=== PATIENT | male | born 1975 | race Caucasian/White ===

== ENCOUNTER 2020-01-15 16:43 | Emergency (ER) | payer OTHER, SELFPAY ==
[2020-01-15 17:06] VITALS: BP 132/84; PULSE 111; RESP 16; TEMP 36.4; O2SAT 99
--- NOTE | 2020-01-15 17:21 | ED.EYEPROB ---
HPI - Eye Problem General Chief complaint: Upper Respiratory Infection Stated complaint: pos pink eye/cough Time Seen by Provider: 01/15/20 17:21 Source: patient and RN notes reviewed Mode of arrival: ambulatory Limitations: no limitations History of Present Illness HPI Narrative: 44-year-old male presents with concern for left eye discharge, redness, itchiness. Also reports cough that started Tuesday. He denies fever, shortness of breath, malaise, chills, sweats, rhinorrhea, nasal congestion. Reports postnasal drainage. Denies travel, sick contacts. MD chief complaint: eye redness Related Data Home Medications Medication Instructions Recorded Confirmed dapagliflozin [Farxiga] 10 mg PO DAILY 01/15/20 01/15/20 escitalopram oxalate [Lexapro] 10 mg PO DAILY 01/15/20 01/15/20 insulin glargine [Basaglar KwikPen 50 unit SUBCUT DAILY 01/15/20 01/15/20 U-100 Insulin] liraglutide [Victoza 2-Paul] 1.2 mg SUBCUT DAILY 01/15/20 01/15/20 metformin [Glucophage] 1,000 mg PO BID 01/15/20 01/15/20 metoprolol tartrate [Lopressor] 100 mg PO BID 01/15/20 01/15/20 Allergies Allergy/AdvReac Type Severity Reaction Status Date / Time No Known Allergies Allergy Verified 01/15/20 17:14 Review of Systems Review of Systems: Narrative: CONSTITUTIONAL: Denies malaise, chills, sweats, or fever. EYES: Denies visual changes. Reports left eye redness, itchiness, discharge. ENT: Reports postnasal drainage. Denies rhinorrhea, congestion, sinus pain, otalgia and sore throat. CARDIOVASCULAR: Denies chest pain, palpitations, or edema. RESPIRATORY: Reports cough. Denies dyspnea. GASTROINTESTINAL: Denies abdominal pain, nausea, vomiting, diarrhea SKIN: Denies rash or itching. MUSCULOSKELETAL: Denies myalgia. NEUROLOGIC: Denies headache. All systems reviewed & are unremarkable except as noted in HPI and below PMFSH Social History Social History Gender identity (if verbalized by the patient): Male Comments At time of signature, agree with nursing past medical, surgical, social and family history. There is no relevant family history pertinent to the presenting complaint Exam Narrative: Exam Narrative: GENERAL: Well-appearing, well-nourished, and in no acute distress. HEAD: Normocephalic EYES: Right PERRLA, conjunctivae clear. Left conjunctive and sclera injected, green drainage noted, PERRLA, EOMI ENT: Nares clear, turbinates erythematous, clear discharge. Mucous membranes moist. TM pearly sibley with sharp light reflex bilaterally; no tragal tenderness. Oropharynx not erythematous without lesions. Tonsils not enlarged and without exudate, no drooling, no hoarseness, no trismus, uvula midline. NECK: Supple. No lymphadenopathy CHEST: Clear to auscultation, breath sounds equal. No wheezing, rhonchi, rales, or stridor. No respiratory distress, speaks in full sentences. HEART: Regular rate and rhythm. No murmur heard. SKIN: Warm, dry, no rash. NEURO: Alert and oriented x3. PSYCH: Normal mood and affect Course Course Emergency Course: Patient is aware of diagnosis, understands and agrees to treatment plan. Anticipatory guidance given. Patient agrees to follow-up as directed and is aware of reasons to seek care at the emergency department. Portions of this record may have been created with voice recognition software Vital Signs Vital signs: Vital Signs Temperature 97.6 F 01/15/20 17:06 Pulse Rate 111 H 01/15/20 17:06 Respiratory Rate 16 01/15/20 17:06 Blood Pressure 132/84 01/15/20 17:06 Pulse Oximetry 99 01/15/20 17:06 Temperature 97.6 F 01/15/20 17:06 Pulse Rate 111 H 01/15/20 17:06 Respiratory Rate 16 01/15/20 17:06 Blood Pressure 132/84 01/15/20 17:06 Pulse Oximetry 99 01/15/20 17:06 Your blood pressure was elevated above 120/80 today at [facility]. This puts you above the threshold for follow up. Please schedule a follow up visit with your personal physician as soon as possible, for further evaluation and tr
== END 2020-01-15 17:34 | disposition home or self-care (01) ==
PROVIDERS: Emergency Provider Nurse Practitioner; PCP Family Medicine
DX: R05 Cough (principal); H10.32 Unspecified acute conjunctivitis, left eye; E11.9 Type 2 diabetes mellitus without complications
CPT/HCPCS: 99213; G0463

== ENCOUNTER 2020-10-26 10:35 | Inpatient (IN) | payer OTHER, SELFPAY ==
[2020-10-26] VITALS (14 sets, daily range): BP systolic 104–165; BP diastolic 73–93; PULSE 104–135; RESP 19–28; TEMP 35.7–36.5; O2SAT 98–100; BMI 26.8
--- NOTE | ~2020-10-26 | XR_ITS ---
EXAMINATION: XR chest 1V portable EXAM DATE: 10/26/2020 11:05 INDICATION: Shortness of breath, COVID positive. TECHNIQUE: Portable AP frontal chest x-ray was obtained. Comparison is made to prior examination from 02/18/2016. FINDINGS: Small amount of left infrahilar infiltrate without confluent consolidation. The lungs are o therwise clear. There are no pleural effusions. The cardiomediastinal silhouette is within normal l imits. There is no pneumothorax suspected. The bones and soft tissues are unremarkable. IMPRESSION: Small amount of left infrahilar acute airspace disease. Reviewed, dictated and finalized at location [facility]
--- NOTE | 2020-10-26 10:36 | ED.SOB ---
HPI - SOB/Dyspnea General Chief Complaint: Shortness of Breath/Dyspnea Stated Complaint: covid +, sob/diarrhea Source: patient and EMS Mode of arrival: EMS Limitations: no limitations History of Present Illness HPI Narrative: Patient is a 45-year-old male with a history of type 1 diabetes, insulin-dependent, who presents for evaluation body aches, diarrhea, shortness of breath. Patient with known Covid diagnosis, confirmed on 10/22, who presents with worsening myalgias, vomiting, diarrhea. Patient denies fever. He reports diffuse body myalgias. He denies loss of sense of taste or smell. Patient states he was exposed to Covid through his sister. He denies any rash. Patient states his sugars have been poorly controlled over the past few days. He is denying any chest pain. He denies abdominal pain. Related Data Home Medications Medication Instructions Recorded Confirmed dapagliflozin [Farxiga] 10 mg PO DAILY 01/15/20 01/15/20 escitalopram oxalate [Lexapro] 10 mg PO DAILY 01/15/20 01/15/20 insulin glargine [Basaglar KwikPen 50 unit SUBCUT DAILY 01/15/20 01/15/20 U-100 Insulin] liraglutide [Victoza 2-Paul] 1.2 mg SUBCUT DAILY 01/15/20 01/15/20 metformin [Glucophage] 1,000 mg PO BID 01/15/20 01/15/20 metoprolol tartrate [Lopressor] 100 mg PO BID 01/15/20 01/15/20 Allergies Allergy/AdvReac Type Severity Reaction Status Date / Time No Known Allergies Allergy Verified 10/26/20 10:40 Review of Systems Review of Systems: Narrative: CONSTITUTIONAL: Denies fever, chills, or sweats. ENT: Denies rhinorrhea, congestion, sore throat, or otalgia. CARDIOVASCULAR: Denies chest pain, palpitations, or edema. RESPIRATORY: Denies cough or dyspnea. GASTROINTESTINAL: Denies abdominal pain, reports nausea, vomiting and diarrhea GENITOURINARY: Denies dysuria or hematuria. SKIN: Denies rash or itching. MUSCULOSKELETAL: Denies back pain, joint pain, reports diffuse myalgias NEUROLOGIC: Reports mild headache without PMFSH Past Medical History Medical History (Updated 10/26/20 @ 14:05 by Rebecca Hernandez PA-C) Hypertension Insulin dependent type 2 diabetes mellitus Social History Social History (Updated 10/26/20 @ 14:06 by Rebecca Hernandez PA-C) Social History: The patient lives in [place]. Nonsmoker. No alcohol or illicit substance abuse. He designates his mother, Dolly Laughlin, as his surrogate decision maker and he wishes to be a full code.. Smoking status: Never smoker Alcohol intake: never Substance use: never Living arrangements: with family Gender identity (if verbalized by the patient): Male Exam Narrative: Exam Narrative: GENERAL: Awake, alert, uncomfortable appearing, conversant HEAD: Normocephalic, atraumatic. EYES: PERRLA and EOMI. ENT: Nares clear, no rhinorrhea or epistaxis. Mucous membranes moist. NECK: Supple. CHEST: Tachypneic, lungs clear to auscultation bilaterally, no crackles HEART: Tachycardic rate, sinus rhythm ABDOMEN:Non distended, non tender EXTREMITIES: Normal range of motion. No edema. SKIN: Warm, dry, no rash. NEURO:No focal deficits. Alert and oriented x3 Course Vital Signs Vital signs: Vital Signs Temperature 35.7 C L 10/26/20 10:33 Pulse Rate 132 H 10/26/20 10:33 Respiratory Rate 28 H 10/26/20 10:33 Pulse Oximetry 99 10/26/20 10:33 Temperature 35.7 C L 10/26/20 10:33 Pulse Rate 133 H 10/26/20 13:29 Respiratory Rate 28 H 10/26/20 13:29 Blood Pressure 155/76 H 10/26/20 13:29 Pulse Oximetry 100 10/26/20 13:29 MDM - SOB/Dyspnea MDM Narrative Medical decision making narrative: Patient is a 45-year-old male who presented for evaluation of vomiting, shortness of breath in the setting of a known Covid diagnosis. The time of assessment, patient is tachycardic, tachypneic, afebrile. No hypoxia. Given symptoms I was concerned for possible Covid pneumonia versus PE versus DKA given the patient's elevated blood glucose levels. Laboratory resul
[2020-10-26 10:46] LABS: Glucose Point of Care 426 (65-105)
--- NOTE | 2020-10-26 10:50 | ECG_ITS ---
Measurements Intervals [place] Rate: 126 P: 104 NH: 163 QRS: 63 QRSD: 105 T: 32 QT: 307 QTc: 445 Interpretive Statements SINUS TACHYCARDIA PEAKED T WAVES- CONSIDER HYPERKALEMIA OR ISCHEMIA BASELINE ARTIFACT- I, II, III, AVR, AVL, AVF ABNORMAL ECG Electronically Signed On 10-26-2020 15:11:38 [facility]ILDCARE AIDE by Ramiro Villa D.O.
[2020-10-26] MEDS: ONDANSETRON INJ 4 MG/2 ML VIAL IV PUSH (11:00)
[2020-10-26] MEDS: MORPHINE SULFATE (*CRX) 4 MG/ML INJ IV PUSH (11:00)
[2020-10-26] MEDS: SODIUM CHLORIDE 0.9% IV 1,000 ML 999 ML IV CONT ×3 (11:00→15:04)
[2020-10-26 11:26] LABS: Alveolar/Arterial O2 Gradient 6.2 mmHg; Base Excess ABG -30.1 mEq/l (+/-2.0); Carboxyhemoglobin 0.3 % THb (0-2.0); Fractional Inspired Oxygen 21 %; HCO3 ABG 2.2 mEq/l (22.0-26.0); Methemoglobin ABG 0.4 %THb (0-1.5); Oxygen Saturation ABG 95.7 % (95.0-100.0); Oxyhemoglobin 96.7 % THb (90.0-100.0); PO2 ABG 129.2 mmHg (80.0-100.0); PO2 FiO2 Ratio Arterial Blood 6.15 %; Reduced Hemoglobin 2.6 %THb (0-5.0); Total Hemoglobin 16.1 g/dL (12.0-18.0)
[2020-10-26 11:27] LABS: Basophils Absolute Auto 0.1 K/mm3 (0.0-0.1); Basophils Percent Auto 0.4 % (0.2-1.2); Hematocrit 53.9 % (42.0-52.0); Hemoglobin 17.4 g/dL (14.0-18.0); Immature Granulocyte Percent A 2.1 % (0-0.5); Lymphocytes Absolute Auto 1.45 K/mm3 (0.9-3.2); Lymphocytes Percent Auto 10.3 % (18.3-44.2); Mean Corpuscular HGB Conc 32.3 g/dl (32-36); Mean Corpuscular Hemoglobin 29.4 pg (26-34); Mean Corpuscular Volume 91.2 fl (80-100); Mean Platelet Volume 10.2 fl (7.4-10.4); Monocytes Percent Auto 7.3 % (2.6-8.5); Neutrophils Absolute Auto 11.2 K/mm3 (1.3-6.7); Neutrophils Percent Auto 79.9 % (45.5-73.1); Platelet Count Result 279 k/mm3 (150-375); Red Blood Count 5.91 M/mm3 (4.6-6.20); Red Cell Distribution Width 11.6 % (11.5-14.5); White Blood Count 14.1 K/mm3 (4.5-10.0)
[2020-10-26 11:28] LABS: pH ABG 6.874 (7.350-7.450)
[2020-10-26 11:29] LABS: Device ROOM AIR; Site Drawn LEFT BRACHIAL
[2020-10-26 11:32] LABS: Alanine Aminotransferase 21 U/L (4-50); Albumin Level 4.2 g/dL (3.5-5.1); Alkaline Phosphatase 138 U/L (38-126); Aspartate Amino Transferase 27 U/L (17-59); Bilirubin,Total 0.4 mg/dL (0.2-1.3); Blood Urea Nitrogen 21 mg/dL (9-20); Calcium 9.3 mg/dL (8.4-10.2); Carbon Dioxide < 5 mmol/L (22-30); Chloride 96 mmol/L (98-107); Estimated CRCL calculation 80 ml/min; Estimated Glomerular Filt Rate > 60; Glucose 440 mg/dL (75-110); Magnesium 2.1 mg/dL (1.6-2.3); Phosphorus 8.2 mg/dL (2.5-4.5); Potassium 5.5 mmol/L (3.4-5.0); Sodium 131 mmol/L (137-145)
[2020-10-26 11:34] LABS: Lactic Acid Reflex 5.2 mmol/L (0.7-2.1)
[2020-10-26] MEDS: SODIUM BICARBONATE 8.4% 50 MEQ/50 ML SYRINGE IV PUSH ×3 (12:02→15:04)
[2020-10-26] MEDS: INSULIN HUMAN REGULAR (*BKC) 100 UNITS/ML 9 UNITS IV PUSH (12:10)
[2020-10-26] MEDS: INSULIN HUMAN REGULAR (*BKC) 100 UNITS in SODIUM CHLORIDE 0.9% IV 99 ML 7.6 UNITS IV CONT (12:10)
[2020-10-26 13:06] LABS: Glucose Point of Care 392 (65-105)
[2020-10-26 13:20] LABS: Add Urine Microscopic? YES; Appearance Urine Clear (Clear); Bacteria Urine Trace /hpf; Bilirubin Urine Negative (Negative); Blood Urine 1+ (Negative); Color Urine Straw (Yellow); Glucose Urine UA 3+ mg/dL (Negative); Ketones Urine 2+ mg/dL (Negative); Leukocyte Esterase Ur Negative LEU/UL (Negative); Mucus Urine Rare /lpf; Nitrate Urine Negative (Negative); Protein Urine 2+ mg/dL (Negative); RBC Urine 0-2 /hpf (0-2); Specific Grav Ur 1.023 (1.001-1.035); Squamous Epithelial Cell Urine Rare /hpf (Few); Urobilinogen Urine Negative mg/dL (<2.0); WBC Urine 0-3 /hpf
[2020-10-26 14:01] LABS: Alveolar/Arterial O2 Gradient 23.4 mmHg; Base Excess ABG -27.8 mEq/l (+/-2.0); Carboxyhemoglobin 0.4 % THb (0-2.0); Fractional Inspired Oxygen 21 %; HCO3 ABG 2.5 mEq/l (22.0-26.0); Methemoglobin ABG 0.4 %THb (0-1.5); Oxygen Content ABG 23.1 %vol (16.0-22.0); Oxygen Saturation ABG 95.1 % (95.0-100.0); Oxyhemoglobin 96.7 % THb (90.0-100.0); PO2 ABG 112.7 mmHg (80.0-100.0); PO2 FiO2 Ratio Arterial Blood 5.37 %; Reduced Hemoglobin 2.5 %THb (0-5.0); Total Hemoglobin 16.9 g/dL (12.0-18.0)
[2020-10-26 14:03] LABS: Device ROOM AIR; PCO2 ABG 11.4 mmHg (35.0-45.0); Site Drawn LEFT BRACHIAL; pH ABG 6.958 (7.350-7.450)
[2020-10-26 14:13] LABS: Glucose Point of Care 389 (65-105)
[2020-10-26 14:17] LABS: Reflex Lactic Acid Yes or No Add Lactic
--- NOTE | 2020-10-26 14:45 | PM.IMHP ---
H&P: HPI History of Present Illness Date/Time: 10/26/20 14:45 Chief Complaint: Shortness of breath. Narrative: Pavel Laughlin is a 45-year-old male with insulin-dependent type 2 diabetes mellitus and hypertension who presented to the emergency department earlier today via private vehicle from home with complaints of shortness of breath. He has been feeling unwell for approximately 8 days and was recently diagnosed with COVID-19. Symptoms include body aches, generalized malaise, occasional dry cough, and shortness of breath. More recently he has had nausea, vomiting, and occasional loose stools. This morning he was much more short of breath prompting him to come in for evaluation. He was found to be profoundly acidotic and in diabetic ketoacidosis and is being admitted in this setting. He remains short of breath at the time my evaluation but has no specific complaints. He has not had recent fever and denies headache, sinus congestion, rhinorrhea, otalgia, and odynophagia. Review of Systems Review of Systems: Narrative: Twelve systems were reviewed with pertinent positives and negatives as per HPI. Reports some lightheadedness earlier today. Vision has been slightly blurry due to hyperglycemia, and patient notes that his glucose has been in the 200s to 300s over the last several days. He has been very thirsty. No anosmia and dysgeusia. No dysuria. Except as documented, all other systems were reviewed and are negative. [facility] Past Medical History Medical History (Updated 10/26/20 @ 19:08 by Rebecca Hernandez PA-C) Depression History of kidney stones Hypertension Insulin dependent type 2 diabetes mellitus Hemoglobin A1c on 10/26/2020 was 12.4%. Surgical History Surgical History (Updated 10/26/20 @ 19:08 by Rebecca Hernandez PA-C) No history of previous surgery Family History Family History Father Diabetes type 2, uncontrolled Social History Social History (Updated 10/26/20 @ 19:09 by Rebecca Hernandez PA-C) Social History: The patient lives in [place] with his winstone and their children. His 1st about 5 years ago. Nonsmoker. No alcohol or illicit substance abuse. He designates his fiancee, Estefania Younger, as his surrogate decision maker and he wishes to be a full code.. Spiritual care concerns: No Meds Home Medications and Allergies Home Medications Medication Instructions Recorded Confirmed Type dapagliflozin [Farxiga] 10 mg PO DAILY 01/15/20 10/26/20 History escitalopram oxalate [Lexapro] 10 mg PO DAILY 01/15/20 10/26/20 History insulin glargine [Basaglar KwikPen 50 unit SUBCUT DAILY 01/15/20 10/26/20 History U-100 Insulin] liraglutide [Victoza 2-Paul] 1.2 mg SUBCUT DAILY 01/15/20 10/26/20 History metformin [Glucophage] 1,000 mg PO BID 01/15/20 10/26/20 History metoprolol tartrate [Lopressor] 100 mg PO BID 01/15/20 10/26/20 History Allergies Allergy/AdvReac Type Severity Reaction Status Date / Time No Known Allergies Allergy Verified 10/26/20 10:40 Vital Signs Vital Signs - 24 hr 10/26/20 10:33 10/26/20 10:42 10/26/20 10:56 Temperature 96.2 F L Pulse Rate 132 H 121 H Respiratory Rate 28 H Blood Pressure 153/93 H Pulse Oximetry 99 10/26/20 11:26 10/26/20 12:15 10/26/20 13:29 Temperature Pulse Rate 122 H 132 H 133 H Respiratory Rate 25 H 28 H 28 H Blood Pressure 132/92 H 165/89 H 155/76 H Pulse Oximetry 100 100 100 Exam Narrative: Exam Narrative: General: Acutely ill-appearing male in the semi recumbent position. Weight 94.8 kg. BMI: 26.8. HEENT: PERRL, EOMI. Sclerae anicteric. Tacky mucous membranes. Neck: Supple. No JVD or lymphadenopathy. Respiratory: Kussmaul's respirations. Lungs are clear to auscultation bilaterally. Cardiovascular: Tachycardic with S1-S2. Telemetry consistent with sinus tachycardia. No murmur. Gastrointestinal: Abdomen is soft and no
[2020-10-26] MEDS: PANTOPRAZOLE SODIUM IV 40 MG VIAL IV PUSH (14:47)
[2020-10-26] MEDS: SODIUM CHLORIDE 0.9% IV 1,000 ML 150 ML IV CONT (14:47)
--- NOTE | 2020-10-26 15:28 | ADMGEN ---
This patient, Pavel Laughlin, was admitted to Intensive Care Unit-11. Patient/family oriented to hospital policies and general routines including ID bracelet, bed and alarms, visiting hours, pain management, procedures, bathroom and other care routines, personal items, smoking policy, room service/diet, and visiting hours. Information on how to activate the Rapid Response Team has been discussed. Patient/Family are encouraged to report perceived risks to care and to ask questions if they do not understand what they are told or what they should do.
[2020-10-26 15:30] LABS: Hemoglobin A1C 12.4 % (<5.7)
[2020-10-26 15:34] LABS: Lactic Acid Reflex 2.7 mmol/L (0.7-2.1)
[2020-10-26 15:37] LABS: Blood Urea Nitrogen 20 mg/dL (9-20); CRP 1.2 mg/dL (<1.0); Calcium 8.3 mg/dL (8.4-10.2); Carbon Dioxide < 5 mmol/L (22-30); Chloride 103 mmol/L (98-107); Estimated CRCL calculation 95 ml/min; Estimated Glomerular Filt Rate > 60; Glucose 368 mg/dL (75-110); Magnesium 2.1 mg/dL (1.6-2.3); Phosphorus 5.6 mg/dL (2.5-4.5); Potassium 4.9 mmol/L (3.4-5.0); Sodium 135 mmol/L (137-145)
[2020-10-26 18:05] LABS: Glucose Point of Care 334 (65-105)
[2020-10-26 18:05] LABS: Glucose Point of Care 371 (65-105)
[2020-10-26 18:05] LABS: Glucose Point of Care 259 (65-105)
[2020-10-26 18:05] LABS: Glucose Point of Care 322 (65-105)
[2020-10-26] MEDS: INSULIN HUMAN REGULAR (*BKC) 100 UNITS in SODIUM CHLORIDE 0.9% IV 99 ML 15.9 UNITS IV CONT (18:50)
[2020-10-26 19:10] LABS: Anion Gap 19 mmol/L (8-16); Blood Urea Nitrogen 17 mg/dL (9-20); Calcium 7.8 mg/dL (8.4-10.2); Carbon Dioxide 7 mmol/L (22-30); Chloride 107 mmol/L (98-107); Estimated CRCL calculation 117 ml/min; Estimated Glomerular Filt Rate > 60; Glucose 250 mg/dL (75-110); Potassium 4.4 mmol/L (3.4-5.0); Sodium 133 mmol/L (137-145)
[2020-10-26] MEDS: KCL 20 MEQ/D5/0.45% SOD CHL 1,000 ML 150 ML IV CONT (19:48)
[2020-10-26 20:00] LABS: Glucose Point of Care 195 (65-105)
[2020-10-26] MEDS: METOPROLOL TARTRATE 50 MG TAB 100 MG PO (20:53)
[2020-10-26 21:01] LABS: Glucose Point of Care 199 (65-105)
[2020-10-26 22:01] LABS: Glucose Point of Care 183 (65-105)
[2020-10-26 22:58] LABS: Glucose Point of Care 165 (65-105)
[2020-10-26 23:19] LABS: Anion Gap 9 mmol/L (8-16); Blood Urea Nitrogen 15 mg/dL (9-20); Calcium 7.2 mg/dL (8.4-10.2); Carbon Dioxide 13 mmol/L (22-30); Chloride 112 mmol/L (98-107); Estimated CRCL calculation 132 ml/min; Estimated Glomerular Filt Rate > 60; Glucose 172 mg/dL (75-110); Potassium 3.8 mmol/L (3.4-5.0); Sodium 134 mmol/L (137-145)
[2020-10-27] VITALS (12 sets, daily range): BP systolic 107–125; BP diastolic 64–77; PULSE 86–112; RESP 16–30; TEMP 36.6–37.4; O2SAT 97–100; BMI 27.5
[2020-10-27 01:10] LABS: Glucose Point of Care 154 (65-105)
[2020-10-27 02:03] LABS: Glucose Point of Care 166 (65-105)
[2020-10-27 02:03] LABS: Glucose Point of Care 141 (65-105)
[2020-10-27] MEDS: INSULIN HUMAN REGULAR (*BKC) 100 UNITS in SODIUM CHLORIDE 0.9% IV 99 ML 8.9 UNITS IV CONT (02:36)
[2020-10-27] MEDS: KCL 20 MEQ/D5/0.45% SOD CHL 1,000 ML 150 ML IV CONT ×2 (02:36→09:42)
[2020-10-27 02:52] LABS: Glucose Point of Care 123 (65-105)
[2020-10-27 03:44] LABS: Anion Gap 5 mmol/L (8-16); Blood Urea Nitrogen 16 mg/dL (9-20); Carbon Dioxide 19 mmol/L (22-30); Chloride 109 mmol/L (98-107); Estimated CRCL calculation 132 ml/min; Estimated Glomerular Filt Rate > 60; Glucose 127 mg/dL (75-110); Potassium 3.9 mmol/L (3.4-5.0); Sodium 133 mmol/L (137-145)
[2020-10-27 04:12] LABS: Glucose Point of Care 119 (65-105)
[2020-10-27 05:46] LABS: Glucose Point of Care 142 (65-105)
[2020-10-27 06:15] LABS: Glucose Point of Care 148 (65-105)
[2020-10-27] MEDS: ACETAMINOPHEN 325 MG TABLET 650 MG PO (06:41)
[2020-10-27 06:57] LABS: Glucose Point of Care 142 (65-105)
[2020-10-27 06:58] LABS: Basophils Percent Auto 0.1 % (0.2-1.2); Hematocrit 38.2 % (42.0-52.0); Hemoglobin 13.6 g/dL (14.0-18.0); Immature Granulocyte Absolute 0.05 K/mm3 (0.00-0.031); Immature Granulocyte Percent A 0.7 % (0-0.5); Lymphocytes Absolute Auto 0.83 K/mm3 (0.9-3.2); Lymphocytes Percent Auto 12.1 % (18.3-44.2); Mean Corpuscular HGB Conc 35.6 g/dl (32-36); Mean Corpuscular Hemoglobin 29.1 pg (26-34); Mean Corpuscular Volume 81.8 fl (80-100); Mean Platelet Volume 8.8 fl (7.4-10.4); Monocytes Absolute Auto 0.7 K/mm3 (0.1-0.6); Monocytes Percent Auto 10.2 % (2.6-8.5); Neutrophils Absolute Auto 5.3 K/mm3 (1.3-6.7); Neutrophils Percent Auto 76.9 % (45.5-73.1); Platelet Count Result 179 k/mm3 (150-375); Red Blood Count 4.67 M/mm3 (4.6-6.20); Red Cell Distribution Width 11.7 % (11.5-14.5); White Blood Count 6.8 K/mm3 (4.5-10.0)
[2020-10-27 07:15] LABS: Alanine Aminotransferase 12 U/L (4-50); Albumin Level 2.9 g/dL (3.5-5.1); Alkaline Phosphatase 75 U/L (38-126); Anion Gap 6 mmol/L (8-16); Aspartate Amino Transferase 20 U/L (17-59); Bilirubin,Total 0.3 mg/dL (0.2-1.3); Blood Urea Nitrogen 15 mg/dL (9-20); Calcium 8.1 mg/dL (8.4-10.2); Carbon Dioxide 21 mmol/L (22-30); Chloride 107 mmol/L (98-107); Estimated CRCL calculation 117 ml/min; Estimated Glomerular Filt Rate > 60; Glucose 127 mg/dL (75-110); Magnesium 1.7 mg/dL (1.6-2.3); Potassium 3.6 mmol/L (3.4-5.0); Sodium 134 mmol/L (137-145)
[2020-10-27] MEDS: ENOXAPARIN 40 MG/0.4 ML SYRINGE SUB-Q (08:15)
[2020-10-27] MEDS: METOPROLOL TARTRATE 50 MG TAB 100 MG PO ×2 (08:16→21:27)
--- NOTE | 2020-10-27 08:16 | PM.IMPN ---
Progress Note: A&P Assessment and Plan (1) Diabetic ketoacidosis associated with type 2 diabetes mellitus: Code(s): E11.10 - Type 2 diabetes mellitus with ketoacidosis without coma Status: Acute (2) COVID-19: Code(s): U07.1 - COVID-19 Status: Acute (3) Pneumonia: Code(s): J18.9 - Pneumonia, unspecified organism Status: Acute (4) Metabolic acidosis: Code(s): E87.2 - Acidosis Status: Acute (5) Electrolyte abnormality: Code(s): E87.8 - Other disorders of electrolyte and fluid balance, not elsewhere classified Status: Acute (6) Insulin dependent type 2 diabetes mellitus: Code(s): E11.9 - Type 2 diabetes mellitus without complications; Z79.4 - assisted (current) use of insulin Status: Acute (7) Hypertension: Code(s): I10 - Essential (primary) hypertension Status: Inactive Additional Plan The patient has been admitted to the hospitalist service with Dr. Castillo (critical care) consulting for management of diabetic ketoacidosis. He was recently diagnosed with COVID-19. Patient electrolytes somewhat better now. Patient WBC count is normal. Plan is to continue current plan of care and treatment and monitor electrolytes and repeat chest x-ray. Subjective Date/time seen: 10/27/20 08:16 Interval history: Patient was seen during the morning rounds today. Patient is feeling slightly better. No shortness of breath or chest pain. No nausea vomiting or diarrhea. Mood stable. Review of Systems Review of Systems: All systems reviewed & are unremarkable except as noted in HPI and below (the history and physical exam) Exam Narrative: Exam Narrative: General: Acutely ill-appearing male in the semi recumbent position. Weight 94.8 kg. BMI: 26.8. HEENT: PERRL, EOMI. Sclerae anicteric. Tacky mucous membranes. Neck: Supple. No JVD or lymphadenopathy. Respiratory: Kussmaul's respirations. Lungs are clear to auscultation bilaterally. Cardiovascular: Tachycardic with S1-S2. Telemetry consistent with sinus tachycardia. No murmur. Gastrointestinal: Abdomen is soft and nondistended with positive bowel sounds. He is tender to palpation in the right lower quadrant more towards the midline. No voluntary guarding or rebound tenderness. Skin: Warm and dry. No rash or lesions on limited exam. Extremities: No cyanosis, clubbing, or edema. Radial and pedal pulses intact. Neurological: Alert. Cranial nerves 2-12 are grossly intact. No gross focal deficits to casual conversation. Psychiatric: Appropriate mood and affect. Objective Data Vital Signs Vital Signs: Vital Signs - 24 hr 10/26/20 10:33 10/26/20 10:42 10/26/20 10:56 Temperature 35.7 C L Pulse Rate 132 H 121 H Respiratory Rate 28 H Blood Pressure 153/93 H Pulse Oximetry 99 10/26/20 11:26 10/26/20 12:15 10/26/20 13:29 Temperature Pulse Rate 122 H 132 H 133 H Respiratory Rate 25 H 28 H 28 H Blood Pressure 132/92 H 165/89 H 155/76 H Pulse Oximetry 100 100 100 10/26/20 14:14 10/26/20 14:40 10/26/20 15:37 Temperature Pulse Rate 135 H 135 H 132 H Respiratory Rate 26 H Blood Pressure 143/77 H 143/77 H Pulse Oximetry 99 100 10/26/20 16:00 10/26/20 17:58 10/26/20 20:00 Temperature 36.5 C Pulse Rate 130 H 122 H 117 H Respiratory Rate 20 23 H Blood Pressure 120/75 122/78 Pulse Oximetry 98 99 10/26/20 20:53 10/26/20 22:00 10/27/20 00:00 Temperature 36.9 C Pulse Rate 115 H 104 H 101 H Respiratory Rate 19 22 H Blood Pressure 104/73 109/75 Pulse Oximetry 98 99 10/27/20 02:00 10/27/20 04:00 10/27/20 06:00 Temperature 37.2 C Pulse Rate 99 102 H 104 H Respiratory Rate 20 20 25 H Blood Pressure 108/73 109/76 114/73 Pulse Oximetry 97 98 99 10/27/20 08:00 Temperature 36.6 C Pulse Rate 103 H Respiratory Rate 20 Blood Pressure 116/77 Pulse Oximetry 99 Intake/Output Intake/Output: Intake & Output 10/24/20 10/25/20 10/26/20 12
[2020-10-27] MEDS: PANTOPRAZOLE SODIUM IV 40 MG VIAL IV PUSH (08:17)
[2020-10-27 08:32] LABS: Glucose Point of Care 83 (65-105)
[2020-10-27 09:56] LABS: Glucose Point of Care 105 (65-105)
[2020-10-27 10:24] LABS: Anion Gap 6 mmol/L (8-16); Blood Urea Nitrogen 14 mg/dL (9-20); Calcium 8.2 mg/dL (8.4-10.2); Carbon Dioxide 19 mmol/L (22-30); Chloride 108 mmol/L (98-107); Estimated CRCL calculation 132 ml/min; Estimated Glomerular Filt Rate > 60; Glucose 123 mg/dL (75-110); Potassium 3.8 mmol/L (3.4-5.0); Sodium 133 mmol/L (137-145)
[2020-10-27] MEDS: INSULIN GLARGINE (*BKC) 100 UNITS/ML 60 UNITS SUB-Q (10:45)
[2020-10-27] MEDS: metFORMIN HCL 500 MG TABLET 1000 MG PO ×2 (10:46→16:08)
[2020-10-27 10:49] LABS: Lactate Dehydrogenase 566 U/L (313-618)
--- NOTE | 2020-10-27 13:04 | WPDCNINT ---
Assessment and Plan Assessment and plan (1) Diabetic ketoacidosis associated with type 2 diabetes mellitus: Code(s): E11.10 - Type 2 diabetes mellitus with ketoacidosis without coma Status: Acute Assessment and Plan: Patient presented with nausea, vomiting, diarrhea which probably put him into DKA, was given 4 L of IV fluids, started on insulin infusion per DKA protocol.-gap this morning closed, patient was transition to long-acting insulin and sliding scale insulin. -will start diabetic diet -nutrition and wellness educator to evaluate the patient -hemoglobin A1c is 12 0.4 this admission -patient does not see an crankshaft balancer, his diabetes is being controlled/treated by his primary care doctor (2) Severe sepsis: Code(s): A41.9 - Sepsis, unspecified organism; R65.20 - Severe sepsis without septic shock Status: Acute Assessment and Plan: Patient with tachypnea, lactic acidosis, tachycardia likely related to severe DKA, dehydration from nausea, vomiting and diarrhea -resolved -patient was started on ceftriaxone, vancomycin -blood cultures negative x2 so far, will DC antibiotics (3) COVID-19: Code(s): U07.1 - COVID-19 Status: Acute Assessment and Plan: Patient tested positive COVID-19 on 10/22/2020 -on room air O2 sats 98-100% Additional Plan Discussed with patient updated with his condition and plan of care. I did discuss with him regarding following up with an crankshaft balancer as his hemoglobin A1c is elevated and requiring multiple medications. He also needs to check his sugars on a regular basis as suggested by his PCP Code status: Full code Critical care time spent: 43 minutes Due to a high probability of clinically significant, life threatening deterioration, the patient required my highest level of preparedness to intervene emergently and I personally spent this critical care time directly and personally managing the patient. This critical care time included obtaining a history; examining the patient; pulse oximetry; ordering and review of studies; arranging urgent treatment with development of a management plan; evaluation of patient's response to treatment; frequent reassessment; and discussions with other providers. It was exclusive of separately billable procedures and treating other patients and teaching time. Please see Assessment and Plan section and the rest of the note for further information on patient assessment and treatment Cnc Wood Lathe Operator Consult Note Consult date: 10/27/20 Time Seen: 07:11 Reason for consult: Diabetic ketoacidosis, positive COVID-19 HPI: Pavel Laughlin is a 45 year old male with past medical history of depression, kidney stones, hypertension, type 2 diabetes presented the ED with complains of shortness of breath, feeling unwell for approximately a week. Patient was recently diagnosed with COVID-19. Patient complained of generalized body aches malaise, occasional dry cough and shortness of breath. He also had nausea, vomiting and diarrhea for 3 days. In the ER patient was found to be in severe DKA with severe metabolic acidosis with pH of 6.8. Patient was given a total of 4 L of IV fluids including ER and ICU. Patient was also tachycardic, tachypneic. Patient was started on insulin infusion per DKA protocol and transferred to the ICU for further management Patient seen and examined this morning, anion gap is closed, metabolic acidosis has improved. Insulin infusion was stopped his blood sugars were low. Patient was transition to long-acting insulin, sliding scale insulin and home medications. Patient denies any nausea, vomiting, abdominal pain. Denies any chest pain, shortness of breath, diarrhea. Hemodynamically stable with adequate urine output and afebrile -patient denies any alcohol use, tobacco use or illicit drug use Review of Systems Review of Systems: All systems reviewed & are unremarkable except as noted in HPI and below PMFSH
[2020-10-27] MEDS: INSULIN ASPART (*BKC) 100 UNITS/ML SUB-Q (16:12)
[2020-10-27 16:17] LABS: Glucose Point of Care 262 (65-105)
--- NOTE | 2020-10-27 18:07 | ADMGEN ---
This patient, Pavel Laughlin, was admitted to [facility] Surg Room 313-01. Patient/family oriented to hospital policies and general routines including ID bracelet, bed and alarms, visiting hours, pain management, procedures, bathroom and other care routines, personal items, smoking policy, room service/diet, and visiting hours. Information on how to activate the Rapid Response Team has been discussed. Patient/Family are encouraged to report perceived risks to care and to ask questions if they do not understand what they are told or what they should do.
--- NOTE | 2020-10-27 18:29 | PC.NURSE ---
This patient, Pavel Laughlin, was transferred to [facility] on 10/27/20 at 1758. Personal belongings sent with patient. Report given to Dorothy ANDERS. Appropriate documentation sent with patient.
[2020-10-27 21:39] LABS: Glucose Point of Care 239 (65-105)
[2020-10-28] VITALS (11 sets, daily range): BP systolic 113–133; BP diastolic 66–86; PULSE 94–105; RESP 14–20; TEMP 37.2–39.2; O2SAT 95–99
[2020-10-28 04:49] LABS: Vancomycin Trough < 5.0 ug/mL (10.0-20.0)
[2020-10-28 08:30] LABS: Glucose Point of Care 220 (65-105)
[2020-10-28] MEDS: METOPROLOL TARTRATE 50 MG TAB 100 MG PO ×2 (09:04→21:23)
[2020-10-28] MEDS: ENOXAPARIN 40 MG/0.4 ML SYRINGE SUB-Q (09:04)
[2020-10-28] MEDS: metFORMIN HCL 500 MG TABLET 1000 MG PO ×2 (09:04→17:37)
[2020-10-28] MEDS: PANTOPRAZOLE SODIUM IV 40 MG VIAL IV PUSH (09:05)
[2020-10-28] MEDS: INSULIN GLARGINE (*BKC) 100 UNITS/ML 60 UNITS SUB-Q (09:10)
[2020-10-28] MEDS: INSULIN ASPART (*BKC) 100 UNITS/ML SUB-Q ×3 (09:12→17:37)
[2020-10-28 12:03] LABS: Glucose Point of Care 228 (65-105)
[2020-10-28] MEDS: ACETAMINOPHEN 325 MG TABLET 650 MG PO ×3 (12:05→21:24)
--- NOTE | 2020-10-28 15:33 | PM.IMPN ---
Progress Note: A&P Assessment and Plan (1) Diabetic ketoacidosis associated with type 2 diabetes mellitus: Code(s): E11.10 - Type 2 diabetes mellitus with ketoacidosis without coma Status: Acute (2) COVID-19: Code(s): U07.1 - COVID-19 Status: Acute (3) Pneumonia: Code(s): J18.9 - Pneumonia, unspecified organism Status: Acute (4) Metabolic acidosis: Code(s): E87.2 - Acidosis Status: Acute (5) Electrolyte abnormality: Code(s): E87.8 - Other disorders of electrolyte and fluid balance, not elsewhere classified Status: Acute (6) Insulin dependent type 2 diabetes mellitus: Code(s): E11.9 - Type 2 diabetes mellitus without complications; Z79.4 - [facility] (current) use of insulin Status: Acute (7) Hypertension: Code(s): I10 - Essential (primary) hypertension Status: Inactive Subjective Date/time seen: 45-year-old male with insulin-dependent type 2 diabetes mellitus and hypertension who presented to the emergency department earlier today via private vehicle from home with complaints of shortness of breath. He has been feeling unwell for approximately 8 days and was recently diagnosed with COVID-19. still has fever better with tylenol and ice packs. on RA Review of Systems Review of Systems: All systems reviewed & are unremarkable except as noted in HPI and below Exam Narrative: Exam Narrative: General: pleasant well apart from flushing HEENT: PERRL, EOMI. Neck: Supple. No JVD or lymphadenopathy. Respiratory: normal effort. Cardiovascular: Tachycardic with S1-S2. Gastrointestinal: Abdomen is soft and nondistended with positive bowel sounds. Skin: Warm and dry. No rash or lesions on limited exam. Extremities: No cyanosis, clubbing, or edema. Radial and pedal pulses intact. Neurological: Alert. Cranial nerves 2-12 are grossly intact. No gross focal deficits to casual conversation. Psychiatric: Appropriate mood and affect. Objective Data Vital Signs Vital Signs: Vital Signs - 24 hr 10/27/20 16:00 10/27/20 18:05 10/27/20 20:00 Temperature 36.9 C 37.4 C 37.3 C Pulse Rate 112 H 108 H 104 H Respiratory Rate 30 H 16 20 Blood Pressure 111/70 116/64 125/73 Pulse Oximetry 100 100 97 12/28/20 21:27 10/28/20 00:00 10/28/20 04:00 Temperature 37.2 C 37.7 C H Pulse Rate 86 105 H 95 Respiratory Rate 20 20 Blood Pressure 123/70 122/72 Pulse Oximetry 97 96 10/28/20 08:00 10/28/20 09:36 10/28/20 12:00 Temperature 37.5 C 39.2 C H Pulse Rate 96 94 101 H Respiratory Rate 18 18 18 Blood Pressure 113/70 122/69 Pulse Oximetry 99 96 98 10/28/20 12:05 Temperature 39.2 C H Pulse Rate Respiratory Rate Blood Pressure Pulse Oximetry Intake/Output Intake/Output: Intake & Output 10/25/20 10/26/20 10/27/20 10/28/20 23:59 23:59 23:59 23:59 Intake Total 3900 4325 1260 Output Total 850 2300 Balance 3050 2025 1260 Meds/Results Medications: Active Medications Generic Name Dose Route Start Last Admin Trade Name Freq PRN Reason Stop Dose Admin Acetaminophen 650 mg 10/27/20 06:24 10/28/20 12:05 Acetaminophen 325 Mg Tablet PO 650 mg Q6H PRN Administration Mild Pain (1-3) or Fever Albuterol 2 puff 10/26/20 14:13 Albuterol Sulfate (*Sp) Aerosol 1 Puff INHALATION QIDRT PRN Shortness Of Breath Dextrose 12.5 gm 10/26/20 14:20 Dextrose 50% 25 Gm/50 Ml Syringe IV PUSH PRN PRN Hypoglycemia Protocol Dextrose 12.5 gm 10/27/20 08:19 Dextrose 50% 25 Gm/50 Ml Syringe IV PUSH PRN PRN Hypoglycemia Protocol Enoxaparin Sodium 40 mg 10/27/20 09:00 10/28/20 09:04 Enoxaparin 40 Mg/0.4 Ml Syringe SUB-Q 40 mg DAILY SANCHEZ Administration Glucagon 1 mg 10/27/20 08:19 Glucagon For Inj 1 Mg Vial IM PRN PRN Hypoglycemia Protocol Glucose 15 gm 10/27/20 08:19 Glucose Oral Gel 15 Gm Of Glucse In 37.5 Gm Tube PO
[2020-10-28 17:04] LABS: Glucose Point of Care 327 (65-105)
[2020-10-28 21:14] LABS: Glucose Point of Care 248 (65-105)
[2020-10-29] VITALS (9 sets, daily range): BP systolic 116–138; BP diastolic 72–87; PULSE 69–99; RESP 12–20; TEMP 36.6–37.6; O2SAT 94–98
[2020-10-29 08:15] LABS: Glucose Point of Care 217 (65-105)
[2020-10-29] MEDS: INSULIN GLARGINE (*BKC) 100 UNITS/ML 60 UNITS SUB-Q (08:54)
[2020-10-29] MEDS: INSULIN ASPART (*BKC) 100 UNITS/ML SUB-Q ×3 (08:55→17:43)
[2020-10-29] MEDS: METOPROLOL TARTRATE 50 MG TAB 100 MG PO ×2 (08:56→20:49)
[2020-10-29] MEDS: metFORMIN HCL 500 MG TABLET 1000 MG PO ×2 (08:56→17:43)
[2020-10-29] MEDS: ENOXAPARIN 40 MG/0.4 ML SYRINGE SUB-Q (08:56)
[2020-10-29] MEDS: PANTOPRAZOLE SODIUM IV 40 MG VIAL IV PUSH (08:57)
[2020-10-29 12:22] LABS: Glucose Point of Care 223 (65-105)
[2020-10-29 14:01] LABS: Procalcitonin 0.64 ng/mL (<0.10)
--- NOTE | 2020-10-29 14:38 | PM.IMPN ---
Progress Note: A&P Assessment and Plan (1) Diabetic ketoacidosis associated with type 2 diabetes mellitus: Code(s): E11.10 - Type 2 diabetes mellitus with ketoacidosis without coma Status: Acute (2) COVID-19: Code(s): U07.1 - COVID-19 Status: Acute (3) Pneumonia: Code(s): J18.9 - Pneumonia, unspecified organism Status: Acute (4) Metabolic acidosis: Code(s): E87.2 - Acidosis Status: Acute (5) Electrolyte abnormality: Code(s): E87.8 - Other disorders of electrolyte and fluid balance, not elsewhere classified Status: Acute (6) Insulin dependent type 2 diabetes mellitus: Code(s): E11.9 - Type 2 diabetes mellitus without complications; Z79.4 - [facility] (current) use of insulin Status: Acute (7) Hypertension: Code(s): I10 - Essential (primary) hypertension Status: Inactive Subjective Date/time seen: 10/29/20 14:38 Interval history: 45-year-old male with insulin-dependent type 2 diabetes mellitus and hypertension who presented to the emergency department earlier today via private vehicle from home with complaints of shortness of breath. He has been feeling unwell for approximately 9 days and was recently diagnosed with COVID-19. still has fever yesterday around 9 pm otherwise is doing well, not needing any oxygen. Review of Systems Review of Systems: All systems reviewed & are unremarkable except as noted in HPI and below Exam Narrative: Exam Narrative: General: pleasant well apart from flushing HEENT: PERRL, EOMI. Neck: Supple. No JVD or lymphadenopathy. Respiratory: normal effort. Extremities: No cyanosis, clubbing, or edema. Radial and pedal pulses intact. Neurological: Alert. Cranial nerves 2-12 are grossly intact. No gross focal deficits to casual conversation. Psychiatric: Appropriate mood and affect. Objective Data Vital Signs Vital Signs: Vital Signs - 24 hr 10/28/20 16:00 10/28/20 16:35 10/28/20 20:00 Temperature 37.5 C 37.5 C 38.3 C H Pulse Rate 105 H 100 Respiratory Rate 18 14 Blood Pressure 120/66 133/86 Pulse Oximetry 98 95 10/28/20 21:23 10/28/20 21:24 10/29/20 00:00 Temperature 38.3 C H 37.6 C Pulse Rate 100 99 Respiratory Rate 14 Blood Pressure 129/78 Pulse Oximetry 94 10/29/20 00:34 10/29/20 04:00 10/29/20 08:00 Temperature 37.6 C 37.3 C 36.9 C Pulse Rate 89 95 Respiratory Rate 12 20 Blood Pressure 134/87 138/74 Pulse Oximetry 95 98 10/29/20 08:56 10/29/20 12:00 Temperature 36.6 C Pulse Rate 69 90 Respiratory Rate 18 Blood Pressure 129/72 Pulse Oximetry 98 Intake/Output Intake/Output: Intake & Output 10/26/20 10/27/20 10/28/20 10/29/20 23:59 23:59 23:59 23:59 Intake Total 3900 4325 3110 1860 Output Total 850 2300 Balance 3050 2025 3110 1860 Meds/Results Medications: Active Medications Generic Name Dose Route Start Last Admin Trade Name Freq PRN Reason Stop Dose Admin Acetaminophen 650 mg 10/27/20 06:24 10/28/20 21:24 Acetaminophen 325 Mg Tablet PO 650 mg Q6H PRN Administration Mild Pain (1-3) or Fever Albuterol 2 puff 10/26/20 14:13 Albuterol Sulfate (*Sp) Aerosol 1 Puff INHALATION QIDRT PRN Shortness Of Breath Dextrose 12.5 gm 10/26/20 14:20 Dextrose 50% 25 Gm/50 Ml Syringe IV PUSH PRN PRN Hypoglycemia Protocol Dextrose 12.5 gm 10/27/20 08:19 Dextrose 50% 25 Gm/50 Ml Syringe IV PUSH PRN PRN Hypoglycemia Protocol Enoxaparin Sodium 40 mg 10/27/20 09:00 10/29/20 08:56 Enoxaparin 40 Mg/0.4 Ml Syringe SUB-Q 40 mg DAILY SANCHEZ Administration Glucagon 1 mg 10/27/20 08:19 Glucagon For Inj 1 Mg Vial IM PRN PRN Hypoglycemia Protocol Glucose 15 gm 10/27/20 08:19 Glucose Oral Gel 15 Gm Of Glucse In 37.5 Gm Tube PO PRN PRN Hypoglycemia Protocol Azithromycin 500 mg in 250 mls @ 250 mls/hr 10/26/20 15:00
[2020-10-29 17:27] LABS: Glucose Point of Care 325 (65-105)
[2020-10-29 21:12] LABS: Glucose Point of Care 270 (65-105)
[2020-10-30] VITALS: BP 119/70; PULSE 77; RESP 16; TEMP 36.7; O2SAT 99
[2020-10-30 04:00] VITALS: BP 123/77; PULSE 79; RESP 16; TEMP 36.3; O2SAT 98
[2020-10-30 04:40] LABS: Legionella pneumophila Ag Ur Not Detected (Not Detected)
[2020-10-30 07:10] LABS: Estimated CRCL calculation 179 ml/min; Estimated Glomerular Filt Rate > 60
[2020-10-30 08:00] VITALS: BP 132/82; PULSE 72; RESP 18; TEMP 37.1; O2SAT 98
[2020-10-30 08:16] LABS: Glucose Point of Care 175 (65-105)
[2020-10-30] MEDS: INSULIN GLARGINE (*BKC) 100 UNITS/ML 60 UNITS SUB-Q (09:30)
[2020-10-30 09:31] VITALS: PULSE 72
[2020-10-30] MEDS: metFORMIN HCL 500 MG TABLET 1000 MG PO (09:31)
[2020-10-30] MEDS: METOPROLOL TARTRATE 50 MG TAB 100 MG PO (09:31)
[2020-10-30] MEDS: ENOXAPARIN 40 MG/0.4 ML SYRINGE SUB-Q (09:31)
--- NOTE | 2020-10-30 11:18 | PM.DS ---
DS: Admitting Diagnosis Admitting Diagnosis Admitting Diagnosis: SOB DS: Discharge Diagnosis Discharge Diagnosis (1) Diabetic ketoacidosis associated with type 2 diabetes mellitus: Code(s): E11.10 - Type 2 diabetes mellitus with ketoacidosis without coma Status: Acute (2) COVID-19: Code(s): U07.1 - COVID-19 Status: Acute (3) Pneumonia: Code(s): J18.9 - Pneumonia, unspecified organism Status: Acute (4) Metabolic acidosis: Code(s): E87.2 - Acidosis Status: Acute (5) Electrolyte abnormality: Code(s): E87.8 - Other disorders of electrolyte and fluid balance, not elsewhere classified Status: Acute (6) Insulin dependent type 2 diabetes mellitus: Code(s): E11.9 - Type 2 diabetes mellitus without complications; Z79.4 - [facility] (current) use of insulin Status: Acute (7) Hypertension: Code(s): I10 - Essential (primary) hypertension Status: Inactive DS: Summary Hospital Course Hospital Course: HOSPITAL COURSE: 45-year-old male with insulin-dependent type 2 diabetes mellitus and hypertension who presented to the emergency department earlier today via private vehicle from home with complaints of shortness of breath. He has been feeling unwell for approximately 9 days and was recently diagnosed with COVID-19. Pt spiked fevers in the hospital, now fever free, stable for discharge. Patient was treated with ceftriaxone, vancomycin and supportive care, blood cultures were negative so IV abx were stopped. Pt was initially in icu for DKA which was treated with DKA protocol sugars stabilized on the medical floor. Time Spent with Patient Time attestation: Total time spent providing and/or coordinating discharge services:40 minutes on day of discharge Exam Narrative: Exam Narrative: General: Middle aged male pleasant nature HEENT: PERRL, EOMI. Neck: Supple. No JVD or lymphadenopathy. Respiratory: normal effort. Extremities: No cyanosis, clubbing, or edema. Radial and pedal pulses intact. Neurological: Alert. Cranial nerves 2-12 are grossly intact. No gross focal deficits to casual conversation. Psychiatric: Appropriate mood and affect. DS: Data Data Completed and Pending Labs on day of discharge: Labs from last 24 hours 10/30/20 10/30/20 10/29/20 08:05 06:22 20:48 Creatinine 0.50 L Estim Creat Clear Calc 179 Estimated GFR > 60 POC Capillary Glucose 175 H 270 H Procalcitonin Ur L.pneumophila Ag 10/29/20 10/29/20 10/26/20 17:20 12:11 17:08 Creatinine Estim Creat Clear Calc Estimated GFR POC Capillary Glucose 325 H 223 H Procalcitonin Ur L.pneumophila Ag Not detected 10/26/20 15:08 Creatinine Estim Creat Clear Calc Estimated GFR POC Capillary Glucose Procalcitonin 0.64 H Ur L.pneumophila Ag Preliminary micro results at discharge 10/26/20 11:07 Blood Culture - Preliminary Blood 10/26/20 11:06 Blood Culture - Preliminary Blood Discharge Plan Discharge Attending physician on discharge: Tiffany Acharya Consulting providers: Myles Castillo ; Jorge Reece ; Rebecca Hernandez ; Ramiro Villa Discharging Clinician: Tiffany Acharya Anticipated Discharge Date/Time: 10/30/20 11:12 Patient Disposition: Home, Self-Care Activity: as tolerated Diet: diabetic Discharge Instructions: QUARANTINE until the Oct 2020, social distancing, wearing mask, washing your hands. Patient Instructions: Antibiotic Form, Pain Management (GEN), Diabetic Ketoacidosis (GEN), How To Wash Your Hands (GEN), Droplet Precautions (GEN), COVID-19 (Coronavirus Disease 2019) (GEN), COVID-19 and Chronic Health Conditions (GEN), COVID-19: Slow the Coronavirus Spread (GEN), Face Coverings (Masks) and COVID-19 (GEN) Stand Alone Forms: General Discharge Information Follow-up/Referrals: Luc Elena MD [Primary Care Provider] - Payal Lau MD
[2020-10-30 11:57] LABS: Glucose Point of Care 256 (65-105)
[2020-10-30 12:00] VITALS: BP 119/74; PULSE 87; RESP 18; TEMP 36.7; O2SAT 98
[2020-11-17 13:24] LABS: Pneumococcal Antigen Urine Not Detected
== END 2020-10-30 12:32 | disposition home or self-care (01) | DRG 637 ==
LOC: ANHED 13:06 → ANHICU 13:47 → ANH3MEDSUR 10-28 07:04 → ANHICU 11-04 14:48
PROVIDERS: Physician Assistant; Admitting Provider Family Medicine; Emergency Provider Emergency Medicine; PCP Family Medicine; Visit Provider Family Medicine
DX: E11.10 Type 2 diabetes mellitus with ketoacidosis without coma (principal); A41.89 Other specified sepsis; U07.1 COVID-19; J12.89 Other viral pneumonia; R65.20 Severe sepsis without septic shock; E87.1 Hypo-osmolality and hyponatremia; E87.8 Other disorders of electrolyte and fluid balance, not elsewhere classified; E87.5 Hyperkalemia; I10 Essential (primary) hypertension; Z79.4 Long term (current) use of insulin; Z79.899 Other long term (current) drug therapy; Z87.442 Personal history of urinary calculi
CPT/HCPCS: 36415; 36600; 71045; 80048; 80053; 80202; 81001; 82010; 82375; 82565; 82728; 82805; 82948; 83036; 83050; 83605; 83615; 83735; 84100; 84145; 85025; 86140; 87040; 87449; 87899; 93005; 96361; 96365; 96375; 99285; A9270; C9113; J0456; J0696; J1650; J1815; J2270; J2405; J3370; J3480; J7030

== ENCOUNTER 2021-02-25 15:00 | Outpatient (RCR) | payer OTHER, SELFPAY ==
--- NOTE | 2020-12-26 11:37 | PTOPEVAL ---
Thank you for referring Pavel Laughlin to [facility].? The patient is scheduled to be seen for therapy? 1 x/week for 4 weeks. Please review, sign, date and return this plan of care KATI. I agree with and certify that the following plan of care is medically necessary. 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 He has issues for years. He has received cortison shots. Subjective Information USP shoulder problems. Query Text:As Reported By Patient/ He woke up in the middle night Family with increased pain. He normally sleeps on his right shoulder. He had COVID Sep 2020. He questions if it attacked his shoulder. He reports limitations with tolerating sleeping in the bed . He reports a pressure of his shoulder. 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 He has to lift 5 to 50# from various heights. Denies problems with lifting at this time. He received a steriod injection and medication that helped with the pain and symptoms. Pain Assessment Right Shoulder(s) Reported Pain Level 0 Pain Description Pressure Pain Frequency Intermittent Lowest Pain Intensity 0 Greatest Pain Intensity 1 Pain Behaviors None Pain Score Pain Score 0: Self Report Upper Extremity Range of Motion Scapular/ Shoulder Range of Motion Right Scapular: Retraction Hypomobile Scapular: Protraction Hypermobile Scapular Downward Rotation Hypomobile Scapular Upward Rotation Hypomobile Shoulder Flexion - Active 125 Shoulder Extension - Active 55 Shoulder Abduction - Active 118 Shoulder Medial Rotation - Active 50 Shoulder Medial Rotation - Active T10 Query Text:Reach Behind the Back Shoulder Lateral Rotation - Active 55 Shoulder Lateral Rotation - Active C7 Query Text:Reach Behind the Head Scapular/Shoulder Range of Motion Pain Limitations Scapular/Shoulder Range of Motion poor GH inf glide, scapular Comments
--- NOTE | 2021-01-20 07:47 | PCPTNOTE ---
Patient did not show up for scheduled appointment this date.Called pt who thought his visit was at 5 pm. Rescheduled for .
--- NOTE | 2021-01-22 16:02 | PTOPEVAL ---
Thank you for referring Pavel Laughlin to [facility].? Pavel has attended 5 therapy visits to address his shoulder impairments. He continued to require additional therapy to address continued restrictions with range, strength, scapular motion and tissue restrictions. The patient is scheduled to be seen for therapy?1 x/week for 4 weeks. Please review, sign, date and return this plan of care KATI. I agree with and certify that the following plan of care is medically necessary. 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 Denies problems with lifting at this time. Subjective Information Reports tenderness after Query Text:As Reported By Patient/ therapy and exercises. He is Family performing HEP 4x/wk. He is supporting the right UE when seated driving or on the couch. Denies pain with work. He is more aware of his posture with driving and activities. Denies problems with sleeping or waking with pain. Pain Right Shoulder(s) Reported Pain Level 0 Lowest Pain Intensity 0 Greatest Pain Intensity 1 Upper Extremity Range of Motion Scapular/ Shoulder Range of Motion Right Scapular: Retraction Hypomobile Scapular: Protraction Hypermobile Scapular Downward Rotation Hypomobile Scapular Upward Rotation Hypomobile Shoulder Flexion - Active 160 Shoulder Extension - Active 52 Shoulder Abduction - Active 158 Shoulder Medial Rotation - Active 70 Shoulder Medial Rotation - Active T10 Query Text:Reach Behind the Back Shoulder Lateral Rotation - Active 70 Shoulder Lateral Rotation - Active C7 Query Text:Reach Behind the Head Scapular/Shoulder Range of Motion poor GH inf glide, scapular Comments winging, decreased scapulothoracic movement restriction noted on posterior Gh capsule and inf GH glides Upper Extremity Muscle Strength Testing Right Scapular Retraction - Middle Trapezius 3+ Fair + Scapular Retraction - Lower Trapezius 3 Fair Scapular Protraction - Serratus 3- Fair - Shoulder Flexion Strength 3+ Fair + Shoulder Extension Strength 5 Normal Shoulder Abduction Strength 4- Good - Shoulder Medial Rotation Strength 5 Normal Shoulder Lateral Rotation Strength 5 Normal Left Scapular Retract
[2021-02-25 15:05] VITALS: BP_SYST 150
--- NOTE | 2021-02-25 15:39 | PTOPEVAL ---
Thank you for referring Pavel Laughlin to [facility].? Pavel has received 9 therapy visits to address his shoulder impairments. He demonstrates improved UE function, pain and strength. He has reached maximal potential with skilled therapy services at this time with goals partially achieved. Please review, sign, date and return this plan of care KATI. I agree with and certify that the following plan of care is medically necessary. 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 Denies problems with lifting at this time. Subjective Information He worked on his deck with Query Text:As Reported By Patient/ prolonged UE use. He was Family performing prolonging overhead activities. Denies any issues outside of working on the deck. He is performing HEP 4x/ wk. Denies any pinching or pain with lifting task. He is more aware of his body mechanics. Pain Assessment Self Report Pain Assessment Right Shoulder(s) Reported Pain Level 0 Pain Description Sharp Lowest Pain Intensity 0 Greatest Pain Intensity 6 Pain Aggravating Factors Exercise/Activity Upper Extremity Range of Motion Scapular/ Shoulder Range of Motion Right Scapular: Retraction Hypomobile Scapular: Protraction Hypermobile Scapular Downward Rotation Hypomobile Scapular Upward Rotation Hypomobile Shoulder Flexion - Active 145 Shoulder Flexion - Passive 150 Shoulder Extension - Active 60 Shoulder Abduction - Active 140 Shoulder Abduction - Passive 150 Shoulder Medial Rotation - Active 60 Shoulder Medial Rotation - Active T10 Query Text:Reach Behind the Back Shoulder Lateral Rotation - Active 65 Shoulder Lateral Rotation - Active C7 Query Text:Reach Behind the Head Scapular/Shoulder Range of Motion poor GH inf glide, scapular Comments winging, decreased scapulothoracic movement restriction noted on posterior Gh capsule and inf GH glides, no changes with therapy Upper Extremity Muscle Strength Testing Scapular/Shoulder Right Scapular Retraction - Middle Trapezius 4- Good - Scapular Retraction - Lower Trapezius 3+ Fair + Scapular Protraction - Serratus 3 Fair Shoulder
== END 2021-03-11 09:12 | disposition home or self-care (01) ==
LOC: ANHPT 15:00
PROVIDERS: PCP Family Medicine; Visit Provider Orthopaedic Surgery
DX: M19.011 Primary osteoarthritis, right shoulder (principal); M25.511 Pain in right shoulder
CPT/HCPCS: 97014; 97110; 97140; 97161; G0283

== ENCOUNTER 2024-04-22 17:28 | Emergency (ER) | payer OTHER, SELFPAY ==
[2024-04-22] VITALS (13 sets, daily range): BP systolic 126–163; BP diastolic 76–102; PULSE 108–136; RESP 18–30; TEMP 37.4–37.8; O2SAT 94–98
--- NOTE | ~2024-04-22 | XR_ITS ---
EXAMINATION: XR foot LT min 3V DATE: 04/22/2024 17:57 INDICATION: Left foot wound. TECHNIQUE: 3 views of left foot were obtained. COMPARISON: None. FINDINGS: Bone alignment is normal. No fracture. There is mild midfoot osteoarthritis. There is an en thesophyte at plantar aspect of calcaneal tuberosity. There is soft tissue swelling of the lateral fo refoot. IMPRESSION: 1. No evidence of osteomyelitis. Reviewed, dictated and finalized at location E.
--- NOTE | 2024-04-22 17:46 | ECG_ITS ---
Test Date: 2024-04-22 18:05:51 Measurements Intervals [place] Rate: 121 P: 7 WI: 171 QRS: 32 QRSD: 97 T: 15 QT: 292 QTc: 415 Interpretive Statements SINUS TACHYCARDIA ABNORMAL RHYTHM ECG No previous ECG available for comparison Electronically Signed On 04-23-2024 07:22:25 CDT by King Gardiner M.D.
[2024-04-22 18:01] LABS: Basophils Absolute Auto 0.1 K/mm3 (0.0-0.1); Basophils Percent Auto 0.4 % (0.2-1.2); Eosinophils Percent Auto 0.3 % (0-4.4); Hematocrit 40.2 % (42.0-52.0); Hemoglobin 13.5 g/dL (14.0-18.0); Immature Granulocyte Percent A 0.6 % (0-0.5); Lymphocytes Absolute Auto 0.94 K/mm3 (0.9-3.2); Mean Corpuscular HGB Conc 33.6 g/dl (32-36); Mean Corpuscular Hemoglobin 30.3 pg (26-34); Mean Corpuscular Volume 90.1 fl (80-100); Mean Platelet Volume 9.9 fl (7.4-10.4); Monocytes Absolute Auto 1.2 K/mm3 (0.1-0.6); Monocytes Percent Auto 7.9 % (2.6-8.5); Neutrophils Absolute Auto 13.2 K/mm3 (1.3-6.7); Neutrophils Percent Auto 84.8 % (45.5-73.1); Platelet Count Result 274 k/mm3 (150-375); Red Blood Count 4.46 M/mm3 (4.6-6.20); Red Cell Distribution Width 11.6 % (11.5-14.5); White Blood Count 15.6 K/mm3 (4.5-10.0)
[2024-04-22 18:10] LABS: INR 0.9; Lactic Acid Reflex 1.6 mmol/L (0.7-2.0); Partial Thromboplastin Time 27.9 Seconds (22.3-36.8); Prothrombin Time 13.1 Seconds (11.1-14.7)
--- NOTE | 2024-04-22 18:22 | ED.WOUNDLAC ---
HPI - Wound/Laceration General Chief Complaint: Wound/Laceration Stated Complaint: diabetic foot wound Time Seen by Provider: 04/22/24 18:06 Source: patient and family ( and children) Mode of arrival: ambulatory Limitations: no limitations History of Present Illness HPI narrative: Patient presents with a left plantar foot wound. patient was seen at [facility] yesterday, TuesdayApril 21. He was diagnosed with cellulitis and prescribed tramadol and cephalexin 500 mg q.6 hours for 10 days Which he has been taking. notes that the wound has worsened between then and now. Wound has been present since February when he stepped on a nail. Last tetanus shot unknown. He is on Tarjeo QHS and Lantus QAM as well as metformin 500mg two tablets (i.e 1000mg) BID. Describes pain as throbbing. Related Data Allergies Allergy/AdvReac Type Severity Reaction Status Date / Time No Known Allergies Allergy Verified 01/17/24 17:36 [facility] Past Medical History Medical History (Updated 04/23/24 @ 00:01 by Chandrakant Lewis) Depression Erectile dysfunction History of kidney stones Hypertension Insulin dependent type 2 diabetes mellitus Hemoglobin A1c on 10/26/2020 was 12.4%. 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 His 1st about 5 years ago. Nonsmoker. No alcohol or illicit substance abuse. He designates his fiancee, Estefania Fontaine, as his surrogate decision maker and he wishes to be a full code.. Smoking status: Never smoker Alcohol intake: former Alcohol use details: Previously listed as current; denies in 2023 Substance use: never Substance use type: does not use Do You Feel Safe in your Home?: Yes Lack of Transportation: No Lack of Food: Never True Current Housing: I Have Housing Concerned About Future Housing: No Difficulty Paying Gas/Electric Bills: No Difficulty Paying for Meds: No Currently Unemployed: No Education: Trade/Vocational Certificate Difficulty w/ Childcare or Family Care: No Living arrangements: with family Occupation/Education: occupation Gender identity (if verbalized by the patient): Male Sexual Orientation (if Verbalized by the Patient): Straight or Heterosexual Spiritual care concerns: No Exam Narrative: GENERAL: Well-appearing, well-nourished, and in no acute distress. HEAD: Normocephalic, atraumatic. EYES: Non injected, non icteric ENT: Nares clear, no rhinorrhea or epistaxis. NECK: Supple. CHEST: Speaking in full sentences. No respiratory distress. HEART: Tachycardic rate and rhythm. . ABDOMEN: Soft, nondistended. EXTREMITIES: Normal range of motion. 2+ left foot pedal edema. Single puncture wound over base of plantar metatarsal. Slight erythema non localized across dorsum of foot but foot is otherwise generally pale without streaking. Not particularly warm to the touch. SKIN: Warm, dry. Bloody at the wound. Wound cleaned and probes moderately deep but not to bone. Surround area with some edema and tenderness to palpation. NEURO: No focal deficits. Alert and oriented x3. Sensation intact to gross touch throughout. PSYCH: Normal mood and affect. Course Vital Signs Vital signs: Vital Signs Temperature 100.0 F H 04/22/24 17:29 Pulse Rate 136 H 04/22/24 17:2
[2024-04-22 18:33] LABS: Alanine Aminotransferase 17 U/L (6-50); Albumin Level 4.3 g/dL (3.5-5.1); Alkaline Phosphatase 108 U/L (38-126); Anion Gap 10 mmol/L (4-12); Aspartate Amino Transferase 16 U/L (17-59); Bilirubin,Total 1.1 mg/dL (0.2-1.3); Blood Urea Nitrogen 18 mg/dL (9-20); Calcium 9.2 mg/dL (8.4-10.2); Carbon Dioxide 25 mmol/L (22-30); Chloride 97 mmol/L (98-107); Estimated CRCL calculation 115 ml/min; Estimated Glomerular Filt Rate > 60; Glucose 385 mg/dL (65-110); Sodium 132 mmol/L (137-145)
[2024-04-22 18:44] LABS: CRP 25.9 mg/dL (<1.0)
[2024-04-22] MEDS: ACETAMINOPHEN 500 MG TABLET 1000 MG PO (19:29)
[2024-04-22] MEDS: SODIUM CHLORIDE 0.9% IV 1,000 ML 999 ML IV CONT ×2 (19:30→20:20)
[2024-04-22] MEDS: CIPROFLOXACIN 500 MG TAB PO (19:35)
[2024-04-22] MEDS: metroNIDAZOLE 500 MG/ISO 100ML 500 MG/100 ML BAG 100 MG IVPB (19:35)
[2024-04-22 19:58] LABS: Appearance Urine Clear (Clear); Bacteria Urine None Seen /hpf; Bilirubin Urine Negative (Negative); Blood Urine Trace (Negative); Color Urine Yellow (Yellow); Glucose Urine UA 3+ mg/dL (Negative); Ketones Urine 2+ mg/dL (Negative); Leukocyte Esterase Ur Negative LEU/UL (Negative); Nitrate Urine Negative (Negative); Non Pathogenic Casts 0-2; Protein Urine 2+ mg/dL (Negative); RBC Urine 0-2 /hpf (0-2); Squamous Epithelial Cell Urine None Seen /hpf (Few); Urobilinogen Urine 0.2 mg/dL (<2.0); WBC Urine 0-5 /hpf (0-3); pH Urine 5.5 (5.0-9.0)
[2024-04-22 20:00] LABS: Specific Grav Ur 1.046 (1.001-1.035)
[2024-04-22 20:01] LABS: Add Urine Microscopic? YES
[2024-04-22] MEDS: TETANUS,DIPHTHERIA,AC PERTUSSIS ADULT (0.5 ML) BOOSTRIX IM (20:21)
== END 2024-04-22 22:04 | disposition home or self-care (01) ==
PROVIDERS: Emergency Provider Student in an Organized Health Care Education/Training Program; PCP Family Medicine
DX: S91.332A Puncture wound without foreign body, left foot, initial encounter (principal); E11.65 Type 2 diabetes mellitus with hyperglycemia; D72.829 Elevated white blood cell count, unspecified; D64.9 Anemia, unspecified; R79.82 Elevated C-reactive protein (CRP); L03.116 Cellulitis of left lower limb; Z23 Encounter for immunization; I10 Essential (primary) hypertension; Z87.442 Personal history of urinary calculi; Z79.899 Other long term (current) drug therapy; Z79.4 Long term (current) use of insulin; Z79.84 Long term (current) use of oral hypoglycemic drugs; W45.0XXA Nail entering through skin, initial encounter
CPT/HCPCS: 36415; 73630; 80053; 81001; 83605; 85025; 85610; 85730; 86140; 87040; 87070; 87077; 87181; 87205; 90471; 90715; 93005; 96365; 99284; A9270; J1836; J7030

== ENCOUNTER 2024-04-24 | Inpatient (IN) | payer OTHER, SELFPAY ==
[2024-04-24] VITALS (9 sets, daily range): BP systolic 132–175; BP diastolic 70–95; PULSE 83–119; RESP 16–20; TEMP 36.6–37.3; O2SAT 94–100
--- NOTE | ~2024-04-24 | XR_ITS ---
Left foot Technique: AP, oblique, and lateral views were obtained. Clinical History: Puncture wound, osteomyelitis COMPARISON: 04/22/2024 Findings: No acute fracture or dislocation is seen. Osseous alignment is anatomic. No definite radiog raphic evidence for osteomyelitis. Joint spaces are preserved without erosive or degenerative change. There is worsening soft tissue swelling at the fifth MTP joint region, possible small ulceration.. Impression: No definite radiographic evidence for osteomyelitis. Consider MR for more sensitive evaluation for ea rly osteomyelitis, as indicated. Worsening soft tissue swelling with focal ulcer at the fifth MTP joint region. Reviewed, dictated and finalized at [facility]. Impression: No definite radiographic evidence for osteomyelitis. Consider MR for more sensi tive evaluation for early osteomyelitis, as indicated. Worsening soft tissue swelling with focal ulcer at the fifth MTP joint region.
--- NOTE | ~2024-04-24 | MR_ITS ---
EXAMINATION: MR foot LT wo/w con DATE: 04/26/2024 12:20 INDICATION: Left foot osteomyelitis. TECHNIQUE: Magnetic resonance imaging (MRI) of the left foot was performed without and with 20 mL Mul tiHance intravenous contrast. COMPARISON: Left foot radiograph 04/24/2024 FINDINGS: Bone alignment is normal. No fracture. There is mild osteoarthritis of first metatarsophala ngeal joint and some of the interphalangeal joints. There is soft tissue swelling near head of fifth metatarsal with skin defect. There is decreased T1-weighted signal intensity in the head of fifth met atarsal, consistent with osteomyelitis. There is increased T2-weighted signal intensity and normal T1 -weighted signal intensity in fifth proximal phalanx, consistent with reactive osteitis. There is wid espread subcutaneous edema in the foot. There is increased T2-weighted signal intensity in the muscul ature in the lateral forefoot, consistent with myositis. There is nonenhancement of soft tissue in th e lateral forefoot, consistent with necrosis. IMPRESSION: 1. Skin defect plantar to head of fifth metatarsal with cellulitis and necrosis of the nearby soft ti ssues and osteomyelitis involving head of fifth metatarsal. Reviewed, dictated and finalized at location A. IMPRESSION: 1. Skin defect plantar to head of fifth metatarsal with cellulitis and necrosis of the nearby soft tissues and osteomyelitis involving head of fifth metatarsa l.
--- NOTE | ~2024-04-24 | XR_ITS ---
EXAMINATION: XR chest PICC line DATE: 04/27/2024 14:22 INDICATION: Central line placement. TECHNIQUE: A single frontal view of the chest was obtained. COMPARISON: Chest single view 10/26/2020 FINDINGS: There is no pneumonia, pleural effusion, or pneumothorax. The heart size is normal. A left upper extremity peripherally inserted central venous catheter (PICC) is seen with tip in the superior vena cava. IMPRESSION: 1. PICC tip in the superior vena cava. Reviewed, dictated and finalized at location A.
--- NOTE | ~2024-04-24 | CT_ITS ---
Non-contrast Head CT History: Headache Technique: Axial non-contrast imaging of the brain was performed. Dose reduction technique was used on this scan by utilizing automated exposure control and iterative reconstruction technique. The dose -length product (DLP) was 681.00 mGy-cm. Findings: There is no evidence of intracranial hemorrhage, mass lesion, or acute infarct. Brain par enchyma appears normal. The ventricles and subarachnoid spaces are normal in size. The calvarium ap pears normal. The visualized paranasal sinuses and mastoid air cells are clear. Impression: No significant abnormality seen. Reviewed, dictated and finalized at location . Impression: No significant abnormality seen.
--- NOTE | 2024-04-24 01:18 | ED.WOUNDLAC ---
HPI - Wound/Laceration General Chief Complaint: Wound/Laceration <Estrella Khan PA-C - Last Filed: 04/24/24 02:16> Stated Complaint: lower L leg wound, fever <Estrella Khan PA-C - Last Filed: 04/24/24 02:16> Time Seen by Provider: 04/24/24 01:08 <JULIANNA Santana Last Filed: 04/24/24 02:16> History of Present Illness HPI narrative: 49 y/o M with a history of type 2 diabetes and hypertension presents to the ED with worsening wound to his L foot with worsening cellulitic changes. patient states in February he stepped on a nail through his shoe and a few weeks later developed a fever. He was seen at [facility] on 04/21 and was diagnosed with cellulitis and prescribed Keflex. He presented to our emergency department yesterday due to worsening wound. He was given a dose of IV antibiotics and General surgery was consulted who agreed to follow-up with the patient outpatient. Tdap was updated at that time. He presents today due to increased redness and swelling to his lower extremities now extended up into his tibia. He states he had a fever today 102.5. He endorses taking 1 dose of Flagyl today. States he has noticed some drainage out of the wound that is symptoms purulent and sometimes blood. No nausea or vomiting. states he took 100 mg of ibuprofen prior to arrival. Denies known history of neuropathy. <JULIANNA Santana Last Filed: 04/24/24 02:16> Related Data Home Medications: Home Medications Medication Instructions Recorded Confirmed insulin glargine U-300 conc 300 64 unit subcut HS 04/24/24 04/24/24 unit/mL (3 mL) subcutaneous pen (Toujeo Max U-300 SoloStar) insulin lispro 200 unit/mL (3 mL) 10 unit subcut TIDWM 04/24/24 04/24/24 subcutaneous pen (Humalog KwikPen U-200 Insulin) <Estrella Khan PA-C - Last Filed: 04/24/24 02:16> Allergies/Adverse Reactions: Allergies Allergy/AdvReac Type Severity Reaction Status Date / Time No Known Allergies Allergy Verified 04/24/24 03:17 <Estrella Khan PA-C - Last Filed: 04/24/24 02:16> Review of Systems Review of Systems: CONSTITUTIONAL: see HPI EYES: Denies visual changes, redness, or discharge. ENT: Denies rhinorrhea, congestion, sore throat, or otalgia. CARDIOVASCULAR: Denies chest pain, palpitations, or edema. RESPIRATORY: Denies cough or dyspnea. GASTROINTESTINAL: Denies abdominal pain, nausea, vomiting, or diarrhea. GENITOURINARY: Denies dysuria or hematuria. SKIN: See HPI MUSCULOSKELETAL: Denies back pain, joint pain, or myalgia. NEUROLOGIC: Denies headache, numbness, or weakness. PSYCHIATRIC: Denies anxiety or depression. <Estrella Khan PA-C - Last Filed: 04/24/24 02:16> [facility] Past Medical History Medical History: Medical History Depression Erectile dysfunction History of kidney stones Hypertension Insulin dependent type 2 diabetes mellitus Hemoglobin A1c on 10/26/2020 was 12.4%. 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) Right shoulder pain Type 2 diabetes mellitus with hyperglycemia <Estrella Khan PA-C - Last Filed: 04/24/24 02:16> Surgical History Surgical History: Surgical History No history of previous surgery <Estrella Khan PA-C - Last Filed: 04/24/24 02:16> Family History Family History: Family History Father Diabetes type 2, uncontrolled Heart disease Lung cancer Mother Hypertension Grandparent Diabetes mellitus Grandparent Lung cancer Grandparent Cerebrovascular accident <Estrella Khan PA-C - Last Filed: 04/24/24 02:16> Social History Social History: Social History Social History: The patient lives in [place] with his fiancee and their
--- NOTE | 2024-04-24 01:24 | ECG_ITS ---
Test Date: 2024-04-24 01:54:37 Measurements Intervals [place] Rate: 84 P: 12 PA: 179 QRS: 18 QRSD: 102 T: 6 QT: 370 QTc: 440 Interpretive Statements SINUS RHYTHM Compared to ECG 04/22/2024 18:05:51 Sinus tachycardia no longer present Electronically Signed On 04-24-2024 13:35:29 CDT by Rigo Mari M.D.
[2024-04-24] MEDS: CEFEPIME 2 GM/NS 50 ML 2 GM/50 ML BAG IVPB ×2 (01:29→12:11)
[2024-04-24 01:33] LABS: Basophils Percent Auto 0.3 % (0.2-1.2); Eosinophils Percent Auto 0.2 % (0-4.4); Hematocrit 37.2 % (42.0-52.0); Hemoglobin 12.6 g/dL (14.0-18.0); Immature Granulocyte Absolute 0.05 K/mm3 (0.00-0.031); Immature Granulocyte Percent A 0.4 % (0-0.5); Lymphocytes Absolute Auto 0.93 K/mm3 (0.9-3.2); Lymphocytes Percent Auto 7.8 % (18.3-44.2); Mean Corpuscular HGB Conc 33.9 g/dl (32-36); Mean Corpuscular Volume 88.6 fl (80-100); Mean Platelet Volume 9.3 fl (7.4-10.4); Monocytes Percent Auto 8.3 % (2.6-8.5); Neutrophils Absolute Auto 9.9 K/mm3 (1.3-6.7); Platelet Count Result 285 k/mm3 (150-375); Red Cell Distribution Width 11.5 % (11.5-14.5)
[2024-04-24 01:42] LABS: Prothrombin Time 13.5 Seconds (11.1-14.7)
[2024-04-24 01:44] LABS: Partial Thromboplastin Time 33.1 Seconds (22.3-36.8)
[2024-04-24 01:45] LABS: Lactic Acid Reflex 1.3 mmol/L (0.7-2.0)
[2024-04-24 01:51] LABS: Alanine Aminotransferase 14 U/L (6-50); Albumin Level 3.9 g/dL (3.5-5.1); Alkaline Phosphatase 95 U/L (38-126); Anion Gap 11 mmol/L (4-12); Aspartate Amino Transferase 17 U/L (17-59); Bilirubin,Total 0.7 mg/dL (0.2-1.3); Blood Urea Nitrogen 17 mg/dL (9-20); Calcium 8.9 mg/dL (8.4-10.2); Carbon Dioxide 23 mmol/L (22-30); Chloride 100 mmol/L (98-107); Estimated CRCL calculation 117 ml/min; Estimated Glomerular Filt Rate > 60; Glucose 280 mg/dL (65-110); Potassium 4.2 mmol/L (3.4-5.0); Sodium 134 mmol/L (137-145)
[2024-04-24 02:00] LABS: CRP 26.3 mg/dL (<1.0)
[2024-04-24] MEDS: metroNIDAZOLE 500 MG/ISO 100ML 500 MG/100 ML BAG 100 MG IVPB ×3 (02:02→17:27)
--- NOTE | 2024-04-24 03:12 | ADMGEN ---
This patient, Pavel Laughlin, was admitted to 3 [facility] Surg Room 315-02. Patient/family oriented to hospital policies and general routines including ID bracelet, bed and alarms, visiting hours, pain management, procedures, bathroom and other care routines, personal items, smoking policy, room service/diet, and visiting hours. Information on how to activate the Rapid Response Team has been discussed. Patient/Family are encouraged to report perceived risks to care and to ask questions if they do not understand what they are told or what they should do.
[2024-04-24 03:35] LABS: Glucose Point of Care 224 mg/dl (65-105)
[2024-04-24] MEDS: VANCOMYCIN 1,250 MG/NS 250 ML 1,250 MG/250 ML BAG 166.67 MG IVPB ×2 (03:36→05:21)
--- NOTE | 2024-04-24 09:22 | PM.IMHP ---
H&P: HPI History of Present Illness Date/Time: 04/24/24 09:22 Chief Complaint: cellulitis Narrative: 49 y/o M with pmh/o t2ddm and HTN admitted from ED with worsening wound to his L foot with worsening cellulitic changes. patient states in February he stepped on a nail through his shoe and a few weeks later developed a fever. He was seen at [facility] on 04/21 and was diagnosed with cellulitis and prescribed Keflex. He presented to our emergency department yesterday due to worsening wound. He was given a dose of IV antibiotics and General surgery was consulted who agreed to follow-up with the patient outpatient. Tdap was updated at that time. He presents today due to increased redness and swelling to his lower extremities now extended up into his tibia. He states he had a fever today 102.5. He endorses taking 1 dose of Flagyl today. States he has noticed some drainage out of the wound that is symptoms purulent and sometimes blood. No nausea or vomiting. states he took 100 mg of ibuprofen prior to arrival. 04/24 pt is seen and examined. REports taking humalog 10 units with meals and long acting insulin but doesn't check his BS at all- cannot recall last time he did. Supposed to wear Dexcom but doesnot have it. Doesnot have ophthalmology and not on any statin- admits that he is pretty noncompliant with diabetes. Doesnot follwo diet- but drink diet soda- but a lot of it. Reports pain is well controlled now but nauseated.Doesnot smoke or drink alcohol. He takes metoprolol 100 mg bid for BP- reports no h/o mi, CAD. Review of Systems Review of Systems: All systems reviewed & are unremarkable except as noted in HPI and below [facility] Past Medical History Medical History Depression Erectile dysfunction History of kidney stones Hypertension Insulin dependent type 2 diabetes mellitus Hemoglobin A1c on 10/26/2020 was 12.4%. 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 His 1st about 5 years ago. Nonsmoker. No alcohol or illicit substance abuse. He designates his fiancee, Estefania Fontaine, as his surrogate decision maker and he wishes to be a full code.. Smoking status: Never smoker Alcohol intake: never Alcohol use details: Previously listed as current; denies in 2023 Substance use: never Substance use type: does not use Do You Feel Safe in your Home?: Yes Lack of Transportation: No Lack of Food: Never True Current Housing: I Have Housing Concerned About Future Housing: No Difficulty Paying Gas/Electric Bills: No Difficulty Paying for Meds: No Currently Unemployed: No Education: High School Diploma/GED Difficulty w/ Childcare or Family Care: No Living arrangements: with family Occupation/Education: occupation Gender identity (if verbalized by the patient): Male Sexual Orientation (if Verbalized by the Patient): Straight or Heterosexual Spiritual care concerns: No Meds Home Medications and Allergies Home Medications Medication Instructions Recorded Confirmed Type blood-glucose sensor ([employer] G7 #3 ea 01/17/24 04/24/24 Rx Sensor device) escitalopram oxalate 10 mg tablet 10 mg PO DAILY #90 tabs 01/17/24 04/24/24 Rx (Lexapro) metoprolol tartrate 100 m
--- NOTE | 2024-04-24 11:25 | PM.CNGS ---
Assessment and Plan Assessment and plan (1) Abscess of left foot: Code(s): L02.612 - Cutaneous abscess of left foot Status: Acute Assessment and Plan: The patient has developed a left foot infection after stepping on a screw a few weeks ago. He has an abscess on the plantar aspect of his left foot over the fifth MTP joint. No evidence of osteomyelitis on plain films. We would recommend proceeding with incision and drainage of the left foot abscess at the bedside with local anesthetic later today. Description of the procedure, risks, benefits, alternatives, and expected wound care/outcomes were discussed with the patient in detail. He agrees to proceed. Continue IV antibiotics. (2) Cellulitis: Qualifiers: Laterality: left Site of cellulitis: extremity Site of cellulitis of extremity: lower extremity Qualified Code(s): L03.116 - Cellulitis of left lower limb Code(s): L03.90 - Cellulitis, unspecified Status: Acute Assessment and Plan: Continue broad-spectrum IV antibiotics. Elevate the left lower extremity. (3) Puncture wound: Code(s): T14.8XXA - Other injury of unspecified body region, initial encounter Status: Acute Assessment and Plan: This initially started from a puncture wound when the patient stepped on a screw in his shoe about a month ago. 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 Glucose in the 200s on admission. Management per primary service. Discussed the importance of glycemic control with the patient in regards to the current infection and wound healing. Plan I have discussed the patient's case and plan of care with Dr. Ann. History of Present Illness Consult details Consult date: 04/24/24 Reason for consult: other (Left foot cellulitis, diabetic foot wound) Requesting physician: Estrella Khan PA-C Narrative: This is a 49 year old man with a history of uncontrolled type 2 diabetes and hypertension who presented to the ED last night with worsening left foot swelling and redness. He stepped on a small screw in his shoe in February and developed a small puncture wound. He had been washing the area and monitoring this for a few weeks without any issues. Four days ago, he noticed some pain in his left foot. He had some mild localized redness and swelling at the bottom of his foot and decided to go to an urgent care. They started him on cephalexin, and he felt like his redness got worse by the following day and he reports that night he had purulent drainage coming from his plantar foot. He then presented to [facility] on 04/22/24 and his antibiotics were switched to metronidazole and ciprofloxacin. The ED provider spoke with the general surgeon application spec who recommended broadening his antibiotics and follow-up in the office this week. Yesterday, he noticed the redness and swelling started spreading up his lower leg, and he developed a fever, so he decided to return to the ED for evaluation. Labs showed a WBC count of 12,000 down from 15,000 when he was seen in the ER on 04/22/24. Lactic acid 1.6, glucose 280. Most recent hgb A1C was 10.6 in December 2023. He had foot x-rays on 04/22/24 and today that showed no evidence of osteomyelitis. He was admitted for failed outpatient therapy and started on broad-spectrum IV antibiotics. Wound culture was obtained on 04/22/24. Our service was consulted for the foot wound and worsening cellulitis. He is now seen on the medical floor. No previous foot infections or surgery on his feet. Review of Systems Review of Systems: All systems reviewed & are unremarkable ex
[2024-04-24] MEDS: ESCITALOPRAM OXALATE 10 MG TABLET PO (12:11)
[2024-04-24] MEDS: INSULIN ASPART (*BKC) 100 UNITS/ML SUB-Q ×2 (12:15→16:46)
[2024-04-24 12:25] LABS: Glucose Point of Care 220 mg/dl (65-105)
[2024-04-24] MEDS: ONDANSETRON INJ 4 MG/2 ML VIAL IV PUSH (14:36)
[2024-04-24] MEDS: VANCOMYCIN 1,500 MG/NS 500 ML 1,500 MG/500 ML BAG 250 MG IVPB (14:37)
[2024-04-24] MEDS: SODIUM CHLORIDE 0.9% IV 1,000 ML 100 ML IV CONT (14:37)
--- NOTE | 2024-04-24 15:26 | W.PM.PROC2 ---
Procedure Note - Detailed Date of Procedure 04/24/24 Pre-op Diagnosis Left foot abscess Post-op Diagnosis Same Procedure Performed Incision and drainage simple left foot abscess Surgeon Nimo Oliveira, TECHNICAL SALES SUPPORT MANAGER Auto Fleet Maintenance Manager Dr. Sadi Ann Anesthesia Local (1% lidocaine with epinephrine) Indications This is a 49-year-old diabetic man with a puncture wound about a month ago, who developed redness and swelling of the left foot. He presented with left foot cellulitis and a left plantar foot abscess. He failed outpatient oral antibiotic therapy for cellulitis. X-rays of the left foot were negative for osteomyelitis. Decision was made to proceed with bedside incision and drainage left foot abscess. Findings Left foot abscess with minimal cloudy blood drainage Description of Procedure The patient was placed in the right lateral position on the medical bed. The site of the abscess for required I&D was identified over the fifth MTP joint on the left plantar foot. Following this, the area was prepped with iodine and draped in usual sterile fashion. Then, local anesthetic was infiltrated directly over the area of swelling and abscess formation. After allowing the local anesthetic to work, I began to make a direct incision with a #15 blade scalpel starting at the pinpoint opening over the fluctuant abscess. I extended the incision both laterally and medially from the opening to make about a 2 cm incision. There was flow of scant purulent bloody drainage. There was tunneling proximally towards the heel as well, therefore I extended the incision about 1 cm to make a T-shaped incision to open up this area. The abscess cavity was probed and all loculation broken up. This extended to subcutaneous tissue. Following this, the area was packed with 1/4 inch iodoform Nu Gauze. The area was then covered with 4x4s and wrapped with kerlex gauze and tape. The patient tolerated the procedure well. Estimated Blood Loss 0 Drains No Packing Yes Pathology None sent Complications No immediate complications Condition Stable Disposition No change
--- NOTE | 2024-04-24 16:07 | PC.NURSE ---
Patient standing at bedside after using the bathroom. He is calm and cooperative. No pain reported at the time of assessment. Waiting for wound and surgical consult. Family arrived later in the AM. Patient became nauseous early PM and Zofran was given. I&D done at bedside.
[2024-04-24 16:37] LABS: Glucose Point of Care 218 mg/dl (65-105)
[2024-04-24] MEDS: METOPROLOL TARTRATE 50 MG TAB PO (20:57)
[2024-04-24] MEDS: INSULIN GLARGINE (*BKC) 100 UNITS/ML 23 UNITS SUB-Q (20:58)
[2024-04-24] MEDS: ACETAMINOPHEN 500 MG TABLET 1000 MG PO (20:58)
[2024-04-25] MEDS: CEFEPIME 2 GM/NS 50 ML 2 GM/50 ML BAG IVPB ×2 (01:02→12:00)
[2024-04-25] MEDS: metroNIDAZOLE 500 MG/ISO 100ML 500 MG/100 ML BAG 100 MG IVPB ×3 (01:56→17:30)
[2024-04-25] MEDS: SODIUM CHLORIDE 0.9% IV 1,000 ML 100 ML IV CONT ×2 (01:56→12:04)
[2024-04-25] MEDS: VANCOMYCIN 1,500 MG/NS 500 ML 1,500 MG/500 ML BAG 250 MG IVPB (03:15)
[2024-04-25 05:22] LABS: Hematocrit 34.3 % (42.0-52.0); Hemoglobin 11.4 g/dL (14.0-18.0); Mean Corpuscular HGB Conc 33.2 g/dl (32-36); Mean Corpuscular Hemoglobin 29.8 pg (26-34); Mean Corpuscular Volume 89.8 fl (80-100); Mean Platelet Volume 9.5 fl (7.4-10.4); Platelet Count Result 285 k/mm3 (150-375); Red Blood Count 3.82 M/mm3 (4.6-6.20); Red Cell Distribution Width 11.6 % (11.5-14.5); White Blood Count 10.6 K/mm3 (4.5-10.0)
[2024-04-25] MEDS: ACETAMINOPHEN 500 MG TABLET 1000 MG PO (05:27)
[2024-04-25] MEDS: hydrALAZINE HCL 20 MG/ML VIAL 10 MG IV PUSH ×2 (05:28→21:13)
[2024-04-25 05:35] LABS: Hemoglobin A1C 10.5 % (<5.7)
[2024-04-25 05:36] LABS: Alanine Aminotransferase 12 U/L (6-50); Albumin Level 3.3 g/dL (3.5-5.1); Alkaline Phosphatase 84 U/L (38-126); Anion Gap 6 mmol/L (4-12); Aspartate Amino Transferase 16 U/L (17-59); Bilirubin,Total 0.5 mg/dL (0.2-1.3); Blood Urea Nitrogen 8 mg/dL (9-20); Calcium 8.5 mg/dL (8.4-10.2); Carbon Dioxide 25 mmol/L (22-30); Chloride 107 mmol/L (98-107); Cholesterol 121 mg/dL (0-200); Estimated CRCL calculation 170 ml/min; Estimated Glomerular Filt Rate > 60; Glucose 171 mg/dL (65-110); HDL Direct 26 mg/dL; Potassium 3.3 mmol/L (3.4-5.0); Sodium 138 mmol/L (137-145); Triglycerides 96 mg/dL (<150)
[2024-04-25 05:43] LABS: Glucose Point of Care 195 mg/dl (65-105)
[2024-04-25 05:45] LABS: LDL Cholesterol Direct 70 mg/dL
[2024-04-25 05:46] VITALS: BP 190/90; PULSE 107; RESP 20; TEMP 36.8; O2SAT 97
[2024-04-25] MEDS: METOPROLOL TARTRATE 50 MG TAB PO ×2 (06:34→21:12)
--- NOTE | 2024-04-25 06:35 | PC.NURSE ---
Spoke with Dr. Ballesteros at this time about PRN hydralazine being ineffective for BP and BP remains 190/90. Instructed to give 9 am PO metoprolol now.
[2024-04-25 07:33] LABS: Glucose Point of Care 209 mg/dl (65-105)
[2024-04-25 08:11] VITALS: O2SAT 97
[2024-04-25] MEDS: INSULIN ASPART (*BKC) 100 UNITS/ML SUB-Q ×2 (08:37→16:50)
[2024-04-25] MEDS: ESCITALOPRAM OXALATE 10 MG TABLET PO (08:37)
--- NOTE | 2024-04-25 08:41 | PM.IMPN ---
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 Qualified Code(s): E11.65 - Type 2 diabetes mellitus with hyperglycemia; Z79.4 - assisted (current) use of insulin Code(s): E11.65 - Type 2 diabetes mellitus with hyperglycemia Status: Acute (4) Hypertension: Qualifiers: Hypertension type: primary hypertension Qualified Code(s): I10 - Essential (primary) hypertension Code(s): I10 - Essential (primary) hypertension Status: Acute (5) Osteoarthritis of right shoulder: Code(s): M19.011 - Primary osteoarthritis, right shoulder Status: Acute Plan Puncture wound, left foot abscess, cellulitis of left lower extremity: Code(s): T14.8XXA - Other injury of unspecified body region, initial encounter Status: Acute Assessment and Plan: -stepped on the nail in february- keflex 04/21-came to ed 04/23-IV antibiotics-gen surgery consult-f/u outpt- came back at 1am 04/24 for increased erythema and drainage - CRP-26.3, lactic 1.3, Xr of the foot is not consistent with osteomyelitis. Worsening edema with soft tissue emphysema over the lateral forefoot. No definite acute osseous abnormality . 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 Qualified Code(s): E11.65 - Type 2 diabetes mellitus with hyperglycemia; Z79.4 - assisted (current) use of insulin Code(s): E11.65 - Type 2 diabetes mellitus with hyperglycemia Status: Acute Assessment and Plan: - home regimen: Toujeo 64 units, lispro 10 units with meals - last reports [id number]- will order - not on [id number]-[id number]-nllhzravf to start when discharged on low dose - will check a1c, lipid profile-ordered - hypoglycemia protocol, diabetic diet, SS andf lantus 23 units hs - will monitor and adjust as needed Hypertension: Qualifiers: Hypertension type: primary hypertension Qualified Code(s): I10 - Essential (primary) hypertension Code(s): I10 - Essential (primary) hypertension Status: Acute Assessment and Plan: - on home 100 mg metoprolol BID fro HTN - will not stop abruptly but will decrease dose to 50 mg bid and monitor - Will add hydralazine prn for BP >180 Plan h/o depressions- [facility] Advance Care Plan I have confirmed that the patient's Advanced Care Plan is present, code status is documented, or surrogate decision maker is listed in patient medical record.: Yes Medication Reconciliation I have utilized all available resources to obtain, update and review the patients current medications (includes all prescriptions, OTC, herbals, cannabis, and nutritional supplements).: Yes Subjective Date/time seen: 04/25/24 08:41 Interval history: I saw and examined the patient today. Patient feels pain is tolerable, patient denies chest pain abdomen pain nausea vomiting diarrhea dysuria. Patient afebrile, Exam Narrative: GENERAL: Pleasant, in no acute distress. Well-nourished. - EYES: EOMI. Anicteric. - HENT: Moist mucous membranes. - LUNGS: Clear to auscultation bilaterally, no wheezing, rhonchi, or rales. - CARDIOVASCULAR: Regular rate and rhythm. No murmur. No JVD. -
[2024-04-25] MEDS: hydroCHLOROthiazide 25 MG TABLET PO (10:41)
[2024-04-25] MEDS: IBUPROFEN 400 MG TABLET PO (10:41)
[2024-04-25] MEDS: amLODIPine BESYLATE 10 MG TABLET PO (10:43)
--- NOTE | 2024-04-25 11:10 | PM.PNGS ---
Progress Note: A&P Assessment and Plan (1) Abscess of left foot: Code(s): L02.612 - Cutaneous abscess of left foot Status: Acute Assessment and Plan: S/p bedside I&D on 04/24/2024. Cellulitis improving. Continue local wound care with packing daily. Continue antibiotics. Recommended getting up and ambulating, discussed with patient to try heel-touch weight bearing on left foot. (2) Cellulitis: Qualifiers: Laterality: left Site of cellulitis: extremity Site of cellulitis of extremity: lower extremity Qualified Code(s): L03.116 - Cellulitis of left lower limb Code(s): L03.90 - Cellulitis, unspecified Status: Acute Assessment and Plan: Improving. Continue antibiotics. Elevate left lower extremity. (3) Puncture wound: Code(s): T14.8XXA - Other injury of unspecified body region, initial encounter Status: Acute (4) Type 2 diabetes mellitus with hyperglycemia: Qualifiers: Diabetes mellitus technician terminal and repeater insulin use: with usp use Qualified Code(s): E11.65 - Type 2 diabetes mellitus with hyperglycemia; Z79.4 - moth exterminator (current) use of insulin Code(s): E11.65 - Type 2 diabetes mellitus with hyperglycemia Status: Acute Plan I have discussed the patient's case and plan of care with Dr. Ann. Subjective Subjective Date/Time Seen: 04/25/24 11:10 Post Op day: 1 (I&D left foot abscess) Patient reports: no new complaints and feels better Interval history: Patient feels like the swelling has come down and he is able to wiggle his toes easier. No pain in his left foot. No issues overnight. He is only complaining of a headache today and has been dealing with high blood pressure. Exam Const: General: comfortable and no acute distress Extrem: Other: Left plantar foot abscess with packing removed today. Scant purulent drainage noted, but overall improved erythema and swelling to the left foot. Repacked incision with 1/4 iodoform gauze and cover dressing. No pain or tenderness in the area of the abscess today. Objective Data Vital Signs Vital Signs: Vital Signs - 24 hr 04/24/24 14:00 04/24/24 20:00 04/24/24 21:55 Temperature 99.0 F 99.1 F Pulse Rate 115 H 117 H Respiratory Rate 18 18 Blood Pressure 175/95 H 169/70 H Pulse Oximetry 95 95 94 Oxygen Delivery Room Air 04/25/24 05:46 04/25/24 08:11 04/25/24 08:00 Temperature 98.3 F Pulse Rate 107 H Respiratory Rate 20 Blood Pressure 190/90 H Pulse Oximetry 97 97 Oxygen Delivery Room Air Room Air Intake/Output Intake/Output: Intake & Output 04/22/24 04/23/24 04/24/24 04/25/24 23:59 23:59 23:59 23:59 Intake Total 5580 2540 Output Total 725 1100 Balance 4855 1440 Meds/Results Medications: Active Medications Generic Name Dose Route Start Last Admin Trade Name Freq PRN Reason Stop Dose Admin Acetaminophen 1,000 mg 04/24/24 09:33 04/25/24 05:27 Acetaminophen 500 Mg Tablet PO 1,000 mg Q6H PRN Administration pain Amlodipine Besylate 10 mg 04/26/24 09:00 Amlodipine Besylate 10 Mg Tablet PO QAM SANCHEZ Dextrose 12.5 gm 04/24/24 09:39 Dextrose 50% 25 Gm/50 Ml Syringe IV PUSH PRN PRN Hypoglycemia Protocol Escitalopram Oxalate 10 mg 04/24/24 09:00 04/25/24 08:37 Escitalopram Oxalate 10 Mg Tablet PO 10 mg DAILY SANCHEZ Administration Glucagon 1 mg 04/24/24 09:39 Glucagon For Inj 1 Mg Vial IM PRN PRN Hypoglycemia Protocol Glucose 15 gm 04/24/24 09:39 Glucose Oral Gel 15 Gm Of Glucse In 37.5 Gm Tube PO PRN PRN Hypoglycemia Protocol Hydralazine HCl 10 mg 04/24/24 14:58 04/25/24 05:28 Hydralazine Hcl 20 Mg/Ml Vial IV PUSH 10 mg Q8H PRN Administration Blood Pressure - High Hydrochlorothiazide 25 mg 04/26/24 09:00 Hydrochlorothiazide 25 Mg Tablet PO QAM SANCHEZ Cefepime HCl 2 gm in 50 mls @ 100 mls/hr 04/24
[2024-04-25 11:13] LABS: Glucose Point of Care 199 mg/dl (65-105)
[2024-04-25 14:00] VITALS: BP 165/92; PULSE 95; RESP 16; TEMP 36.3; O2SAT 96
[2024-04-25 16:44] LABS: Glucose Point of Care 381 mg/dl (65-105)
[2024-04-25 17:20] LABS: Vancomycin Trough 6.1 ug/mL (10.0-20.0)
[2024-04-25] MEDS: VANCOMYCIN 2,000 MG/NS 500 ML 2,000 MG/500 ML BAG 250 MG IVPB (18:32)
[2024-04-25 21:12] VITALS: PULSE 105
[2024-04-25] MEDS: INSULIN GLARGINE (*BKC) 100 UNITS/ML 23 UNITS SUB-Q (21:13)
[2024-04-25 21:16] VITALS: BP 190/90; PULSE 105; RESP 18; TEMP 36.9; O2SAT 97
[2024-04-25 21:16] LABS: Glucose Point of Care 279 mg/dl (65-105)
[2024-04-26] VITALS (19 sets, daily range): BP systolic 152–200; BP diastolic 82–108; PULSE 90–132; RESP 16–18; TEMP 36.4–37.5; O2SAT 96–99
[2024-04-26] MEDS: ACETAMINOPHEN 500 MG TABLET 1000 MG PO ×2 (00:36→06:36)
[2024-04-26] MEDS: hydrALAZINE HCL 20 MG/ML VIAL 10 MG IV PUSH (00:36)
[2024-04-26] MEDS: CEFEPIME 2 GM/NS 50 ML 2 GM/50 ML BAG IVPB ×2 (00:37→13:55)
[2024-04-26] MEDS: IBUPROFEN 400 MG TABLET PO (01:49)
[2024-04-26] MEDS: metroNIDAZOLE 500 MG/ISO 100ML 500 MG/100 ML BAG 100 MG IVPB ×2 (01:49→09:04)
[2024-04-26] MEDS: FUROSEMIDE INJ 40 MG/4 ML VIAL IV PUSH ×2 (01:49→06:37)
[2024-04-26] MEDS: VANCOMYCIN 2,000 MG/NS 500 ML 2,000 MG/500 ML BAG 250 MG IVPB ×3 (02:17→21:30)
[2024-04-26 02:19] LABS: Basophils Percent Auto 0.4 % (0.2-1.2); Eosinophils Absolute Auto 0.2 K/mm3 (0-0.3); Eosinophils Percent Auto 1.6 % (0-4.4); Hematocrit 33.3 % (42.0-52.0); Hemoglobin 11.5 g/dL (14.0-18.0); Immature Granulocyte Absolute 0.05 K/mm3 (0.00-0.031); Immature Granulocyte Percent A 0.5 % (0-0.5); Lymphocytes Absolute Auto 0.82 K/mm3 (0.9-3.2); Lymphocytes Percent Auto 8.1 % (18.3-44.2); Mean Corpuscular HGB Conc 34.5 g/dl (32-36); Mean Corpuscular Hemoglobin 30.1 pg (26-34); Mean Corpuscular Volume 87.2 fl (80-100); Mean Platelet Volume 9.4 fl (7.4-10.4); Monocytes Absolute Auto 1.1 K/mm3 (0.1-0.6); Monocytes Percent Auto 10.7 % (2.6-8.5); Neutrophils Percent Auto 78.7 % (45.5-73.1); Platelet Count Result 271 k/mm3 (150-375); Red Blood Count 3.82 M/mm3 (4.6-6.20); Red Cell Distribution Width 11.9 % (11.5-14.5); White Blood Count 10.1 K/mm3 (4.5-10.0)
[2024-04-26 02:29] LABS: Anion Gap 7 mmol/L (4-12); Blood Urea Nitrogen 12 mg/dL (9-20); Calcium 8.7 mg/dL (8.4-10.2); Carbon Dioxide 23 mmol/L (22-30); Chloride 102 mmol/L (98-107); Estimated CRCL calculation 170 ml/min; Estimated Glomerular Filt Rate > 60; Glucose 264 mg/dL (65-110); Lactic Acid Reflex 0.7 mmol/L (0.7-2.0); Potassium 3.3 mmol/L (3.4-5.0); Sodium 132 mmol/L (137-145)
[2024-04-26] MEDS: METOPROLOL TARTRATE 50 MG TAB 100 MG PO (05:29)
[2024-04-26] MEDS: hydroCHLOROthiazide 25 MG TABLET PO (05:30)
[2024-04-26] MEDS: amLODIPine BESYLATE 10 MG TABLET PO (05:30)
[2024-04-26] MEDS: LORazepam INJ (*CRX) 2 MG/ML VIAL 1 MG IV PUSH (06:37)
[2024-04-26] MEDS: LABETALOL HCL INJ 100 MG/20 ML VIAL 20 MG IV PUSH (07:41)
[2024-04-26 07:48] LABS: Hematocrit 35.3 % (42.0-52.0); Hemoglobin 12.1 g/dL (14.0-18.0); Mean Corpuscular HGB Conc 34.3 g/dl (32-36); Mean Corpuscular Hemoglobin 30.2 pg (26-34); Mean Platelet Volume 9.1 fl (7.4-10.4); Platelet Count Result 295 k/mm3 (150-375); Red Blood Count 4.01 M/mm3 (4.6-6.20); Red Cell Distribution Width 11.8 % (11.5-14.5)
[2024-04-26 08:04] LABS: Alanine Aminotransferase 15 U/L (6-50); Albumin Level 3.3 g/dL (3.5-5.1); Alkaline Phosphatase 86 U/L (38-126); Anion Gap 9 mmol/L (4-12); Aspartate Amino Transferase 19 U/L (17-59); Bilirubin,Total 0.5 mg/dL (0.2-1.3); Blood Urea Nitrogen 10 mg/dL (9-20); Calcium 8.8 mg/dL (8.4-10.2); Carbon Dioxide 25 mmol/L (22-30); Chloride 102 mmol/L (98-107); Estimated CRCL calculation 170 ml/min; Estimated Glomerular Filt Rate > 60; Glucose 246 mg/dL (65-110); Sodium 136 mmol/L (137-145)
[2024-04-26 08:22] LABS: Glucose Point of Care 265 mg/dl (65-105)
--- NOTE | 2024-04-26 08:36 | PM.IMPN ---
Progress Note: A&P Assessment and Plan (1) Abscess of left foot: Code(s): L02.612 - Cutaneous abscess of left foot Status: Acute (2) Cellulitis: Qualifiers: Laterality: left Site of cellulitis: extremity Site of cellulitis of extremity: lower extremity Qualified Code(s): L03.116 - Cellulitis of left lower limb Code(s): L03.90 - Cellulitis, unspecified Status: Acute (3) Type 2 diabetes mellitus with hyperglycemia: Qualifiers: Diabetes mellitus joint terminal attack controller insulin use: with assisted use Qualified Code(s): E11.65 - Type 2 diabetes mellitus with hyperglycemia; Z79.4 - shelter (current) use of insulin Code(s): E11.65 - Type 2 diabetes mellitus with hyperglycemia Status: Acute (4) Hypertension: Qualifiers: Hypertension type: primary hypertension Qualified Code(s): I10 - Essential (primary) hypertension Code(s): I10 - Essential (primary) hypertension Status: Acute (5) Osteoarthritis of right shoulder: Code(s): M19.011 - Primary osteoarthritis, right shoulder Status: Acute Plan Puncture wound, left foot abscess, cellulitis of left lower extremity: Code(s): T14.8XXA - Other injury of unspecified body region, initial encounter Status: Acute Assessment and Plan: -stepped on the nail in february- keflex 04/21-came to ed 04/23-IV antibiotics-gen surgery consult-f/u outpt- came back at 1am 04/24 for increased erythema and drainage - CRP-26.3, lactic 1.3 Worsening edema with soft tissue emphysema over the lateral forefoot. No definite acute osseous abnormalit blood cultures no growth surgery consult, perform I and D Wound culture grows mixed better floor, g+ positive cocci in chains, Heavy growth of Enterococcus species susceptibility test report to follow. Follow-up left foot MRI; Skin defect plantar to head of fifth metatarsal with cellulitis and necrosis of the nearby soft tissues and osteomyelitis involving head of fifth metatarsal. continue vancomycin cefepime Flagyl Type 2 diabetes mellitus with hyperglycemia: Qualifiers: Diabetes mellitus assisted insulin use: with joint terminal attack controller use Qualified Code(s): E11.65 - Type 2 diabetes mellitus with hyperglycemia; Z79.4 - shelter (current) use of insulin Code(s): E11.65 - Type 2 diabetes mellitus with hyperglycemia Status: Acute Assessment and Plan: - home regimen: Toujeo 64 units, lispro 10 units with meals - last reports [id number]- will order - not on [id number] to start when discharged on low dose - will check a1c, lipid profile-ordered - hypoglycemia protocol, diabetic diet, SS andf lantus 23 units hs - will monitor and adjust as needed Hypertension urgency Blood pressure bumps up 200/108 Provide labetalol 20 mg IV push once Patient is on metoprolol 100 mg q.8 hours p.o., transition to carvedilol p.o 25 mg b.i.d. p.o. Continue amlodipine 10 mg daily p.o., hydrochlorothiazide 25 mg daily p.o. Continue hydralazine prn for BP >170 or dBP>110 Plan h/o depressions- will resume home lexapro Subjective Date/time seen: 04/26/24 08:36 Interval history: Patient is afebrile, pain is better controlled. Patient has uncontrolled blood pressure 200/108, patient headache, denies vision change, chest pain, shortness a breath Exam Narrative: GENERAL: Pleasant, in no acute distress. Well-nourished. - EYES: EOMI. Anicteric. - HENT: Moist mucous membranes. - LUNGS: Clear to auscultation bilaterally, no wheezing, rhonchi, or rales. - CARDIOVASCULAR: Regular rate and rhythm. No murmur. No JVD. - ABDOMEN: Soft, non-tender and non-distended. No palpable masses. - EXTREMITIES: No edema. Peripheral pulses 2+. Non-tender. Left foot ulcer, status post I&D, well dressed, dressing is dry and clean - NEUROLOGIC: No focal neurological deficits. CN II-XII grossly intact. - PSYCHIATRIC: Awake, Alert and oriented x 3. [employer]
[2024-04-26] MEDS: INSULIN ASPART (*BKC) 100 UNITS/ML SUB-Q ×3 (08:44→17:31)
[2024-04-26] MEDS: ESCITALOPRAM OXALATE 10 MG TABLET PO (08:44)
[2024-04-26] MEDS: carvediloL 25 MG TABLET PO ×2 (08:48→21:30)
--- NOTE | 2024-04-26 10:31 | PM.PNGS ---
Progress Note: A&P Assessment and Plan (1) Abscess of left foot: Code(s): L02.612 - Cutaneous abscess of left foot Status: Acute Assessment and Plan: S/p bedside I&D on 04/24/2024. There was more redness of the foot today and some fluid built up under the skin of the lateral foot similar to a blister. I was easily able to drain this fluid through the incision from the I&D and again packed the wound today. Cultures growing enterococcus species and Group B strep. Continue IV antibiotics. WBC count normalized. Continue packing dressing changes (2) Cellulitis: Qualifiers: Laterality: left Site of cellulitis: extremity Site of cellulitis of extremity: lower extremity Qualified Code(s): L03.116 - Cellulitis of left lower limb Code(s): L03.90 - Cellulitis, unspecified Status: Acute Assessment and Plan: Continue IV antibiotics. (3) Puncture wound: Code(s): T14.8XXA - Other injury of unspecified body region, initial encounter Status: Acute (4) Type 2 diabetes mellitus with hyperglycemia: Qualifiers: Diabetes mellitus senior care insulin use: with intermediate manager use Qualified Code(s): E11.65 - Type 2 diabetes mellitus with hyperglycemia; Z79.4 - termite control service representative (current) use of insulin Code(s): E11.65 - Type 2 diabetes mellitus with hyperglycemia Status: Acute Plan I have discussed the patient's case and plan of care with Dr. nAn. Subjective Subjective Date/Time Seen: 04/26/24 10:31 Post Op day: 2 (I&D left foot abscess) Patient reports: afebrile Interval history: Patient seen this morning. Nursing has been dealing with high blood pressures through the night and this morning. He recently received labetalol for his hypertension. His headache has improved. He is not having any new issues with his left foot. No pain or other changes overnight. He does report getting up on his foot more yesterday and walking on it and paying attention to putting pressure on his heel with ambulation. Exam Const: General: comfortable and no acute distress Extrem: Left lower extremity: foot Details: toes with normal ROM and vascular exam Details: dorsalis pedis pulse present, posterior tibial pulse present and normal capillary refill (foot is warm); no tenderness Other: Removed left foot dressing and packing from incision. There is now a superficial fluid collection just below the skin extending laterally around to the dorsal foot in the area of the 5th MTP joint that connects to the incision. I was able to easily express this fluid out after the packing was removed and the skin in that are now looks like a decompressed blister. There is still scant purulent drainage coming from the abscess, which I repacked with 1/4 iodoform gauze. There appears to be more redness in the left foot today with some streaking going across the plantar arch of the foot. There is still diffuse edema of the left foot and lower leg. Objective Data Vital Signs Vital Signs: Vital Signs - 24 hr 04/25/24 14:00 04/25/24 21:12 04/25/24 21:16 Temperature 97.3 F L 98.4 F Pulse Rate 95 105 H 105 H Respiratory Rate 16 18 Blood Pressure 165/92 H 190/90 H Pulse Oximetry 96 97 Oxygen Delivery 04/25/24 20:00 04/26/24 00:27 04/26/24 04:00 Temperature 99.5 F Pulse Rate 103 H Respiratory Rate Blood Pressure 180/100 H Pulse Oximetry Oxygen Delivery Room Air 04/26/24 00:30 04/26/24 05:12 04/26/24 05:29 Temperature Pulse Rate 96 Respiratory Rate Blood Pressure 182/86 H 192/96 H Pulse Oximetry Oxygen Delivery 04/26/24 06:00 04/26/24 06:15 04/26/24 06:22 Temperature 98.4 F Pulse Rate 99 Respiratory Rate 18 Blood Pressure 200/104 H 200/98 H Pulse Oximetry 97 Oxygen Delivery 04/26/24 06:28 04/26/24 07:29 04/26/24 07:41 Temperature Pulse Rate 101 H Respiratory Rate Blood Pressure 200/98 H 200/108 H Pulse Oximetry
[2024-04-26 12:42] LABS: Glucose Point of Care 322 mg/dl (65-105)
[2024-04-26 16:45] LABS: Glucose Point of Care 354 mg/dl (65-105)
[2024-04-26 18:46] LABS: Vancomycin Trough 19.4 ug/mL (10.0-20.0)
[2024-04-26 21:24] LABS: Glucose Point of Care 328 mg/dl (65-105)
[2024-04-26] MEDS: INSULIN GLARGINE (*BKC) 100 UNITS/ML 23 UNITS SUB-Q (21:30)
--- NOTE | 2024-04-26 23:08 | PC.NURSE ---
Pt's assessment has been completed by Dayanna Blair. I have reviewed and agree with her documentation on ths date.
[2024-04-27] VITALS (13 sets, daily range): BP systolic 140–192; BP diastolic 78–104; PULSE 94–116; RESP 16–20; TEMP 36.1–37.3; O2SAT 96–99
[2024-04-27] MEDS: ACETAMINOPHEN 500 MG TABLET 1000 MG PO ×2 (04:42→12:34)
[2024-04-27] MEDS: hydrALAZINE HCL 20 MG/ML VIAL 10 MG IV PUSH (04:42)
[2024-04-27] MEDS: carvediloL 25 MG TABLET PO ×2 (06:01→19:59)
[2024-04-27] MEDS: hydroCHLOROthiazide 25 MG TABLET PO (06:01)
[2024-04-27] MEDS: amLODIPine BESYLATE 10 MG TABLET PO (06:01)
[2024-04-27 06:05] LABS: Hematocrit 36.5 % (42.0-52.0); Hemoglobin 12.5 g/dL (14.0-18.0); Mean Corpuscular HGB Conc 34.2 g/dl (32-36); Mean Corpuscular Hemoglobin 30.1 pg (26-34); Mean Platelet Volume 9.4 fl (7.4-10.4); Platelet Count Result 329 k/mm3 (150-375); Red Blood Count 4.15 M/mm3 (4.6-6.20); Red Cell Distribution Width 11.7 % (11.5-14.5); White Blood Count 8.7 K/mm3 (4.5-10.0)
[2024-04-27 06:20] LABS: Alanine Aminotransferase 17 U/L (6-50); Albumin Level 3.4 g/dL (3.5-5.1); Alkaline Phosphatase 85 U/L (38-126); Anion Gap 7 mmol/L (4-12); Aspartate Amino Transferase 25 U/L (17-59); Bilirubin,Total 0.6 mg/dL (0.2-1.3); Blood Urea Nitrogen 14 mg/dL (9-20); Calcium 8.5 mg/dL (8.4-10.2); Carbon Dioxide 29 mmol/L (22-30); Chloride 99 mmol/L (98-107); Estimated CRCL calculation 170 ml/min; Estimated Glomerular Filt Rate > 60; Glucose 281 mg/dL (65-110); Potassium 3.5 mmol/L (3.4-5.0); Sodium 135 mmol/L (137-145)
[2024-04-27 07:55] LABS: Glucose Point of Care 283 mg/dl (65-105)
[2024-04-27 08:16] LABS: Glucose Point of Care 276 mg/dl (65-105)
[2024-04-27] MEDS: INSULIN ASPART (*BKC) 100 UNITS/ML SUB-Q ×3 (09:11→16:41)
[2024-04-27] MEDS: ESCITALOPRAM OXALATE 10 MG TABLET PO (09:11)
[2024-04-27 11:49] LABS: Glucose Point of Care 239 mg/dl (65-105)
[2024-04-27] MEDS: AMPICILLIN 2 GM/NS 100 ML 2 GM/100 ML BAG IVPB ×4 (12:23→23:57)
[2024-04-27] MEDS: IBUPROFEN 400 MG TABLET PO (12:33)
--- NOTE | 2024-04-27 13:04 | PM.PNGS ---
Progress Note: A&P Assessment and Plan (1) Abscess of left foot: Code(s): L02.612 - Cutaneous abscess of left foot Status: Acute Assessment and Plan: S/p bedside I&D on 04/24/2024. Will have wound care nurses see today to assist with local wound care recommendations. Continue IV antibiotics. WBC count normalized. Continue packing dressing changes (2) Osteomyelitis of foot, left, acute: Code(s): M86.172 - Other acute osteomyelitis, left ankle and foot Status: Acute Assessment and Plan: Will likely need 6 weeks of antibiotics Picc line ordered for today. (3) Cellulitis: Qualifiers: Laterality: left Site of cellulitis: extremity Site of cellulitis of extremity: lower extremity Qualified Code(s): L03.116 - Cellulitis of left lower limb Code(s): L03.90 - Cellulitis, unspecified Status: Acute Assessment and Plan: Continue IV antibiotics. (4) Puncture wound: Code(s): T14.8XXA - Other injury of unspecified body region, initial encounter Status: Acute (5) Type 2 diabetes mellitus with hyperglycemia: Qualifiers: Diabetes mellitus retirement insulin use: with retirement use Qualified Code(s): E11.65 - Type 2 diabetes mellitus with hyperglycemia; Z79.4 - terminal worker (current) use of insulin Code(s): E11.65 - Type 2 diabetes mellitus with hyperglycemia Status: Acute Subjective Subjective Date/Time Seen: 04/27/24 13:04 Interval history: Patient feeling a little better. No fevers. Still having some drainage around left foot wound but no pain. Exam Extrem: Other: Blister noted under callused skin around 5th metatarsal head plantar and lateral surface. Callus excised with scissors and scant purulent drainage noted. Slight necrotic debris in plantar and lateral wound bed. No tunneling noted. Objective Data Vital Signs Vital Signs: Vital Signs - 24 hr 04/26/24 14:00 04/26/24 16:00 04/26/24 21:40 Temperature 36.4 C L 37.1 C Pulse Rate 94 90 102 H Respiratory Rate 16 18 Blood Pressure 152/87 H 168/93 H Pulse Oximetry 97 96 Oxygen Delivery 04/26/24 20:00 04/26/24 20:00 04/27/24 00:05 Temperature 37.3 C Pulse Rate 132 H Respiratory Rate Blood Pressure 148/84 H Pulse Oximetry Oxygen Delivery Room Air 04/27/24 00:00 04/27/24 06:00 04/27/24 04:35 Temperature 37.1 C 36.9 C Pulse Rate 105 H 109 H 105 H Respiratory Rate 18 18 Blood Pressure 192/104 H 182/102 H Pulse Oximetry 96 96 Oxygen Delivery 04/27/24 06:32 04/27/24 07:02 04/27/24 07:39 Temperature Pulse Rate 100 Respiratory Rate 18 Blood Pressure 192/104 H 162/78 H 192/104 H Pulse Oximetry 96 96 Oxygen Delivery Room Air Room Air 04/27/24 08:00 04/27/24 08:00 Temperature Pulse Rate 94 Respiratory Rate Blood Pressure Pulse Oximetry Oxygen Delivery Room Air Intake/Output Intake/Output: Intake & Output 04/24/24 04/25/24 04/26/24 04/27/24 23:59 23:59 23:59 23:59 Intake Total 5580 5330 2820 400 Output Total 725 2100 2750 Balance 4855 3230 70 400 Meds/Results Medications: Active Medications Generic Name Dose Route Start Last Admin Trade Name Freq PRN Reason Stop Dose Admin Acetaminophen 1,000 mg 04/24/24 09:33 04/27/24 12:34 Acetaminophen 500 Mg Tablet PO 1,000 mg Q6H PRN Administration pain Amlodipine Besylate 10 mg 04/26/24 09:00 04/27/24 06:01 Amlodipine Besylate 10 Mg Tablet PO 10 mg QAM SANCHEZ Administration Carvedilol 25 mg 04/26/24 09:00 04/27/24 06:01 Carvedilol 25 Mg Tablet PO 25 mg Q12HR SANCHEZ Administration Collagenase 1 applic 04/27/24 09:00 Collagenase Oint 30 Gm Tube TOPICAL QAM SANCHEZ Dextrose 12.5 gm 04/24/24 09:39 Dextrose 50% 25 Gm/50 Ml Syringe IV PUSH PRN PRN Hypoglycemia Protocol Escitalopram Oxalate 10 mg 04/24/24 09:00 04/27/24 09:11 Escitalopram Oxalate 10 Mg Ta
--- NOTE | 2024-04-27 14:12 | PM.IMPN ---
Progress Note: A&P Assessment and Plan (1) Abscess of left foot: Code(s): L02.612 - Cutaneous abscess of left foot Status: Acute (2) Cellulitis: Qualifiers: Laterality: left Site of cellulitis: extremity Site of cellulitis of extremity: lower extremity Qualified Code(s): L03.116 - Cellulitis of left lower limb Code(s): L03.90 - Cellulitis, unspecified Status: Acute (3) Type 2 diabetes mellitus with hyperglycemia: Qualifiers: Diabetes mellitus jail insulin use: with superintendent marine oil terminal use Qualified Code(s): E11.65 - Type 2 diabetes mellitus with hyperglycemia; Z79.4 - care home (current) use of insulin Code(s): E11.65 - Type 2 diabetes mellitus with hyperglycemia Status: Acute (4) Hypertension: Qualifiers: Hypertension type: primary hypertension Qualified Code(s): I10 - Essential (primary) hypertension Code(s): I10 - Essential (primary) hypertension Status: Acute (5) Osteoarthritis of right shoulder: Code(s): M19.011 - Primary osteoarthritis, right shoulder Status: Acute Plan # Puncture wound, left foot abscess, cellulitis of left lower extremity: associated osteomyelitis left foot -stepped on the nail in february- keflex 04/21-came to ed 04/23-IV antibiotics-gen surgery consult-f/u outpt- came back at 1am 04/24 for increased erythema and drainage - CRP-26.3, lactic 1.3 Worsening edema with soft tissue emphysema over the lateral forefoot. No definite acute osseous abnormalit blood cultures no growth surgery consult, perform I and D 04/24/2024 Wound culture grows mixed better floor, g+ positive cocci in chains, Heavy growth of Enterococcus species susceptibility test report to follow. Follow-up left foot MRI; Skin defect plantar to head of fifth metatarsal with cellulitis and necrosis of the nearby soft tissues and osteomyelitis involving head of fifth metatarsal. continue vancomycin cefepime Flagyl Antibiotics switched to ampicillin IV # Type 2 diabetes mellitus with hyperglycemia: - home regimen: Toujeo 64 units, lispro 10 units with meals - last reports [id number]- will order - not on [id number]-[id number] to start when discharged on low dose - A1c 10.5 lipid profile-ordered - hypoglycemia protocol, diabetic diet, SS andf lantus 23 units hs - will monitor and adjust as needed #Hypertension urgency Blood pressure bumps up 200/108 Provide labetalol 20 mg IV push once Patient is on metoprolol 100 mg q.8 hours p.o., transition to carvedilol p.o 25 mg b.i.d. p.o. Continue amlodipine 10 mg daily p.o., hydrochlorothiazide 25 mg daily p.o. Continue hydralazine prn for BP >170 or dBP>110 CT head was negative h/o depressions- will resume home lexapro Subjective Date/time seen: 04/27/24 14:12 Interval history: overnight had headahces, this is related to High blood Pressure. blood pressure has improved now. Review of Systems Review of Systems: All systems reviewed & are unremarkable except as noted in HPI and below Exam Narrative: GENERAL: Pleasant, in no acute distress. Well-nourished. - EYES: EOMI. Anicteric. - HENT: Moist mucous membranes. - LUNGS: Clear to auscultation bilaterally, no wheezing, rhonchi, or rales. - CARDIOVASCULAR: Regular rate and rhythm. No murmur. No JVD. - ABDOMEN: Soft, non-tender and non-distended. No palpable masses. - EXTREMITIES: No edema. Peripheral pulses 2+. Non-tender. Left foot ulcer, status post I&D, well dressed, dressing is dry and clean - NEUROLOGIC: No focal neurological deficits. CN II-XII grossly intact. - PSYCHIATRIC: Awake, Alert and oriented x 3. Appropriate mood and affect. - SKIN: No rashes or lesions. Warm. - LYMPH: No cervical lymphadenopathy. Objective Data Vital Signs Vital Signs: Vital Signs - 24 hr 04/26/24 16:00 04/26/24 21:40 04/26/24 20:00 Temperature 98.8 F Pulse Rate 90 102 H Respiratory Rate 18 Blood Pressure 168/93 H P
[2024-04-27] MEDS: LIDOCAINE HCL 1% PF INJ 5 ML VIAL INFILTRATE (14:25)
[2024-04-27] MEDS: LOSARTAN POTASSIUM 25 MG TABLET PO (15:14)
[2024-04-27] MEDS: GENTAMICIN SULFATE 0.1% OINT 15 GM TUBE 1 APPLIC TOPICAL (15:17)
[2024-04-27] MEDS: COLLAGENASE OINT 30 GM TUBE 1 APPLIC TOPICAL (15:17)
[2024-04-27 16:02] LABS: Glucose Point of Care 361 mg/dl (65-105)
[2024-04-27] MEDS: INSULIN ASPART (*BKC) 100 UNITS/ML 10 UNITS SUB-Q (16:40)
[2024-04-27] MEDS: INSULIN GLARGINE (*BKC) 100 UNITS/ML 35 UNITS SUB-Q (20:01)
[2024-04-27] MEDS: CENTRAL LINE FLUSH 10 ML IV PUSH (20:13)
[2024-04-27 20:17] LABS: Glucose Point of Care 368 mg/dl (65-105)
[2024-04-28] VITALS (10 sets, daily range): BP systolic 126–166; BP diastolic 87–91; PULSE 93–120; RESP 16–18; TEMP 36.1–36.8; O2SAT 93–99
[2024-04-28] MEDS: AMPICILLIN 2 GM/NS 100 ML 2 GM/100 ML BAG IVPB ×6 (03:33→23:49)
[2024-04-28] MEDS: CENTRAL LINE FLUSH 10 ML IV PUSH ×3 (04:03→20:22)
[2024-04-28 06:52] LABS: Hemoglobin 12.4 g/dL (14.0-18.0); Mean Corpuscular HGB Conc 33.5 g/dl (32-36); Mean Corpuscular Hemoglobin 29.8 pg (26-34); Mean Corpuscular Volume 88.9 fl (80-100); Mean Platelet Volume 8.9 fl (7.4-10.4); Platelet Count Result 364 k/mm3 (150-375); Red Blood Count 4.16 M/mm3 (4.6-6.20); Red Cell Distribution Width 11.5 % (11.5-14.5); White Blood Count 7.2 K/mm3 (4.5-10.0)
[2024-04-28 06:57] LABS: Alanine Aminotransferase 29 U/L (6-50); Albumin Level 3.2 g/dL (3.5-5.1); Alkaline Phosphatase 84 U/L (38-126); Anion Gap 5 mmol/L (4-12); Aspartate Amino Transferase 46 U/L (17-59); Bilirubin,Total 0.5 mg/dL (0.2-1.3); Blood Urea Nitrogen 16 mg/dL (9-20); Calcium 8.7 mg/dL (8.4-10.2); Carbon Dioxide 32 mmol/L (22-30); Chloride 99 mmol/L (98-107); Estimated CRCL calculation 170 ml/min; Estimated Glomerular Filt Rate > 60; Glucose 273 mg/dL (65-110); Magnesium 1.8 mg/dL (1.6-2.3); Potassium 3.6 mmol/L (3.4-5.0); Sodium 136 mmol/L (137-145)
[2024-04-28 07:38] LABS: Glucose Point of Care 273 mg/dl (65-105)
[2024-04-28] MEDS: INSULIN ASPART (*BKC) 100 UNITS/ML 10 UNITS SUB-Q ×3 (07:46→16:31)
[2024-04-28] MEDS: INSULIN ASPART (*BKC) 100 UNITS/ML SUB-Q ×2 (07:46→11:29)
[2024-04-28] MEDS: hydroCHLOROthiazide 25 MG TABLET PO (07:48)
[2024-04-28] MEDS: amLODIPine BESYLATE 10 MG TABLET PO (07:48)
[2024-04-28] MEDS: carvediloL 25 MG TABLET PO ×2 (07:48→20:20)
[2024-04-28] MEDS: LOSARTAN POTASSIUM 25 MG TABLET PO (07:48)
[2024-04-28] MEDS: ESCITALOPRAM OXALATE 10 MG TABLET PO (07:48)
[2024-04-28] MEDS: COLLAGENASE OINT 30 GM TUBE 1 APPLIC TOPICAL (07:49)
[2024-04-28] MEDS: GENTAMICIN SULFATE 0.1% OINT 15 GM TUBE 1 APPLIC TOPICAL (07:49)
[2024-04-28 11:36] LABS: Glucose Point of Care 306 mg/dl (65-105)
--- NOTE | 2024-04-28 13:30 | PM.IMPN ---
Progress Note: A&P Assessment and Plan (1) Abscess of left foot: Code(s): L02.612 - Cutaneous abscess of left foot Status: Acute (2) Cellulitis: Qualifiers: Laterality: left Site of cellulitis: extremity Site of cellulitis of extremity: lower extremity Qualified Code(s): L03.116 - Cellulitis of left lower limb Code(s): L03.90 - Cellulitis, unspecified Status: Acute (3) Type 2 diabetes mellitus with hyperglycemia: Qualifiers: Diabetes mellitus shelter insulin use: with terminal block assembler use Qualified Code(s): E11.65 - Type 2 diabetes mellitus with hyperglycemia; Z79.4 - residential (current) use of insulin Code(s): E11.65 - Type 2 diabetes mellitus with hyperglycemia Status: Acute (4) Hypertension: Qualifiers: Hypertension type: primary hypertension Qualified Code(s): I10 - Essential (primary) hypertension Code(s): I10 - Essential (primary) hypertension Status: Acute (5) Osteoarthritis of right shoulder: Code(s): M19.011 - Primary osteoarthritis, right shoulder Status: Acute Plan # Puncture wound, left foot abscess, cellulitis of left lower extremity: associated osteomyelitis left foot -stepped on the nail in february- keflex 04/21-came to ed 04/23-IV antibiotics-gen surgery consult-f/u outpt- came back at 1am 04/24 for increased erythema and drainage - CRP-26.3, lactic 1.3 Worsening edema with soft tissue emphysema over the lateral forefoot. No definite acute osseous abnormalit blood cultures no growth surgery consult, perform I and D 04/24/2024 Wound culture grows mixed better floor, g+ positive cocci in chains, Heavy growth of Enterococcus species susceptibility test report to follow. Follow-up left foot MRI; Skin defect plantar to head of fifth metatarsal with cellulitis and necrosis of the nearby soft tissues and osteomyelitis involving head of fifth metatarsal. continue vancomycin cefepime Flagyl Antibiotics switched to ampicillin IV Plan for 6 weeks antibiotic therapy # Type 2 diabetes mellitus with hyperglycemia: - home regimen: Toujeo 64 units, lispro 10 units with meals - not on [id number]-mtxiynxao to start when discharged on low dose - A1c 10.5 lipid profile-ordered - hypoglycemia protocol, diabetic diet, SS andf lantus 23 units hs - will monitor and adjust as needed # Hypertension urgency Blood pressure bumps up 200/108 Provide labetalol 20 mg IV push once Patient is on metoprolol 100 mg q.8 hours p.o., transition to carvedilol p.o 25 mg b.i.d. p.o. Continue amlodipine 10 mg daily p.o., hydrochlorothiazide 25 mg daily p.o. Continue hydralazine prn for BP >170 or dBP>110 CT head was negative h/o depressions- will resume home lexapro Subjective Date/time seen: 04/28/24 13:30 Interval history: No overnight events. Feeling well. Drainage still persist. Review of Systems Review of Systems: All systems reviewed & are unremarkable except as noted in HPI and below Exam Narrative: GENERAL: Pleasant, in no acute distress. Well-nourished. - EYES: EOMI. Anicteric. - HENT: Moist mucous membranes. - LUNGS: Clear to auscultation bilaterally, no wheezing, rhonchi, or rales. - CARDIOVASCULAR: Regular rate and rhythm. No murmur. No JVD. - ABDOMEN: Soft, non-tender and non-distended. No palpable masses. - EXTREMITIES: No edema. Peripheral pulses 2+. Non-tender. Left foot ulcer, status post I&D, well dressed, dressing is dry and clean - NEUROLOGIC: No focal neurological deficits. CN II-XII grossly intact. - PSYCHIATRIC: Awake, Alert and oriented x 3. Appropriate mood and affect. - SKIN: No rashes or lesions. Warm. - LYMPH: No cervical lymphadenopathy. Objective Data Vital Signs Vital Signs: Vital Signs - 24 hr 04/27/24 14:00 04/27/24 16:00 04/27/24 20:48 Temperature 98.8 F 96.9 F L Pulse Rate 103 H 94 109 H Respiratory Rate 20 16 Blood Pressure 140/80 150/88 H Pulse Oximetry 96 99 O
[2024-04-28 16:38] LABS: Glucose Point of Care 191 mg/dl (65-105)
--- NOTE | 2024-04-28 20:14 | WPDPN ---
Progress Note: A&P Assessment and Plan (1) Osteomyelitis of foot, left, acute: Code(s): M86.172 - Other acute osteomyelitis, left ankle and foot Status: Acute Assessment and Plan: Continue local wound care and IV abx. Plan for 6 weeks of IV abx therapy. Case management to arrange home infusoin services and home drew nursing. Subjective Date/time seen: 04/28/24 20:14 Interval history: Pt with left foot osteomyelitis of 5th MP joint and toe. Wound occured after stepping on a screw. PICC line placed and IV abx continues. No fever or complaints. He is able to walk to the bathroom. WBC normal still. Min pain in the left foot. Exam GI: Other: Extrem: Other: Left foot lateral 5th MTP joint wound open and min seropurulent drainage, Mild redness but no fluctuance. Able to move all toes on left foot. Objective Data Vital Signs Vital Signs: Vital Signs - 24 hr 04/27/24 20:48 04/28/24 00:00 04/28/24 04:00 Temperature 36.1 C L Pulse Rate 109 H 98 94 Respiratory Rate 16 Blood Pressure 150/88 H Pulse Oximetry 99 Oxygen Delivery 04/28/24 05:41 04/28/24 07:48 04/28/24 08:00 Temperature 36.2 C L Pulse Rate 104 H 104 H Respiratory Rate 16 Blood Pressure 164/87 H Pulse Oximetry 93 Oxygen Delivery Room Air 04/28/24 08:00 04/28/24 12:00 04/28/24 14:00 Temperature 36.8 C Pulse Rate 105 H 107 H 93 Respiratory Rate 18 Blood Pressure 166/91 H Pulse Oximetry 96 Oxygen Delivery 04/28/24 16:00 Temperature Pulse Rate 96 Respiratory Rate Blood Pressure Pulse Oximetry Oxygen Delivery Intake/Output Intake/Output: Intake & Output 04/25/24 04/26/24 04/27/24 04/28/24 23:59 23:59 23:59 23:59 Intake Total 5330 2820 960 1080 Output Total 2100 2750 Balance 3230 70 960 1080 Meds/Results Medications: Active Medications Generic Name Dose Route Start Last Admin Trade Name Freq PRN Reason Stop Dose Admin Acetaminophen 1,000 mg 04/24/24 09:33 04/27/24 12:34 Acetaminophen 500 Mg Tablet PO 1,000 mg Q6H PRN Administration pain Amlodipine Besylate 10 mg 04/26/24 09:00 04/28/24 07:48 Amlodipine Besylate 10 Mg Tablet PO 10 mg QAM SANCHEZ Administration Carvedilol 25 mg 04/26/24 09:00 04/28/24 07:48 Carvedilol 25 Mg Tablet PO 25 mg Q12HR SANCHEZ Administration Collagenase 1 applic 04/27/24 09:00 04/28/24 07:49 Collagenase Oint 30 Gm Tube TOPICAL 1 applic QAM SANCHEZ Administration Dextrose 12.5 gm 04/24/24 09:39 Dextrose 50% 25 Gm/50 Ml Syringe IV PUSH PRN PRN Hypoglycemia Protocol Escitalopram Oxalate 10 mg 04/24/24 09:00 04/28/24 07:48 Escitalopram Oxalate 10 Mg Tablet PO 10 mg DAILY SANCHEZ Administration Gentamicin Sulfate 1 applic 04/27/24 09:00 04/28/24 07:49 Gentamicin Sulfate 0.1% Oint 15 Gm Tube TOPICAL 1 applic DAILY SANCHEZ Administration Glucagon 1 mg 04/24/24 09:39 Glucagon For Inj 1 Mg Vial IM PRN PRN Hypoglycemia Protocol Glucose 15 gm 04/24/24 09:39 Glucose Oral Gel 15 Gm Of Glucse In 37.5 Gm Tube PO PRN PRN Hypoglycemia Protocol Hydralazine HCl 10 mg 04/26/24 08:43 04/27/24 04:42 Hydralazine Hcl 20 Mg/Ml Vial IV PUSH 10 mg Q4H PRN Administration Blood Pressure - High Hydrochlorothiazide 25 mg 04/26/24 09:00 04/28/24 07:48 Hydrochlorothiazide 25 Mg Tablet PO 25 mg QAM SANCHEZ Administration Dextrose 1,000 mls @ 100 mls/hr 04/24/24 09:39 Dextrose 5% 1,000 Ml IVPB PRN PRN Hypoglycemia Protocol Ampicillin Sodium 2 gm in 100 mls @ 200 mls/hr 04/27/24 12:00 04/28/24 15:54 Ampicillin 2 Gm/Ns 100 Ml IVPB Infused Q4H SANCHEZ Infusion Ibuprofen 400 mg 04/25/24 10:26 04/27/24 12:33 Ibuprofen 400 Mg Tablet PO 400 mg Q6H PRN Administration Pain Rated 1-3 Insulin Aspart 3 - 6 units 04/24/24 12:00 04/28/24 16:31 Insulin Aspart (*B
[2024-04-28] MEDS: INSULIN GLARGINE (*BKC) 100 UNITS/ML 50 UNITS SUB-Q (20:22)
[2024-04-28 20:27] LABS: Glucose Point of Care 345 mg/dl (65-105)
[2024-04-29] VITALS (8 sets, daily range): BP systolic 150–165; BP diastolic 88–94; PULSE 96–101; RESP 16–18; TEMP 36.5–37.3; O2SAT 95–98
[2024-04-29] MEDS: AMPICILLIN 2 GM/NS 100 ML 2 GM/100 ML BAG IVPB ×5 (03:53→20:48)
[2024-04-29] MEDS: CENTRAL LINE FLUSH 10 ML IV PUSH ×3 (04:32→20:49)
[2024-04-29 05:55] LABS: Hematocrit 36.4 % (42.0-52.0); Hemoglobin 12.2 g/dL (14.0-18.0); Mean Corpuscular HGB Conc 33.5 g/dl (32-36); Mean Corpuscular Hemoglobin 29.7 pg (26-34); Mean Corpuscular Volume 88.6 fl (80-100); Mean Platelet Volume 8.7 fl (7.4-10.4); Platelet Count Result 344 k/mm3 (150-375); Red Blood Count 4.11 M/mm3 (4.6-6.20); Red Cell Distribution Width 11.5 % (11.5-14.5); White Blood Count 6.8 K/mm3 (4.5-10.0)
[2024-04-29 06:11] LABS: Alanine Aminotransferase 36 U/L (6-50); Albumin Level 3.1 g/dL (3.5-5.1); Alkaline Phosphatase 83 U/L (38-126); Anion Gap 4 mmol/L (4-12); Aspartate Amino Transferase 41 U/L (17-59); Bilirubin,Total 0.5 mg/dL (0.2-1.3); Blood Urea Nitrogen 16 mg/dL (9-20); Calcium 8.5 mg/dL (8.4-10.2); Carbon Dioxide 30 mmol/L (22-30); Chloride 101 mmol/L (98-107); Estimated CRCL calculation 148 ml/min; Estimated Glomerular Filt Rate > 60; Glucose 298 mg/dL (65-110); Potassium 3.7 mmol/L (3.4-5.0); Sodium 135 mmol/L (137-145)
[2024-04-29 07:42] LABS: Glucose Point of Care 293 mg/dl (65-105)
[2024-04-29] MEDS: INSULIN ASPART (*BKC) 100 UNITS/ML SUB-Q ×3 (07:45→16:05)
[2024-04-29] MEDS: INSULIN ASPART (*BKC) 100 UNITS/ML 10 UNITS SUB-Q (07:45)
[2024-04-29] MEDS: COLLAGENASE OINT 30 GM TUBE 1 APPLIC TOPICAL (08:25)
[2024-04-29] MEDS: ESCITALOPRAM OXALATE 10 MG TABLET PO (08:25)
[2024-04-29] MEDS: LOSARTAN POTASSIUM 25 MG TABLET PO (08:25)
[2024-04-29] MEDS: hydroCHLOROthiazide 25 MG TABLET PO (08:25)
[2024-04-29] MEDS: GENTAMICIN SULFATE 0.1% OINT 15 GM TUBE 1 APPLIC TOPICAL (08:25)
[2024-04-29] MEDS: carvediloL 25 MG TABLET PO ×2 (08:25→20:49)
[2024-04-29] MEDS: amLODIPine BESYLATE 10 MG TABLET PO (08:25)
[2024-04-29] MEDS: INSULIN ASPART (*BKC) 100 UNITS/ML 15 UNITS SUB-Q ×2 (11:32→16:06)
[2024-04-29 11:38] LABS: Glucose Point of Care 299 mg/dl (65-105)
--- NOTE | 2024-04-29 11:47 | WPDPN ---
Progress Note: A&P Assessment and Plan (1) Osteomyelitis of foot, left, acute: Code(s): M86.172 - Other acute osteomyelitis, left ankle and foot Status: Acute Assessment and Plan: Patient continues to slowly improve with IV antibiotics for his left foot osteomyelitis. Continue IV antibiotics. He will need 6 weeks of IV antibiotic therapy at home and PICC line has already been placed. Care coordination is working on approval for home IV infusion therapy and home health arrangements. Hopefully that can be arranged tomorrow and he will be discharged home with outpatient follow-up. Subjective Date/time seen: 04/29/24 11:47 Interval history: Patient without acute changes. No real pain left foot. Wound dressing has been changed already today. Minimal drainage dressing. He is able to ambulate to the bathroom on the foot without difficulty. White blood cell count remains normal. Exam GI: Other: Left foot wound with less surrounding redness and swelling. Small amount of nonpurulent serous drainage from the wound. Left 5th toe remains viable. No streaking up the left foot. Objective Data Vital Signs Vital Signs: Vital Signs - 24 hr 04/28/24 12:00 04/28/24 14:00 04/28/24 16:00 Temperature 36.8 C Pulse Rate 107 H 93 96 Respiratory Rate 18 Blood Pressure 166/91 H Pulse Oximetry 96 Oxygen Delivery 04/28/24 20:20 04/28/24 20:45 04/28/24 20:20 Temperature 36.1 C L Pulse Rate 99 120 H 102 H Respiratory Rate 16 Blood Pressure 126/89 Pulse Oximetry 99 Oxygen Delivery 04/28/24 20:20 04/29/24 00:00 04/29/24 04:00 Temperature Pulse Rate 98 96 Respiratory Rate Blood Pressure Pulse Oximetry Oxygen Delivery Room Air 04/29/24 05:44 04/29/24 08:25 04/29/24 08:00 Temperature 37.0 C Pulse Rate 101 H 101 H Respiratory Rate 16 Blood Pressure 150/91 H Pulse Oximetry 95 Oxygen Delivery Room Air 04/29/24 08:00 Temperature Pulse Rate 101 H Respiratory Rate Blood Pressure Pulse Oximetry Oxygen Delivery Intake/Output Intake/Output: Intake & Output 04/26/24 04/27/24 04/28/24 04/29/24 23:59 23:59 23:59 23:59 Intake Total 2820 960 1180 518 Output Total 2750 Balance 70 960 1180 518 Meds/Results Medications: Active Medications Generic Name Dose Route Start Last Admin Trade Name Freq PRN Reason Stop Dose Admin Acetaminophen 1,000 mg 04/24/24 09:33 04/27/24 12:34 Acetaminophen 500 Mg Tablet PO 1,000 mg Q6H PRN Administration pain Amlodipine Besylate 10 mg 04/26/24 09:00 04/29/24 08:25 Amlodipine Besylate 10 Mg Tablet PO 10 mg QAM SANCHEZ Administration Carvedilol 25 mg 04/26/24 09:00 04/29/24 08:25 Carvedilol 25 Mg Tablet PO 25 mg Q12HR SANCHEZ Administration Collagenase 1 applic 04/27/24 09:00 04/29/24 08:25 Collagenase Oint 30 Gm Tube TOPICAL 1 applic QAM SANCHEZ Administration Dextrose 12.5 gm 04/24/24 09:39 Dextrose 50% 25 Gm/50 Ml Syringe IV PUSH PRN PRN Hypoglycemia Protocol Escitalopram Oxalate 10 mg 04/24/24 09:00 04/29/24 08:25 Escitalopram Oxalate 10 Mg Tablet PO 10 mg DAILY SANCHEZ Administration Gentamicin Sulfate 1 applic 04/27/24 09:00 04/29/24 08:25 Gentamicin Sulfate 0.1% Oint 15 Gm Tube TOPICAL 1 applic DAILY SANCHEZ Administration Glucagon 1 mg 04/24/24 09:39 Glucagon For Inj 1 Mg Vial IM PRN PRN Hypoglycemia Protocol Glucose 15 gm 04/24/24 09:39 Glucose Oral Gel 15 Gm Of Glucse In 37.5 Gm Tube PO PRN PRN Hypoglycemia Protocol Hydralazine HCl 10 mg 04/26/24 08:43 04/27/24 04:42 Hydralazine Hcl 20 Mg/Ml Vial IV PUSH 10 mg Q4H PRN Administration Blood Pressure - High Hydrochlorothiazide 25 mg 04/26/24 09:00 04/29/24 08:25 Hydrochlorothiazide 25 Mg Tablet PO 25 mg QAM SANCHEZ Administration Dextrose 1,000 mls @ 100 mls/hr 04/24/24 09:39 Dextrose 5% 1
--- NOTE | 2024-04-29 12:51 | PM.IMPN ---
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 Qualified Code(s): E11.65 - Type 2 diabetes mellitus with hyperglycemia; Z79.4 - care home (current) use of insulin Code(s): E11.65 - Type 2 diabetes mellitus with hyperglycemia Status: Acute (4) Hypertension: Qualifiers: Hypertension type: primary hypertension Qualified Code(s): I10 - Essential (primary) hypertension Code(s): I10 - Essential (primary) hypertension Status: Acute (5) Osteoarthritis of right shoulder: Code(s): M19.011 - Primary osteoarthritis, right shoulder Status: Acute Plan # Puncture wound, left foot abscess, cellulitis of left lower extremity: associated osteomyelitis left foot -stepped on the nail in february- keflex 04/21-came to ed 04/23-IV antibiotics-gen surgery consult-f/u outpt- came back at 1am 04/24 for increased erythema and drainage - CRP-26.3, lactic 1.3 Worsening edema with soft tissue emphysema over the lateral forefoot. No definite acute osseous abnormalit blood cultures no growth surgery consult, perform I and D 04/24/2024 Wound culture grows mixed better floor, g+ positive cocci in chains, Heavy growth of Enterococcus species susceptibility test report to follow. Follow-up left foot MRI; Skin defect plantar to head of fifth metatarsal with cellulitis and necrosis of the nearby soft tissues and osteomyelitis involving head of fifth metatarsal. continue vancomycin cefepime Flagyl Antibiotics switched to ampicillin IV Plan for 6 weeks antibiotic therapy # Type 2 diabetes mellitus with hyperglycemia: - home regimen: Toujeo 64 units, lispro 10 units with meals - not on [id number] to start when discharged on low dose - A1c 10.5 lipid profile-ordered - hypoglycemia protocol, diabetic diet, SS andf lantus 23 units hs - will monitor and adjust as needed # Hypertension urgency Blood pressure bumps up 200/108 Provide labetalol 20 mg IV push once Patient is on metoprolol 100 mg q.8 hours p.o., transition to carvedilol p.o 25 mg b.i.d. p.o. Continue amlodipine 10 mg daily p.o., hydrochlorothiazide 25 mg daily p.o. Continue hydralazine prn for BP >170 or dBP>110 CT head was negative h/o depressions- will resume home lexapro Subjective Date/time seen: 04/29/24 12:51 Interval history: No Overnight events new complaints. PICC line in place. Remains afebrile blood sugar trend reviewed Review of Systems Review of Systems: All systems reviewed & are unremarkable except as noted in HPI and below Exam Narrative: GENERAL: Pleasant, in no acute distress. Well-nourished. - EYES: EOMI. Anicteric. - HENT: Moist mucous membranes. - LUNGS: Clear to auscultation bilaterally, no wheezing, rhonchi, or rales. - CARDIOVASCULAR: Regular rate and rhythm. No murmur. No JVD. - ABDOMEN: Soft, non-tender and non-distended. No palpable masses. - EXTREMITIES: No edema. Peripheral pulses 2+. Non-tender. Left foot ulcer, status post I&D, well dressed, dressing is dry and clean - NEUROLOGIC: No focal neurological deficits. CN II-XII grossly intact. - PSYCHIATRIC: Awake, Alert and oriented x 3. Appropriate mood and affect. - SKIN: No rashes or lesions. Warm. - LYMPH: No cervical lymphadenopathy. Objective Data Vital Signs Vital Signs: Vital Signs - 24 hr 04/28/24 14:00 04/28/24 16:00 04/28/24 20:20 Temperature 98.2 F Pulse Rate 93 96 99 Respiratory Rate 18 Blood Pressure 166/91 H Pulse
[2024-04-29 16:15] LABS: Glucose Point of Care 304 mg/dl (65-105)
[2024-04-29] MEDS: INSULIN GLARGINE (*BKC) 100 UNITS/ML 60 UNITS SUB-Q (20:51)
[2024-04-29 20:58] LABS: Glucose Point of Care 250 mg/dl (65-105)
[2024-04-30] MEDS: AMPICILLIN 2 GM/NS 100 ML 2 GM/100 ML BAG IVPB ×5 (00:25→15:39)
[2024-04-30] MEDS: ACETAMINOPHEN 500 MG TABLET 1000 MG PO (05:11)
[2024-04-30] MEDS: CENTRAL LINE FLUSH 10 ML IV PUSH ×2 (05:14→13:06)
[2024-04-30 05:15] LABS: Hematocrit 35.4 % (42.0-52.0); Mean Corpuscular HGB Conc 33.9 g/dl (32-36); Mean Corpuscular Hemoglobin 29.7 pg (26-34); Mean Corpuscular Volume 87.6 fl (80-100); Mean Platelet Volume 8.5 fl (7.4-10.4); Platelet Count Result 330 k/mm3 (150-375); Red Blood Count 4.04 M/mm3 (4.6-6.20); Red Cell Distribution Width 11.6 % (11.5-14.5); White Blood Count 7.5 K/mm3 (4.5-10.0)
[2024-04-30 05:25] LABS: Alanine Aminotransferase 37 U/L (6-50); Albumin Level 3.1 g/dL (3.5-5.1); Alkaline Phosphatase 81 U/L (38-126); Anion Gap 2 mmol/L (4-12); Aspartate Amino Transferase 37 U/L (17-59); Bilirubin,Total 0.4 mg/dL (0.2-1.3); Blood Urea Nitrogen 14 mg/dL (9-20); Calcium 8.5 mg/dL (8.4-10.2); Carbon Dioxide 32 mmol/L (22-30); Chloride 103 mmol/L (98-107); Estimated CRCL calculation 148 ml/min; Estimated Glomerular Filt Rate > 60; Glucose 189 mg/dL (65-110); Potassium 3.4 mmol/L (3.4-5.0); Sodium 137 mmol/L (137-145)
[2024-04-30 05:54] VITALS: BP 167/99; PULSE 95; RESP 18; TEMP 36.6; O2SAT 97
[2024-04-30 07:32] LABS: Glucose Point of Care 192 mg/dl (65-105)
[2024-04-30 08:09] VITALS: PULSE 97
[2024-04-30] MEDS: amLODIPine BESYLATE 10 MG TABLET PO (08:09)
[2024-04-30] MEDS: carvediloL 25 MG TABLET PO (08:09)
[2024-04-30] MEDS: ESCITALOPRAM OXALATE 10 MG TABLET PO (08:09)
[2024-04-30] MEDS: hydroCHLOROthiazide 25 MG TABLET PO (08:10)
[2024-04-30] MEDS: GENTAMICIN SULFATE 0.1% OINT 15 GM TUBE 1 APPLIC TOPICAL (08:11)
[2024-04-30] MEDS: COLLAGENASE OINT 30 GM TUBE 1 APPLIC TOPICAL (08:11)
[2024-04-30] MEDS: LOSARTAN POTASSIUM 25 MG TABLET PO (08:12)
[2024-04-30] MEDS: INSULIN ASPART (*BKC) 100 UNITS/ML 15 UNITS SUB-Q ×2 (08:13→12:08)
--- NOTE | 2024-04-30 11:15 | PM.PNGS ---
Progress Note: A&P Assessment and Plan (1) Osteomyelitis of foot, left, acute: Code(s): M86.172 - Other acute osteomyelitis, left ankle and foot Status: Acute Assessment and Plan: OK to discharge from surgical standpoint. He will need 6 weeks of IV antibiotic therapy at home and PICC line has already been placed. Care coordination is working on approval for home IV infusion therapy and home health arrangements. Follow up in office in 2 weeks. Subjective Subjective Date/Time Seen: 04/30/24 11:15 Interval history: Wound improving. No significant redness or swelling to foot or leg any longer. No fevers. No pain. Exam Extrem: Other: Minimal serosanguinous drainage. No purulent fluid. Healthy appearing granulation tissue. Objective Data Vital Signs Vital Signs: Vital Signs - 24 hr 04/29/24 14:00 04/29/24 20:49 04/29/24 21:04 Temperature 36.5 C 37.3 C Pulse Rate 99 97 100 Respiratory Rate 16 18 Blood Pressure 153/88 H 165/94 H Pulse Oximetry 98 95 Oxygen Delivery 04/29/24 20:50 04/30/24 05:54 04/30/24 08:09 Temperature 36.6 C Pulse Rate 95 97 Respiratory Rate 18 Blood Pressure 167/99 H Pulse Oximetry 97 Oxygen Delivery Room Air Intake/Output Intake/Output: Intake & Output 04/27/24 04/28/24 04/29/24 04/30/24 23:59 23:59 23:59 23:59 Intake Total 960 1180 1448 660 Balance 960 1180 1448 660 Meds/Results Medications: Active Medications Generic Name Dose Route Start Last Admin Trade Name Freq PRN Reason Stop Dose Admin Acetaminophen 1,000 mg 04/24/24 09:33 04/30/24 05:11 Acetaminophen 500 Mg Tablet PO 1,000 mg Q6H PRN Administration pain Amlodipine Besylate 10 mg 04/26/24 09:00 04/30/24 08:09 Amlodipine Besylate 10 Mg Tablet PO 10 mg QAM SANCHEZ Administration Carvedilol 25 mg 04/26/24 09:00 04/30/24 08:09 Carvedilol 25 Mg Tablet PO 25 mg Q12HR SANCHEZ Administration Collagenase 1 applic 04/27/24 09:00 04/30/24 08:11 Collagenase Oint 30 Gm Tube TOPICAL 1 applic QAM SANCHEZ Administration Dextrose 12.5 gm 04/24/24 09:39 Dextrose 50% 25 Gm/50 Ml Syringe IV PUSH PRN PRN Hypoglycemia Protocol Escitalopram Oxalate 10 mg 04/24/24 09:00 04/30/24 08:09 Escitalopram Oxalate 10 Mg Tablet PO 10 mg DAILY SANCHEZ Administration Gentamicin Sulfate 1 applic 04/27/24 09:00 04/30/24 08:11 Gentamicin Sulfate 0.1% Oint 15 Gm Tube TOPICAL 1 applic DAILY SANCHEZ Administration Glucagon 1 mg 04/24/24 09:39 Glucagon For Inj 1 Mg Vial IM PRN PRN Hypoglycemia Protocol Glucose 15 gm 04/24/24 09:39 Glucose Oral Gel 15 Gm Of Glucse In 37.5 Gm Tube PO PRN PRN Hypoglycemia Protocol Hydralazine HCl 10 mg 04/26/24 08:43 04/27/24 04:42 Hydralazine Hcl 20 Mg/Ml Vial IV PUSH 10 mg Q4H PRN Administration Blood Pressure - High Hydrochlorothiazide 25 mg 04/26/24 09:00 04/30/24 08:10 Hydrochlorothiazide 25 Mg Tablet PO 25 mg QAM SANCHEZ Administration Dextrose 1,000 mls @ 100 mls/hr 04/24/24 09:39 Dextrose 5% 1,000 Ml IVPB PRN PRN Hypoglycemia Protocol Ampicillin Sodium 2 gm in 100 mls @ 200 mls/hr 04/27/24 12:00 04/30/24 08:42 Ampicillin 2 Gm/Ns 100 Ml IVPB Infused Q4H SANCHEZ Infusion Ibuprofen 400 mg 04/25/24 10:26 04/27/24 12:33 Ibuprofen 400 Mg Tablet PO 400 mg Q6H PRN Administration Pain Rated 1-3 Insulin Aspart 3 - 6 units 04/24/24 12:00 04/30/24 07:35 Insulin Aspart (*Bkc) 100 Units/Ml SUB-Q Not Given TIDWM [facility] Protocol Insulin Aspart 15 units 04/29/24 12:00 04/30/24 08:13 Insulin Aspart (*Bkc) 100 Units/Ml SUB-Q 15 units TIDWM SANCHEZ Administration Insulin Glargine 60 units 04/29/24 21:00 04/29/24 20:51 Insulin Glargine (*Bkc) 100 Units/Ml SUB-Q 60 units HS SANCHEZ Administration Losartan Potassium 25 mg 04/27/24 14:20 04/30/24 08:12 Lynn
[2024-04-30 11:48] LABS: Glucose Point of Care 185 mg/dl (65-105)
[2024-04-30 12:00] VITALS: BMI 33.1
--- NOTE | 2024-04-30 13:37 | PM.DS ---
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 Qualified Code(s): E11.65 - Type 2 diabetes mellitus with hyperglycemia; Z79.4 - penitentiary (current) use of insulin Code(s): E11.65 - Type 2 diabetes mellitus with hyperglycemia Status: Acute (4) Hypertension: Qualifiers: Hypertension type: primary hypertension Qualified Code(s): I10 - Essential (primary) hypertension Code(s): I10 - Essential (primary) hypertension Status: Acute (5) Osteoarthritis of right shoulder: Code(s): M19.011 - Primary osteoarthritis, right shoulder Status: Acute DS: Summary Hospital Course Hospital Course: # Puncture wound, left foot abscess, cellulitis of left lower extremity: associated osteomyelitis left foot -stepped on the nail in february- keflex 04/21-came to ed 04/23-IV antibiotics-gen surgery consult-f/u outpt- came back at 1am 04/24 for increased erythema and drainage - CRP-26.3, lactic 1.3 Worsening edema with soft tissue emphysema over the lateral forefoot. No definite acute osseous abnormalit blood cultures no growth surgery consult, perform I and D 04/24/2024 Wound culture grows mixed better floor, g+ positive cocci in chains, Heavy growth of Enterococcus species susceptibility test report to follow. Follow-up left foot MRI; Skin defect plantar to head of fifth metatarsal with cellulitis and necrosis of the nearby soft tissues and osteomyelitis involving head of fifth metatarsal. continue vancomycin cefepime Flagyl Antibiotics switched to ampicillin IV Plan for 6 weeks antibiotic therapy until June 04, 2024 # Type 2 diabetes mellitus with hyperglycemia: - home regimen: Toujeo 64 units, lispro 10 units with meals - not on [id number] to start when discharged on low dose - A1c 10.5 lipid profile-ordered - hypoglycemia protocol, diabetic diet, SSI # Hypertension urgency Blood pressure bumps up 200/108 Provide labetalol 20 mg IV push once Patient is on metoprolol 100 mg q.8 hours p.o., transition to carvedilol p.o 25 mg b.i.d. p.o. Continue amlodipine 10 mg daily p.o., hydrochlorothiazide 25 mg daily p.o. added losartan 25 mg daily to 50 mg daily Continue hydralazine prn for BP >170 or dBP>110 CT head was negative Follow-up as an outpatient basis h/o depressions- will resume home lexapro Time Spent with Patient Time attestation: Total time spent providing and/or coordinating discharge services: 35 minutes Exam Narrative: GENERAL: Pleasant, in no acute distress. Well-nourished. - EYES: EOMI. Anicteric. - HENT: Moist mucous membranes. - LUNGS: Clear to auscultation bilaterally, no wheezing, rhonchi, or rales. - CARDIOVASCULAR: Regular rate and rhythm. No murmur. No JVD. - ABDOMEN: Soft, non-tender and non-distended. No palpable masses. - EXTREMITIES: No edema. Peripheral pulses 2+. Non-tender. Left foot ulcer, status post I&D, well dressed, dressing is dry and clean - NEUROLOGIC: No focal neurological deficits. CN II-XII grossly intact. - PSYCHIATRIC: Awake, Alert and oriented x 3. Appropriate mood and affect. - SKIN: No rashes or lesions. Warm. - LYMPH: No cervical lymphadenopathy. DS: Data Data Completed and Pending Labs on day of discharge: Labs from last 24 hours 04/30/24 04/30/24 04/30/24 11:45 07:27 05:03 WBC 7.5 RBC 4.04 L Hgb 12.0 L Hct 35.4 L MCV 87
[2024-04-30 13:54] VITALS: BP 114/77; PULSE 95; RESP 16; TEMP 35.7; O2SAT 97
--- NOTE | 2024-05-21 15:40 | PCCDE ---
05/21/24 3:20 ? 3:30 pm Followed up with patient by phone, who states he is still healing, feeling better overall and doing better with his DM management. He followed up with PCP promptly post discharge, is taking insulin dose as Rx?d and reports improved BG readings. Has our outpatient information if decides would like DSMT/MNT in the future. NAVEED
== END 2024-04-30 16:40 | disposition home health service (06) | DRG 540 ==
LOC: ANHED 02:16 → ANH3MEDSUR 02:50
PROVIDERS: Nurse Practitioner; Admitting Provider Internal Medicine; Emergency Provider Physician Assistant; PCP Family Medicine; Visit Provider Internal Medicine
DX: M86.172 Other acute osteomyelitis, left ankle and foot (principal); L02.612 Cutaneous abscess of left foot; L03.116 Cellulitis of left lower limb; S91.332D Puncture wound without foreign body, left foot, subsequent encounter; E11.65 Type 2 diabetes mellitus with hyperglycemia; M19.011 Primary osteoarthritis, right shoulder; I16.0 Hypertensive urgency; Z79.4 Long term (current) use of insulin
CPT/HCPCS: 36415; 36569; 70450; 73630; 73720; 80048; 80053; 80061; 80202; 82948; 83036; 83605; 83735; 85025; 85027; 85610; 85730; 86140; 87040; 93005; 96365; 96366; 96367; 99285; A9270; A9577; G0378; J0290; J0360; J0692; J1815; J1836; J1940; J2060; J2405; J3370; J7030

== ENCOUNTER 2024-05-08 11:49 | Outpatient (NON) | payer OTHER, SELFPAY ==
[2024-05-08 12:23] LABS: Basophils Absolute Auto 0.1 K/mm3 (0.0-0.1); Basophils Percent Auto 1.3 % (0.2-1.2); Eosinophils Absolute Auto 0.2 K/mm3 (0-0.3); Eosinophils Percent Auto 3.6 % (0-4.4); Immature Granulocyte Absolute 0.03 K/mm3 (0.00-0.031); Immature Granulocyte Percent A 0.5 % (0-0.5); Lymphocytes Absolute Auto 1.36 K/mm3 (0.9-3.2); Lymphocytes Percent Auto 24.6 % (18.3-44.2); Mean Corpuscular HGB Conc 33.3 g/dl (32-36); Mean Corpuscular Volume 89.9 fl (80-100); Mean Platelet Volume 9.8 fl (7.4-10.4); Monocytes Absolute Auto 0.5 K/mm3 (0.1-0.6); Monocytes Percent Auto 8.9 % (2.6-8.5); Neutrophils Absolute Auto 3.4 K/mm3 (1.3-6.7); Neutrophils Percent Auto 61.1 % (45.5-73.1); Platelet Count Result 404 k/mm3 (150-375); Red Blood Count 4.34 M/mm3 (4.6-6.20); Red Cell Distribution Width 11.9 % (11.5-14.5); White Blood Count 5.5 K/mm3 (4.5-10.0)
[2024-05-08 12:33] LABS: Alanine Aminotransferase 21 U/L (6-50); Albumin Level 3.9 g/dL (3.5-5.1); Alkaline Phosphatase 87 U/L (38-126); Anion Gap 7 mmol/L (4-12); Aspartate Amino Transferase 19 U/L (17-59); Bilirubin,Total 0.6 mg/dL (0.2-1.3); Blood Urea Nitrogen 23 mg/dL (9-20); CRP 0.8 mg/dL (<1.0); Calcium 8.9 mg/dL (8.4-10.2); Carbon Dioxide 27 mmol/L (22-30); Chloride 101 mmol/L (98-107); Estimated Glomerular Filt Rate > 60; Glucose 307 mg/dL (65-110); Potassium 3.8 mmol/L (3.4-5.0); Sodium 135 mmol/L (137-145)
[2024-05-08 13:28] LABS: Erythrocyte Sedimentation Rate 47 mm/hr (0-20)
== END 2024-05-08 11:50 | disposition home or self-care (01) ==
LOC: HOME HLTH 11:53
PROVIDERS: PCP Family Medicine; Visit Provider Internal Medicine
DX: L03.116 Cellulitis of left lower limb (principal)
CPT/HCPCS: 80053; 85025; 85652; 86140

== ENCOUNTER 2024-05-15 10:28 | Outpatient (NON) | payer OTHER, SELFPAY ==
[2024-05-15 11:34] LABS: Basophils Absolute Auto 0.1 K/mm3 (0.0-0.1); Basophils Percent Auto 1.1 % (0.2-1.2); Eosinophils Absolute Auto 0.2 K/mm3 (0-0.3); Eosinophils Percent Auto 3.6 % (0-4.4); Hematocrit 36.8 % (42.0-52.0); Hemoglobin 12.6 g/dL (14.0-18.0); Immature Granulocyte Absolute 0.01 K/mm3 (0.00-0.031); Immature Granulocyte Percent A 0.2 % (0-0.5); Lymphocytes Absolute Auto 1.54 K/mm3 (0.9-3.2); Mean Corpuscular HGB Conc 34.2 g/dl (32-36); Mean Corpuscular Hemoglobin 30.3 pg (26-34); Mean Corpuscular Volume 88.5 fl (80-100); Mean Platelet Volume 10.3 fl (7.4-10.4); Monocytes Absolute Auto 0.5 K/mm3 (0.1-0.6); Monocytes Percent Auto 9.6 % (2.6-8.5); Neutrophils Absolute Auto 3.2 K/mm3 (1.3-6.7); Neutrophils Percent Auto 57.5 % (45.5-73.1); Platelet Count Result 283 k/mm3 (150-375); Red Blood Count 4.16 M/mm3 (4.6-6.20); Red Cell Distribution Width 11.9 % (11.5-14.5); White Blood Count 5.5 K/mm3 (4.5-10.0)
[2024-05-15 11:48] LABS: Alanine Aminotransferase 17 U/L (6-50); Albumin Level 3.8 g/dL (3.5-5.1); Alkaline Phosphatase 77 U/L (38-126); Anion Gap 8 mmol/L (4-12); Aspartate Amino Transferase 20 U/L (17-59); Bilirubin,Total 0.6 mg/dL (0.2-1.3); Blood Urea Nitrogen 22 mg/dL (9-20); CRP 0.5 mg/dL (<1.0); Calcium 8.8 mg/dL (8.4-10.2); Carbon Dioxide 26 mmol/L (22-30); Chloride 102 mmol/L (98-107); Estimated Glomerular Filt Rate > 60; Glucose 219 mg/dL (65-110); Potassium 3.8 mmol/L (3.4-5.0); Sodium 136 mmol/L (137-145)
[2024-05-15 12:17] LABS: Erythrocyte Sedimentation Rate 33 mm/hr (0-20)
== END 2024-05-15 10:29 | disposition home or self-care (01) ==
LOC: HOME HLTH 10:31
PROVIDERS: PCP Family Medicine; Visit Provider Internal Medicine
DX: L03.116 Cellulitis of left lower limb (principal)
CPT/HCPCS: 80053; 85025; 85652; 86140

== ENCOUNTER 2024-05-23 16:33 | Outpatient (NON) | payer OTHER, SELFPAY ==
[2024-05-23 17:29] LABS: Basophils Absolute Auto 0.1 K/mm3 (0.0-0.1); Basophils Percent Auto 1.1 % (0.2-1.2); Eosinophils Absolute Auto 0.3 K/mm3 (0-0.3); Eosinophils Percent Auto 4.1 % (0-4.4); Hematocrit 38.3 % (42.0-52.0); Hemoglobin 12.4 g/dL (14.0-18.0); Immature Granulocyte Absolute 0.03 K/mm3 (0.00-0.031); Immature Granulocyte Percent A 0.5 % (0-0.5); Lymphocytes Absolute Auto 1.71 K/mm3 (0.9-3.2); Lymphocytes Percent Auto 26.9 % (18.3-44.2); Mean Corpuscular HGB Conc 32.4 g/dl (32-36); Mean Corpuscular Volume 89.7 fl (80-100); Mean Platelet Volume 10.2 fl (7.4-10.4); Monocytes Absolute Auto 0.7 K/mm3 (0.1-0.6); Monocytes Percent Auto 10.6 % (2.6-8.5); Neutrophils Absolute Auto 3.6 K/mm3 (1.3-6.7); Neutrophils Percent Auto 56.8 % (45.5-73.1); Platelet Count Result 244 k/mm3 (150-375); Red Blood Count 4.27 M/mm3 (4.6-6.20); Red Cell Distribution Width 12.2 % (11.5-14.5); White Blood Count 6.4 K/mm3 (4.5-10.0)
[2024-05-23 17:47] LABS: Alanine Aminotransferase 15 U/L (6-50); Albumin Level 3.8 g/dL (3.5-5.1); Alkaline Phosphatase 73 U/L (38-126); Anion Gap 11 mmol/L (4-12); Aspartate Amino Transferase 19 U/L (17-59); Bilirubin,Total 0.4 mg/dL (0.2-1.3); Blood Urea Nitrogen 21 mg/dL (9-20); CRP < 0.5 mg/dL (<1.0); Calcium 8.9 mg/dL (8.4-10.2); Carbon Dioxide 26 mmol/L (22-30); Chloride 101 mmol/L (98-107); Estimated Glomerular Filt Rate > 60; Glucose 86 mg/dL (65-110); Potassium 3.7 mmol/L (3.4-5.0); Sodium 138 mmol/L (137-145)
[2024-05-23 19:06] LABS: Erythrocyte Sedimentation Rate 28 mm/hr (0-20)
== END 2024-05-23 16:34 | disposition home or self-care (01) ==
PROVIDERS: PCP Family Medicine; Visit Provider Internal Medicine
DX: L03.116 Cellulitis of left lower limb (principal)
CPT/HCPCS: 80053; 85025; 85652; 86140

== ENCOUNTER 2024-06-06 11:50 | Outpatient (RCR) | payer OTHER, SELFPAY ==
[2024-05-30 11:49] LABS: Basophils Absolute Auto 0.1 K/mm3 (0.0-0.1); Basophils Percent Auto 0.9 % (0.2-1.2); Eosinophils Absolute Auto 0.2 K/mm3 (0-0.3); Eosinophils Percent Auto 3.8 % (0-4.4); Hematocrit 38.2 % (42.0-52.0); Immature Granulocyte Absolute 0.01 K/mm3 (0.00-0.031); Immature Granulocyte Percent A 0.2 % (0-0.5); Lymphocytes Absolute Auto 1.32 K/mm3 (0.9-3.2); Mean Corpuscular Hemoglobin 29.8 pg (26-34); Mean Corpuscular Volume 87.6 fl (80-100); Mean Platelet Volume 10.1 fl (7.4-10.4); Monocytes Absolute Auto 0.5 K/mm3 (0.1-0.6); Monocytes Percent Auto 9.2 % (2.6-8.5); Neutrophils Absolute Auto 3.6 K/mm3 (1.3-6.7); Neutrophils Percent Auto 62.9 % (45.5-73.1); Platelet Count Result 216 k/mm3 (150-375); Red Blood Count 4.36 M/mm3 (4.6-6.20); White Blood Count 5.8 K/mm3 (4.5-10.0)
[2024-05-30 12:03] LABS: Alanine Aminotransferase 15 U/L (6-50); Albumin Level 3.9 g/dL (3.5-5.1); Alkaline Phosphatase 76 U/L (38-126); Anion Gap 11 mmol/L (4-12); Aspartate Amino Transferase 16 U/L (17-59); Bilirubin,Total 0.5 mg/dL (0.2-1.3); Blood Urea Nitrogen 25 mg/dL (9-20); CRP < 0.5 mg/dL (<1.0); Calcium 8.9 mg/dL (8.4-10.2); Carbon Dioxide 25 mmol/L (22-30); Chloride 100 mmol/L (98-107); Estimated Glomerular Filt Rate > 60; Glucose 211 mg/dL (65-110); Potassium 3.6 mmol/L (3.4-5.0); Sodium 136 mmol/L (137-145)
[2024-05-30 12:28] LABS: Erythrocyte Sedimentation Rate 20 mm/hr (0-20)
[2024-06-06 12:03] LABS: Basophils Absolute Auto 0.1 K/mm3 (0.0-0.1); Basophils Percent Auto 0.8 % (0.2-1.2); Eosinophils Absolute Auto 0.2 K/mm3 (0-0.3); Eosinophils Percent Auto 3.5 % (0-4.4); Hematocrit 38.3 % (42.0-52.0); Hemoglobin 13.1 g/dL (14.0-18.0); Immature Granulocyte Absolute 0.02 K/mm3 (0.00-0.031); Immature Granulocyte Percent A 0.3 % (0-0.5); Lymphocytes Absolute Auto 1.33 K/mm3 (0.9-3.2); Lymphocytes Percent Auto 22.4 % (18.3-44.2); Mean Corpuscular HGB Conc 34.2 g/dl (32-36); Mean Corpuscular Hemoglobin 30.1 pg (26-34); Mean Platelet Volume 10.4 fl (7.4-10.4); Monocytes Absolute Auto 0.5 K/mm3 (0.1-0.6); Monocytes Percent Auto 8.7 % (2.6-8.5); Neutrophils Absolute Auto 3.8 K/mm3 (1.3-6.7); Neutrophils Percent Auto 64.3 % (45.5-73.1); Platelet Count Result 214 k/mm3 (150-375); Red Blood Count 4.35 M/mm3 (4.6-6.20); Red Cell Distribution Width 11.9 % (11.5-14.5)
[2024-06-06 12:16] LABS: Alanine Aminotransferase 14 U/L (6-50); Albumin Level 3.8 g/dL (3.5-5.1); Alkaline Phosphatase 77 U/L (38-126); Anion Gap 9 mmol/L (4-12); Aspartate Amino Transferase 18 U/L (17-59); Bilirubin,Total 0.5 mg/dL (0.2-1.3); Blood Urea Nitrogen 28 mg/dL (9-20); CRP < 0.5 mg/dL (<1.0); Calcium 8.8 mg/dL (8.4-10.2); Carbon Dioxide 24 mmol/L (22-30); Chloride 102 mmol/L (98-107); Estimated Glomerular Filt Rate > 60; Glucose 238 mg/dL (65-110); Potassium 4.3 mmol/L (3.4-5.0); Sodium 135 mmol/L (137-145)
[2024-06-06 13:17] LABS: Erythrocyte Sedimentation Rate 19 mm/hr (0-20)
== END 2024-08-28 23:59 | disposition home or self-care (01) ==
LOC: HOME HLTH 11:50
PROVIDERS: PCP Family Medicine; Visit Provider Internal Medicine
DX: L03.116 Cellulitis of left lower limb (principal)
CPT/HCPCS: 80053; 85025; 85652; 86140

== ENCOUNTER 2024-08-13 12:31 | Inpatient (IN) | payer OTHER, SELFPAY ==
[2024-08-13] VITALS (13 sets, daily range): BP systolic 91–147; BP diastolic 55–98; PULSE 101–116; RESP 13–36; TEMP 36.6–36.8; O2SAT 91–100; BMI 33.5
--- NOTE | ~2024-08-13 | MR_ITS ---
EXAMINATION: MR lumbar spine wo con DATE: 08/21/2024 17:47 INDICATION: Paralysis and low back pain. Assess for discitis. TECHNIQUE: Magnetic resonance imaging (MRI) of the lumbar spine was performed without intravenous con trast. Sequences included sagittal T2-weighted FSE, sagittal T2-weighted FS FSE, sagittal T1-weighted FSE, and axial T2-weighted FSE. COMPARISON: 08/14/2024 FINDINGS: Unchanged 6 degree lumbar dextrocurvature. Sagittal alignment is normal. Unchanged chronic mild anter ior wedging at L1 and L2. Moderate disc height loss with mild fibrofatty and fibrovascular degenerati ve endplate changes at L1-L2 and L4-L5 and mild disc height loss at L3-L4 and L5-S1. No evident disci tis. The conus medullaris terminates at L1. There is normal signal in the caudal spinal cord. There i s edema in the epidural fat throughout the lumbar spine which contributes to increase in multilevel c entral canal stenosis when compared with the prior study which will be detailed below. Paravertebral soft tissues are unremarkable. The following disc levels are specifically discussed: T12-L1: The disc does not extend beyond the endplate margin. There is moderate bilateral facet joint osteoarthritis. There is no neural foraminal stenosis. There is no central canal stenosis. L1-L2: Disc is bulging with superimposed right paracentral annular fissure and disc protrusion. There is mild bilateral facet joint osteoarthritis. There is mild left and mild to moderate right neural f oraminal stenosis. There is moderate to severe central canal stenosis with effacement of the CSF sign al surrounding the centrally clustered nerve roots which appears more prominent than at the time of t he recent prior study where the stenosis appeared moderate. This appears to result from increase thic kness of the epidural fat which demonstrates increased fluid signal consistent with edema. L2-L3: The disc does not extend beyond the endplate margin. There is mild bilateral facet joint osteo arthritis. There is no neural foraminal stenosis. There is no central canal stenosis. L3-L4: Disc is bulging with annular fissure. There is severe bilateral facet joint osteoarthritis. Th ere is mild right and moderate left neural foraminal stenosis. There is moderate central canal stenos is which appears increased T2 thickening of the edematous epidural fat. L4-L5: Disc is bulging with annular fissure. There is severe bilateral facet joint osteoarthritis. Th ere is moderate bilateral neural foraminal stenosis. There is moderate central canal stenosis which a ppears increased from mild stenosis at the time of the prior study also due to increased thickness of the edematous epidural fat. L5-S1: Disc is mildly bulging with annular fissure. There is severe bilateral facet joint osteoarthri tis. There is increased fluid in the right facet joint with interval development of significant marro w edema at both sides of the joint space extending into the right pedicle of S1. There is also signif icant increased fluid signal in the adjacent posterior paraspinal musculature. Findings are concernin g for a septic arthritis and adjacent myositis. No discrete abscess identified although sensitivity f or small abscesses is decrease in the absence of intravenous contrast. There is mild bilateral neural foraminal stenosis. There is increased moderate, previously mild central canal stenosis. IMPRESSION: 1. Widening of the right L5-S1 facet joint with increased fluid and new prominent surrounding marrow edema at the facet joints and edema in the more posterior paraspinal musculature which raises concern for septic arthritis and associated myositis. There is also increased edema in the epidural fat exte nding cephalad throughout the lumbar spine which contributes to significant increase in central canal stenosis at multiple levels since the study from one week prior. Dr. Hwang discussed these findin gs with Dr. Lara at 8:35 PM. Reviewed, dictated and finalized at location A. IMPRESSION: 1. Widening of the right L5-S1 facet joint with increased fluid and new promine nt surrounding marrow edema at the facet joints and edema in the more posterior paraspinal musculature which raises concern for septic arthritis and associate d myositis. There is also increased edema in the epidural fat extending cephala d throughout the lumbar spine which contributes to significant increase in cent ral canal stenosis at multiple levels since the study from one week prior. Dr. Hwang discussed these findings with Dr. Lara at 8:35 PM.
--- NOTE | ~2024-08-13 | MR_ITS ---
EXAMINATION: MR lumbar spine wo/w con DATE: 08/14/2024 15:22 INDICATION: Discitis. TECHNIQUE: Magnetic resonance imaging (MRI) of the lumbar spine was performed without and with 19 mL MultiHance intravenous contrast. COMPARISON: Lumbar spine radiographs 08/14/2024 FINDINGS: There is 6 degrees dextrocurvature of lumbar spine. There is mild chronic anterior wedging of T12-L2 vertebral bodies. There is moderately decreased disc height at L1-L2, mildly decreased disc height at L3-L4, and moderately decreased disc height at L4-L5. The distal spinal cord signal intens ity is normal. The conus medullaris is at L1. The following disc levels are specifically discussed: L1-L2: The disc is bulging and has an annular fissure. There is mild bilateral facet joint osteoarthr itis. There is mild bilateral neural foraminal stenosis. There is mild central canal stenosis. L2-L3: The disc does not extend beyond the endplate margin. There is mild bilateral facet joint osteo arthritis. There is no neural foraminal stenosis. There is no central canal stenosis. L3-L4: The disc is bulging and has an annular fissure. There is severe bilateral facet joint osteoart hritis. There is mild right and moderate left neural foraminal stenosis. There is mild central canal stenosis. L4-L5: The disc is bulging and has an annular fissure. There is severe bilateral facet joint osteoart hritis. There is mild bilateral neural foraminal stenosis. There is mild central canal stenosis. L5-S1: The disc is bulging and has an annular fissure. There is severe bilateral facet joint osteoart hritis. There is mild bilateral neural foraminal stenosis. There is mild central canal stenosis. IMPRESSION: 1. Moderate lumbar spondylosis. 2. No evidence of discitis/osteomyelitis. Reviewed, dictated and finalized at location A.
--- NOTE | ~2024-08-13 | XR_ITS ---
3 VIEWS LUMBAR SPINE Ordering provider: Myles Castillo History: . Back Pain . Comparison: None. FINDINGS: VERTEBRAL BODIES:Transitional vertebra is noted. No visible fracture or subluxation. Degenerative ch anges of the spine. DISK SPACES: Narrowing of the disc L1-L2, and L4-L5. Multilevel facet joint disease in the lower lumbar area. SOFT TISSUES: Normal. IMPRESSION: No acute osseous abnormality lumbar spine. Multilevel degenerative disc disease. Reviewed, dictated and finalized at location A.
--- NOTE | ~2024-08-13 | US_ITS ---
EXAMINATION: US renal BI DATE: 08/13/2024 14:57 INDICATION: Acute kidney injury. TECHNIQUE: Multiple ultrasound grayscale images of the kidneys were obtained. COMPARISON: None. FINDINGS: The right kidney measures 12.7 x 6.6 x 5.0 cm. The left kidney measures 13.3 x 5.7 x 4.5 cm. The kidn eys demonstrate normal parenchymal echogenicity. There is no hydronephrosis. The bladder is normal. IMPRESSION: 1. Normal kidneys. No hydronephrosis. Reviewed, dictated and finalized at location A.
--- NOTE | ~2024-08-13 | MR_ITS ---
EXAMINATION: MR thoracic spine wo con DATE: 08/21/2024 17:46 INDICATION: Paralysis. Back pain. Assess for discitis. TECHNIQUE: Magnetic resonance imaging (MRI) of the thoracic spine was performed without intravenous c ontrast. Sagittal localizer T1-weighted FSE of the cervicothoracic spine was obtained. Thoracic spine sequences included sagittal T2-weighted FSE, sagittal T1-weighted SE, Sagittal T2-weighted FS FSE, a nd axial T2-weighted FSE. COMPARISON: None FINDINGS: There is moderate motion artifact on the axial sequences only mildly limiting evaluation. Alignment i s normal.Vertebral body heights are normal with Schmorl's nodes along a few of the endplates in the l ower thoracic spine. Normal bone marrow signal throughout with no reactive edema, osteomyelitis or pa thologic marrow replacing process. There is moderate disc height loss at T4-T5 through T6-T7and mild disc height loss at remaining levels from T2-T3 through T11-T12. No abnormal increased disc signal to suggest discitis. Annular fissure and left subarticular zone disc protrusion at T3-T4 which results in mild central canal stenosis, moderate narrowing of the left lateral recess and mild left neural fo raminal stenosis at this level. Additional small left paracentral disc protrusion at T4-T5 and modera te sized left paracentral disc protrusion at T5-6 which mildly indents the left ventral surface of th e cord. Minimal right paracentral disc protrusion at T6-T7 and minimal central disc protrusion at T9- T10 which does not result in significant central canal stenosis or information the cord. There is nor mal cord signal throughout. There is a 4.4 x 3.2 x 2.3 cm ovoid relatively homogeneously T2 hyperinte nse right paraspinal and subpleural mass with heterogeneously isoechoic hypointense T1 signal which a ppears to arise from the T9-T10 intercostal space. This appears chronic with subtle corresponding par aspinal opacity evident on chest radiograph dated 10/26/2020. 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 Diff erential would include less likely nonspecific complex cystic lesion. IMPRESSION: 1. Mild to moderate thoracic spondylosis with no evidence of discitis or osteomyelitis. 2. Chronic 4.4 x 3.2 x 2.3 cm ovoid right paraspinal/pleural mass which appears to arise from the med ial T9-T10 intercostal space with chronicity, location and appearance most consistent with a neurogen ic schwannoma or peripheral nerve sheath tumor. Reviewed, dictated and finalized at location A. IMPRESSION: 1. Mild to moderate thoracic spondylosis with no evidence of discitis or osteom yelitis. 2. Chronic 4.4 x 3.2 x 2.3 cm ovoid right paraspinal/pleural mass which appears to arise from the medial T9-T10 intercostal space with chronicity, location an d appearance most consistent with a neurogenic schwannoma or peripheral nerve s drew tumor.
--- NOTE | ~2024-08-13 | MR_ITS ---
EXAMINATION: MR cervical spine wo con DATE: 08/21/2024 17:22 INDICATION: Paralysis. Assess for discitis. TECHNIQUE: Magnetic resonance imaging (MRI) of the cervical spine was performed without intravenous c ontrast. Sequences included sagittal T2-weighted FSE, sagittal T2-weighted FS FSE, sagittal T1-weight ed FSE, axial MERGE and axial T2-weighted FSE. COMPARISON: None FINDINGS: Straightening of the normal lordosis in the upper cervical spine. No spondylolisthesis or facet sublu xation. Vertebral body heights are normal. Bone marrow signal intensity is normal. Moderate disc he ight loss at C3-C4 and mild disc height loss at C2-C3, C4-C5 and C5-C6. Cord signal intensity is norm al. 1.5 x 1.2 x 1.0 cm subcutaneous lesion slightly to the left of midline posterior to the C3 spinou s process with central intermediate T1 and T2 signal and peripheral high T2 signal with suggestion of a subtle tiny tract extending to the skin surface suggestive of an epidermoid or sebaceous cyst. Cer vical soft tissues are otherwise unremarkable. The following disc levels are specifically discussed: C2-C3: The disc does not extend beyond the endplate margin. There is mild bilateral uncovertebral joe nt osteoarthritis. There is mild bilateral facet joint osteoarthritis. There is no neural foraminal s tenosis. There is no central canal stenosis. C3-C4: Disc is mildly bulging with annular fissure. There is moderate right and severe left uncoverte bral joint osteoarthritis. There is moderate right and moderate to severe left facet joint osteoarthr itis. There is moderate bilateral neural foraminal stenosis. There is mild central canal stenosis. C4-C5: Disc is mildly bulging with annular fissure. There is mild bilateral uncovertebral joint osteo arthritis. There is mild bilateral facet joint osteoarthritis. There is mild left and moderate right neural foraminal stenosis. There is mild central canal stenosis. C5-C6: Disc is bulging with annular fissure. There is moderate bilateral uncovertebral joint osteoart hritis. There is moderate bilateral facet joint osteoarthritis. There is mild to moderate left and mo derate right neural foraminal stenosis. There is mild central canal stenosis. C6-C7: The disc does not extend beyond the endplate margin. There is mild bilateral uncovertebral joe nt osteoarthritis. There is mild to moderate bilateral facet joint osteoarthritis. There is mild righ t and minimal left neural foraminal stenosis. There is no central canal stenosis. C7-T1: Very small central disc protrusion. There is no uncovertebral joint osteoarthritis. There is m oderate bilateral facet joint osteoarthritis. There is no neural foraminal stenosis. There is no cent ral canal stenosis. IMPRESSION: 1. Mild to moderate cervical spondylosis.. No findings to suggest discitis or ostomy myelitis. 2. Nonspecific 15 x 12 x 10 mm superficial subcutaneous lesion near the midline at the level of C3 bu t with suggestion of a tiny tract extending to the skin surface which would favor an epidermoid/sebac eous cyst. Reviewed, dictated and finalized at location A. IMPRESSION: 1. Mild to moderate cervical spondylosis.. No findings to suggest discitis or o stomy myelitis. 2. Nonspecific 15 x 12 x 10 mm superficial subcutaneous lesion near the midline at the level of C3 but with suggestion of a tiny tract extending to the skin s urface which would favor an epidermoid/sebaceous cyst.
--- NOTE | ~2024-08-13 | MR_ITS ---
EXAMINATION: MR brain/brain stem wo con DATE: 08/21/2024 17:22 INDICATION: Paralysis TECHNIQUE: Magnetic resonance imaging (MRI) of the brain and brainstem was performed without intraven ous contrast. Sequences included sagittal and axial T1-weighted SE, axial diffusion-weighted FS SE, a xial 3D SWAN, axial T2-weighted FLAIR, and axial T2-weighted FSE. Apparent diffusion coefficient (ADC ) maps were created. COMPARISON: Head CT dated 04/27/2024 FINDINGS: There are no areas of restricted diffusion to suggest acute infarction. No intracranial hemorrhage or abnormal intracranial mass lesion. There are a few tiny scattered foci of nonspecific increased T2-w eighted signal intensity in the cerebral white matter, predominantly involving the deep and periventr icular white matter which within normal limits for age. There are no intraparenchymal signal abnormal ities seen on the other pulse sequences. The ventricles are symmetric and normal in size. There are n o abnormal extra-axial fluid collections. Flow voids are seen in the cerebral arteries on the T2-weig hted sequences consistent with their expected patency. Visualized orbits and soft tissues are unremar kable. IMPRESSION: 1. Normal for age brain. No acute intracranial process. Reviewed, dictated and finalized at location A.
--- NOTE | ~2024-08-13 | XR_ITS ---
EXAMINATION: XR foot LT 2V DATE: 08/14/2024 11:02 INDICATION: Left foot wound TECHNIQUE: Dorsoplantar, two oblique and lateral views of the left foot were obtained. COMPARISON: Radiographs dated and MRI dated FINDINGS: There is small amount of periosteal reaction along the medial side of the neck of the fifth metatarsa l consistent with chronic osteomyelitis. There is new joint space widening at the fifth metatarsophal angeal joint with significant increase in destructive changes with bone loss at the base of the proxi mal phalanx and head of the first metatarsal and increased lucency suspicious for gas. This would be consistent with interval progression of septic arthritis and osteomyelitis. Bone alignment is otherwi se normal. No fracture. Mild osteoarthritis at a few of the tarsal metatarsal and interphalangeal joe nts. Small Achilles calcaneal spur and moderate-sized plantar calcaneal spur. IMPRESSION: 1. Septic arthritis at the fifth metatarsophalangeal joint with associated osteomyelitis at the base of the fifth proximal phalanx and head of the fifth metatarsal. Reviewed, dictated and finalized at location A. IMPRESSION: 1. Septic arthritis at the fifth metatarsophalangeal joint with associated oste omyelitis at the base of the fifth proximal phalanx and head of the fifth metat arsal.
--- NOTE | ~2024-08-13 | XR_ITS ---
XR chest 2V Ordering provider: Shilo Pena MD History: 49 years Male with . fever AND SOB X4 DAYS . Comparison: April 27, 2024 FINDINGS: MEDIASTINUM: The cardiac silhouette is not enlarged. LUNGS: No infiltrates, effusions or pneumothorax. OTHER: No free air under the diaphragm. IMPRESSION: No acute cardiopulmonary pathology. Reviewed, dictated and finalized at location A.
--- NOTE | 2024-08-13 12:42 | ECG_ITS ---
Test Date: 2024-08-13 13:24:04 Measurements Intervals [place] Rate: 100 P: -5 NM: 156 QRS: 47 QRSD: 110 T: 1 QT: 347 QTc: 449 Interpretive Statements SINUS TACHYCARDIA ABNORMAL RHYTHM ECG Compared to ECG 04/24/2024 01:54:37 Sinus rhythm no longer present Electronically Signed On 08-13-2024 14:37:25 CDT by Kodi Dias M.D.
[2024-08-13] MEDS: SODIUM CHLORIDE 0.9% IV 1,000 ML 999 ML IV CONT ×2 (12:51→13:32)
--- NOTE | 2024-08-13 12:52 | ED.GENADULT ---
HPI - General Adult General Chief complaint: Recheck/Abnormal Lab/Rx Stated complaint: high blood sugar Time Seen by Provider: 08/13/24 12:41 History of Present Illness HPI narrative: 49-year-old male history of diabetes presents to the emergency department for evaluation for body aches nausea without vomiting fever chills since . Patient states this does feel similar to his previous COVID including some right lower back pain. Patient denies any cough shortness of breath. Patient is an insulin-dependent diabetic that is not have an insulin pump. He does use injectables. Patient says his blood sugars have typically been running closer to the 150 range since he had a diabetic ulcer in April. Patient states he has been more compliant with his medications and has also had close follow-up with Podiatry. Patient does have a slowly healing wound on his left lateral foot that he feels continues to improve. Patient's is present she also agrees that the foot continues to look better than it has. Related Data Home Medications Medication Instructions Recorded Confirmed insulin glargine U-300 conc 300 64 unit subcut HS 04/24/24 08/13/24 unit/mL (3 mL) subcutaneous pen (Toujeo Max U-300 SoloStar) Allergies Allergy/AdvReac Type Severity Reaction Status Date / Time No Known Allergies Allergy Verified 07/30/24 14:59 Review of Systems Review of Systems: All systems reviewed & are unremarkable except as noted in HPI and below PMFSH Past Medical History Medical History (Updated 08/13/24 @ 21:04 by Shilo Pena MD) Depression Erectile dysfunction History of kidney stones Hypertension Insulin dependent type 2 diabetes mellitus Hemoglobin A1c on 10/26/2020 was 12.4%. 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 His 1st about 5 years ago. Nonsmoker. No alcohol or illicit substance abuse. He designates his fiancee, Estefania Fontaine, as his surrogate decision maker and he wishes to be a full code.. Smoking status: Never smoker Alcohol intake: never Alcohol use details: Previously listed as current; denies in 2023 Substance use: never Substance use type: does not use Do You Feel Safe in your Home?: Yes Lack of Transportation: No Lack of Food: Never True Current Housing: I Do Not Have Housing Concerned About Future Housing: No Difficulty Paying Gas/Electric Bills: No Difficulty Paying for Meds: No Currently Unemployed: No Education: Associate Degree Difficulty w/ Childcare or Family Care: No Living arrangements: with family Occupation/Education: occupation Gender identity (if verbalized by the patient): Male Sexual Orientation (if Verbalized by the Patient): Straight or Heterosexual Spiritual care concerns: No Exam Narrative: APPEARANCE: Ill appearing HEAD: normocephalic, atraumatic. EYES: PERRLA/EOMI, conjunctivae clear. NOSE: Normal no drainage EARS:TMS clear with good light reflex. THROAT: Pharynx clear, no exudate. NECK: Supple. No adenopathy, no masses. RESPIRATORY: Airway patent, respirations nonlabored. Clear to auscultation bilaterally, no rales, rhonchi, wheezing. CARDIOVASCULAR: Regular rate and rhythm without murmurs rubs or gallops. ABDOMINAL: Soft, nontender, nondistended, normal bowel sounds MUSCULOSKELETAL: Moves all extremities. Strength/ROM intact, No edema, No calf tenderness. NEURO: Alert. Cranial nerves II through XII intact. Good gait. Good coordination SKIN: Healing wound to left lateral foot, no purulent discharge and no evidence of surrounding cellulitis. Course Course Emergency Course: Patient was admitted to the ICU for DKA Vital Signs Vital signs: Vital Signs Temperature 97.9 F 08/13/24 12:33 Pulse Rate 105 H 08/13/24 12:33 Respiratory Rate 20 08/13/24 12:33 Blood Pressure 91/55 L 08/13/24 12:33 Pulse Oximetry 98 08/13/24 12:33 Oxygen Delivery Room Air 08/13/24 12:33 Temperature 97.9 F 08/13/24 12:33 Pulse Rate 108 H 08/13/24 16:00 Respiratory Rate 30 H 08/13/24 16:00 Blood Pressure 103/58 L 08/13/24 16:00 Pulse Oximetry 97 08/13/24 16:00 Oxygen Delivery Room Air 08/13/24 16:00 Medical Decision Making MDM Narrative Medical decision making narrative: 49-year-old male present to the emergency department for evaluation for increased generalized weakness and suspected DKA. Patient is afebrile with no leukocytosis and hemoglobin of 12.2. Patient did have an elevated anion gap, PURNIMA and hyperglycemia. MRSA was negative. Patient was negative for influenza RSV and for COVID. Chest x-ray shows no acute cardiopulmonary abnormality. Patient denies any pain with urination. No specific etiology for the suspected infection was identified. Patient is being admitted to the ICU for DKA. Insulin infusion was started emergency department along with 2 L IV fluids. Case was discussed with the speech pathologist assistant. Patient was evaluated by the speech pathologist assistant in the emergency department. Case was discussed with hospitalist patient was accepted for admission. Patient family were updated on the results of the workup and plan for admission. All questions concerns were addressed. Patient was alert oriented and well appearing at time of admission. Differential Diagnosis Differential Diagnosis: Pneumonia, COVID, influenza, RSV, UTI, gastritis, DKA, hyperglycemia, PURNIMA, dehydration Vital Signs Vital Signs: Vital Signs Temperature 97.9 F 08/13/24 12:33 Pulse Rate 105 H 08/13/24 12:33 Respiratory Rate 20 08/13/24 12:33 Blood Pressure 91/55 L 08/13/24 12:33 Pulse Oximetry 98 08/13/24 12:33 Oxygen Delivery Room Air 08/13/24 12:33 Temperature 97.9 F 08/13/24 12:33 Pulse Rate 108 H 08/13/24 16:00 Respiratory Rate 30 H 08/13/24 16:00 Blood Pressure 103/58 L 08/13/24 16:00 Pulse Oximetry 97 08/13/24 16:00 Oxygen Delivery Room Air 08/13/24 16:00 Lab Data Lab results reviewed: Yes I reviewed the patient's lab results. 08/13/24 12:57 08/13/24 17:21 Labs: Lab Results 10/14/24 10/14/24 10/14/24 Range/Units 12:44 12:57 14:09 WBC 9.5 (4.5-10.0) K/mm3 RBC 4.15 L (4.6-6.20) M/mm3 Hgb 12.2 L (14.0-18.0) g/dL Hct 35.9 L (42.0-52.0) % MCV 86.5 (80-100) fl MCH 29.4 (26-34) pg MCHC 34.0 (32-36) g/dl RDW 12.5 (11.5-14.5) % Plt Count 120 L (150-375) k/mm3 MPV 10.8 H (7.4-10.4) fl Immature Gran % (Auto) Not Reportable Neut % (Auto) Not Reportable Lymph % (Auto) Not Reportable [place] % (Auto) Not Reportable Eos % (Auto) Not Reportable Baso % (Auto) Not Reportable Lymph # (Auto) Not Reportable [place] # (Auto) Not Reportable Eos # (Auto) Not Reportable Baso # (Auto) Not Reportable Abs Immat Gran (auto) Not Reportable Absolute Neuts (auto) Not Reportable Absolute Nucleated RBC Not Reportable Total Counted 100 Neutrophils % (Manual) 80 H (46-73) % Band Neutrophils % 17 H (0-6) % Lymphocytes % (Manual) 1.0 L (18-44) % Monocytes % (Manual) 2 L (3-9) % Nucleated RBC % Not Reportable Abs Neuts (Manual) 9.21 H (1.3-6.7) K/mm3 Abs Lymphs (Manual) 0.09 L (1.1-4.5) K/mm3 Abs Monocytes (Manual) 0.19 (0.1-0.90) K/mm3 Platelet Estimate Adequate (Adequate) % Immature Plt Fraction 3.8 (0.9-11.2) % Schistocytes None seen Sodium 130 L (137-145) mmol/L Potassium 3.9 (3.4-5.0) mmol/L Chloride 95 L (98-107) mmol/L Carbon Dioxide 17 L (22-30) mmol/L Anion Gap 18 H (4-12) mmol/L BUN 46 H D (9-20) mg/dL Creatinine 2.10 H (0.7-1.3) mg/dL Estim Creat Clear Calc 52 ml/min Estimated GFR 34 L (59 - ) Glucose 449 H (65-110) mg/dL POC Capillary Glucose 424 H 340 H (65-105) mg/dl Lactic Acid 2.3 H (0.7-2.0) mmol/L Calcium 8.4 (8.4-10.2) mg/dL Beta-Hydroxybutyrate/Acetoacetate 3.31 H (0.02-0.27) mmol/L Influenza A (RT-PCR) Negative (Negative) Influenza B (RT-PCR) Negative (Negative) RSV (RT-PCR) Negative (Negative) SARS-CoV-2 RNA (RT-PCR) Negative (Negative) Imaging Data Radiologist's impression: Impressions Chest X-Ray 08/13/24 13:54 IMPRESSION: No acute cardiopulmonary pathology. Critical Care Time Critical Care Time Critical Care Time: Yes Total Critical Care Time: 45 Discharge Plan Discharge Clinical Impression: DKA (diabetic ketoacidosis), Acute kidney injury, Chills with fever Patient Disposition: Still a Patient Condition: Critical
[2024-08-13 12:58] LABS: Glucose Point of Care 424 mg/dl (65-105)
[2024-08-13 13:05] LABS: Hematocrit 35.9 % (42.0-52.0); Hemoglobin 12.2 g/dL (14.0-18.0); Immature Platelet Fraction Pct 3.8 % (0.9-11.2); Mean Corpuscular Hemoglobin 29.4 pg (26-34); Mean Corpuscular Volume 86.5 fl (80-100); Mean Platelet Volume 10.8 fl (7.4-10.4); Platelet Count Result 120 k/mm3 (150-375); Red Blood Count 4.15 M/mm3 (4.6-6.20); Red Cell Distribution Width 12.5 % (11.5-14.5); White Blood Count 9.5 K/mm3 (4.5-10.0)
[2024-08-13 13:16] LABS: Lactic Acid Reflex 2.3 mmol/L (0.7-2.0)
[2024-08-13 13:19] LABS: Anion Gap 18 mmol/L (4-12); Blood Urea Nitrogen 46 mg/dL (9-20); Calcium 8.4 mg/dL (8.4-10.2); Carbon Dioxide 17 mmol/L (22-30); Chloride 95 mmol/L (98-107); Estimated CRCL calculation 52 ml/min; Estimated Glomerular Filt Rate 34; Glucose 449 mg/dL (65-110); Potassium 3.9 mmol/L (3.4-5.0); Sodium 130 mmol/L (137-145)
[2024-08-13 13:21] LABS: Beta-Hydroxybutyrate/Acetoacetate 3.31 mmol/L (0.02-0.27)
[2024-08-13 13:39] LABS: Influenza A QL RT-PCR Negative (Negative); Influenza B QL RT-PCR Negative (Negative); RSV RNA, RT-PCR Negative (Negative); SARS-CoV-2 RNA PCR Negative (Negative)
[2024-08-13 13:43] LABS: Band Neutrophils Percent 17 % (0-6); Lymphocytes Absolute Manual 0.09 K/mm3 (1.1-4.5); Monocytes Absolute Manual 0.19 K/mm3 (0.1-0.90); Monocytes Percent Manual 2 % (3-9); Neutrophils Absolute Manual 9.21 K/mm3 (1.3-6.7); Neutrophils Percent Manual 80 % (46-73); Total Cells Counted 100
[2024-08-13 13:46] LABS: Platelet Estimate Adequate (Adequate)
[2024-08-13 13:47] LABS: Schistocytes None Seen
--- NOTE | 2024-08-13 14:08 | WPDCNINT ---
Assessment and Plan Assessment and plan (1) DKA (diabetic ketoacidosis): Code(s): E11.10 - Type 2 diabetes mellitus with ketoacidosis without coma Status: Acute Assessment and Plan: Patient is getting IVF bolus and will be followed by infusion I have ordered Insulin infusion and Q1H glucose monitoring Will do Serial labs Replace electrolytes as needed npo Consult dietitian and internet manager (2) Hypertension: Qualifiers: Hypertension type: primary hypertension Qualified Code(s): I10 - Essential (primary) hypertension Code(s): I10 - Essential (primary) hypertension Status: Acute Assessment and Plan: Currently patient's blood pressure is on the softer side. Will hold amlodipine Coreg and losartan. Monitor and resume as appropriately (3) PURNIMA (acute kidney injury): Code(s): N17.9 - Acute kidney failure, unspecified Status: Acute Assessment and Plan: Likely secondary to dehydration and DKA Check urine electrolytes, CK and renal ultrasound Monitor urine output electrolytes and creatinine IV fluids as above Will consult nephrology if no improvement Hold losartan and metformin (4) SIRS (systemic inflammatory response syndrome): Code(s): R65.10 - Systemic inflammatory response syndrome (SIRS) of non-infectious origin without acute organ dysfunction Status: Acute Assessment and Plan: Patient appears to have SIRS. No obvious evidence for infection at this time although some workup is pending Chest x-ray negative UA is pending although patient does not have any symptoms of UTI Check blood cultures and procalcitonin level Hold antibiotics at this time PCR for influenza RSV and COVID were negative IV fluids for DKA and dehydration Mildly elevated lactic acid can be secondary to dehydration and metformin. Will monitor level (5) Dehydration: Code(s): E86.0 - Dehydration Status: Acute Assessment and Plan: Patient appears significantly dehydrated secondary to DKA and poor p.o. intake likely secondary to side effect of Mounjaro Patient receiving his 3 L of IV fluid bolus at this time. Will continue IV fluids (6) Wound of left foot: Code(s): S91.302A - Unspecified open wound, left foot, initial encounter Status: Acute Assessment and Plan: Patient has a wound on his left foot which is a result of abscess that he developed in the past. He had osteomyelitis at that time. He received 6 weeks of antibiotic therapy and I and D was done for the abscess. Since then he is getting wound care done initially at the wound care clinic but now does himself at home. On exam the wound appears clear with no evidence of infection. He has normal WBC. Will consult wound care Plan DVT prophylaxis -Lovenox Nutrition - npo Code Status - Full Code Total Critical Care Time - 35 minutes Due to a high probability of clinically significant, life threatening deterioration, the patient required my highest level of preparedness to intervene emergently and I personally spent this critical care time directly and personally managing the patient. This critical care time included obtaining a history; examining the patient; pulse oximetry; ordering and review of studies; arranging urgent treatment with development of a management plan; evaluation of patient's response to treatment; frequent reassessment; and discussions with other providers. It was exclusive of separately billable procedures and treating other patients and teaching time. Please see Assessment and Plan section and the rest of the note for further information on patient assessment and treatment Blocker And Cutter Contact Lens Consult Note Consult date: 08/13/24 Time Seen: 13:30 Reason for consult: DKA HPI: Pavel Laughlin is a 49 year old male with past medical history of poorly-controlled diabetes, hypertension and diabetic foot ulcer presented to ER with chief complaint of feeling sick for last 4 days. Patient started Mounjaro 4 weeks ago and took his last dose on tuesday. On patient started feeling weak and fatigued and nauseous. Patient Did not had any vomiting but had dry heaving. He had poor p.o. solid and fluid intake. He also had cough which he states is chronic. Cough is dry. He had chills but did not check his temperature. He did not had any shortness of breath chest pain abdominal pain. No constipation or diarrhea no dysuria hematuria hematochezia melena. All other symptoms were reviewed and were negative. Last 4 days patient has not been eating or drinking much. His blood sugar had been running high. He takes 15 units of insulin with meals plus sliding scale and 64 units of Lantus which she has been taking regularly. Despite that his blood sugars were running high due to feeling sick he presented to ER today. Patient's significant other did mention that patient snores a lot at night and also sometime can be seen gasping of air. Workup in the ER showed normal WBC. Creatinine 2.1 anion gap 18 CO2 17 blood glucose 449 lactic acid 2.3 and beta hydroxybutyrate 3.31 Chest x-ray was negative for any acute cardiopulmonary pathology Review of Systems Review of Systems: All systems reviewed & are unremarkable except as noted in HPI and below (HPI) [facility] Past Medical History Medical History Depression Erectile dysfunction History of kidney stones Hypertension Insulin dependent type 2 diabetes mellitus Hemoglobin A1c on 10/26/2020 was 12.4%. 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 His 1st about 5 years ago. Nonsmoker. No alcohol or illicit substance abuse. He designates his fiancee, Estefania Fontaine, as his surrogate decision maker and he wishes to be a full code.. Smoking status: Never smoker Alcohol intake: never Alcohol use details: Previously listed as current; denies in 2023 Substance use: never Substance use type: does not use Do You Feel Safe in your Home?: Yes Lack of Transportation: No Lack of Food: Never True Current Housing: I Have Housing Concerned About Future Housing: No Difficulty Paying Gas/Electric Bills: No Difficulty Paying for Meds: No Currently Unemployed: No Education: High School Diploma/GED Difficulty w/ Childcare or Family Care: No Living arrangements: with family Occupation/Education: occupation Gender identity (if verbalized by the patient): Male Sexual Orientation (if Verbalized by the Patient): Straight or Heterosexual Spiritual care concerns: No Meds Home Medications and Allergies Home Medications Medication Instructions Recorded Confirmed Type blood-glucose sensor (Dexcom G7 #3 ea 01/17/24 07/31/24 Rx Sensor device) escitalopram oxalate 10 mg tablet 10 mg PO DAILY #90 tabs 01/17/24 07/31/24 Rx (Lexapro) insulin glargine U-300 conc 300 64 unit subcut HS 04/24/24 07/31/24 History unit/mL (3 mL) subcutaneous pen (Toujeo Max U-300 SoloStar) blood sugar diagnostic (OneTouch #1 pkg 04/30/24 07/31/24 Rx Verio test strips) blood-glucose meter (OneTouch #1 g 04/30/24 07/31/24 Rx Verio Flex Meter) insulin syringe-needle U-100 1 mL #1 [facility] 04/30/24 07/31/24 Rx 31 gauge x 15/64 (BD Veo Insulin Syringe Ultra-Fine) lancets 30 gauge (OneTouch Delica #1 g 04/30/24 07/31/24 Rx Plus Lancet) metformin 500 mg tablet 1,000 mg PO BID #360 tabs 07/10/24 07/31/24 Rx insulin lispro 100 unit/mL 1 sliding scale dose subcut 07/16/24 07/31/24 Rx subcutaneous pen (Humalog KwikPen USEASDIRECTD #15 mL (U-100) Insulin) amlodipine 5 mg tablet 5 mg PO DAILY #30 tabs 07/17/24 07/31/24 Rx losartan 100 mg tablet 100 mg PO DAILY #30 tabs 07/17/24 07/31/24 Rx carvedilol 25 mg tablet (Coreg) 25 mg PO Q12HR #60 tabs 08/01/24 Rx Mounjaro 2.5 mg/0.5 mL 2.5 mg (0.5 mL) subcut WEEKLY #2 mL 08/09/24 Rx subcutaneous pen injector (tirzepatide) Allergies Allergy/AdvReac Type Severity Reaction Status Date / Time No Known Allergies Allergy Verified 07/30/24 14:59 Vital Signs Vital Signs - 24 hr 08/13/24 12:33 08/13/24 13:00 Temperature 36.6 C Pulse Rate 105 H Respiratory Rate 20 20 Blood Pressure 91/55 L Pulse Oximetry 98 Oxygen Delivery Room Air Exam Narrative: General: Pt is alert awake and in NAD Lungs/Chest: Trachea central Clear BS B/L, No crackles or wheezing. Cardiac: RRR. Normal S1 S2. No murmurs Circulation: Pedal pulses are intact and symmetrical. Abdomen: Normal bowel sounds.. Obese Soft. NT. ND. Extremities: No clubbing, cyanosis or edema. Warm : Ramirez in place Neurologic: Follows commands. Moves all 4 extremities PERRL AO x3 Skin: Patient has a small wound on the lateral aspect of left foot. The wound looks clean with no evidence of infection drainage redness Results Labs 08/13/24 12:57 08/13/24 12:57 Labs: Impressions Chest X-Ray 08/13/24 13:54 IMPRESSION: No acute cardiopulmonary pathology. Short CBC 08/13/24 Range/Units 12:57 WBC 9.5 (4.5-10.0) K/mm3 Hgb 12.2 L (14.0-18.0) g/dL Hct 35.9 L (42.0-52.0) % Plt Count 120 L (150-375) k/mm3 BMP 08/13/24 12:57 Sodium 130 L Potassium 3.9 Chloride 95 L Carbon Dioxide 17 L BUN 46 H D Creatinine 2.10 H Glucose 449 H Calcium 8.4 ECG Interpretation: Sinus tachycardia Hospitalist MIPS Advance Care Plan I have confirmed that the patient's Advanced Care Plan is present, code status is documented, or surrogate decision maker is listed in patient medical record.: Yes Medication Reconciliation I have utilized all available resources to obtain, update and review the patients current medications (includes all prescriptions, OTC, herbals, cannabis, and nutritional supplements).: Yes
[2024-08-13] MEDS: INSULIN HUMAN REGULAR (*BKC) 100 UNITS in SODIUM CHLORIDE 0.9% IV 99 ML 12.8 UNITS IV CONT (14:27)
[2024-08-13 14:28] LABS: Glucose Point of Care 340 mg/dl (65-105)
[2024-08-13] MEDS: SODIUM CHLORIDE 0.9% IV 1,000 ML 150 ML IV CONT (14:37)
--- NOTE | 2024-08-13 15:00 | ADMGEN ---
This patient, Pavel Laughlin, was admitted to Intensive Care Unit-3. Patient/family oriented to hospital policies and general routines including ID bracelet, bed and alarms, visiting hours, pain management, procedures, bathroom and other care routines, personal items, smoking policy, room service/diet, and visiting hours. Information on how to activate the Rapid Response Team has been discussed. Patient/Family are encouraged to report perceived risks to care and to ask questions if they do not understand what they are told or what they should do.
[2024-08-13 15:21] LABS: Glucose Point of Care 300 mg/dl (65-105)
--- NOTE | 2024-08-13 15:21 | P.HP_ITS ---
H&P: HPI History of Present Illness Date/Time: 08/13/24 15:21 Chief Complaint: DKA Narrative: This is a 49-year-old male with a significant past medical history of insulin- dependent type 2 diabetes mellitus, diabetic foot ulcer, depression, erectile dysfunction, hypertension, history of kidney stones who presented to the hospital for evaluation of body aches, nausea without vomiting, fever, chills since . Patient was recently started on Mounjaro took his last dose on Tuesday. On patient started feeling weak, fatigued, and nauseous. He then had poor p.o. intake of food and fluid and he noticed that his blood sugars have been running high. He presented to the ER today for further evaluation. Patient denies any vomiting, diarrhea, abdominal pain, chest pain or shortness of breath. Patient endorses fever, chills, nausea and lower back pain. Workup in the hospital included a chest x-ray which was negative for any acute cardiopulmonary process. Renal ultrasound was performed which showed normal kidneys, no hydronephrosis. Initial labs showed a white blood cell count of 9.5, hemoglobin 12.2, platelet count 120, band neutrophils 17, sodium 130, chloride 95, bicarb 17, anion gap 18, creatinine 2.10, EGFR 34, blood sugar ranging 300-449, lactic acid 2.3, beta hydroxybutyrate 3.31. Respiratory panel was negative for influenza a and B, RSV, COVID. EKG showed sinus tachycardia with a rate of 100, QTC 449. Patient was given 2 L of normal saline while in the ED, given 18 units IV push regular insulin and started on an insulin infusion per DKA protocol. Review of Systems Review of Systems: All systems reviewed & are unremarkable except as noted in HPI and below Constitutional: Constitutional: Reports as per HPI and Reports no additional constitutional complaints Eyes: Eyes: Reports as per HPI and Reports no additional eye complaints ENT: Reports system reviewed and no additional complaints, except as documented and Reports as per HPI Cardiovascular: Cardiovascular: Reports as per HPI and Reports no additional cardiovascular complaints Respiratory: Respiratory: Reports as per HPI and Reports no additional respiratory complaints Gastrointestinal: Gastrointestinal: Reports as per HPI and Reports no additional gastrointestinal complaints Genitourinary: Genitourinary: Reports no additional male genitourinary complaints and Reports as per HPI Musculoskeletal: Musculoskeletal: Reports no additional musculoskeletal complaints and Reports as per HPI Integumentary/Breasts: Skin/Breast: Reports system reviewed and no additional complaints, except as docu and Reports as per HPI Neurologic: Reports system reviewed and no additional complaints, except as documented and Reports as per HPI Psychiatric: Psychiatric: Reports no additional psychiatric complaints and Reports as per HPI [facility] Past Medical History Medical History Depression Erectile dysfunction History of kidney stones Hypertension Insulin dependent type 2 diabetes mellitus Hemoglobin A1c on 10/26/2020 was 12.4%. 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) Right shoulder pain Type 2 diabetes mellitus with hyperglycemia Surgical History Surgical History History of incision and drainage Incision and drainage simple left foot abscess 04/24/24 Family History Family History Father Diabetes type 2, uncontrolled Heart disease Lung cancer Mother Hypertension Grandparent Diabetes mellitus Grandparent Lung cancer Grandparent Cerebrovascular accident Social History Social History Social History: The patient lives in [place] with his winstone and their children. His 1st about 5 years ago. Nonsmoker. No alcohol or illicit substance abuse. He designates his fiancee, Estefania Fontaine, as his surrogate decision maker and he wishes to be a full code.. Smoking status: Never smoker Alcohol intake: never Alcohol use details: Previously listed as current; denies in 2023 Substance use: never Substance use type: does not use Do You Feel Safe in your Home?: Yes Lack of Transportation: No Lack of Food: Never True Current Housing: I Do Not Have Housing Concerned About Future Housing: No Difficulty Paying Gas/Electric Bills: No Difficulty Paying for Meds: No Currently Unemployed: No Education: Associate Degree Difficulty w/ Childcare or Family Care: No Living arrangements: with family Occupation/Education: occupation Gender identity (if verbalized by the patient): Male Sexual Orientation (if Verbalized by the Patient): Straight or Heterosexual Spiritual care concerns: No Meds Home Medications and Allergies Home Medications Medication Instructions Recorded Confirmed Type blood-glucose sensor (Dexcom G7 #3 ea 01/17/24 08/13/24 Rx Sensor device) escitalopram oxalate 10 mg tablet 10 mg PO DAILY #90 tabs 01/17/24 08/13/24 Rx (Lexapro) insulin glargine U-300 conc 300 64 unit subcut HS 04/24/24 08/13/24 History unit/mL (3 mL) subcutaneous pen (Toujeo Max U-300 SoloStar) blood sugar diagnostic (OneTouch #1 [facility] 04/30/24 08/13/24 Rx Verio test strips) blood-glucose meter (OneTouch #1 [facility] 04/30/24 08/13/24 Rx Verio Flex Meter) insulin syringe-needle U-100 1 mL #1 pkg 04/30/24 08/13/24 Rx 31 gauge x 15/64 (BD Veo Insulin Syringe Ultra-Fine) lancets 30 gauge (OneTouch Delica #1 pkg 04/30/24 08/13/24 Rx Plus Lancet) insulin lispro 100 unit/mL 1 sliding scale dose subcut 07/16/24 08/13/24 Rx subcutaneous pen (Humalog KwikPen USEASDIRECTD #15 mL (U-100) Insulin) amlodipine 5 mg tablet 5 mg PO DAILY #30 tabs 07/17/24 08/13/24 Rx losartan 100 mg tablet 100 mg PO DAILY #30 tabs 07/17/24 08/13/24 Rx carvedilol 25 mg tablet (Coreg) 25 mg PO Q12HR #60 tabs 08/01/24 08/13/24 Rx Mounjaro 2.5 mg/0.5 mL 2.5 mg (0.5 mL) subcut WEEKLY #2 mL 08/09/24 08/13/24 Rx subcutaneous pen injector (tirzepatide) Allergies Allergy/AdvReac Type Severity Reaction Status Date / Time No Known Allergies Allergy Verified 07/30/24 14:59 Vital Signs Vital Signs - 24 hr 08/13/24 12:33 08/13/24 13:00 08/13/24 12:48 Temperature 97.9 F Pulse Rate 105 H 103 H Respiratory Rate 20 20 13 Blood Pressure 91/55 L Pulse Oximetry 98 100 Oxygen Delivery Room Air 08/13/24 13:28 08/13/24 13:30 08/13/24 13:31 Temperature Pulse Rate 101 H 104 H 103 H Respiratory Rate 26 H 31 H 27 H Blood Pressure 116/64 Pulse Oximetry 98 100 100 Oxygen Delivery 08/13/24 14:06 08/13/24 14:08 08/13/24 14:15 Temperature Pulse Rate 103 H 103 H 104 H Respiratory Rate 24 H 36 H 29 H Blood Pressure 110/56 L Pulse Oximetry 100 98 99 Oxygen Delivery 08/13/24 14:16 Temperature Pulse Rate 104 H Respiratory Rate 25 H Blood Pressure 106/60 Pulse Oximetry 98 Oxygen Delivery Exam Narrative: General: In no acute distress, well nourished Head: atraumatic, no encephalopathy Eyes: EOMI, PERRLA, sclera clear ENT: moist mucous membranes, nasal passages clear Neck: supple, no JVD, no adenopathy, trachea midline Cardiac: Normal S1 and S2. RRR, No murmur, gallops or friction rubs, peripheral pulses intact. Respiratory: Lungs clear to auscultation, no adventitious lung sounds, currently on room air Gastrointestinal: soft, non-distended, non-tender, normoactive bowel sounds. : voiding without difficulty. Extremities: moves all extremities well, no edema Skin: Left foot wound without signs of infection Neuro: Alert and oriented x4, cranial nerves intact, no neuro deficits. Psych: normal mood, normal affect, interactive H&P: Results Labs Labs: Short CBC 08/13/24 Range/Units 12:57 WBC 9.5 (4.5-10.0) K/mm3 Hgb 12.2 L (14.0-18.0) g/dL Hct 35.9 L (42.0-52.0) % Plt Count 120 L (150-375) k/mm3 [facility] 08/13/24 12:57 Sodium 130 L Potassium 3.9 Chloride 95 L Carbon Dioxide 17 L BUN 46 H D Creatinine 2.10 H Glucose 449 H Calcium 8.4 Imaging Chest x-ray: Radiologist's impression: XR chest 2V Ordering provider: Shilo Pena MD History: 49 years Male with . fever AND SOB X4 DAYS . Comparison: April 27, 2024 FINDINGS: MEDIASTINUM: The cardiac silhouette is not enlarged. LUNGS: No infiltrates, effusions or pneumothorax. OTHER: No free air under the diaphragm. IMPRESSION: No acute cardiopulmonary pathology. Reviewed, dictated and finalized at location A. renal ultrasound: Radiologist's impression: EXAMINATION: US renal BI DATE: 08/13/2024 14:57 INDICATION: Acute kidney injury. TECHNIQUE: Multiple ultrasound grayscale images of the kidneys were obtained. COMPARISON: None. FINDINGS: The right kidney measures 12.7 x 6.6 x 5.0 cm. The left kidney measures 13.3 x 5.7 x 4.5 cm. The kidneys demonstrate normal parenchymal echogenicity. There is no hydronephrosis. The bladder is normal. IMPRESSION: 1. Normal kidneys. No hydronephrosis. Reviewed, dictated and finalized at location A. Assessment and Plan Assessment and plan (1) SIRS (systemic inflammatory response syndrome): Code(s): R65.10 - Systemic inflammatory response syndrome (SIRS) of non-infectious origin without acute organ dysfunction Status: Acute Assessment and Plan: 08/13/24: * initially meeting SIRS criteria with heart rate of 105, hypotension with blood pressure 91/55, respiratory rate 26 * respiratory panel negative for influenza a and B, RSV, COVID * white blood cell 9.5 initially * chest x-ray was negative * renal ultrasound was normal (2) DKA (diabetic ketoacidosis): Code(s): E11.10 - Type 2 diabetes mellitus with ketoacidosis without coma Status: Acute Assessment and Plan: 08/13/24: * initial blood sugar 449 on arrival, anion gap 18, beta hydroxybutyrate 3.31 * patient given 3 L of normal saline while in the ED * 18 units IV push regular insulin ordered * started on insulin infusion per DKA protocol * transfer to ICU for closer monitoring and DKA protocol * religious educator consult * dietitian consult * last hemoglobin A1c 10.5 on 04/25/24 * will obtain another hemoglobin A1c today * Accu-Cheks q.1 hour while on DKA protocol * NPO status * hold Lantus, sliding scale insulin, and Mounjaro * last dose of Mounjaro was on Tuesday * licensed loan officer assistant consulted (3) Dehydration: Code(s): E86.0 - Dehydration Status: Acute Assessment and Plan: 08/13/24: * patient given 3 L normal saline while in the ED * continue IV fluids per DKA protocol * sodium 130, chloride 95 (4) PURNIMA (acute kidney injury): Code(s): N17.9 - Acute kidney failure, unspecified Status: Acute Assessment and Plan: 08/13/24: * likely secondary to dehydration due to use of Mourjaro and decreased appetite * patient given 3 L of normal saline while in the ED * continue hydration with IV fluids per DKA protocol * continue to monitor labs (5) Wound of left foot: Code(s): S91.302A - Unspecified open wound, left foot, initial encounter Status: Chronic Assessment and Plan: 08/13/24: * chronic foot wound from a recent abscess. He just received 6 weeks of antibiotic therapy and an I&D was done. He was [facility] and is now taking care of his wound at home. * No evidence of infection, white blood cell count is normal * wound care consulted (6) Hypertension: Qualifiers: Hypertension type: primary hypertension Qualified Code(s): I10 - Essential (primary) hypertension Code(s): I10 - Essential (primary) hypertension Status: Chronic Assessment and Plan: 08/13/24: * blood pressure ranging 106/60 to 110/56 * will hold amlodipine, losartan, and Coreg considering dehydration and hypotension today (7) Depression: Code(s): F32.9 - Major depressive disorder, single episode, unspecified Status: Chronic Assessment and Plan: 08/13/24: * continue Lexapro Quality VTE Prophylaxis VTE prophylaxis: pharmacologic ordered Hospitalist MIPS Advance Care Plan I have confirmed that the patient's Advanced Care Plan is present, code status is documented, or surrogate decision maker is listed in patient medical record.: Yes Medication Reconciliation I have utilized all available resources to obtain, update and review the patients current medications (includes all prescriptions, OTC, herbals, cannabis, and nutritional supplements).: Yes
[2024-08-13 16:01] LABS: Reflex Lactic Acid Yes or No Add Lactic
[2024-08-13 16:05] LABS: Alanine Aminotransferase 26 U/L (6-50); Albumin Level 2.9 g/dL (3.5-5.1); Alkaline Phosphatase 97 U/L (38-126); Aspartate Amino Transferase 29 U/L (17-59); Bilirubin,Total 0.5 mg/dL (0.2-1.3); Lipase 12 U/L (23-300)
[2024-08-13 16:18] LABS: Creatine Kinase 87 U/L (55-170)
[2024-08-13 16:19] LABS: Glucose Point of Care 261 mg/dl (65-105)
[2024-08-13 16:21] LABS: Hemoglobin A1C 8.8 % (<5.7)
[2024-08-13] MEDS: MORPHINE SULFATE (*CRX) 2 MG/ML INJ IV PUSH ×2 (16:25→20:19)
[2024-08-13] MEDS: KCL 20 MEQ/D5/0.45% SOD CHL 1,000 ML 150 ML IV CONT ×2 (17:28→23:59)
[2024-08-13 17:39] LABS: Anion Gap 12 mmol/L (4-12); Blood Urea Nitrogen 45 mg/dL (9-20); Calcium 8.1 mg/dL (8.4-10.2); Carbon Dioxide 19 mmol/L (22-30); Chloride 102 mmol/L (98-107); Estimated CRCL calculation 61 ml/min; Estimated Glomerular Filt Rate 40; Glucose 196 mg/dL (65-110); Potassium 3.3 mmol/L (3.4-5.0); Sodium 133 mmol/L (137-145)
[2024-08-13 18:17] LABS: Glucose Point of Care 156 mg/dl (65-105)
[2024-08-13 18:17] LABS: Glucose Point of Care 211 mg/dl (65-105)
[2024-08-13 18:21] LABS: MRSA (PCR) NOT DETECTED (NOT DETECTE)
[2024-08-13 19:30] LABS: Glucose Point of Care 141 mg/dl (65-105)
[2024-08-13 20:27] LABS: Glucose Point of Care 146 mg/dl (65-105)
[2024-08-13 21:20] LABS: Glucose Point of Care 175 mg/dl (65-105)
[2024-08-13 21:46] LABS: Anion Gap 10 mmol/L (4-12); Blood Urea Nitrogen 42 mg/dL (9-20); Calcium 8.1 mg/dL (8.4-10.2); Carbon Dioxide 19 mmol/L (22-30); Chloride 100 mmol/L (98-107); Estimated CRCL calculation 68 ml/min; Estimated Glomerular Filt Rate 46; Glucose 186 mg/dL (65-110); Potassium 3.3 mmol/L (3.4-5.0); Sodium 129 mmol/L (137-145)
[2024-08-13] MEDS: POTASSIUM CHLORIDE 20 MEQ ER TABLET 40 MEQ PO (22:14)
[2024-08-13 22:19] LABS: Glucose Point of Care 191 mg/dl (65-105)
[2024-08-13] MEDS: ONDANSETRON INJ 4 MG/2 ML VIAL IV PUSH (22:19)
[2024-08-13 23:21] LABS: Glucose Point of Care 213 mg/dl (65-105)
[2024-08-13 23:42] LABS: Creatinine Urine 162.4 mg/dL
[2024-08-13 23:45] LABS: Sodium Urine Random 11 meq/L
[2024-08-13 23:46] LABS: Add Urine Microscopic? YES; Appearance Urine Cloudy (Clear); Bacteria Urine None Seen /hpf; Bilirubin Urine Negative (Negative); Blood Urine 2+ (Negative); Color Urine Yellow (Yellow); Glucose Urine UA 1+ mg/dL (Negative); Ketones Urine 1+ mg/dL (Negative); Leukocyte Esterase Ur Negative LEU/UL (Negative); Need Manual Microscopic Reviewed; Nitrate Urine Negative (Negative); Protein Urine 3+ mg/dL (Negative); RBC Urine 0-2 /hpf (0-2); Squamous Epithelial Cell Urine Moderate /hpf (Few); WBC Urine 0-5 /hpf (0-3); pH Urine 5.5 (5.0-9.0)
[2024-08-13 23:49] LABS: Amorphous Sediment Urine Few
[2024-08-14] VITALS (13 sets, daily range): BP systolic 131–144; BP diastolic 65–90; PULSE 103–115; RESP 22–36; TEMP 36.8–38; O2SAT 90–95; BMI 35.2
[2024-08-14] MEDS: MORPHINE SULFATE (*CRX) 2 MG/ML INJ IV PUSH ×3 (00:21→08:03)
[2024-08-14 00:28] LABS: Glucose Point of Care 215 mg/dl (65-105)
[2024-08-14 01:18] LABS: Glucose Point of Care 204 mg/dl (65-105)
[2024-08-14 01:25] LABS: Anion Gap 9 mmol/L (4-12); Blood Urea Nitrogen 37 mg/dL (9-20); Carbon Dioxide 20 mmol/L (22-30); Chloride 99 mmol/L (98-107); Estimated CRCL calculation 78 ml/min; Estimated Glomerular Filt Rate 54; Glucose 213 mg/dL (65-110); Potassium 3.3 mmol/L (3.4-5.0); Sodium 128 mmol/L (137-145)
[2024-08-14 02:34] LABS: Glucose Point of Care 221 mg/dl (65-105)
[2024-08-14 03:24] LABS: Glucose Point of Care 229 mg/dl (65-105)
[2024-08-14 04:30] LABS: Hematocrit 33.4 % (42.0-52.0); Hemoglobin 11.6 g/dL (14.0-18.0); Mean Corpuscular HGB Conc 34.7 g/dl (32-36); Mean Corpuscular Hemoglobin 29.4 pg (26-34); Mean Corpuscular Volume 84.8 fl (80-100); Mean Platelet Volume 10.6 fl (7.4-10.4); Platelet Count Result 118 k/mm3 (150-375); Red Blood Count 3.94 M/mm3 (4.6-6.20); Red Cell Distribution Width 12.6 % (11.5-14.5); White Blood Count 11.4 K/mm3 (4.5-10.0)
[2024-08-14 04:35] LABS: Glucose Point of Care 226 mg/dl (65-105)
[2024-08-14 04:48] LABS: Anion Gap 9 mmol/L (4-12); Blood Urea Nitrogen 35 mg/dL (9-20); Carbon Dioxide 20 mmol/L (22-30); Chloride 100 mmol/L (98-107); Estimated CRCL calculation 83 ml/min; Estimated Glomerular Filt Rate 58; Glucose 222 mg/dL (65-110); Potassium 3.5 mmol/L (3.4-5.0); Sodium 129 mmol/L (137-145)
[2024-08-14 04:49] LABS: Alanine Aminotransferase 24 U/L (6-50); Albumin Level 2.9 g/dL (3.5-5.1); Alkaline Phosphatase 95 U/L (38-126); Anion Gap 11 mmol/L (4-12); Aspartate Amino Transferase 30 U/L (17-59); Bilirubin,Total 0.5 mg/dL (0.2-1.3); Blood Urea Nitrogen 34 mg/dL (9-20); Carbon Dioxide 18 mmol/L (22-30); Chloride 100 mmol/L (98-107); Estimated CRCL calculation 83 ml/min; Estimated Glomerular Filt Rate 58; Glucose 222 mg/dL (65-110); Magnesium 2.1 mg/dL (1.6-2.3); Phosphorus 2.4 mg/dL (2.5-4.5); Potassium 3.5 mmol/L (3.4-5.0); Sodium 129 mmol/L (137-145)
[2024-08-14 05:01] LABS: Band Neutrophils Percent 15 % (0-6); Lymphocytes Absolute Manual 0.34 K/mm3 (1.1-4.5); Monocytes Absolute Manual 0.45 K/mm3 (0.1-0.90); Monocytes Percent Manual 4 % (3-9); Neutrophils Percent Manual 78 % (46-73); Platelet Estimate Decreased (Adequate); Total Cells Counted 100
[2024-08-14 05:02] LABS: Burr Cells 2+; Schistocytes None Seen
[2024-08-14 05:15] LABS: Glucose Point of Care 221 mg/dl (65-105)
[2024-08-14] MEDS: KCL 20 MEQ/D5/0.45% SOD CHL 1,000 ML 150 ML IV CONT (06:18)
[2024-08-14 06:22] LABS: Glucose Point of Care 199 mg/dl (65-105)
[2024-08-14 07:21] LABS: Glucose Point of Care 227 mg/dl (65-105)
[2024-08-14] MEDS: carvediloL 25 MG TABLET PO ×2 (08:00→20:36)
[2024-08-14] MEDS: ENOXAPARIN 40 MG/0.4 ML SYRINGE SUB-Q (08:00)
[2024-08-14] MEDS: amLODIPine BESYLATE 5 MG TABLET PO (08:00)
[2024-08-14] MEDS: INSULIN GLARGINE (*BKC) 100 UNITS/ML 64 UNITS SUB-Q (08:01)
[2024-08-14] MEDS: ESCITALOPRAM OXALATE 10 MG TABLET PO (08:01)
[2024-08-14] MEDS: INSULIN ASPART (*BKC) 100 UNITS/ML SUB-Q ×3 (08:02→20:37)
[2024-08-14 08:14] LABS: Glucose Point of Care 257 mg/dl (65-105)
[2024-08-14 08:59] LABS: Glucose Point of Care 239 mg/dl (65-105)
[2024-08-14] MEDS: ONDANSETRON INJ 4 MG/2 ML VIAL IV PUSH (10:33)
[2024-08-14] MEDS: HYDROcodone/acetaminophen (*CRX) 5-325 MG TABLET 1 TAB PO ×2 (10:33→16:53)
[2024-08-14 10:37] LABS: Glucose Point of Care 234 mg/dl (65-105)
[2024-08-14 11:14] LABS: Glucose Point of Care 227 mg/dl (65-105)
[2024-08-14] MEDS: VANCOMYCIN 1,250 MG/NS 250 ML 1,250 MG/250 ML BAG 166.67 MG IVPB ×2 (11:15→12:00)
--- NOTE | 2024-08-14 12:05 | WPDINTPN ---
Progress Note: A&P Assessment and Plan (1) DKA (diabetic ketoacidosis): Code(s): E11.10 - Type 2 diabetes mellitus with ketoacidosis without coma Status: Acute Assessment and Plan: Patient presented with nausea, vomiting, generalized weakness, elevated blood sugars, was found to be in DKA likely related to osteomyelitis Patient is getting IVF bolus and will be followed by infusion Patient remains on insulin infusion, will transition to long-acting insulin and sliding scale insulin Will start diabetic diet Replace electrolytes as needed dietitian and tobacco prevention health educator have been consulted (2) Hypertension: Qualifiers: Hypertension type: primary hypertension Qualified Code(s): I10 - Essential (primary) hypertension Code(s): I10 - Essential (primary) hypertension Status: Chronic Assessment and Plan: Blood pressure is slightly on the higher side, will start home amlodipine and Coreg (08/14) If blood pressures remain elevated will add losartan which is also his home medication (3) PURNIMA (acute kidney injury): Code(s): N17.9 - Acute kidney failure, unspecified Status: Acute Assessment and Plan: Likely secondary to dehydration and DKA Urine lytes showed prerenal picture, patient did receive adequate amount of IV fluid -renal ultrasound did not show any hydronephrosis, normal kidneys -creatinine on admission was 2.10 - 08/14: Creatinine this morning is 1.30, urine output has been adequate -continue to hold losartan for now (4) SIRS (systemic inflammatory response syndrome): Code(s): R65.10 - Systemic inflammatory response syndrome (SIRS) of non-infectious origin without acute organ dysfunction Status: Acute Assessment and Plan: Patient appears to have SIRS. Patient received adequate amount of IV fluids for DKA and dehydration Chest x-ray negative UA was negative 08/13: Blood cultures growing Gram-positive cocci in chains 2/2 bottles 08/14: Started patient on vancomycin -PCR for influenza RSV and COVID were negative IV fluids for DKA and dehydration Mildly elevated lactic acid on admission, 2.30. Resolved after IV fluids (5) Dehydration: Code(s): E86.0 - Dehydration Status: Acute Assessment and Plan: Patient appears significantly dehydrated secondary to DKA and poor p.o. intake likely secondary to side effect of M[place]jaro Patient receiving his 3 L of IV fluid bolus at this time. Will continue IV fluids -adequately fluid-resuscitated, will continue to encourage oral intake (6) Wound of left foot: Code(s): S91.302A - Unspecified open wound, left foot, initial encounter Status: Chronic Assessment and Plan: Patient has a wound on his left foot which is a result of abscess that he developed in the past. He had osteomyelitis at that time. He received 6 weeks of antibiotic therapy and I and D was done for the abscess. Since then he is getting wound care done initially at the wound care clinic but now does himself at home. On exam the wound appears clear with no evidence of infection. He has normal WBC. -appreciate Wound Care team evaluation -surgery has been consulted 08/14: X-ray left foot: Septic arthritis at the fifth metatarsophalangeal joint with associated osteomyelitis at the base of the fifth proximal phalanx and head of the fifth metatarsal. Continue antibiotics as above (7) Osteomyelitis of foot, left, acute: Code(s): M86.172 - Other acute osteomyelitis, left ankle and foot Status: Acute Assessment and Plan: Osteomyelitis as above, surgery evaluation for possible debridement (8) Lumbar back pain: Code(s): M54.50 - Low back pain, unspecified Status: Acute Assessment and Plan: Patient presented with lower back pain, according the patient had lower back pain the last and was admitted for DKA which resolved on its own -patient receiving morphine but that is causing him to be somnolent -will discontinue morphine and start [place] for his back pain -x-ray of the lumbar spine is under, if continues to have back pain will get CT scan : X-ray lumbar spine: No acute osseous abnormality of the lumbar spine, multilevel degenerative disc disease Plan DVT prophylaxis -Lovenox Nutrition -diabetic diet Code Status - Full Code Total Critical Care Time - 33 minutes Discussed with patient and spouse at bedside updated them with patient's condition and plan of care. They aware that he will be getting a left foot x-ray and lower back x-ray. Due to a high probability of clinically significant, life threatening deterioration, the patient required my highest level of preparedness to intervene emergently and I personally spent this critical care time directly and personally managing the patient. This critical care time included obtaining a history; examining the patient; pulse oximetry; ordering and review of studies; arranging urgent treatment with development of a management plan; evaluation of patient's response to treatment; frequent reassessment; and discussions with other providers. It was exclusive of separately billable procedures and treating other patients and teaching time. Please see Assessment and Plan section and the rest of the note for further information on patient assessment and treatment Subjective Date/time seen: 08/14/24 12:05 Interval history: Reason for consult: DKA, hypertension, dehydration, nausea, vomiting, decreased oral intake 08/14/2024: Patient seen and examined the ICU, remains on insulin infusion, anion gap has closed since last night. Patient complains of lower back pain for which he has been receiving morphine which makes him somnolent. Hemodynamically stable, denies any shortness of breath, chest pain, abdominal pain, nausea vomiting at this time. Patient febrile with a T-max of 100.4?, urine output has been adequate, blood cultures growing Gram-positive cocci in chains Review of Systems Review of Systems: All systems reviewed & are unremarkable except as noted in HPI and below (HPI) Exam Narrative: General: Pt is alert awake and in NAD Lungs/Chest: Trachea central Clear BS B/L, No crackles or wheezing. Cardiac: RRR. Normal S1 S2. No murmurs Circulation: Pedal pulses are intact and symmetrical. Abdomen: Normal bowel sounds.. Obese Soft. NT. ND. Extremities: No clubbing, cyanosis or edema. Warm : Ramirez in place Neurologic: Follows commands. Moves all 4 extremities PERRL AO x3 Skin: Left lateral foot wound more erythematous, swollen, warm. Objective Data Vital Signs Vital Signs: Vital Signs - 24 hr 08/13/24 12:33 08/13/24 13:00 08/13/24 12:48 Temperature 97.9 F Pulse Rate 105 H 103 H Respiratory Rate 20 20 13 Blood Pressure 91/55 L Pulse Oximetry 98 100 Oxygen Delivery Room Air Oxygen Flow Rate 08/13/24 13:28 08/13/24 13:30 08/13/24 13:31 Temperature Pulse Rate 101 H 104 H 103 H Respiratory Rate 26 H 31 H 27 H Blood Pressure 116/64 Pulse Oximetry 98 100 100 Oxygen Delivery Oxygen Flow Rate 08/13/24 14:06 08/13/24 14:08 08/13/24 14:15 Temperature Pulse Rate 103 H 103 H 104 H Respiratory Rate 24 H 36 H 29 H Blood Pressure 110/56 L Pulse Oximetry 100 98 99 Oxygen Delivery Oxygen Flow Rate 08/13/24 14:16 08/13/24 16:00 08/13/24 16:00 Temperature Pulse Rate 104 H 108 H 108 H Respiratory Rate 25 H 30 H Blood Pressure 106/60 103/58 L Pulse Oximetry 98 97 Oxygen Delivery Oxygen Flow Rate 08/13/24 16:00 08/13/24 20:00 08/13/24 20:00 Temperature 98.2 F Pulse Rate 115 H 115 H Respiratory Rate 32 H Blood Pressure 128/98 H Pulse Oximetry 91 Oxygen Delivery Room Air Oxygen Flow Rate 08/13/24 20:00 08/13/24 22:00 08/13/24 22:00 Temperature Pulse Rate 116 H 116 H Respiratory Rate 27 H Blood Pressure 147/85 H Pulse Oximetry 95 Oxygen Delivery Room Air Oxygen Flow Rate 08/14/24 00:00 08/14/24 00:00 08/14/24 00:00 Temperature 99.3 F Pulse Rate 115 H 115 H Respiratory Rate 22 H Blood Pressure 143/90 H Pulse Oximetry 93 93 Oxygen Delivery Nasal Cannula Oxygen Flow Rate 2 08/14/24 02:00 08/14/24 02:00 08/14/24 04:00 Temperature Pulse Rate 115 H 115 H 113 H Respiratory Rate 29 H Blood Pressure 143/75 H Pulse Oximetry 93 Oxygen Delivery Oxygen Flow Rate 08/14/24 04:00 08/14/24 04:00 08/14/24 06:00 Temperature 100.4 F H Pulse Rate 113 H 114 H Respiratory Rate 23 H Blood Pressure 142/88 H Pulse Oximetry 93 93 Oxygen Delivery Nasal Cannula Oxygen Flow Rate 2 08/14/24 06:00 08/14/24 08:00 08/14/24 08:00 Temperature Pulse Rate 114 H 113 H 113 H Respiratory Rate 26 H Blood Pressure 135/81 Pulse Oximetry 94 Oxygen Delivery Oxygen Flow Rate 08/14/24 08:00 08/14/24 08:00 08/14/24 10:00 Temperature 99 F Pulse Rate 113 H 113 H 111 H Respiratory Rate 36 H 36 H Blood Pressure 132/65 Pulse Oximetry 93 93 Oxygen Delivery Room Air Oxygen Flow Rate 08/14/24 10:00 Temperature Pulse Rate 111 H Respiratory Rate 35 H Blood Pressure 137/79 Pulse Oximetry 92 Oxygen Delivery Oxygen Flow Rate Intake/Output Intake/Output: Intake & Output 08/11/24 08/12/24 08/13/24 08/14/24 23:59 23:59 23:59 23:59 Intake Total 3471.7 2004.4 Output Total 700 0 Balance 2771.7 2004.4 Meds/Results Medications: Active Medications Generic Name Dose Route Start Last Admin Trade Name Freq PRN Reason Stop Dose Admin Hydrocodone Bitart/Acetaminophen 1 tab 08/14/24 10:12 08/14/24 10:33 Hydrocodone/Acetaminophen (*Crx) 5-325 Mg Tablet PO 1 tab Q6H PRN Administration Pain Rated 4-6 Amlodipine Besylate 5 mg 08/14/24 09:00 08/14/24 08:00 Amlodipine Besylate 5 Mg Tablet PO 5 mg DAILY SANCHEZ Administration Carvedilol 25 mg 08/14/24 09:00 08/14/24 08:00 Carvedilol 25 Mg Tablet PO 25 mg Q12HR SANCHEZ Administration Dextrose 12.5 gm 08/14/24 07:37 Dextrose 50% 25 Gm/50 Ml Syringe IV PUSH PRN PRN Hypoglycemia Protocol Enoxaparin Sodium 40 mg 08/14/24 09:00 08/14/24 08:00 Enoxaparin 40 Mg/0.4 Ml Syringe SUB-Q 40 mg DAILY SANCHEZ Administration Escitalopram Oxalate 10 mg 08/14/24 09:00 08/14/24 08:01 Escitalopram Oxalate 10 Mg Tablet PO 10 mg DAILY SANCHEZ Administration Glucagon 1 mg 08/14/24 07:37 Glucagon For Inj 1 Mg Vial IM PRN PRN Hypoglycemia Protocol Glucose 15 gm 08/14/24 07:37 Glucose Oral Gel 15 Gm Of Glucse In 37.5 Gm Tube PO PRN PRN Hypoglycemia Protocol Dextrose 1,000 mls @ 100 mls/hr 08/14/24 07:37 Dextrose 5% 1,000 Ml IVPB PRN PRN Hypoglycemia Protocol Vancomycin HCl 1,500 mg in 500 mls @ 250 mls/hr 08/14/24 23:00 Vancomycin 1,500 Mg/Ns 500 Ml IVPB Q12H SANCHEZ Vancomycin HCl 1,250 mg in 250 mls @ 166.667 mls/hr 08/14/24 11:00 08/14/24 11:15 Vancomycin 1,250 Mg/Ns 250 Ml IVPB 08/14/24 12:29 166.67 mls/hr ONCE ONE Administration Vancomycin HCl 1,250 mg in 250 mls @ 166.667 mls/hr 08/14/24 12:30 08/14/24 12:00 Vancomycin 1,250 Mg/Ns 250 Ml IVPB 08/14/24 13:59 166.67 mls/hr ONCE ONE Administration Insulin Aspart 4 - 8 units 08/14/24 08:00 08/14/24 11:18 Insulin Aspart (*Bkc) 100 Units/Ml SUB-Q 4 units TIDWM SANCHEZ Administration Protocol Insulin Aspart 2 - 4 units 08/14/24 21:00 Insulin Aspart (*Bkc) 100 Units/Ml SUB-Q HS SANCHEZ Protocol Insulin Glargine 64 units 08/14/24 09:00 08/14/24 08:01 Insulin Glargine (*Bkc) 100 Units/Ml SUB-Q 64 units DAILY SANCHEZ Administration Ondansetron HCl 4 mg 08/13/24 15:26 08/14/24 10:33 Ondansetron Inj 4 Mg/2 Ml Vial IV PUSH 4 mg Q6H PRN Administration Nausea And Vomiting Radiology Results: ITS Impressions Chest X-Ray 08/13/24 13:54 IMPRESSION: No acute cardiopulmonary pathology. Renal Ultrasound 08/13/24 15:07 IMPRESSION: 1. Normal kidneys. No hydronephrosis. Foot X-Ray 08/14/24 11:36 IMPRESSION: 1. Septic arthritis at the fifth metatarsophalangeal joint with associated osteomyelitis at the base of the fifth proximal phalanx and head of the fifth metatarsal. Lumbar Spine X-Ray 08/14/24 11:49 IMPRESSION: No acute osseous abnormality lumbar spine. Multilevel degenerative disc disease. Labs Labs: Laboratory Results - last 24 hr 08/13/24 08/13/24 08/13/24 12:44 12:57 14:09 WBC 9.5 RBC 4.15 L Hgb 12.2 L Hct 35.9 L MCV 86.5 MCH 29.4 MCHC 34.0 RDW 12.5 Plt Count 120 L MPV 10.8 H Immature Gran % (Auto) Not Reportable Neut % (Auto) Not Reportable Lymph % (Auto) Not Reportable [place] % (Auto) Not Reportable Eos % (Auto) Not Reportable Baso % (Auto) Not Reportable Lymph # (Auto) Not Reportable [place] # (Auto) Not Reportable Eos # (Auto) Not Reportable Baso # (Auto) Not Reportable Abs Immat Gran (auto) Not Reportable Absolute Neuts (auto) Not Reportable Absolute Nucleated RBC Not Reportable Total Counted 100 Neutrophils % (Manual) 80 H Band Neutrophils % 17 H Lymphocytes % (Manual) 1.0 L Monocytes % (Manual) 2 L Nucleated RBC % Not Reportable Abs Neuts (Manual) 9.21 H Abs Lymphs (Manual) 0.09 L Abs Monocytes (Manual) 0.19 Platelet Estimate Adequate % Immature Plt Fraction 3.8 [place] Cells Schistocytes None seen Sodium 130 L Potassium 3.9 Chloride 95 L Carbon Dioxide 17 L Anion Gap 18 H BUN 46 H D Creatinine 2.10 H Estim Creat Clear Calc 52 Estimated GFR 34 L Glucose 449 H POC Capillary Glucose 424 H 340 H Hemoglobin A1c Lactic Acid 2.3 H Calcium 8.4 Phosphorus Magnesium Total Bilirubin Direct Bilirubin AST ALT Alkaline Phosphatase Total Creatine Kinase Total Protein Albumin Lipase Beta-Hydroxybutyrate/Acetoacetate 3.31 H Urine Color Urine Appearance Urine pH Ur Specific [place] Urine Protein Urine Glucose (UA) Urine Ketones Ur Blood (Man) Urine Nitrate Urine Bilirubin Urine Urobilinogen Add Ur Microanalysis Leukocyte Esterase Rfl Urine RBC Urine WBC Ur Squamous Epith Cells Amorphous Sediment Urine Bacteria Urine Casts Ur Random Sodium Urine Creatinine Nasal MRSA (PCR) Influenza A (RT-PCR) Negative Influenza B (RT-PCR) Negative RSV (RT-PCR) Negative SARS-CoV-2 RNA (RT-PCR) Negative 08/13/24 08/13/24 08/13/24 15:19 15:26 15:48 WBC RBC Hgb Hct MCV MCH MCHC RDW Plt Count MPV Immature Gran % (Auto) Neut % (Auto) Lymph % (Auto) [place] % (Auto) Eos % (Auto) Baso % (Auto) Lymph # (Auto) [place] # (Auto) Eos # (Auto) Baso # (Auto) Abs Immat Gran (auto) Absolute Neuts (auto) Absolute Nucleated RBC Total Counted Neutrophils % (Manual) Band Neutrophils % Lymphocytes % (Manual) Monocytes % (Manual) Nucleated RBC % Abs Neuts (Manual) Abs Lymphs (Manual) Abs Monocytes (Manual) Platelet Estimate % Immature Plt Fraction [place] Cells Schistocytes Sodium Potassium Chloride Carbon Dioxide Anion Gap BUN Creatinine Estim Creat Clear Calc Estimated GFR Glucose POC Capillary Glucose 300 H Hemoglobin A1c 8.8 H Lactic Acid Calcium Phosphorus Magnesium Total Bilirubin 0.5 Direct Bilirubin 0.0 AST 29 ALT 26 Alkaline Phosphatase 97 Total Creatine Kinase Total Protein 6.0 L Albumin 2.9 L Lipase 12 L Beta-Hydroxybutyrate/Acetoacetate Urine Color Urine Appearance Urine pH Ur Specific [place] Urine Protein Urine Glucose (UA) Urine Ketones Ur Blood (Man) Urine Nitrate Urine Bilirubin Urine Urobilinogen Add Ur Microanalysis Leukocyte Esterase Rfl Urine RBC Urine WBC Ur Squamous Epith Cells Amorphous Sediment Urine Bacteria Urine Casts Ur Random Sodium Urine Creatinine Nasal MRSA (PCR) Influenza A (RT-PCR) Influenza B (RT-PCR) RSV (RT-PCR) SARS-CoV-2 RNA (RT-PCR) 08/13/24 08/13/24 08/13/24 15:50 16:17 17:06 WBC RBC Hgb Hct MCV MCH MCHC RDW Plt Count MPV Immature Gran % (Auto) Neut % (Auto) Lymph % (Auto) [place] % (Auto) Eos % (Auto) Baso % (Auto) Lymph # (Auto) [place] # (Auto) Eos # (Auto) Baso # (Auto) Abs Immat Gran (auto) Absolute Neuts (auto) Absolute Nucleated RBC Total Counted Neutrophils % (Manual) Band Neutrophils % Lymphocytes % (Manual) Monocytes % (Manual) Nucleated RBC % Abs Neuts (Manual) Abs Lymphs (Manual) Abs Monocytes (Manual) Platelet Estimate % Immature Plt Fraction [place] Cells Schistocytes Sodium Potassium Chloride Carbon Dioxide Anion Gap BUN Creatinine Estim Creat Clear Calc Estimated GFR Glucose POC Capillary Glucose 261 H Hemoglobin A1c Lactic Acid Calcium Phosphorus Magnesium Total Bilirubin Direct Bilirubin AST ALT Alkaline Phosphatase Total Creatine Kinase 87 Total Protein Albumin Lipase Beta-Hydroxybutyrate/Acetoacetate Urine Color Urine Appearance Urine pH Ur Specific [place] Urine Protein Urine Glucose (UA) Urine Ketones Ur Blood (Man) Urine Nitrate Urine Bilirubin Urine Urobilinogen Add Ur Microanalysis Leukocyte Esterase Rfl Urine RBC Urine WBC Ur Squamous Epith Cells Amorphous Sediment Urine Bacteria Urine Casts Ur Random Sodium Urine Creatinine Nasal MRSA (PCR) Not detected Influenza A (RT-PCR) Influenza B (RT-PCR) RSV (RT-PCR) SARS-CoV-2 RNA (RT-PCR) 08/13/24 08/13/24 08/13/24 17:21 17:22 18:15 WBC RBC Hgb Hct MCV MCH MCHC RDW Plt Count MPV Immature Gran % (Auto) Neut % (Auto) Lymph % (Auto) [place] % (Auto) Eos % (Auto) Baso % (Auto) Lymph # (Auto) [place] # (Auto) Eos # (Auto) Baso # (Auto) Abs Immat Gran (auto) Absolute Neuts (auto) Absolute Nucleated RBC Total Counted Neutrophils % (Manual) Band Neutrophils % Lymphocytes % (Manual) Monocytes % (Manual) Nucleated RBC % Abs Neuts (Manual) Abs Lymphs (Manual) Abs Monocytes (Manual) Platelet Estimate % Immature Plt Fraction [place] Cells Schistocytes Sodium 133 L Potassium 3.3 L Chloride 102 Carbon Dioxide 19 L Anion Gap 12 BUN 45 H Creatinine 1.80 H Estim Creat Clear Calc 61 Estimated GFR 40 L Glucose 196 H POC Capillary Glucose 211 H 156 H Hemoglobin A1c Lactic Acid 2.0 Calcium 8.1 L Phosphorus Magnesium Total Bilirubin Direct Bilirubin AST ALT Alkaline Phosphatase Total Creatine Kinase Total Protein Albumin Lipase Beta-Hydroxybutyrate/Acetoacetate Urine Color Urine Appearance Urine pH Ur Specific [place] Urine Protein Urine Glucose (UA) Urine Ketones Ur Blood (Man) Urine Nitrate Urine Bilirubin Urine Urobilinogen Add Ur Microanalysis Leukocyte Esterase Rfl Urine RBC Urine WBC Ur Squamous Epith Cells Amorphous Sediment Urine Bacteria Urine Casts Ur Random Sodium Urine Creatinine Nasal MRSA (PCR) Influenza A (RT-PCR) Influenza B (RT-PCR) RSV (RT-PCR) SARS-CoV-2 RNA (RT-PCR) 08/13/24 08/13/24 08/13/24 19:26 20:19 21:17 WBC RBC Hgb Hct MCV MCH MCHC RDW Plt Count MPV Immature Gran % (Auto) Neut % (Auto) Lymph % (Auto) [place] % (Auto) Eos % (Auto) Baso % (Auto) Lymph # (Auto) [place] # (Auto) Eos # (Auto) Baso # (Auto) Abs Immat Gran (auto) Absolute Neuts (auto) Absolute Nucleated RBC Total Counted Neutrophils % (Manual) Band Neutrophils % Lymphocytes % (Manual) Monocytes % (Manual) Nucleated RBC % Abs Neuts (Manual) Abs Lymphs (Manual) Abs Monocytes (Manual) Platelet Estimate % Immature Plt Fraction [place] Cells Schistocytes Sodium Potassium Chloride Carbon Dioxide Anion Gap BUN Creatinine Estim Creat Clear Calc Estimated GFR Glucose POC Capillary Glucose 141 H 146 H 175 H Hemoglobin A1c Lactic Acid Calcium Phosphorus Magnesium Total Bilirubin Direct Bilirubin AST ALT Alkaline Phosphatase Total Creatine Kinase Total Protein Albumin Lipase Beta-Hydroxybutyrate/Acetoacetate Urine Color Urine Appearance Urine pH Ur Specific [place] Urine Protein Urine Glucose (UA) Urine Ketones Ur Blood (Man) Urine Nitrate Urine Bilirubin Urine Urobilinogen Add Ur Microanalysis Leukocyte Esterase Rfl Urine RBC Urine WBC Ur Squamous Epith Cells Amorphous Sediment Urine Bacteria Urine Casts Ur Random Sodium Urine Creatinine Nasal MRSA (PCR) Influenza A (RT-PCR) Influenza B (RT-PCR) RSV (RT-PCR) SARS-CoV-2 RNA (RT-PCR) 08/13/24 08/13/24 08/13/24 21:30 22:13 23:14 WBC RBC Hgb Hct MCV MCH MCHC RDW Plt Count MPV Immature Gran % (Auto) Neut % (Auto) Lymph % (Auto) [place] % (Auto) Eos % (Auto) Baso % (Auto) Lymph # (Auto) [place] # (Auto) Eos # (Auto) Baso # (Auto) Abs Immat Gran (auto) Absolute Neuts (auto) Absolute Nucleated RBC Total Counted Neutrophils % (Manual) Band Neutrophils % Lymphocytes % (Manual) Monocytes % (Manual) Nucleated RBC % Abs Neuts (Manual) Abs Lymphs (Manual) Abs Monocytes (Manual) Platelet Estimate % Immature Plt Fraction [place] Cells Schistocytes Sodium 129 L Potassium 3.3 L Chloride 100 Carbon Dioxide 19 L Anion Gap 10 BUN 42 H Creatinine 1.60 H Estim Creat Clear Calc 68 Estimated GFR 46 L Glucose 186 H POC Capillary Glucose 191 H 213 H Hemoglobin A1c Lactic Acid Calcium 8.1 L Phosphorus Magnesium Total Bilirubin Direct Bilirubin AST ALT Alkaline Phosphatase Total Creatine Kinase Total Protein Albumin Lipase Beta-Hydroxybutyrate/Acetoacetate Urine Color Urine Appearance Urine pH Ur Specific [place] Urine Protein Urine Glucose (UA) Urine Ketones Ur Blood (Man) Urine Nitrate Urine Bilirubin Urine Urobilinogen Add Ur Microanalysis Leukocyte Esterase Rfl Urine RBC Urine WBC Ur Squamous Epith Cells Amorphous Sediment Urine Bacteria Urine Casts Ur Random Sodium Urine Creatinine Nasal MRSA (PCR) Influenza A (RT-PCR) Influenza B (RT-PCR) RSV (RT-PCR) SARS-CoV-2 RNA (RT-PCR) 08/13/24 08/14/24 08/14/24 23:27 00:20 01:08 WBC RBC Hgb Hct MCV MCH MCHC RDW Plt Count MPV Immature Gran % (Auto) Neut % (Auto) Lymph % (Auto) [place] % (Auto) Eos % (Auto) Baso % (Auto) Lymph # (Auto) [place] # (Auto) Eos # (Auto) Baso # (Auto) Abs Immat Gran (auto) Absolute Neuts (auto) Absolute Nucleated RBC Total Counted Neutrophils % (Manual) Band Neutrophils % Lymphocytes % (Manual) Monocytes % (Manual) Nucleated RBC % Abs Neuts (Manual) Abs Lymphs (Manual) Abs Monocytes (Manual) Platelet Estimate % Immature Plt Fraction [place] Cells Schistocytes Sodium 128 L Potassium 3.3 L Chloride 99 Carbon Dioxide 20 L Anion Gap 9 BUN 37 H Creatinine 1.40 H Estim Creat Clear Calc 78 Estimated GFR 54 L Glucose 213 H POC Capillary Glucose 215 H 204 H Hemoglobin A1c Lactic Acid Calcium 8.0 L Phosphorus Magnesium Total Bilirubin Direct Bilirubin AST ALT Alkaline Phosphatase Total Creatine Kinase Total Protein Albumin Lipase Beta-Hydroxybutyrate/Acetoacetate Urine Color Yellow Urine Appearance Cloudy H Urine pH 5.5 Ur Specific [place] 1.020 Urine Protein 3+ H Urine Glucose (UA) 1+ H Urine Ketones 1+ H Ur Blood (Man) 2+ H Urine Nitrate Negative Urine Bilirubin Negative Urine Urobilinogen 1.0 Add Ur Microanalysis Reviewed Leukocyte Esterase Rfl Negative Urine RBC 0-2 Urine WBC 0-5 Ur Squamous Epith Cells Moderate Amorphous Sediment Few H Urine Bacteria None seen Urine Casts 11-20 Ur Random Sodium 11 Urine Creatinine 162.4 Nasal MRSA (PCR) Influenza A (RT-PCR) Influenza B (RT-PCR) RSV (RT-PCR) SARS-CoV-2 RNA (RT-PCR) 08/14/24 08/14/24 08/14/24 02:31 03:22 04:24 WBC 11.4 H RBC 3.94 L Hgb 11.6 L Hct 33.4 L MCV 84.8 MCH 29.4 MCHC 34.7 RDW 12.6 Plt Count 118 L MPV 10.6 H Immature Gran % (Auto) Not Reportable Neut % (Auto) Not Reportable Lymph % (Auto) Not Reportable [place] % (Auto) Not Reportable Eos % (Auto) Not Reportable Baso % (Auto) Not Reportable Lymph # (Auto) Not Reportable [place] # (Auto) Not Reportable Eos # (Auto) Not Reportable Baso # (Auto) Not Reportable Abs Immat Gran (auto) Not Reportable Absolute Neuts (auto) Not Reportable Absolute Nucleated RBC Not Reportable Total Counted 100 Neutrophils % (Manual) 78 H Band Neutrophils % 15 H Lymphocytes % (Manual) 3.0 L Monocytes % (Manual) 4 Nucleated RBC % Not Reportable Abs Neuts (Manual) 10.60 H Abs Lymphs (Manual) 0.34 L Abs Monocytes (Manual) 0.45 Platelet Estimate Decreased % Immature Plt Fraction [place] Cells 2+ Schistocytes None seen Sodium 129 L Potassium Chloride Carbon Dioxide Anion Gap BUN Creatinine Estim Creat Clear Calc Estimated GFR Glucose POC Capillary Glucose 221 H 229 H Hemoglobin A1c Lactic Acid Calcium Phosphorus Magnesium Total Bilirubin Direct Bilirubin AST ALT Alkaline Phosphatase Total Creatine Kinase Total Protein Albumin Lipase Beta-Hydroxybutyrate/Acetoacetate Urine Color Urine Appearance Urine pH Ur Specific [place] Urine Protein Urine Glucose (UA) Urine Ketones Ur Blood (Man) Urine Nitrate Urine Bilirubin Urine Urobilinogen Add Ur Microanalysis Leukocyte Esterase Rfl Urine RBC Urine WBC Ur Squamous Epith Cells Amorphous Sediment Urine Bacteria Urine Casts Ur Random Sodium Urine Creatinine Nasal MRSA (PCR) Influenza A (RT-PCR) Influenza B (RT-PCR) RSV (RT-PCR) SARS-CoV-2 RNA (RT-PCR) 08/14/24 08/14/24 08/14/24 04:24 04:24 04:24 WBC RBC Hgb Hct MCV MCH MCHC RDW Plt Count MPV Immature Gran % (Auto) Neut % (Auto) Lymph % (Auto) [place] % (Auto) Eos % (Auto) Baso % (Auto) Lymph # (Auto) [place] # (Auto) Eos # (Auto) Baso # (Auto) Abs Immat Gran (auto) Absolute Neuts (auto) Absolute Nucleated RBC Total Counted Neutrophils % (Manual) Band Neutrophils % Lymphocytes % (Manual) Monocytes % (Manual) Nucleated RBC % Abs Neuts (Manual) Abs Lymphs (Manual) Abs Monocytes (Manual) Platelet Estimate % Immature Plt Fraction [place] [facility] Schistocytes Sodium 129 L Potassium 3.5 3.5 Chloride 100 100 Carbon Dioxide 18 L Anion Gap BUN Creatinine Estim Creat Clear Calc Estimated GFR Glucose POC Capillary Glucose Hemoglobin A1c Lactic Acid Calcium Phosphorus Magnesium Total Bilirubin Direct Bilirubin AST ALT Alkaline Phosphatase Total Creatine Kinase Total Protein Albumin Lipase Beta-Hydroxybutyrate/Acetoacetate Urine Color Urine Appearance Urine pH Ur Specific [place] Urine Protein Urine Glucose (UA) Urine Ketones Ur Blood (Man) Urine Nitrate Urine Bilirubin Urine Urobilinogen Add Ur Microanalysis Leukocyte Esterase Rfl Urine RBC Urine WBC Ur Squamous Epith Cells Amorphous Sediment Urine Bacteria Urine Casts Ur Random Sodium Urine Creatinine Nasal MRSA (PCR) Influenza A (RT-PCR) Influenza B (RT-PCR) RSV (RT-PCR) SARS-CoV-2 RNA (RT-PCR) 08/14/24 08/14/24 08/14/24 04:24 04:24 04:24 WBC RBC Hgb Hct MCV MCH MCHC RDW Plt Count MPV Immature Gran % (Auto) Neut % (Auto) Lymph % (Auto) [place] % (Auto) Eos % (Auto) Baso % (Auto) Lymph # (Auto) [place] # (Auto) Eos # (Auto) Baso # (Auto) Abs Immat Gran (auto) Absolute Neuts (auto) Absolute Nucleated RBC Total Counted Neutrophils % (Manual) Band Neutrophils % Lymphocytes % (Manual) Monocytes % (Manual) Nucleated RBC % Abs Neuts (Manual) Abs Lymphs (Manual) Abs Monocytes (Manual) Platelet Estimate % Immature Plt Fraction [place] Cells Schistocytes Sodium Potassium Chloride Carbon Dioxide 20 L Anion Gap 11 9 BUN 34 H 35 H Creatinine 1.30 Estim Creat Clear Calc Estimated GFR Glucose POC Capillary Glucose Hemoglobin A1c Lactic Acid Calcium Phosphorus Magnesium Total Bilirubin Direct Bilirubin AST ALT Alkaline Phosphatase Total Creatine Kinase Total Protein Albumin Lipase Beta-Hydroxybutyrate/Acetoacetate Urine Color Urine Appearance Urine pH Ur Specific [place] Urine Protein Urine Glucose (UA) Urine Ketones Ur Blood (Man) Urine Nitrate Urine Bilirubin Urine Urobilinogen Add Ur Microanalysis Leukocyte Esterase Rfl Urine RBC Urine WBC Ur Squamous Epith Cells Amorphous Sediment Urine Bacteria Urine Casts Ur Random Sodium Urine Creatinine Nasal MRSA (PCR) Influenza A (RT-PCR) Influenza B (RT-PCR) RSV (RT-PCR) SARS-CoV-2 RNA (RT-PCR) 08/14/24 08/14/24 08/14/24 04:24 04:24 04:24 WBC RBC Hgb Hct MCV MCH MCHC RDW Plt Count MPV Immature Gran % (Auto) Neut % (Auto) Lymph % (Auto) [place] % (Auto) Eos % (Auto) Baso % (Auto) Lymph # (Auto) [place] # (Auto) Eos # (Auto) Baso # (Auto) Abs Immat Gran (auto) Absolute Neuts (auto) Absolute Nucleated RBC Total Counted Neutrophils % (Manual) Band Neutrophils % Lymphocytes % (Manual) Monocytes % (Manual) Nucleated RBC % Abs Neuts (Manual) Abs Lymphs (Manual) Abs Monocytes (Manual) Platelet Estimate % Immature Plt Fraction [place] [facility] Schistocytes Sodium Potassium Chloride Carbon Dioxide Anion Gap BUN Creatinine 1.30 Estim Creat Clear Calc 83 83 Estimated GFR 58 L 58 L Glucose 222 H POC Capillary Glucose Hemoglobin A1c Lactic Acid Calcium Phosphorus Magnesium Total Bilirubin Direct Bilirubin AST ALT Alkaline Phosphatase Total Creatine Kinase Total Protein Albumin Lipase Beta-Hydroxybutyrate/Acetoacetate Urine Color Urine Appearance Urine pH Ur Specific [place] Urine Protein Urine Glucose (UA) Urine Ketones Ur Blood (Man) Urine Nitrate Urine Bilirubin Urine Urobilinogen Add Ur Microanalysis Leukocyte Esterase Rfl Urine RBC Urine WBC Ur Squamous Epith Cells Amorphous Sediment Urine Bacteria Urine Casts Ur Random Sodium Urine Creatinine Nasal MRSA (PCR) Influenza A (RT-PCR) Influenza B (RT-PCR) RSV (RT-PCR) SARS-CoV-2 RNA (RT-PCR) 08/14/24 08/14/24 08/14/24 04:24 04:24 04:28 WBC RBC Hgb Hct MCV MCH MCHC RDW Plt Count MPV Immature Gran % (Auto) Neut % (Auto) Lymph % (Auto) [place] % (Auto) Eos % (Auto) Baso % (Auto) Lymph # (Auto) [place] # (Auto) Eos # (Auto) Baso # (Auto) Abs Immat Gran (auto) Absolute Neuts (auto) Absolute Nucleated RBC Total Counted Neutrophils % (Manual) Band Neutrophils % Lymphocytes % (Manual) Monocytes % (Manual) Nucleated RBC % Abs Neuts (Manual) Abs Lymphs (Manual) Abs Monocytes (Manual) Platelet Estimate % Immature Plt Fraction [place] Cells Schistocytes Sodium Potassium Chloride Carbon Dioxide Anion Gap BUN Creatinine Estim Creat Clear Calc Estimated GFR Glucose 222 H POC Capillary Glucose 226 H Hemoglobin A1c Lactic Acid Calcium 8.0 L 8.0 L Phosphorus 2.4 L Magnesium 2.1 Total Bilirubin 0.5 Direct Bilirubin AST 30 ALT 24 Alkaline Phosphatase 95 Total Creatine Kinase Total Protein 6.0 L Albumin 2.9 L Lipase Beta-Hydroxybutyrate/Acetoacetate Urine Color Urine Appearance Urine pH Ur Specific [place] Urine Protein Urine Glucose (UA) Urine Ketones Ur Blood (Man) Urine Nitrate Urine Bilirubin Urine Urobilinogen Add Ur Microanalysis Leukocyte Esterase Rfl Urine RBC Urine WBC Ur Squamous Epith Cells Amorphous Sediment Urine Bacteria Urine Casts Ur Random Sodium Urine Creatinine Nasal MRSA (PCR) Influenza A (RT-PCR) Influenza B (RT-PCR) RSV (RT-PCR) SARS-CoV-2 RNA (RT-PCR) 08/14/24 08/14/24 08/14/24 05:11 06:18 07:19 WBC RBC Hgb Hct MCV MCH MCHC RDW Plt Count MPV Immature Gran % (Auto) Neut % (Auto) Lymph % (Auto) [place] % (Auto) Eos % (Auto) Baso % (Auto) Lymph # (Auto) [place] # (Auto) Eos # (Auto) Baso # (Auto) Abs Immat Gran (auto) Absolute Neuts (auto) Absolute Nucleated RBC Total Counted Neutrophils % (Manual) Band Neutrophils % Lymphocytes % (Manual) Monocytes % (Manual) Nucleated RBC % Abs Neuts (Manual) Abs Lymphs (Manual) Abs Monocytes (Manual) Platelet Estimate % Immature Plt Fraction [place] [facility] Schistocytes Sodium Potassium Chloride Carbon Dioxide Anion Gap BUN Creatinine Estim Creat Clear Calc Estimated GFR Glucose POC Capillary Glucose 221 H 199 H 227 H Hemoglobin A1c Lactic Acid Calcium Phosphorus Magnesium Total Bilirubin Direct Bilirubin AST ALT Alkaline Phosphatase Total Creatine Kinase Total Protein Albumin Lipase Beta-Hydroxybutyrate/Acetoacetate Urine Color Urine Appearance Urine pH Ur Specific [place] Urine Protein Urine Glucose (UA) Urine Ketones Ur Blood (Man) Urine Nitrate Urine Bilirubin Urine Urobilinogen Add Ur Microanalysis Leukocyte Esterase Rfl Urine RBC Urine WBC Ur Squamous Epith Cells Amorphous Sediment Urine Bacteria Urine Casts Ur Random Sodium Urine Creatinine Nasal MRSA (PCR) Influenza A (RT-PCR) Influenza B (RT-PCR) RSV (RT-PCR) SARS-CoV-2 RNA (RT-PCR) 08/14/24 08/14/24 08/14/24 07:59 08:56 09:53 WBC RBC Hgb Hct MCV MCH MCHC RDW Plt Count MPV Immature Gran % (Auto) Neut % (Auto) Lymph % (Auto) [place] % (Auto) Eos % (Auto) Baso % (Auto) Lymph # (Auto) [place] # (Auto) Eos # (Auto) Baso # (Auto) Abs Immat Gran (auto) Absolute Neuts (auto) Absolute Nucleated RBC Total Counted Neutrophils % (Manual) Band Neutrophils % Lymphocytes % (Manual) Monocytes % (Manual) Nucleated RBC % Abs Neuts (Manual) Abs Lymphs (Manual) Abs Monocytes (Manual) Platelet Estimate % Immature Plt Fraction [place] Cells Schistocytes Sodium Potassium Chloride Carbon Dioxide Anion Gap BUN Creatinine Estim Creat Clear Calc Estimated GFR Glucose POC Capillary Glucose 257 H 239 H 234 H Hemoglobin A1c Lactic Acid Calcium Phosphorus Magnesium Total Bilirubin Direct Bilirubin AST ALT Alkaline Phosphatase Total Creatine Kinase Total Protein Albumin Lipase Beta-Hydroxybutyrate/Acetoacetate Urine Color Urine Appearance Urine pH Ur Specific [place] Urine Protein Urine Glucose (UA) Urine Ketones Ur Blood (Man) Urine Nitrate Urine Bilirubin Urine Urobilinogen Add Ur Microanalysis Leukocyte Esterase Rfl Urine RBC Urine WBC Ur Squamous Epith Cells Amorphous Sediment Urine Bacteria Urine Casts Ur Random Sodium Urine Creatinine Nasal MRSA (PCR) Influenza A (RT-PCR) Influenza B (RT-PCR) RSV (RT-PCR) SARS-CoV-2 RNA (RT-PCR) 08/14/24 11:11 WBC RBC Hgb Hct MCV MCH MCHC RDW Plt Count MPV Immature Gran % (Auto) Neut % (Auto) Lymph % (Auto) [place] % (Auto) Eos % (Auto) Baso % (Auto) Lymph # (Auto) [place] # (Auto) Eos # (Auto) Baso # (Auto) Abs Immat Gran (auto) Absolute Neuts (auto) Absolute Nucleated RBC Total Counted Neutrophils % (Manual) Band Neutrophils % Lymphocytes % (Manual) Monocytes % (Manual) Nucleated RBC % Abs Neuts (Manual) Abs Lymphs (Manual) Abs Monocytes (Manual) Platelet Estimate % Immature Plt Fraction [place] Cells Schistocytes Sodium Potassium Chloride Carbon Dioxide Anion Gap BUN Creatinine Estim Creat Clear Calc Estimated GFR Glucose POC Capillary Glucose 227 H Hemoglobin A1c Lactic Acid Calcium Phosphorus Magnesium Total Bilirubin Direct Bilirubin AST ALT Alkaline Phosphatase Total Creatine Kinase Total Protein Albumin Lipase Beta-Hydroxybutyrate/Acetoacetate Urine Color Urine Appearance Urine pH Ur Specific [place] Urine Protein Urine Glucose (UA) Urine Ketones Ur Blood (Man) Urine Nitrate Urine Bilirubin Urine Urobilinogen Add Ur Microanalysis Leukocyte Esterase Rfl Urine RBC Urine WBC Ur Squamous Epith Cells Amorphous Sediment Urine Bacteria Urine Casts Ur Random Sodium Urine Creatinine Nasal MRSA (PCR) Influenza A (RT-PCR) Influenza B (RT-PCR) RSV (RT-PCR) SARS-CoV-2 RNA (RT-PCR) Quality VTE Prophylaxis VTE prophylaxis: pharmacologic ordered
--- NOTE | 2024-08-14 15:12 | PM.CNGS ---
Assessment and Plan Assessment and plan (1) Wound of left foot: Code(s): S91.302A - Unspecified open wound, left foot, initial encounter Status: Chronic Assessment and Plan: I have reviewed the x-ray and discussed x-ray and exam findings with the patient's . The patient is somewhat somnolent now but still arousable. He appears to have osteomyelitis and the open wound is tracking all the way to the metatarsal head. He has been started on broad-spectrum IV antibiotics and hopefully this will help gain control of the infection. Discussed that continued long-term antibiotics will most likely fail again and that considering amputation at this time would be reasonable. He will likely need a ray amputation of the left toe and metatarsal head. Will await further control of the infection and better mentation prior to deciding on surgery. More urgent amputation could be considered if becoming more septic. 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 of insulin Code(s): E11.65 - Type 2 diabetes mellitus with hyperglycemia Status: Acute (4) DKA (diabetic ketoacidosis): Code(s): E11.10 - Type 2 diabetes mellitus with ketoacidosis without coma Status: Acute (5) Lumbar back pain: Code(s): M54.50 - Low back pain, unspecified Status: Acute (6) SIRS (systemic inflammatory response syndrome): Code(s): R65.10 - Systemic inflammatory response syndrome (SIRS) of non-infectious origin without acute organ dysfunction Status: Acute History of Present Illness Consult details Consult date: 08/14/24 Reason for consult: other (left foot osteomyelitis) Requesting physician: Myles Castillo MD Narrative: This is a 49-year-old man who I am asked to see for an infected left foot wound and left foot osteomyelitis. He is well known to this service and was recently hospitalized 4 months ago with a similar infection in the same location. He was treated at that time with incision and drainage of a left foot abscess, local wound care, and long-term IV antibiotics. He has been followed in the office since then and 2 weeks ago was continuing to heal well with no signs of active infection. He presented to the emergency department yesterday and was found to be in DKA. The wound was looking okay at that time, but this morning a foul-smelling odor was noted and there was some purulence drainage coming from the wound. A repeat foot x-ray showed evidence of osteomyelitis involving the distal metatarsal head and proximal phalanx. He does have signs of bacteremia and is experiencing some back pain and mental status changes. Review of Systems Review of Systems: All systems reviewed & are unremarkable except as noted in HPI and below Constitutional: Constitutional: Reports body ache(s) Eyes: Eyes: Denies change in vision ENT: Denies hearing loss, Denies neck pain and Denies sore throat Cardiovascular: Cardiovascular: Denies chest pain and Denies dyspnea Respiratory: Respiratory: Denies cough, Denies dyspnea and Denies wheezing Gastrointestinal: Gastrointestinal: Denies abdominal pain and Denies change in bowel habits Genitourinary: Genitourinary: Denies hematuria and Denies dysuria Musculoskeletal: Musculoskeletal: Reports as per HPI and Denies neck pain Allergic/Immunologic: Allergic/Immunologic: Denies wheezing PMFSH Past Medical History Medical History Depression Erectile dysfunction History of kidney stones Hypertension Insulin dependent type 2 diabetes mellitus Hemoglobin A1c on 10/26/2020 was 12.4%. 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 His 1st about 5 years ago. Nonsmoker. No alcohol or illicit substance abuse. He designates his fiancee, Estefania Younger, as his surrogate decision maker and he wishes to be a full code.. Smoking status: Never smoker Alcohol intake: never Alcohol use details: Previously listed as current; denies in 2023 Substance use: never Substance use type: does not use Do You Feel Safe in your Home?: Yes Lack of Transportation: No Lack of Food: Never True Current Housing: I Do Not Have Housing Concerned About Future Housing: No Difficulty Paying Gas/Electric Bills: No Difficulty Paying for Meds: No Currently Unemployed: No Education: Associate Degree Difficulty w/ Childcare or Family Care: No Living arrangements: with family Occupation/Education: occupation Gender identity (if verbalized by the patient): Male Sexual Orientation (if Verbalized by the Patient): Straight or Heterosexual Spiritual care concerns: No Meds Home Medications and Allergies Home Medications Medication Instructions Recorded Confirmed Type blood-glucose sensor (Dexcom G7 #3 ea 01/17/24 08/13/24 Rx Sensor device) escitalopram oxalate 10 mg tablet 10 mg PO DAILY #90 tabs 01/17/24 08/13/24 Rx (Lexapro) insulin glargine U-300 conc 300 64 unit subcut HS 04/24/24 08/13/24 History unit/mL (3 mL) subcutaneous pen (Toujeo Max U-300 SoloStar) blood sugar diagnostic (OneTouch #1 [facility] 04/30/24 08/13/24 Rx Verio test strips) blood-glucose meter (OneTouch #1 [facility] 04/30/24 08/13/24 Rx Verio Flex Meter) insulin syringe-needle U-100 1 mL #1 [facility] 04/30/24 08/13/24 Rx 31 gauge x 15/64 (BD Veo Insulin Syringe Ultra-Fine) lancets 30 gauge (OneTouch Delica #1 [facility] 04/30/24 08/13/24 Rx Plus Lancet) insulin lispro 100 unit/mL 1 sliding scale dose subcut 07/16/24 08/13/24 Rx subcutaneous pen (Humalog KwikPen USEASDIRECTD #15 mL (U-100) Insulin) amlodipine 5 mg tablet 5 mg PO DAILY #30 tabs 07/17/24 08/13/24 Rx losartan 100 mg tablet 100 mg PO DAILY #30 tabs 07/17/24 08/13/24 Rx carvedilol 25 mg tablet (Coreg) 25 mg PO Q12HR #60 tabs 08/01/24 08/13/24 Rx Mounjaro 2.5 mg/0.5 mL 2.5 mg (0.5 mL) subcut WEEKLY #2 mL 08/09/24 08/13/24 Rx subcutaneous pen injector (tirzepatide) Allergies Allergy/AdvReac Type Severity Reaction Status Date / Time No Known Allergies Allergy Verified 07/30/24 14:59 Vital Signs Vital Signs - 24 hr 08/13/24 16:00 08/13/24 16:00 08/13/24 16:00 Temperature Pulse Rate 108 H 108 H Respiratory Rate 30 H Blood Pressure 103/58 L Pulse Oximetry 97 Oxygen Delivery Room Air Oxygen Flow Rate 08/13/24 20:00 08/13/24 20:00 08/13/24 20:00 Temperature 98.2 F Pulse Rate 115 H 115 H Respiratory Rate 32 H Blood Pressure 128/98 H Pulse Oximetry 91 Oxygen Delivery Room Air Oxygen Flow Rate 08/13/24 22:00 08/13/24 22:00 08/14/24 00:00 Temperature Pulse Rate 116 H 116 H 115 H Respiratory Rate 27 H Blood Pressure 147/85 H Pulse Oximetry 95 Oxygen Delivery Oxygen Flow Rate 08/14/24 00:00 08/14/24 00:00 08/14/24 02:00 Temperature 99.3 F Pulse Rate 115 H 115 H Respiratory Rate 22 H Blood Pressure 143/90 H Pulse Oximetry 93 93 Oxygen Delivery Nasal Cannula Oxygen Flow Rate 2 08/14/24 02:00 08/14/24 04:00 08/14/24 04:00 Temperature Pulse Rate 115 H 113 H Respiratory Rate 29 H Blood Pressure 143/75 H Pulse Oximetry 93 93 Oxygen Delivery Nasal Cannula Oxygen Flow Rate 2 08/14/24 04:00 08/14/24 06:00 08/14/24 06:00 Temperature 100.4 F H Pulse Rate 113 H 114 H 114 H Respiratory Rate 23 H 26 H Blood Pressure 142/88 H 135/81 Pulse Oximetry 93 94 Oxygen Delivery Oxygen Flow Rate 08/14/24 08:00 08/14/24 08:00 08/14/24 08:00 Temperature 99 F Pulse Rate 113 H 113 H 113 H Respiratory Rate 36 H Blood Pressure 132/65 Pulse Oximetry 93 Oxygen Delivery Oxygen Flow Rate 08/14/24 08:00 08/14/24 10:00 08/14/24 10:00 Temperature Pulse Rate 113 H 111 H 111 H Respiratory Rate 36 H 35 H Blood Pressure 137/79 Pulse Oximetry 93 92 Oxygen Delivery Room Air Oxygen Flow Rate 08/14/24 12:00 08/14/24 12:00 08/14/24 12:00 Temperature 99.7 F H Pulse Rate 110 H 110 H 110 H Respiratory Rate 35 H 35 H Blood Pressure 136/70 Pulse Oximetry 90 90 Oxygen Delivery Nasal Cannula Oxygen Flow Rate 2 08/14/24 14:00 08/14/24 14:00 Temperature Pulse Rate 109 H 109 H Respiratory Rate 33 H Blood Pressure 132/66 Pulse Oximetry 90 Oxygen Delivery Oxygen Flow Rate Exam Const: General: alert; No acute distress Orientation/consciousness: patient oriented x3 Limitations: no limitations HENMT: Head: normocephalic and atraumatic Ears: hearing grossly normal bilaterally Face/Nose/Sinus: Normal external nose present and Normal nares present Mouth: Yes Normal oral and palatal mucosa present and Yes moist mucous membranes Eyes: General: appearance normal, both eyes and all related structures Conjunctivae: conjunctivae normal Sclera: sclerae normal Pupils: Equal, round and reactive pupils present EOM: EOMs intact bilaterally Neck: Neck: normal visual inspection, full ROM, no lymphadenopathy, supple and no JVD Lymphatic: no lymphadenopathy noted Chest: Chest palpation & inspection: normal inspection of the chest Resp: Effort & Inspection: normal respiratory effort and able to speak in complete sentences Auscultation: clear to auscultation bilaterally Percussion: percussion normal Cardio: Jugular venous distension: no JVD Rate: regular rate Rhythm: regular rhythm Heart sounds: S1 normal heart sound present and S2 normal heart sound present Peripheral pulses: Peripheral pulses 2+ throughout GI: Inspection: normal to inspection GI Palp: No abdominal tenderness, Yes Soft to palpation, No Guarding due to palpation present (GI), No Hernia present and No Rebound tenderness present Percussion: Yes normal to percussion Auscultation: normal bowel sounds : General: Yes no CVA tenderness Back/Spine/Pelvis: Back: no CVA tenderness Skin: General skin exam: normal color and dry skin Neuro: General: patient oriented x3, gait normal, moves all extremities, no focal motor deficits and CN's II-XI intact bilaterally Cranial nerves: Yes Equal, round and reactive pupils present Speech: normal speech Extrem: General: normal to inspection and capillary refill normal Other: Open wound on plantar and lateral surface of left 5th metatarsal head. Wound has exudate and purulence fluid within the base. Q-tip able to be probed all the way to the metatarsal head and tracking to the dorsal surface. Purulence fluid expressed. Results Labs 08/14/24 04:24 08/14/24 04:24 Labs: Abnormal lab results 08/13/24 08/13/24 08/13/24 Range/Units 15:19 15:26 15:48 WBC (4.5-10.0) K/mm3 RBC (4.6-6.20) M/mm3 Hgb (14.0-18.0) g/dL Hct (42.0-52.0) % Plt Count (150-375) k/mm3 MPV (7.4-10.4) fl Neutrophils % (Manual) (46-73) % Band Neutrophils % (0-6) % Lymphocytes % (Manual) (18-44) % Abs Neuts (Manual) (1.3-6.7) K/mm3 Abs Lymphs (Manual) (1.1-4.5) K/mm3 Sodium (137-145) mmol/L Potassium (3.4-5.0) mmol/L Carbon Dioxide (22-30) mmol/L BUN (9-20) mg/dL Creatinine (0.7-1.3) mg/dL Estimated GFR (59 - ) Glucose (65-110) mg/dL POC Capillary Glucose 300 H (65-105) mg/dl Hemoglobin A1c 8.8 H (<5.7) % Calcium (8.4-10.2) mg/dL Phosphorus (2.5-4.5) mg/dL Total Protein 6.0 L (6.3-8.2) g/dL Albumin 2.9 L (3.5-5.1) g/dL Lipase 12 L (23-300) U/L Urine Appearance (Clear) Urine Protein (Negative) mg/dL Urine Glucose (UA) (Negative) mg/dL Urine Ketones (Negative) mg/dL Ur Blood (Man) (Negative) Amorphous Sediment (None) 08/13/24 08/13/24 08/13/24 Range/Units 16:17 17:21 17:22 WBC (4.5-10.0) K/mm3 RBC (4.6-6.20) M/mm3 Hgb (14.0-18.0) g/dL Hct (42.0-52.0) % Plt Count (150-375) k/mm3 MPV (7.4-10.4) fl Neutrophils % (Manual) (46-73) % Band Neutrophils % (0-6) % Lymphocytes % (Manual) (18-44) % Abs Neuts (Manual) (1.3-6.7) K/mm3 Abs Lymphs (Manual) (1.1-4.5) K/mm3 Sodium 133 L (137-145) mmol/L Potassium 3.3 L (3.4-5.0) mmol/L Carbon Dioxide 19 L (22-30) mmol/L BUN 45 H (9-20) mg/dL Creatinine 1.80 H (0.7-1.3) mg/dL Estimated GFR 40 L (59 - ) Glucose 196 H (65-110) mg/dL POC Capillary Glucose 261 H 211 H (65-105) mg/dl Hemoglobin A1c (<5.7) % Calcium 8.1 L (8.4-10.2) mg/dL Phosphorus (2.5-4.5) mg/dL Total Protein (6.3-8.2) g/dL Albumin (3.5-5.1) g/dL Lipase (23-300) U/L Urine Appearance (Clear) Urine Protein (Negative) mg/dL Urine Glucose (UA) (Negative) mg/dL Urine Ketones (Negative) mg/dL Ur Blood (Man) (Negative) Amorphous Sediment (None) 08/13/24 08/13/24 08/13/24 Range/Units 18:15 19:26 20:19 WBC (4.5-10.0) K/mm3 RBC (4.6-6.20) M/mm3 Hgb (14.0-18.0) g/dL Hct (42.0-52.0) % Plt Count (150-375) k/mm3 MPV (7.4-10.4) fl Neutrophils % (Manual) (46-73) % Band Neutrophils % (0-6) % Lymphocytes % (Manual) (18-44) % Abs Neuts (Manual) (1.3-6.7) K/mm3 Abs Lymphs (Manual) (1.1-4.5) K/mm3 Sodium (137-145) mmol/L Potassium (3.4-5.0) mmol/L Carbon Dioxide (22-30) mmol/L BUN (9-20) mg/dL Creatinine (0.7-1.3) mg/dL Estimated GFR (59 - ) Glucose (65-110) mg/dL POC Capillary Glucose 156 H 141 H 146 H (65-105) mg/dl Hemoglobin A1c (<5.7) % Calcium (8.4-10.2) mg/dL Phosphorus (2.5-4.5) mg/dL Total Protein (6.3-8.2) g/dL Albumin (3.5-5.1) g/dL Lipase (23-300) U/L Urine Appearance (Clear) Urine Protein (Negative) mg/dL Urine Glucose (UA) (Negative) mg/dL Urine Ketones (Negative) mg/dL Ur Blood (Man) (Negative) Amorphous Sediment (None) 08/13/24 08/13/24 08/13/24 Range/Units 21:17 21:30 22:13 WBC (4.5-10.0) K/mm3 RBC (4.6-6.20) M/mm3 Hgb (14.0-18.0) g/dL Hct (42.0-52.0) % Plt Count (150-375) k/mm3 MPV (7.4-10.4) fl Neutrophils % (Manual) (46-73) % Band Neutrophils % (0-6) % Lymphocytes % (Manual) (18-44) % Abs Neuts (Manual) (1.3-6.7) K/mm3 Abs Lymphs (Manual) (1.1-4.5) K/mm3 Sodium 129 L (137-145) mmol/L Potassium 3.3 L (3.4-5.0) mmol/L Carbon Dioxide 19 L (22-30) mmol/L BUN 42 H (9-20) mg/dL Creatinine 1.60 H (0.7-1.3) mg/dL Estimated GFR 46 L (59 - ) Glucose 186 H (65-110) mg/dL POC Capillary Glucose 175 H 191 H (65-105) mg/dl Hemoglobin A1c (<5.7) % Calcium 8.1 L (8.4-10.2) mg/dL Phosphorus (2.5-4.5) mg/dL Total Protein (6.3-8.2) g/dL Albumin (3.5-5.1) g/dL Lipase (23-300) U/L Urine Appearance (Clear) Urine Protein (Negative) mg/dL Urine Glucose (UA) (Negative) mg/dL Urine Ketones (Negative) mg/dL Ur Blood (Man) (Negative) Amorphous Sediment (None) 08/13/24 08/13/24 08/14/24 Range/Units 23:14 23:27 00:20 WBC (4.5-10.0) K/mm3 RBC (4.6-6.20) M/mm3 Hgb (14.0-18.0) g/dL Hct (42.0-52.0) % Plt Count (150-375) k/mm3 MPV (7.4-10.4) fl Neutrophils % (Manual) (46-73) % Band Neutrophils % (0-6) % Lymphocytes % (Manual) (18-44) % Abs Neuts (Manual) (1.3-6.7) K/mm3 Abs Lymphs (Manual) (1.1-4.5) K/mm3 Sodium (137-145) mmol/L Potassium (3.4-5.0) mmol/L Carbon Dioxide (22-30) mmol/L BUN (9-20) mg/dL Creatinine (0.7-1.3) mg/dL Estimated GFR (59 - ) Glucose (65-110) mg/dL POC Capillary Glucose 213 H 215 H (65-105) mg/dl Hemoglobin A1c (<5.7) % Calcium (8.4-10.2) mg/dL Phosphorus (2.5-4.5) mg/dL Total Protein (6.3-8.2) g/dL Albumin (3.5-5.1) g/dL Lipase (23-300) U/L Urine Appearance Cloudy H (Clear) Urine Protein 3+ H (Negative) mg/dL Urine Glucose (UA) 1+ H (Negative) mg/dL Urine Ketones 1+ H (Negative) mg/dL Ur Blood (Man) 2+ H (Negative) Amorphous Sediment Few H (None) 08/14/24 08/14/24 08/14/24 Range/Units 01:08 02:31 03:22 WBC (4.5-10.0) K/mm3 RBC (4.6-6.20) M/mm3 Hgb (14.0-18.0) g/dL Hct (42.0-52.0) % Plt Count (150-375) k/mm3 MPV (7.4-10.4) fl Neutrophils % (Manual) (46-73) % Band Neutrophils % (0-6) % Lymphocytes % (Manual) (18-44) % Abs Neuts (Manual) (1.3-6.7) K/mm3 Abs Lymphs (Manual) (1.1-4.5) K/mm3 Sodium 128 L (137-145) mmol/L Potassium 3.3 L (3.4-5.0) mmol/L Carbon Dioxide 20 L (22-30) mmol/L BUN 37 H (9-20) mg/dL Creatinine 1.40 H (0.7-1.3) mg/dL Estimated GFR 54 L (59 - ) Glucose 213 H (65-110) mg/dL POC Capillary Glucose 204 H 221 H 229 H (65-105) mg/dl Hemoglobin A1c (<5.7) % Calcium 8.0 L (8.4-10.2) mg/dL Phosphorus (2.5-4.5) mg/dL Total Protein (6.3-8.2) g/dL Albumin (3.5-5.1) g/dL Lipase (23-300) U/L Urine Appearance (Clear) Urine Protein (Negative) mg/dL Urine Glucose (UA) (Negative) mg/dL Urine Ketones (Negative) mg/dL Ur Blood (Man) (Negative) Amorphous Sediment (None) 08/14/24 08/14/24 08/14/24 Range/Units 04:24 04:24 04:24 WBC 11.4 H (4.5-10.0) K/mm3 RBC 3.94 L (4.6-6.20) M/mm3 Hgb 11.6 L (14.0-18.0) g/dL Hct 33.4 L (42.0-52.0) % Plt Count 118 L (150-375) k/mm3 MPV 10.6 H (7.4-10.4) fl Neutrophils % (Manual) 78 H (46-73) % Band Neutrophils % 15 H (0-6) % Lymphocytes % (Manual) 3.0 L (18-44) % Abs Neuts (Manual) 10.60 H (1.3-6.7) K/mm3 Abs Lymphs (Manual) 0.34 L (1.1-4.5) K/mm3 Sodium 129 L 129 L (137-145) mmol/L Potassium (3.4-5.0) mmol/L Carbon Dioxide 18 L 20 L (22-30) mmol/L BUN 34 H (9-20) mg/dL Creatinine (0.7-1.3) mg/dL Estimated GFR (59 - ) Glucose (65-110) mg/dL POC Capillary Glucose (65-105) mg/dl Hemoglobin A1c (<5.7) % Calcium (8.4-10.2) mg/dL Phosphorus (2.5-4.5) mg/dL Total Protein (6.3-8.2) g/dL Albumin (3.5-5.1) g/dL Lipase (23-300) U/L Urine Appearance (Clear) Urine Protein (Negative) mg/dL Urine Glucose (UA) (Negative) mg/dL Urine Ketones (Negative) mg/dL Ur Blood (Man) (Negative) Amorphous Sediment (None) 08/14/24 08/14/24 08/14/24 Range/Units 04:24 04:24 04:24 WBC (4.5-10.0) K/mm3 RBC (4.6-6.20) M/mm3 Hgb (14.0-18.0) g/dL Hct (42.0-52.0) % Plt Count (150-375) k/mm3 MPV (7.4-10.4) fl Neutrophils % (Manual) (46-73) % Band Neutrophils % (0-6) % Lymphocytes % (Manual) (18-44) % Abs Neuts (Manual) (1.3-6.7) K/mm3 Abs Lymphs (Manual) (1.1-4.5) K/mm3 Sodium (137-145) mmol/L Potassium (3.4-5.0) mmol/L Carbon Dioxide (22-30) mmol/L BUN 35 H (9-20) mg/dL Creatinine (0.7-1.3) mg/dL Estimated GFR 58 L 58 L (59 - ) Glucose 222 H 222 H (65-110) mg/dL POC Capillary Glucose (65-105) mg/dl Hemoglobin A1c (<5.7) % Calcium 8.0 L (8.4-10.2) mg/dL Phosphorus (2.5-4.5) mg/dL Total Protein (6.3-8.2) g/dL Albumin (3.5-5.1) g/dL Lipase (23-300) U/L Urine Appearance (Clear) Urine Protein (Negative) mg/dL Urine Glucose (UA) (Negative) mg/dL Urine Ketones (Negative) mg/dL Ur Blood (Man) (Negative) Amorphous Sediment (None) 08/14/24 08/14/24 08/14/24 Range/Units 04:24 04:28 05:11 WBC (4.5-10.0) K/mm3 RBC (4.6-6.20) M/mm3 Hgb (14.0-18.0) g/dL Hct (42.0-52.0) % Plt Count (150-375) k/mm3 MPV (7.4-10.4) fl Neutrophils % (Manual) (46-73) % Band Neutrophils % (0-6) % Lymphocytes % (Manual) (18-44) % Abs Neuts (Manual) (1.3-6.7) K/mm3 Abs Lymphs (Manual) (1.1-4.5) K/mm3 Sodium (137-145) mmol/L Potassium (3.4-5.0) mmol/L Carbon Dioxide (22-30) mmol/L BUN (9-20) mg/dL Creatinine (0.7-1.3) mg/dL Estimated GFR (59 - ) Glucose (65-110) mg/dL POC Capillary Glucose 226 H 221 H (65-105) mg/dl Hemoglobin A1c (<5.7) % Calcium 8.0 L (8.4-10.2) mg/dL Phosphorus 2.4 L (2.5-4.5) mg/dL Total Protein 6.0 L (6.3-8.2) g/dL Albumin 2.9 L (3.5-5.1) g/dL Lipase (23-300) U/L Urine Appearance (Clear) Urine Protein (Negative) mg/dL Urine Glucose (UA) (Negative) mg/dL Urine Ketones (Negative) mg/dL Ur Blood (Man) (Negative) Amorphous Sediment (None) 08/14/24 08/14/24 08/14/24 Range/Units 06:18 07:19 07:59 WBC (4.5-10.0) K/mm3 RBC (4.6-6.20) M/mm3 Hgb (14.0-18.0) g/dL Hct (42.0-52.0) % Plt Count (150-375) k/mm3 MPV (7.4-10.4) fl Neutrophils % (Manual) (46-73) % Band Neutrophils % (0-6) % Lymphocytes % (Manual) (18-44) % Abs Neuts (Manual) (1.3-6.7) K/mm3 Abs Lymphs (Manual) (1.1-4.5) K/mm3 Sodium (137-145) mmol/L Potassium (3.4-5.0) mmol/L Carbon Dioxide (22-30) mmol/L BUN (9-20) mg/dL Creatinine (0.7-1.3) mg/dL Estimated GFR (59 - ) Glucose (65-110) mg/dL POC Capillary Glucose 199 H 227 H 257 H (65-105) mg/dl Hemoglobin A1c (<5.7) % Calcium (8.4-10.2) mg/dL Phosphorus (2.5-4.5) mg/dL Total Protein (6.3-8.2) g/dL Albumin (3.5-5.1) g/dL Lipase (23-300) U/L Urine Appearance (Clear) Urine Protein (Negative) mg/dL Urine Glucose (UA) (Negative) mg/dL Urine Ketones (Negative) mg/dL Ur Blood (Man) (Negative) Amorphous Sediment (None) 08/14/24 08/14/24 08/14/24 Range/Units 08:56 09:53 11:11 WBC (4.5-10.0) K/mm3 RBC (4.6-6.20) M/mm3 Hgb (14.0-18.0) g/dL Hct (42.0-52.0) % Plt Count (150-375) k/mm3 MPV (7.4-10.4) fl Neutrophils % (Manual) (46-73) % Band Neutrophils % (0-6) % Lymphocytes % (Manual) (18-44) % Abs Neuts (Manual) (1.3-6.7) K/mm3 Abs Lymphs (Manual) (1.1-4.5) K/mm3 Sodium (137-145) mmol/L Potassium (3.4-5.0) mmol/L Carbon Dioxide (22-30) mmol/L BUN (9-20) mg/dL Creatinine (0.7-1.3) mg/dL Estimated GFR (59 - ) Glucose (65-110) mg/dL POC Capillary Glucose 239 H 234 H 227 H (65-105) mg/dl Hemoglobin A1c (<5.7) % Calcium (8.4-10.2) mg/dL Phosphorus (2.5-4.5) mg/dL Total Protein (6.3-8.2) g/dL Albumin (3.5-5.1) g/dL Lipase (23-300) U/L Urine Appearance (Clear) Urine Protein (Negative) mg/dL Urine Glucose (UA) (Negative) mg/dL Urine Ketones (Negative) mg/dL Ur Blood (Man) (Negative) Amorphous Sediment (None) Diabetes panel 08/13/24 08/13/24 08/13/24 Range/Units 15:26 15:48 17:21 Sodium 133 L (137-145) mmol/L Potassium 3.3 L (3.4-5.0) mmol/L Chloride 102 (98-107) mmol/L Carbon Dioxide 19 L (22-30) mmol/L BUN 45 H (9-20) mg/dL Creatinine 1.80 H (0.7-1.3) mg/dL Glucose 196 H (65-110) mg/dL Hemoglobin A1c 8.8 H (<5.7) % Calcium 8.1 L (8.4-10.2) mg/dL AST 29 (17-59) U/L ALT 26 (6-50) U/L Alkaline Phosphatase 97 (38-126) U/L Total Protein 6.0 L (6.3-8.2) g/dL Albumin 2.9 L (3.5-5.1) g/dL 08/13/24 08/14/24 08/14/24 Range/Units 21:30 01:08 04:24 Sodium 129 L 128 L 129 L (137-145) mmol/L Potassium 3.3 L 3.3 L (3.4-5.0) mmol/L Chloride 100 99 (98-107) mmol/L Carbon Dioxide 19 L 20 L (22-30) mmol/L BUN 42 H 37 H (9-20) mg/dL Creatinine 1.60 H 1.40 H (0.7-1.3) mg/dL Glucose 186 H 213 H (65-110) mg/dL Hemoglobin A1c (<5.7) % Calcium 8.1 L 8.0 L (8.4-10.2) mg/dL AST (17-59) U/L ALT (6-50) U/L Alkaline Phosphatase (38-126) U/L Total Protein (6.3-8.2) g/dL Albumin (3.5-5.1) g/dL 08/14/24 08/14/24 08/14/24 Range/Units 04:24 04:24 04:24 Sodium 129 L (137-145) mmol/L Potassium 3.5 3.5 (3.4-5.0) mmol/L Chloride 100 100 (98-107) mmol/L Carbon Dioxide 18 L (22-30) mmol/L BUN (9-20) mg/dL Creatinine (0.7-1.3) mg/dL Glucose (65-110) mg/dL Hemoglobin A1c (<5.7) % Calcium (8.4-10.2) mg/dL AST (17-59) U/L ALT (6-50) U/L Alkaline Phosphatase (38-126) U/L Total Protein (6.3-8.2) g/dL Albumin (3.5-5.1) g/dL 08/14/24 08/14/24 08/14/24 Range/Units 04:24 04:24 04:24 Sodium (137-145) mmol/L Potassium (3.4-5.0) mmol/L Chloride (98-107) mmol/L Carbon Dioxide 20 L (22-30) mmol/L BUN 34 H 35 H (9-20) mg/dL Creatinine 1.30 1.30 (0.7-1.3) mg/dL Glucose 222 H (65-110) mg/dL Hemoglobin A1c (<5.7) % Calcium (8.4-10.2) mg/dL AST (17-59) U/L ALT (6-50) U/L Alkaline Phosphatase (38-126) U/L Total Protein (6.3-8.2) g/dL Albumin (3.5-5.1) g/dL 08/14/24 08/14/24 Range/Units 04:24 04:24 Sodium (137-145) mmol/L Potassium (3.4-5.0) mmol/L Chloride (98-107) mmol/L Carbon Dioxide (22-30) mmol/L BUN (9-20) mg/dL Creatinine (0.7-1.3) mg/dL Glucose 222 H (65-110) mg/dL Hemoglobin A1c (<5.7) % Calcium 8.0 L 8.0 L (8.4-10.2) mg/dL AST 30 (17-59) U/L ALT 24 (6-50) U/L Alkaline Phosphatase 95 (38-126) U/L Total Protein 6.0 L (6.3-8.2) g/dL Albumin 2.9 L (3.5-5.1) g/dL Calcium panel 08/13/24 08/13/24 08/13/24 Range/Units 15:48 17:21 21:30 Calcium 8.1 L 8.1 L (8.4-10.2) mg/dL Phosphorus (2.5-4.5) mg/dL Albumin 2.9 L (3.5-5.1) g/dL 08/14/24 08/14/24 08/14/24 Range/Units 01:08 04:24 04:24 Calcium 8.0 L 8.0 L 8.0 L (8.4-10.2) mg/dL Phosphorus 2.4 L (2.5-4.5) mg/dL Albumin 2.9 L (3.5-5.1) g/dL Pituitary panel 08/13/24 08/13/24 08/14/24 Range/Units 17:21 21:30 01:08 Sodium 133 L 129 L 128 L (137-145) mmol/L Potassium 3.3 L 3.3 L 3.3 L (3.4-5.0) mmol/L Chloride 102 100 99 (98-107) mmol/L Carbon Dioxide 19 L 19 L 20 L (22-30) mmol/L BUN 45 H 42 H 37 H (9-20) mg/dL Creatinine 1.80 H 1.60 H 1.40 H (0.7-1.3) mg/dL Glucose 196 H 186 H 213 H (65-110) mg/dL Calcium 8.1 L 8.1 L 8.0 L (8.4-10.2) mg/dL 08/14/24 08/14/24 08/14/24 Range/Units 04:24 04:24 04:24 Sodium 129 L 129 L (137-145) mmol/L Potassium 3.5 3.5 (3.4-5.0) mmol/L Chloride 100 (98-107) mmol/L Carbon Dioxide (22-30) mmol/L BUN (9-20) mg/dL Creatinine (0.7-1.3) mg/dL Glucose (65-110) mg/dL Calcium (8.4-10.2) mg/dL 08/14/24 08/14/24 08/14/24 Range/Units 04:24 04:24 04:24 Sodium (137-145) mmol/L Potassium (3.4-5.0) mmol/L Chloride 100 (98-107) mmol/L Carbon Dioxide 18 L 20 L (22-30) mmol/L BUN 34 H 35 H (9-20) mg/dL Creatinine 1.30 (0.7-1.3) mg/dL Glucose (65-110) mg/dL Calcium (8.4-10.2) mg/dL 08/14/24 08/14/24 08/14/24 Range/Units 04:24 04:24 04:24 Sodium (137-145) mmol/L Potassium (3.4-5.0) mmol/L Chloride (98-107) mmol/L Carbon Dioxide (22-30) mmol/L BUN (9-20) mg/dL Creatinine 1.30 (0.7-1.3) mg/dL Glucose 222 H 222 H (65-110) mg/dL Calcium 8.0 L 8.0 L (8.4-10.2) mg/dL Adrenal panel 08/13/24 08/13/24 08/13/24 Range/Units 15:48 17:21 21:30 Sodium 133 L 129 L (137-145) mmol/L Potassium 3.3 L 3.3 L (3.4-5.0) mmol/L Chloride 102 100 (98-107) mmol/L Carbon Dioxide 19 L 19 L (22-30) mmol/L BUN 45 H 42 H (9-20) mg/dL Creatinine 1.80 H 1.60 H (0.7-1.3) mg/dL Glucose 196 H 186 H (65-110) mg/dL Calcium 8.1 L 8.1 L (8.4-10.2) mg/dL Total Bilirubin 0.5 (0.2-1.3) mg/dL AST 29 (17-59) U/L ALT 26 (6-50) U/L Alkaline Phosphatase 97 (38-126) U/L Total Protein 6.0 L (6.3-8.2) g/dL Albumin 2.9 L (3.5-5.1) g/dL 08/14/24 08/14/24 08/14/24 Range/Units 01:08 04:24 04:24 Sodium 128 L 129 L 129 L (137-145) mmol/L Potassium 3.3 L 3.5 (3.4-5.0) mmol/L Chloride 99 (98-107) mmol/L Carbon Dioxide 20 L (22-30) mmol/L BUN 37 H (9-20) mg/dL Creatinine 1.40 H (0.7-1.3) mg/dL Glucose 213 H (65-110) mg/dL Calcium 8.0 L (8.4-10.2) mg/dL Total Bilirubin (0.2-1.3) mg/dL AST (17-59) U/L ALT (6-50) U/L Alkaline Phosphatase (38-126) U/L Total Protein (6.3-8.2) g/dL Albumin (3.5-5.1) g/dL 08/14/24 08/14/24 08/14/24 Range/Units 04:24 04:24 04:24 Sodium (137-145) mmol/L Potassium 3.5 (3.4-5.0) mmol/L Chloride 100 100 (98-107) mmol/L Carbon Dioxide 18 L 20 L (22-30) mmol/L BUN 34 H (9-20) mg/dL Creatinine (0.7-1.3) mg/dL Glucose (65-110) mg/dL Calcium (8.4-10.2) mg/dL Total Bilirubin (0.2-1.3) mg/dL AST (17-59) U/L ALT (6-50) U/L Alkaline Phosphatase (38-126) U/L Total Protein (6.3-8.2) g/dL Albumin (3.5-5.1) g/dL 08/14/24 08/14/24 08/14/24 Range/Units 04:24 04:24 04:24 Sodium (137-145) mmol/L Potassium (3.4-5.0) mmol/L Chloride (98-107) mmol/L Carbon Dioxide (22-30) mmol/L BUN 35 H (9-20) mg/dL Creatinine 1.30 1.30 (0.7-1.3) mg/dL Glucose 222 H 222 H (65-110) mg/dL Calcium 8.0 L (8.4-10.2) mg/dL Total Bilirubin (0.2-1.3) mg/dL AST (17-59) U/L ALT (6-50) U/L Alkaline Phosphatase (38-126) U/L Total Protein (6.3-8.2) g/dL Albumin (3.5-5.1) g/dL 08/14/24 Range/Units 04:24 Sodium (137-145) mmol/L Potassium (3.4-5.0) mmol/L Chloride (98-107) mmol/L Carbon Dioxide (22-30) mmol/L BUN (9-20) mg/dL Creatinine (0.7-1.3) mg/dL Glucose (65-110) mg/dL Calcium 8.0 L (8.4-10.2) mg/dL Total Bilirubin 0.5 (0.2-1.3) mg/dL AST 30 (17-59) U/L ALT 24 (6-50) U/L Alkaline Phosphatase 95 (38-126) U/L Total Protein 6.0 L (6.3-8.2) g/dL Albumin 2.9 L (3.5-5.1) g/dL All other labs normal. Imaging Additional studies: ITS Impressions Chest X-Ray 08/13/24 13:54 IMPRESSION: No acute cardiopulmonary pathology. Renal Ultrasound 08/13/24 15:07 IMPRESSION: 1. Normal kidneys. No hydronephrosis. Foot X-Ray 08/14/24 11:36 IMPRESSION: 1. Septic arthritis at the fifth metatarsophalangeal joint with associated osteomyelitis at the base of the fifth proximal phalanx and head of the fifth metatarsal. Lumbar Spine X-Ray 08/14/24 11:49 IMPRESSION: No acute osseous abnormality lumbar spine. Multilevel degenerative disc disease.
--- NOTE | 2024-08-14 15:47 | PM.IMPN ---
Progress Note: A&P Assessment and Plan (1) DKA (diabetic ketoacidosis): Code(s): E11.10 - Type 2 diabetes mellitus with ketoacidosis without coma Status: Acute (2) Osteomyelitis of foot, left, acute: Code(s): M86.172 - Other acute osteomyelitis, left ankle and foot Status: Acute Plan DKA, resolved Diet 2 diabetes -patient recent started on Mounjaro, decreased his p.o. intake and subsequently decrease his insulin administration, likely cause for his DKA -patient completed DKA protocol (AG normalized), transition to basal bolus insulin today with sliding scale. Glargine 64 units -electrolyte imbalances hyponatremia likely from DKA hypovolemia. Creatinine normal is 1.3 with IV fluid resuscitation -hypoglycemia protocol Left foot osteomyelitis at the 5th metatarsophalangeal joint, base of the 5th proximal phalanx -patient has signs of osteomyelitis going to the left 5th digit metatarsal -appreciate General Surgeon consultation: Patient may need a ray amputation of left toe, continue medical management of osteomyelitis with antibiotics -antibiotics: IV vancomycin (if no improvement, may need to broaden antibiotics) -WBC 11.4 -wound care consult -pain control: P.r.n. [place] Low back pain -lumbar spine MRI negative, moderate lumbar spondylolysis present Chronic conditions -essential hypertension: Amlodipine, Coreg -depression: Lexapro Diet: Diabetic diet DVT prophylaxis: Lovenox Code status: Full code Disposition: Monitor in ICU, likely downgrade soon Time Spent With Patient Time: 35 minutes Subjective Date/time seen: 08/14/24 15:47 Interval history: Patient seen and examined. Patient was admitted for DKA, we are completed the DKA protocol, transitioning from insulin drip to basal bolus insulin today. Patient was seen with Wound Care with open drainage from his left foot. There is area of necrosis at the wound, general surgery consulted. Patient may need a ray amputation. Continue antibiotics and further medical management at this time. Patient endorses chills. He denies fever, nausea, vomiting, diarrhea, chest pain, shortness of breath. Review of Systems Review of Systems: 10 point ROS complete, negative other than what is specified in HPI. Exam Narrative: - GENERAL: Pleasant ill-appearing obese male tachypneic. - EYES: EOMI. Anicteric. - HENT: Moist mucous membranes. - LUNGS: Clear to auscultation bilaterally, no wheezing, rhonchi, or rales. - CARDIOVASCULAR: Regular rate and rhythm. No murmur. No JVD. - ABDOMEN: Soft, non-tender and non-distended. No palpable masses. - EXTREMITIES: No edema. Peripheral pulses 2+. Non-tender. Left foot ulcer open and draining, area of necrosis - NEUROLOGIC: No focal neurological deficits. CN II-XII grossly intact. - PSYCHIATRIC: Somnolent but easily arousable. Appropriate mood and affect. - SKIN: No rashes or lesions. Warm. - LYMPH: No cervical lymphadenopathy. Objective Data Vital Signs Vital Signs: Vital Signs - 24 hr 08/13/24 16:00 08/13/24 16:00 08/13/24 16:00 Temperature Pulse Rate 108 H 108 H Respiratory Rate 30 H Blood Pressure 103/58 L Pulse Oximetry 97 Oxygen Delivery Room Air Oxygen Flow Rate 08/13/24 20:00 08/13/24 20:00 08/13/24 20:00 Temperature 36.8 C Pulse Rate 115 H 115 H Respiratory Rate 32 H Blood Pressure 128/98 H Pulse Oximetry 91 Oxygen Delivery Room Air Oxygen Flow Rate 08/13/24 22:00 08/13/24 22:00 08/14/24 00:00 Temperature Pulse Rate 116 H 116 H 115 H Respiratory Rate 27 H Blood Pressure 147/85 H Pulse Oximetry 95 Oxygen Delivery Oxygen Flow Rate 08/14/24 00:00 08/14/24 00:00 08/14/24 02:00 Temperature 37.4 C Pulse Rate 115 H 115 H Respiratory Rate 22 H Blood Pressure 143/90 H Pulse Oximetry 93 93 Oxygen Delivery Nasal Cannula Oxygen Flow Rate 2 08/14/24 02:00 08/14/24 04:00 08/14/24 04:00 Temperature Pulse Rate 115 H 113 H Respiratory Rate 29 H Blood Pressure 143/75 H Pulse Oximetry 93 93 Oxygen Delivery Nasal Cannula Oxygen Flow Rate 2 08/14/24 04:00 08/14/24 06:00 08/14/24 06:00 Temperature 38.0 C H Pulse Rate 113 H 114 H 114 H Respiratory Rate 23 H 26 H Blood Pressure 142/88 H 135/81 Pulse Oximetry 93 94 Oxygen Delivery Oxygen Flow Rate 08/14/24 08:00 08/14/24 08:00 08/14/24 08:00 Temperature 37.2 C Pulse Rate 113 H 113 H 113 H Respiratory Rate 36 H Blood Pressure 132/65 Pulse Oximetry 93 Oxygen Delivery Oxygen Flow Rate 08/14/24 08:00 08/14/24 10:00 08/14/24 10:00 Temperature Pulse Rate 113 H 111 H 111 H Respiratory Rate 36 H 35 H Blood Pressure 137/79 Pulse Oximetry 93 92 Oxygen Delivery Room Air Oxygen Flow Rate 08/14/24 12:00 08/14/24 12:00 08/14/24 12:00 Temperature 37.6 C H Pulse Rate 110 H 110 H 110 H Respiratory Rate 35 H 35 H Blood Pressure 136/70 Pulse Oximetry 90 90 Oxygen Delivery Nasal Cannula Oxygen Flow Rate 2 08/14/24 14:00 08/14/24 14:00 Temperature Pulse Rate 109 H 109 H Respiratory Rate 33 H Blood Pressure 132/66 Pulse Oximetry 90 Oxygen Delivery Oxygen Flow Rate Intake/Output Intake/Output: Intake & Output 08/11/24 08/12/24 08/13/24 08/14/24 23:59 23:59 23:59 23:59 Intake Total 3471.7 2004.4 Output Total 700 0 Balance 2771.7 2004.4 Meds/Results Medications: Active Medications Generic Name Dose Route Start Last Admin Trade Name Freq PRN Reason Stop Dose Admin Hydrocodone Bitart/Acetaminophen 1 tab 08/14/24 10:12 08/14/24 10:33 Hydrocodone/Acetaminophen (*Crx) 5-325 Mg Tablet PO 1 tab Q6H PRN Administration Pain Rated 4-6 Amlodipine Besylate 5 mg 08/14/24 09:00 08/14/24 08:00 Amlodipine Besylate 5 Mg Tablet PO 5 mg DAILY SANCHEZ Administration Carvedilol 25 mg 08/14/24 09:00 08/14/24 08:00 Carvedilol 25 Mg Tablet PO 25 mg Q12HR SANCHEZ Administration Dextrose 12.5 gm 08/14/24 07:37 Dextrose 50% 25 Gm/50 Ml Syringe IV PUSH PRN PRN Hypoglycemia Protocol Enoxaparin Sodium 40 mg 08/14/24 09:00 08/14/24 08:00 Enoxaparin 40 Mg/0.4 Ml Syringe SUB-Q 40 mg DAILY SANCHEZ Administration Escitalopram Oxalate 10 mg 08/14/24 09:00 08/14/24 08:01 Escitalopram Oxalate 10 Mg Tablet PO 10 mg DAILY SANCHEZ Administration Glucagon 1 mg 08/14/24 07:37 Glucagon For Inj 1 Mg Vial IM PRN PRN Hypoglycemia Protocol Glucose 15 gm 08/14/24 07:37 Glucose Oral Gel 15 Gm Of Glucse In 37.5 Gm Tube PO PRN PRN Hypoglycemia Protocol Dextrose 1,000 mls @ 100 mls/hr 08/14/24 07:37 Dextrose 5% 1,000 Ml IVPB PRN PRN Hypoglycemia Protocol Vancomycin HCl 1,500 mg in 500 mls @ 250 mls/hr 08/14/24 23:00 Vancomycin 1,500 Mg/Ns 500 Ml IVPB Q12H SANCHEZ Insulin Aspart 4 - 8 units 08/14/24 08:00 08/14/24 11:18 Insulin Aspart (*Bkc) 100 Units/Ml SUB-Q 4 units TIDWM SANCHEZ Administration Protocol Insulin Aspart 2 - 4 units 08/14/24 21:00 Insulin Aspart (*Bkc) 100 Units/Ml SUB-Q HS SANCHEZ Protocol Insulin Glargine 64 units 08/14/24 09:00 08/14/24 08:01 Insulin Glargine (*Bkc) 100 Units/Ml SUB-Q 64 units DAILY SANCHEZ Administration Ondansetron HCl 4 mg 08/13/24 15:26 08/14/24 10:33 Ondansetron Inj 4 Mg/2 Ml Vial IV PUSH 4 mg Q6H PRN Administration Nausea And Vomiting Radiology Results: ITS Impressions Chest X-Ray 08/13/24 13:54 IMPRESSION: No acute cardiopulmonary pathology. Renal Ultrasound 08/13/24 15:07 IMPRESSION: 1. Normal kidneys. No hydronephrosis. Foot X-Ray 08/14/24 11:36 IMPRESSION: 1. Septic arthritis at the fifth metatarsophalangeal joint with associated osteomyelitis at the base of the fifth proximal phalanx and head of the fifth metatarsal. Lumbar Spine X-Ray 08/14/24 11:49 IMPRESSION: No acute osseous abnormality lumbar spine. Multilevel degenerative disc disease. Lumbar Spine MRI 08/14/24 15:23 IMPRESSION: 1. Moderate lumbar spondylosis. 2. No evidence of discitis/osteomyelitis. Labs Labs: Laboratory Results - last 24 hr 08/13/24 08/13/24 08/13/24 15:26 15:48 15:50 WBC RBC Hgb Hct MCV MCH MCHC RDW Plt Count MPV Immature Gran % (Auto) Neut % (Auto) Lymph % (Auto) [place] % (Auto) Eos % (Auto) Baso % (Auto) Lymph # (Auto) [place] # (Auto) Eos # (Auto) Baso # (Auto) Abs Immat Gran (auto) Absolute Neuts (auto) Absolute Nucleated RBC Total Counted Neutrophils % (Manual) Band Neutrophils % Lymphocytes % (Manual) Monocytes % (Manual) Nucleated RBC % Abs Neuts (Manual) Abs Lymphs (Manual) Abs Monocytes (Manual) Platelet Estimate [place] Cells Schistocytes Sodium Potassium Chloride Carbon Dioxide Anion Gap BUN Creatinine Estim Creat Clear Calc Estimated GFR Glucose POC Capillary Glucose Hemoglobin A1c 8.8 H Lactic Acid Calcium Phosphorus Magnesium Total Bilirubin 0.5 Direct Bilirubin 0.0 AST 29 ALT 26 Alkaline Phosphatase 97 Total Creatine Kinase 87 Total Protein 6.0 L Albumin 2.9 L Lipase 12 L Urine Color Urine Appearance Urine pH Ur Specific [place] Urine Protein Urine Glucose (UA) Urine Ketones Ur Blood (Man) Urine Nitrate Urine Bilirubin Urine Urobilinogen Add Ur Microanalysis Leukocyte Esterase Rfl Urine RBC Urine WBC Ur Squamous Epith Cells Amorphous Sediment Urine Bacteria Urine Casts Ur Random Sodium Urine Creatinine Nasal MRSA (PCR) 08/13/24 08/13/24 08/13/24 16:17 17:06 17:21 WBC RBC Hgb Hct MCV MCH MCHC RDW Plt Count MPV Immature Gran % (Auto) Neut % (Auto) Lymph % (Auto) [place] % (Auto) Eos % (Auto) Baso % (Auto) Lymph # (Auto) [place] # (Auto) Eos # (Auto) Baso # (Auto) Abs Immat Gran (auto) Absolute Neuts (auto) Absolute Nucleated RBC Total Counted Neutrophils % (Manual) Band Neutrophils % Lymphocytes % (Manual) Monocytes % (Manual) Nucleated RBC % Abs Neuts (Manual) Abs Lymphs (Manual) Abs Monocytes (Manual) Platelet Estimate [place] Cells Schistocytes Sodium 133 L Potassium 3.3 L Chloride 102 Carbon Dioxide 19 L Anion Gap 12 BUN 45 H Creatinine 1.80 H Estim Creat Clear Calc 61 Estimated GFR 40 L Glucose 196 H POC Capillary Glucose 261 H Hemoglobin A1c Lactic Acid 2.0 Calcium 8.1 L Phosphorus Magnesium Total Bilirubin Direct Bilirubin AST ALT Alkaline Phosphatase Total Creatine Kinase Total Protein Albumin Lipase Urine Color Urine Appearance Urine pH Ur Specific [place] Urine Protein Urine Glucose (UA) Urine Ketones Ur Blood (Man) Urine Nitrate Urine Bilirubin Urine Urobilinogen Add Ur Microanalysis Leukocyte Esterase Rfl Urine RBC Urine WBC Ur Squamous Epith Cells Amorphous Sediment Urine Bacteria Urine Casts Ur Random Sodium Urine Creatinine Nasal MRSA (PCR) Not detected 08/13/24 08/13/24 08/13/24 17:22 18:15 19:26 WBC RBC Hgb Hct MCV MCH MCHC RDW Plt Count MPV Immature Gran % (Auto) Neut % (Auto) Lymph % (Auto) [place] % (Auto) Eos % (Auto) Baso % (Auto) Lymph # (Auto) [place] # (Auto) Eos # (Auto) Baso # (Auto) Abs Immat Gran (auto) Absolute Neuts (auto) Absolute Nucleated RBC Total Counted Neutrophils % (Manual) Band Neutrophils % Lymphocytes % (Manual) Monocytes % (Manual) Nucleated RBC % Abs Neuts (Manual) Abs Lymphs (Manual) Abs Monocytes (Manual) Platelet Estimate [place] Cells Schistocytes Sodium Potassium Chloride Carbon Dioxide Anion Gap BUN Creatinine Estim Creat Clear Calc Estimated GFR Glucose POC Capillary Glucose 211 H 156 H 141 H Hemoglobin A1c Lactic Acid Calcium Phosphorus Magnesium Total Bilirubin Direct Bilirubin AST ALT Alkaline Phosphatase Total Creatine Kinase Total Protein Albumin Lipase Urine Color Urine Appearance Urine pH Ur Specific [place] Urine Protein Urine Glucose (UA) Urine Ketones Ur Blood (Man) Urine Nitrate Urine Bilirubin Urine Urobilinogen Add Ur Microanalysis Leukocyte Esterase Rfl Urine RBC Urine WBC Ur Squamous Epith Cells Amorphous Sediment Urine Bacteria Urine Casts Ur Random Sodium Urine Creatinine Nasal MRSA (PCR) 08/13/24 08/13/24 08/13/24 20:19 21:17 21:30 WBC RBC Hgb Hct MCV MCH MCHC RDW Plt Count MPV Immature Gran % (Auto) Neut % (Auto) Lymph % (Auto) [place] % (Auto) Eos % (Auto) Baso % (Auto) Lymph # (Auto) [place] # (Auto) Eos # (Auto) Baso # (Auto) Abs Immat Gran (auto) Absolute Neuts (auto) Absolute Nucleated RBC Total Counted Neutrophils % (Manual) Band Neutrophils % Lymphocytes % (Manual) Monocytes % (Manual) Nucleated RBC % Abs Neuts (Manual) Abs Lymphs (Manual) Abs Monocytes (Manual) Platelet Estimate [place] Cells Schistocytes Sodium 129 L Potassium 3.3 L Chloride 100 Carbon Dioxide 19 L Anion Gap 10 BUN 42 H Creatinine 1.60 H Estim Creat Clear Calc 68 Estimated GFR 46 L Glucose 186 H POC Capillary Glucose 146 H 175 H Hemoglobin A1c Lactic Acid Calcium 8.1 L Phosphorus Magnesium Total Bilirubin Direct Bilirubin AST ALT Alkaline Phosphatase Total Creatine Kinase Total Protein Albumin Lipase Urine Color Urine Appearance Urine pH Ur Specific [place] Urine Protein Urine Glucose (UA) Urine Ketones Ur Blood (Man) Urine Nitrate Urine Bilirubin Urine Urobilinogen Add Ur Microanalysis Leukocyte Esterase Rfl Urine RBC Urine WBC Ur Squamous Epith Cells Amorphous Sediment Urine Bacteria Urine Casts Ur Random Sodium Urine Creatinine Nasal MRSA (PCR) 08/13/24 08/13/24 08/13/24 22:13 23:14 23:27 WBC RBC Hgb Hct MCV MCH MCHC RDW Plt Count MPV Immature Gran % (Auto) Neut % (Auto) Lymph % (Auto) [place] % (Auto) Eos % (Auto) Baso % (Auto) Lymph # (Auto) [place] # (Auto) Eos # (Auto) Baso # (Auto) Abs Immat Gran (auto) Absolute Neuts (auto) Absolute Nucleated RBC Total Counted Neutrophils % (Manual) Band Neutrophils % Lymphocytes % (Manual) Monocytes % (Manual) Nucleated RBC % Abs Neuts (Manual) Abs Lymphs (Manual) Abs Monocytes (Manual) Platelet Estimate [place] Cells Schistocytes Sodium Potassium Chloride Carbon Dioxide Anion Gap BUN Creatinine Estim Creat Clear Calc Estimated GFR Glucose POC Capillary Glucose 191 H 213 H Hemoglobin A1c Lactic Acid Calcium Phosphorus Magnesium Total Bilirubin Direct Bilirubin AST ALT Alkaline Phosphatase Total Creatine Kinase Total Protein Albumin Lipase Urine Color Yellow Urine Appearance Cloudy H Urine pH 5.5 Ur Specific [place] 1.020 Urine Protein 3+ H Urine Glucose (UA) 1+ H Urine Ketones 1+ H Ur Blood (Man) 2+ H Urine Nitrate Negative Urine Bilirubin Negative Urine Urobilinogen 1.0 Add Ur Microanalysis Reviewed Leukocyte Esterase Rfl Negative Urine RBC 0-2 Urine WBC 0-5 Ur Squamous Epith Cells Moderate Amorphous Sediment Few H Urine Bacteria None seen Urine Casts 11-20 Ur Random Sodium 11 Urine Creatinine 162.4 Nasal MRSA (PCR) 08/14/24 08/14/24 08/14/24 00:20 01:08 02:31 WBC RBC Hgb Hct MCV MCH MCHC RDW Plt Count MPV Immature Gran % (Auto) Neut % (Auto) Lymph % (Auto) [place] % (Auto) Eos % (Auto) Baso % (Auto) Lymph # (Auto) [place] # (Auto) Eos # (Auto) Baso # (Auto) Abs Immat Gran (auto) Absolute Neuts (auto) Absolute Nucleated RBC Total Counted Neutrophils % (Manual) Band Neutrophils % Lymphocytes % (Manual) Monocytes % (Manual) Nucleated RBC % Abs Neuts (Manual) Abs Lymphs (Manual) Abs Monocytes (Manual) Platelet Estimate [place] Cells Schistocytes Sodium 128 L Potassium 3.3 L Chloride 99 Carbon Dioxide 20 L Anion Gap 9 BUN 37 H Creatinine 1.40 H Estim Creat Clear Calc 78 Estimated GFR 54 L Glucose 213 H POC Capillary Glucose 215 H 204 H 221 H Hemoglobin A1c Lactic Acid Calcium 8.0 L Phosphorus Magnesium Total Bilirubin Direct Bilirubin AST ALT Alkaline Phosphatase Total Creatine Kinase Total Protein Albumin Lipase Urine Color Urine Appearance Urine pH Ur Specific [place] Urine Protein Urine Glucose (UA) Urine Ketones Ur Blood (Man) Urine Nitrate Urine Bilirubin Urine Urobilinogen Add Ur Microanalysis Leukocyte Esterase Rfl Urine RBC Urine WBC Ur Squamous Epith Cells Amorphous Sediment Urine Bacteria Urine Casts Ur Random Sodium Urine Creatinine Nasal MRSA (PCR) 08/14/24 08/14/24 08/14/24 03:22 04:24 04:24 WBC 11.4 H RBC 3.94 L Hgb 11.6 L Hct 33.4 L MCV 84.8 MCH 29.4 MCHC 34.7 RDW 12.6 Plt Count 118 L MPV 10.6 H Immature Gran % (Auto) Not Reportable Neut % (Auto) Not Reportable Lymph % (Auto) Not Reportable [place] % (Auto) Not Reportable Eos % (Auto) Not Reportable Baso % (Auto) Not Reportable Lymph # (Auto) Not Reportable [place] # (Auto) Not Reportable Eos # (Auto) Not Reportable Baso # (Auto) Not Reportable Abs Immat Gran (auto) Not Reportable Absolute Neuts (auto) Not Reportable Absolute Nucleated RBC Not Reportable Total Counted 100 Neutrophils % (Manual) 78 H Band Neutrophils % 15 H Lymphocytes % (Manual) 3.0 L Monocytes % (Manual) 4 Nucleated RBC % Not Reportable Abs Neuts (Manual) 10.60 H Abs Lymphs (Manual) 0.34 L Abs Monocytes (Manual) 0.45 Platelet Estimate Decreased [place] Cells 2+ Schistocytes None seen Sodium 129 L 129 L Potassium 3.5 Chloride Carbon Dioxide Anion Gap BUN Creatinine Estim Creat Clear Calc Estimated GFR Glucose POC Capillary Glucose 229 H Hemoglobin A1c Lactic Acid Calcium Phosphorus Magnesium Total Bilirubin Direct Bilirubin AST ALT Alkaline Phosphatase Total Creatine Kinase Total Protein Albumin Lipase Urine Color Urine Appearance Urine pH Ur Specific [place] Urine Protein Urine Glucose (UA) Urine Ketones Ur Blood (Man) Urine Nitrate Urine Bilirubin Urine Urobilinogen Add Ur Microanalysis Leukocyte Esterase Rfl Urine RBC Urine WBC Ur Squamous Epith Cells Amorphous Sediment Urine Bacteria Urine Casts Ur Random Sodium Urine Creatinine Nasal MRSA (PCR) 08/14/24 08/14/24 08/14/24 04:24 04:24 04:24 WBC RBC Hgb Hct MCV MCH MCHC RDW Plt Count MPV Immature Gran % (Auto) Neut % (Auto) Lymph % (Auto) [place] % (Auto) Eos % (Auto) Baso % (Auto) Lymph # (Auto) [place] # (Auto) Eos # (Auto) Baso # (Auto) Abs Immat Gran (auto) Absolute Neuts (auto) Absolute Nucleated RBC Total Counted Neutrophils % (Manual) Band Neutrophils % Lymphocytes % (Manual) Monocytes % (Manual) Nucleated RBC % Abs Neuts (Manual) Abs Lymphs (Manual) Abs Monocytes (Manual) Platelet Estimate [place] Cells Schistocytes Sodium Potassium 3.5 Chloride 100 100 Carbon Dioxide 18 L 20 L Anion Gap 11 BUN Creatinine Estim Creat Clear Calc Estimated GFR Glucose POC Capillary Glucose Hemoglobin A1c Lactic Acid Calcium Phosphorus Magnesium Total Bilirubin Direct Bilirubin AST ALT Alkaline Phosphatase Total Creatine Kinase Total Protein Albumin Lipase Urine Color Urine Appearance Urine pH Ur Specific [place] Urine Protein Urine Glucose (UA) Urine Ketones Ur Blood (Man) Urine Nitrate Urine Bilirubin Urine Urobilinogen Add Ur Microanalysis Leukocyte Esterase Rfl Urine RBC Urine WBC Ur Squamous Epith Cells Amorphous Sediment Urine Bacteria Urine Casts Ur Random Sodium Urine Creatinine Nasal MRSA (PCR) 08/14/24 08/14/24 08/14/24 04:24 04:24 04:24 WBC RBC Hgb Hct MCV MCH MCHC RDW Plt Count MPV Immature Gran % (Auto) Neut % (Auto) Lymph % (Auto) [place] % (Auto) Eos % (Auto) Baso % (Auto) Lymph # (Auto) [place] # (Auto) Eos # (Auto) Baso # (Auto) Abs Immat Gran (auto) Absolute Neuts (auto) Absolute Nucleated RBC Total Counted Neutrophils % (Manual) Band Neutrophils % Lymphocytes % (Manual) Monocytes % (Manual) Nucleated RBC % Abs Neuts (Manual) Abs Lymphs (Manual) Abs Monocytes (Manual) Platelet Estimate [place] Cells Schistocytes Sodium Potassium Chloride Carbon Dioxide Anion Gap 9 BUN 34 H 35 H Creatinine 1.30 1.30 Estim Creat Clear Calc 83 Estimated GFR Glucose POC Capillary Glucose Hemoglobin A1c Lactic Acid Calcium Phosphorus Magnesium Total Bilirubin Direct Bilirubin AST ALT Alkaline Phosphatase Total Creatine Kinase Total Protein Albumin Lipase Urine Color Urine Appearance Urine pH Ur Specific [place] Urine Protein Urine Glucose (UA) Urine Ketones Ur Blood (Man) Urine Nitrate Urine Bilirubin Urine Urobilinogen Add Ur Microanalysis Leukocyte Esterase Rfl Urine RBC Urine WBC Ur Squamous Epith Cells Amorphous Sediment Urine Bacteria Urine Casts Ur Random Sodium Urine Creatinine Nasal MRSA (PCR) 08/14/24 08/14/24 08/14/24 04:24 04:24 04:24 WBC RBC Hgb Hct MCV MCH MCHC RDW Plt Count MPV Immature Gran % (Auto) Neut % (Auto) Lymph % (Auto) [place] % (Auto) Eos % (Auto) Baso % (Auto) Lymph # (Auto) [place] # (Auto) Eos # (Auto) Baso # (Auto) Abs Immat Gran (auto) Absolute Neuts (auto) Absolute Nucleated RBC Total Counted Neutrophils % (Manual) Band Neutrophils % Lymphocytes % (Manual) Monocytes % (Manual) Nucleated RBC % Abs Neuts (Manual) Abs Lymphs (Manual) Abs Monocytes (Manual) Platelet Estimate [place] Cells Schistocytes Sodium Potassium Chloride Carbon Dioxide Anion Gap BUN Creatinine Estim Creat Clear Calc 83 Estimated GFR 58 L 58 L Glucose 222 H 222 H POC Capillary Glucose Hemoglobin A1c Lactic Acid Calcium 8.0 L Phosphorus Magnesium Total Bilirubin Direct Bilirubin AST ALT Alkaline Phosphatase Total Creatine Kinase Total Protein Albumin Lipase Urine Color Urine Appearance Urine pH Ur Specific [place] Urine Protein Urine Glucose (UA) Urine Ketones Ur Blood (Man) Urine Nitrate Urine Bilirubin Urine Urobilinogen Add Ur Microanalysis Leukocyte Esterase Rfl Urine RBC Urine WBC Ur Squamous Epith Cells Amorphous Sediment Urine Bacteria Urine Casts Ur Random Sodium Urine Creatinine Nasal MRSA (PCR) 08/14/24 08/14/24 08/14/24 04:24 04:28 05:11 WBC RBC Hgb Hct MCV MCH MCHC RDW Plt Count MPV Immature Gran % (Auto) Neut % (Auto) Lymph % (Auto) [place] % (Auto) Eos % (Auto) Baso % (Auto) Lymph # (Auto) [place] # (Auto) Eos # (Auto) Baso # (Auto) Abs Immat Gran (auto) Absolute Neuts (auto) Absolute Nucleated RBC Total Counted Neutrophils % (Manual) Band Neutrophils % Lymphocytes % (Manual) Monocytes % (Manual) Nucleated RBC % Abs Neuts (Manual) Abs Lymphs (Manual) Abs Monocytes (Manual) Platelet Estimate [place] Cells Schistocytes Sodium Potassium Chloride Carbon Dioxide Anion Gap BUN Creatinine Estim Creat Clear Calc Estimated GFR Glucose POC Capillary Glucose 226 H 221 H Hemoglobin A1c Lactic Acid Calcium 8.0 L Phosphorus 2.4 L Magnesium 2.1 Total Bilirubin 0.5 Direct Bilirubin AST 30 ALT 24 Alkaline Phosphatase 95 Total Creatine Kinase Total Protein 6.0 L Albumin 2.9 L Lipase Urine Color Urine Appearance Urine pH Ur Specific [place] Urine Protein Urine Glucose (UA) Urine Ketones Ur Blood (Man) Urine Nitrate Urine Bilirubin Urine Urobilinogen Add Ur Microanalysis Leukocyte Esterase Rfl Urine RBC Urine WBC Ur Squamous Epith Cells Amorphous Sediment Urine Bacteria Urine Casts Ur Random Sodium Urine Creatinine Nasal MRSA (PCR) 08/14/24 08/14/24 08/14/24 06:18 07:19 07:59 WBC RBC Hgb Hct MCV MCH MCHC RDW Plt Count MPV Immature Gran % (Auto) Neut % (Auto) Lymph % (Auto) [place] % (Auto) Eos % (Auto) Baso % (Auto) Lymph # (Auto) [place] # (Auto) Eos # (Auto) Baso # (Auto) Abs Immat Gran (auto) Absolute Neuts (auto) Absolute Nucleated RBC Total Counted Neutrophils % (Manual) Band Neutrophils % Lymphocytes % (Manual) Monocytes % (Manual) Nucleated RBC % Abs Neuts (Manual) Abs Lymphs (Manual) Abs Monocytes (Manual) Platelet Estimate [place] Cells Schistocytes Sodium Potassium Chloride Carbon Dioxide Anion Gap BUN Creatinine Estim Creat Clear Calc Estimated GFR Glucose POC Capillary Glucose 199 H 227 H 257 H Hemoglobin A1c Lactic Acid Calcium Phosphorus Magnesium Total Bilirubin Direct Bilirubin AST ALT Alkaline Phosphatase Total Creatine Kinase Total Protein Albumin Lipase Urine Color Urine Appearance Urine pH Ur Specific [place] Urine Protein Urine Glucose (UA) Urine Ketones Ur Blood (Man) Urine Nitrate Urine Bilirubin Urine Urobilinogen Add Ur Microanalysis Leukocyte Esterase Rfl Urine RBC Urine WBC Ur Squamous Epith Cells Amorphous Sediment Urine Bacteria Urine Casts Ur Random Sodium Urine Creatinine Nasal MRSA (PCR) 08/14/24 08/14/24 08/14/24 08:56 09:53 11:11 WBC RBC Hgb Hct MCV MCH MCHC RDW Plt Count MPV Immature Gran % (Auto) Neut % (Auto) Lymph % (Auto) [place] % (Auto) Eos % (Auto) Baso % (Auto) Lymph # (Auto) [place] # (Auto) Eos # (Auto) Baso # (Auto) Abs Immat Gran (auto) Absolute Neuts (auto) Absolute Nucleated RBC Total Counted Neutrophils % (Manual) Band Neutrophils % Lymphocytes % (Manual) Monocytes % (Manual) Nucleated RBC % Abs Neuts (Manual) Abs Lymphs (Manual) Abs Monocytes (Manual) Platelet Estimate [place] Cells Schistocytes Sodium Potassium Chloride Carbon Dioxide Anion Gap BUN Creatinine Estim Creat Clear Calc Estimated GFR Glucose POC Capillary Glucose 239 H 234 H 227 H Hemoglobin A1c Lactic Acid Calcium Phosphorus Magnesium Total Bilirubin Direct Bilirubin AST ALT Alkaline Phosphatase Total Creatine Kinase Total Protein Albumin Lipase Urine Color Urine Appearance Urine pH Ur Specific [place] Urine Protein Urine Glucose (UA) Urine Ketones Ur Blood (Man) Urine Nitrate Urine Bilirubin Urine Urobilinogen Add Ur Microanalysis Leukocyte Esterase Rfl Urine RBC Urine WBC Ur Squamous Epith Cells Amorphous Sediment Urine Bacteria Urine Casts Ur Random Sodium Urine Creatinine Nasal MRSA (PCR) Hospitalist MIPS Advance Care Plan I have confirmed that the patient's Advanced Care Plan is present, code status is documented, or surrogate decision maker is listed in patient medical record.: Yes Medication Reconciliation I have utilized all available resources to obtain, update and review the patients current medications (includes all prescriptions, OTC, herbals, cannabis, and nutritional supplements).: Yes
[2024-08-14 16:28] LABS: Glucose Point of Care 191 mg/dl (65-105)
[2024-08-14 20:38] LABS: Glucose Point of Care 223 mg/dl (65-105)
[2024-08-14] MEDS: VANCOMYCIN 1,500 MG/NS 500 ML 1,500 MG/500 ML BAG 250 MG IVPB (23:10)
[2024-08-15] VITALS (13 sets, daily range): BP systolic 113–147; BP diastolic 64–88; PULSE 100–108; RESP 20–32; TEMP 36.5–37; O2SAT 91–96
[2024-08-15] MEDS: HYDROcodone/acetaminophen (*CRX) 5-325 MG TABLET 1 TAB PO ×3 (00:34→17:10)
[2024-08-15 03:31] LABS: Hemoglobin 11.1 g/dL (14.0-18.0); Mean Corpuscular HGB Conc 33.6 g/dl (32-36); Mean Corpuscular Hemoglobin 28.8 pg (26-34); Mean Corpuscular Volume 85.7 fl (80-100); Mean Platelet Volume 10.7 fl (7.4-10.4); Platelet Count Result 112 k/mm3 (150-375); Red Blood Count 3.85 M/mm3 (4.6-6.20); Red Cell Distribution Width 13.4 % (11.5-14.5); White Blood Count 13.2 K/mm3 (4.5-10.0)
[2024-08-15 03:42] LABS: Lactic Acid Reflex 0.8 mmol/L (0.7-2.0)
[2024-08-15 03:45] LABS: Alanine Aminotransferase 19 U/L (6-50); Albumin Level 2.9 g/dL (3.5-5.1); Alkaline Phosphatase 97 U/L (38-126); Anion Gap 10 mmol/L (4-12); Aspartate Amino Transferase 25 U/L (17-59); Bilirubin,Total 0.8 mg/dL (0.2-1.3); Blood Urea Nitrogen 30 mg/dL (9-20); Calcium 8.4 mg/dL (8.4-10.2); Carbon Dioxide 18 mmol/L (22-30); Chloride 101 mmol/L (98-107); Estimated CRCL calculation 109 ml/min; Estimated Glomerular Filt Rate > 60; Glucose 273 mg/dL (65-110); Magnesium 2.4 mg/dL (1.6-2.3); Phosphorus 2.7 mg/dL (2.5-4.5); Potassium 3.9 mmol/L (3.4-5.0); Sodium 129 mmol/L (137-145)
[2024-08-15 03:56] LABS: Band Neutrophils Percent 4 % (0-6); Lymphocytes Absolute Manual 0.92 K/mm3 (1.1-4.5); Monocytes Absolute Manual 0.39 K/mm3 (0.1-0.90); Monocytes Percent Manual 3 % (3-9); Neutrophils Absolute Manual 11.88 K/mm3 (1.3-6.7); Neutrophils Percent Manual 86 % (46-73); Platelet Estimate Decreased (Adequate); Total Cells Counted 100
[2024-08-15 03:57] LABS: Anisocytosis 1+; Burr Cells 1+; Schistocytes None Seen
[2024-08-15 04:34] LABS: CRP 31.2 mg/dL (<1.0)
[2024-08-15 07:57] LABS: Glucose Point of Care 291 mg/dl (65-105)
[2024-08-15] MEDS: amLODIPine BESYLATE 5 MG TABLET PO (08:16)
[2024-08-15] MEDS: carvediloL 25 MG TABLET PO ×2 (08:16→21:13)
[2024-08-15] MEDS: INSULIN ASPART (*BKC) 100 UNITS/ML SUB-Q ×4 (08:16→21:14)
[2024-08-15] MEDS: ESCITALOPRAM OXALATE 10 MG TABLET PO (08:16)
[2024-08-15] MEDS: ENOXAPARIN 40 MG/0.4 ML SYRINGE SUB-Q (08:16)
[2024-08-15] MEDS: INSULIN GLARGINE (*BKC) 100 UNITS/ML 70 UNITS SUB-Q (08:17)
--- NOTE | 2024-08-15 10:40 | PCFNICU ---
ICU Rounding Note: Pt current nutrition is DBCC with Glucerna shakes BID. Last recorded weight is 123 kg, down from 124.5 kg on admit. Bowel Motility: No BM reported. Labs Reviewed:Glu 273, BUN 30, PO4 2.4,Na 129,Alb 2.9 Meds Noted:Lantus, NovoLog, Lovenox Skin: left foot-osteomyelitis. Additional Notes: Patient remains on DBCC diet with Glucerna shakes BID. Intake is fair. Surgery consult for left foot osteomyelitis. Agree with diet orders. Following daily in ICU rounds. Will monitor weight, labs, skin, oral intake, meds every 5 days.
[2024-08-15] MEDS: ONDANSETRON INJ 4 MG/2 ML VIAL IV PUSH (10:55)
[2024-08-15] MEDS: AMPICILLIN SULB 3 GM/NS 100 ML 3 GM/100 ML VIAL IVPB ×2 (10:58→17:09)
--- NOTE | 2024-08-15 11:03 | P.PNIM_ITS ---
Progress Note: A&P Assessment and Plan (1) Bacteremia due to Streptococcus pneumoniae: Code(s): R78.81 - Bacteremia; B95.3 - Streptococcus pneumoniae as the cause of diseases classified elsewhere Status: Acute (2) DKA (diabetic ketoacidosis): Code(s): E11.10 - Type 2 diabetes mellitus with ketoacidosis without coma Status: Acute (3) Acute kidney injury: Code(s): N17.9 - Acute kidney failure, unspecified Status: Acute (4) Wound of left foot: Code(s): S91.302A - Unspecified open wound, left foot, initial encounter Status: Chronic Plan Left foot osteomyelitis at the 5th metatarsophalangeal joint, base of the 5th proximal phalanx Bacteremia due to Streptococcus pneumonia Sepsis secondary to bacteremia -patient has signs of osteomyelitis going to the left 5th digit metatarsal -appreciate General Surgeon consultation: Patient may need a ray amputation of left toe and metatarsal, continue medical management of osteomyelitis with antibiotics -antibiotics: IV Unasyn 08/15- (stopped vanc) -worsening leukocytosis of 13,000 -blood cultures from 08/13 positive for Streptococcus pneumonia, will repeat blood cultures soon -wound care consult -pain control: P.r.n. Antoine DKA, resolved Type 2 diabetes -patient recent started on Mounjaro, decreased his p.o. intake and subsequently decrease his insulin administration -DKA secondary to bacteremia -patient completed DKA protocol (AG normalized), now on basal bolus insulin. Glargine 70 units -electrolyte imbalances hyponatremia likely from DKA hypovolemia. Creatinine normal is 1.0 with IV fluid resuscitation -hypoglycemia protocol -A1c 8.8 Chronic conditions -essential hypertension: Amlodipine, Coreg -depression: Lexapro -low back pain: Lumbar MRI negative, moderate lumbar spondylolysis present Diet: Diabetic diet DVT prophylaxis: Lovenox Code status: Full code Disposition: transfer to medical floor, home > 2 days Time Spent With Patient Time: 35 minutes Subjective Date/time seen: 08/15/24 11:03 Interval history: Patient seen and examined. He has nausea otherwise is doing okay. Patient denies fever, chills, chest pain, abdominal pain. Blood cultures positive for Streptococcus pneumoniae. He still tachypneic and tachycardic likely secondary to sepsis from bacteremia. Vancomycin was changed to Unasyn for Streptococcus species and for foot infection. DKA is likely secondary to his bacteremia. Spenser ying transfer patient out of ICU. Review of Systems Review of Systems: 10 point ROS complete, negative other th an what is specified in HPI. Exam Narrative: - GENERAL: Pleasant ill-appearing obese male, appears uncomfortable - EYES: EOMI. Anicteric. - HENT: Moist mucous membranes. - LUNGS: Clear to auscultation bilateral ly, no wheezing, rhonchi, or rales. Slightly tachypneic - CARDIOVASCULAR: Slightly tachycardic and rhythm. No murmur. No JVD. - ABDOMEN: Soft, non-tender and non-dist ended. No palpable masses. - EXTREMITIES: No edema. Peripheral puls es 2+. Non-tender. Left foot ulcer open and draining. Dressing - NEUROLOGIC: No focal neurological defi cits. CN II-XII grossly intact. - PSYCHIATRIC: Awake alert oriented. Ap propriate mood and affect. - SKIN: No rashes or lesions. Warm. - LYMPH: No cervical lymphadenopathy. Objective Data Vital Signs Vital Signs: Vital Signs - 24 hr 08/14/24 12:00 08/14/24 12:00 08/14/24 12:00 Temperature 37.6 C H Pulse Rate 110 H 110 H 110 H Respiratory Rate 35 H 35 H Blood Pressure 136/70 Pulse Oximetry 90 90 Oxygen Delivery Nasal Cannula Oxygen Flow Rate 2 08/14/24 14:00 08/14/24 14:00 08/14/24 16:00 Temperature Pulse Rate 109 H 109 H 109 H Respiratory Rate 33 H Blood Pressure 132/66 Pulse Oximetry 90 Oxygen Delivery Oxygen Flow Rate 08/14/24 16:00 08/14/24 16:00 08/14/24 18:00 Temperature 37.9 C H Pulse Rate 109 H 109 H 106 H Respiratory Rate 31 H 31 H 27 H Blood Pressure 141/77 H 139/81 Pulse Oximetry 95 95 95 Oxygen Delivery Nasal Cannula Oxygen Flow Rate 2 08/14/24 20:36 08/14/24 20:00 08/14/24 20:00 Temperature Pulse Rate 104 H 103 H Respiratory Rate Blood Pressure Pulse Oximetry 95 Oxygen Delivery Nasal Cannula Oxygen Flow Rate 2.5 08/14/24 20:00 08/14/24 22:00 08/14/24 22:00 Temperature 36.8 C Pulse Rate 103 H 104 H 104 H Respiratory Rate 26 H 23 H Blood Pressure 144/81 H 131/67 Pulse Oximetry 95 92 Oxygen Delivery Oxygen Flow Rate 08/15/24 00:00 08/15/24 00:00 08/15/24 00:00 Temperature 37.0 C Pulse Rate 104 H 104 H Respiratory Rate 23 H Blood Pressure 113/64 Pulse Oximetry 96 96 Oxygen Delivery Nasal Cannula Oxygen Flow Rate 2.5 08/15/24 02:00 08/15/24 02:00 08/15/24 04:00 Temperature Pulse Rate 105 H 105 H 108 H Respiratory Rate 28 H Blood Pressure 141/85 H Pulse Oximetry 92 Oxygen Delivery Oxygen Flow Rate 08/15/24 04:00 08/15/24 04:00 08/15/24 06:00 Temperature 36.8 C Pulse Rate 108 H 107 H Respiratory Rate 26 H Blood Pressure 131/68 Pulse Oximetry 93 93 Oxygen Delivery Nasal Cannula Oxygen Flow Rate 2.5 08/15/24 06:00 08/15/24 08:16 08/15/24 08:00 Temperature 36.9 C Pulse Rate 107 H 106 H 106 H Respiratory Rate 30 H 30 H Blood Pressure 145/88 H 146/87 H Pulse Oximetry 93 91 Oxygen Delivery Oxygen Flow Rate 08/15/24 09:24 08/15/24 10:00 Temperature Pulse Rate 104 H Respiratory Rate 25 H Blood Pressure 142/84 H Pulse Oximetry 93 92 Oxygen Delivery Nasal Cannula Oxygen Flow Rate 2 Intake/Output Intake/Output: Intake & Output 08/12/24 08/13/24 08/14/24 08/15/24 23:59 23:59 23:59 23:59 Intake Total 3471.7 2555.4 1300 Output Total 700 1000 1000 Balance 2771.7 1555.4 300 Meds/Results Medications: Active Medications Generic Name Dose Route Start Last Admin Trade Name Freq PRN Reason Stop Dose Admin Hydrocodone Bitart/Acetaminophen 1 tab 08/14/24 10:12 08/15/24 11:00 Hydrocodone/Acetaminophen (*Crx) 5-325 Mg Tablet PO 1 tab Q6H PRN Administration Pain Rated 4-6 Amlodipine Besylate 5 mg 08/14/24 09:00 08/15/24 08:16 Amlodipine Besylate 5 Mg Tablet PO 5 mg DAILY SANCHEZ Administration Carvedilol 25 mg 08/14/24 09:00 08/15/24 08:16 Carvedilol 25 Mg Tablet PO 25 mg Q12HR SANCHEZ Administration Dextrose 12.5 gm 08/14/24 07:37 Dextrose 50% 25 Gm/50 Ml Syringe IV PUSH PRN PRN Hypoglycemia Protocol Enoxaparin Sodium 40 mg 08/14/24 09:00 08/15/24 08:16 Enoxaparin 40 Mg/0.4 Ml Syringe SUB-Q 40 mg DAILY SANCHEZ Administration Escitalopram Oxalate 10 mg 08/14/24 09:00 08/15/24 08:16 Escitalopram Oxalate 10 Mg Tablet PO 10 mg DAILY SANCHEZ Administration Glucagon 1 mg 08/14/24 07:37 Glucagon For Inj 1 Mg Vial IM PRN PRN Hypoglycemia Protocol Glucose 15 gm 08/14/24 07:37 Glucose Oral Gel 15 Gm Of Glucse In 37.5 Gm Tube PO PRN PRN Hypoglycemia Protocol Dextrose 1,000 mls @ 100 mls/hr 08/14/24 07:37 Dextrose 5% 1,000 Ml IVPB PRN PRN Hypoglycemia Protocol Ampicillin Sodium/Sulbactam Sodium 3 gm in 100 mls @ 200 mls/hr 08/15/24 10:25 08/15/24 10:58 Unasyn 3 Gm/Ns 100 Ml IVPB 200 mls/hr Q6HR SANCHEZ Administration Insulin Aspart 4 - 8 units 08/14/24 08:00 08/15/24 08:16 Insulin Aspart (*Bkc) 100 Units/Ml SUB-Q 5 units TIDWM SANCHEZ Administration Protocol Insulin Aspart 2 - 4 units 08/14/24 21:00 08/14/24 20:37 Insulin Aspart (*Bkc) 100 Units/Ml SUB-Q 2 units HS SANCHEZ Administration Protocol Insulin Glargine 70 units 08/15/24 09:00 08/15/24 08:17 Insulin Glargine (*Bkc) 100 Units/Ml SUB-Q 70 units DAILY SANCHEZ Administration Ondansetron HCl 4 mg 08/13/24 15:26 08/15/24 10:55 Ondansetron Inj 4 Mg/2 Ml Vial IV PUSH 4 mg Q6H PRN Administration Nausea And Vomiting Radiology Results: ITS Impressions Chest X-Ray 08/13/24 13:54 IMPRESSION: No acute cardiopulmonary pathology. Renal Ultrasound 08/13/24 15:07 IMPRESSION: 1. Normal kidneys. No hydronephrosis. Foot X-Ray 08/14/24 11:36 IMPRESSION: 1. Septic arthritis at the fifth metatarsophalangeal joint with associated osteomyelitis at the base of the fifth proximal phalanx and head of the fifth metatarsal. Lumbar Spine X-Ray 08/14/24 11:49 IMPRESSION: No acute osseous abnormality lumbar spine. Multilevel degenerative disc disease. Lumbar Spine MRI 08/14/24 15:23 IMPRESSION: 1. Moderate lumbar spondylosis. 2. No evidence of discitis/osteomyelitis. Labs Labs: Laboratory Results - last 24 hr 08/14/24 08/14/24 08/14/24 11:11 15:39 20:35 WBC RBC Hgb Hct MCV MCH MCHC RDW Plt Count MPV Immature Gran % (Auto) Neut % (Auto) Lymph % (Auto) Wake % (Auto) Eos % (Auto) Baso % (Auto) Lymph # (Auto) [place] # (Auto) Eos # (Auto) Baso # (Auto) Abs Immat Gran (auto) Absolute Neuts (auto) Absolute Nucleated RBC Total Counted Neutrophils % (Manual) Band Neutrophils % Lymphocytes % (Manual) Monocytes % (Manual) Nucleated RBC % Abs Neuts (Manual) Abs Lymphs (Manual) Abs Monocytes (Manual) Platelet Estimate Anisocytosis [place] Cells Schistocytes Sodium Potassium Chloride Carbon Dioxide Anion Gap BUN Creatinine Estim Creat Clear Calc Estimated GFR Glucose POC Capillary Glucose 227 H 191 H 223 H Lactic Acid Calcium Phosphorus Magnesium Total Bilirubin AST ALT Alkaline Phosphatase C-Reactive Protein Total Protein Albumin 08/15/24 08/15/24 03:23 07:55 WBC 13.2 H RBC 3.85 L Hgb 11.1 L Hct 33.0 L MCV 85.7 MCH 28.8 MCHC 33.6 RDW 13.4 Plt Count 112 L MPV 10.7 H Immature Gran % (Auto) Not Reportable Neut % (Auto) Not Reportable Lymph % (Auto) Not Reportable [place] % (Auto) Not Reportable Eos % (Auto) Not Reportable Baso % (Auto) Not Reportable Lymph # (Auto) Not Reportable Wake # (Auto) Not Reportable Eos # (Auto) Not Reportable Baso # (Auto) Not Reportable Abs Immat Gran (auto) Not Reportable Absolute Neuts (auto) Not Reportable Absolute Nucleated RBC Not Reportable Total Counted 100 Neutrophils % (Manual) 86 H Band Neutrophils % 4 Lymphocytes % (Manual) 7.0 L Monocytes % (Manual) 3 Nucleated RBC % Not Reportable Abs Neuts (Manual) 11.88 H Abs Lymphs (Manual) 0.92 L Abs Monocytes (Manual) 0.39 Platelet Estimate Decreased Anisocytosis 1+ Christ[place] Cells 1+ Schistocytes None seen Sodium 129 L Potassium 3.9 Chloride 101 Carbon Dioxide 18 L Anion Gap 10 BUN 30 H Creatinine 1.00 Estim Creat Clear Calc 109 Estimated GFR > 60 Glucose 273 H POC Capillary Glucose 291 H Lactic Acid 0.8 Calcium 8.4 Phosphorus 2.7 Magnesium 2.4 H Total Bilirubin 0.8 AST 25 ALT 19 Alkaline Phosphatase 97 C-Reactive Protein 31.2 H Total Protein 6.0 L Albumin 2.9 L Hospitalist MIPS Advance Care Plan I have confirmed that the patient's Advanced Care Plan is present, code status is documented, or surrogate decision maker is listed in patient medical record.: Yes Medication Reconciliation I have utilized all available resources to obtain, update and review the patients current medications (includes all prescriptions, OTC, herbals, cannabis, and nutritional supplements).: Yes
--- NOTE | 2024-08-15 11:26 | WPDINTPN ---
Progress Note: A&P Assessment and Plan (1) Osteomyelitis of foot, left, acute: Code(s): M86.172 - Other acute osteomyelitis, left ankle and foot Status: Acute Assessment and Plan: Osteomyelitis as above, surgery evaluation for possible debridement -08/14: Wound culture pending -08/13: Blood cultures positive for strep pneumo -patient was on vancomycin which has been switched to Unasyn after discussing with ID pharmacist 08/14: X-ray left foot: Septic arthritis at the fifth metatarsophalangeal joint with associated osteomyelitis at the base of the fifth proximal phalanx and head of the fifth metatarsal. (2) Wound of left foot: Code(s): S91.302A - Unspecified open wound, left foot, initial encounter Status: Chronic Assessment and Plan: Patient has a wound on his left foot which is a result of abscess that he developed in the past. He had osteomyelitis at that time. He received 6 weeks of antibiotic therapy and I and D was done for the abscess. Since then he is getting wound care done initially at the wound care clinic but now does himself at home. On exam the wound appears clear with no evidence of infection. He has normal WBC. -appreciate Wound Care team evaluation -appreciate surgery evaluation recommendation, patient unlikely need an amputation of left toe and metatarsal head (3) DKA (diabetic ketoacidosis): Code(s): E11.10 - Type 2 diabetes mellitus with ketoacidosis without coma Status: Acute Assessment and Plan: RESOLVED Patient presented with nausea, vomiting, generalized weakness, elevated blood sugars, was found to be in DKA likely related to osteomyelitis Patient is getting IVF bolus and will be followed by infusion Patient remains on insulin infusion, will transition to long-acting insulin and sliding scale insulin on 08/14 Continue diabetic diet Replace electrolytes as needed dietitian and family educator have been consulted -will increase Lantus this morning (4) Hypertension: Qualifiers: Hypertension type: primary hypertension Qualified Code(s): I10 - Essential (primary) hypertension Code(s): I10 - Essential (primary) hypertension Status: Chronic Assessment and Plan: Blood pressure is slightly on the higher side, will start home amlodipine and Coreg (08/14) Will restart losartan which is a home med (5) PURNIMA (acute kidney injury): Code(s): N17.9 - Acute kidney failure, unspecified Status: Acute Assessment and Plan: Likely secondary to dehydration and DKA Urine lytes showed prerenal picture, patient did receive adequate amount of IV fluid -renal ultrasound did not show any hydronephrosis, normal kidneys -creatinine on admission was 2.10 - 08/14: Creatinine this morning is 1.30, urine output has been adequate -08/15: Creatinine of 1.0 this morning, adequate urine output, continue to monitor (6) SIRS (systemic inflammatory response syndrome): Code(s): R65.10 - Systemic inflammatory response syndrome (SIRS) of non-infectious origin without acute organ dysfunction Status: Acute Assessment and Plan: Patient appears to have SIRS. Patient received adequate amount of IV fluids for DKA and dehydration Chest x-ray negative UA was negative 08/13: Strep pneumo 2/2 bottles, 08/14: Started patient on vancomycin 08/15: Discontinued vancomycin and started Unasyn after discussion with ID pharmacist -PCR for influenza RSV and COVID were negative Status post IV fluids for DKA and dehydration Mildly elevated lactic acid on admission, 2.30. Resolved after IV fluids (7) Dehydration: Code(s): E86.0 - Dehydration Status: Acute Assessment and Plan: Patient appears significantly dehydrated secondary to DKA and poor p.o. intake likely secondary to side effect of Mounjaro Patient receiving his 3 L of IV fluid bolus at this time. Will continue IV fluids -adequately fluid-resuscitated, will continue to encourage oral intake (8) Lumbar back pain: Code(s): M54.50 - Low back pain, unspecified Status: Acute Assessment and Plan: Patient presented with lower back pain, according the patient had lower back pain the last and was admitted for DKA which resolved on its own -patient receiving morphine but that is causing him to be somnolent -will discontinue morphine and start [place] for his back pain -x-ray of the lumbar spine is under, if continues to have back pain will get CT scan 08/14: X-ray lumbar spine: No acute osseous abnormality of the lumbar spine, multilevel degenerative disc disease 08/14: MRI of the lumbar spine: Moderate lumbar spondylosis, no evidence of diskitis or osteomyelitis Plan DVT prophylaxis -Lovenox Nutrition -diabetic diet Code Status - Full Code Total Critical Care Time - 32 minutes Discussed with patient and spouse at bedside updated them with patient's condition and plan of care. Updated them with radiology reports, the aware that patient will be getting an amputation of his left toe and metatarsal head. Patient may transfer out of the ICU if okay with hospitalist Due to a high probability of clinically significant, life threatening deterioration, the patient required my highest level of preparedness to intervene emergently and I personally spent this critical care time directly and personally managing the patient. This critical care time included obtaining a history; examining the patient; pulse oximetry; ordering and review of studies; arranging urgent treatment with development of a management plan; evaluation of patient's response to treatment; frequent reassessment; and discussions with other providers. It was exclusive of separately billable procedures and treating other patients and teaching time. Please see Assessment and Plan section and the rest of the note for further information on patient assessment and treatment This dictation may have been done utilizing a voice recognition system. Attempts have been made to correct errors. However, there may be uncorrected grammatical, spelling, and recognitions errors present. Subjective Date/time seen: 08/15/24 11:26 Interval history: Reason for consult: DKA, hypertension, dehydration, nausea, vomiting, decreased oral intake 08/15/2024: Patient seen and examined the ICU, is awake, alert, able to answer questions. Complains of lower back pain. Hemodynamically stable. Denies any shortness of breath, abdominal pain, nausea, vomiting at this time. Patient has a decreased appetite, low-grade fevers in the T-max of 100.2. Urine output has been adequate. Blood cultures growing strep pneumo. Review of Systems Review of Systems: All systems reviewed & are unremarkable except as noted in HPI and below (HPI) Exam Narrative: General: Pt is alert awake and in NAD Lungs/Chest: Trachea central Clear BS B/L, No crackles or wheezing. Cardiac: RRR. Normal S1 S2. No murmurs Circulation: Pedal pulses are intact and symmetrical. Abdomen: Normal bowel sounds.. Obese Soft. NT. ND. Extremities: No clubbing, cyanosis or edema. Warm : Ramirez in place Neurologic: Follows commands. Moves all 4 extremities PERRL AO x3 Skin: Left lateral foot wound more erythematous, swollen, warm. Objective Data Vital Signs Vital Signs: Vital Signs - 24 hr 08/14/24 12:00 08/14/24 12:00 08/14/24 12:00 Temperature 99.7 F H Pulse Rate 110 H 110 H 110 H Respiratory Rate 35 H 35 H Blood Pressure 136/70 Pulse Oximetry 90 90 Oxygen Delivery Nasal Cannula Oxygen Flow Rate 2 08/14/24 14:00 08/14/24 14:00 08/14/24 16:00 Temperature Pulse Rate 109 H 109 H 109 H Respiratory Rate 33 H Blood Pressure 132/66 Pulse Oximetry 90 Oxygen Delivery Oxygen Flow Rate 08/14/24 16:00 08/14/24 16:00 08/14/24 18:00 Temperature 100.2 F H Pulse Rate 109 H 109 H 106 H Respiratory Rate 31 H 31 H 27 H Blood Pressure 141/77 H 139/81 Pulse Oximetry 95 95 95 Oxygen Delivery Nasal Cannula Oxygen Flow Rate 2 08/14/24 20:36 08/14/24 20:00 08/14/24 20:00 Temperature Pulse Rate 104 H 103 H Respiratory Rate Blood Pressure Pulse Oximetry 95 Oxygen Delivery Nasal Cannula Oxygen Flow Rate 2.5 08/14/24 20:00 08/14/24 22:00 08/14/24 22:00 Temperature 98.3 F Pulse Rate 103 H 104 H 104 H Respiratory Rate 26 H 23 H Blood Pressure 144/81 H 131/67 Pulse Oximetry 95 92 Oxygen Delivery Oxygen Flow Rate 08/15/24 00:00 08/15/24 00:00 08/15/24 00:00 Temperature 98.6 F Pulse Rate 104 H 104 H Respiratory Rate 23 H Blood Pressure 113/64 Pulse Oximetry 96 96 Oxygen Delivery Nasal Cannula Oxygen Flow Rate 2.5 08/15/24 02:00 08/15/24 02:00 08/15/24 04:00 Temperature Pulse Rate 105 H 105 H 108 H Respiratory Rate 28 H Blood Pressure 141/85 H Pulse Oximetry 92 Oxygen Delivery Oxygen Flow Rate 08/15/24 04:00 08/15/24 04:00 08/15/24 06:00 Temperature 98.3 F Pulse Rate 108 H 107 H Respiratory Rate 26 H Blood Pressure 131/68 Pulse Oximetry 93 93 Oxygen Delivery Nasal Cannula Oxygen Flow Rate 2.5 08/15/24 06:00 08/15/24 08:16 08/15/24 08:00 Temperature 98.5 F Pulse Rate 107 H 106 H 106 H Respiratory Rate 30 H 30 H Blood Pressure 145/88 H 146/87 H Pulse Oximetry 93 91 Oxygen Delivery Oxygen Flow Rate 08/15/24 09:24 08/15/24 10:00 08/15/24 08:00 Temperature Pulse Rate 104 H 106 H Respiratory Rate 25 H Blood Pressure 142/84 H Pulse Oximetry 93 92 Oxygen Delivery Nasal Cannula Oxygen Flow Rate 2 08/15/24 10:00 Temperature Pulse Rate 103 H Respiratory Rate Blood Pressure Pulse Oximetry Oxygen Delivery Oxygen Flow Rate Intake/Output Intake/Output: Intake & Output 08/12/24 08/13/24 08/14/24 08/15/24 23:59 23:59 23:59 23:59 Intake Total 3471.7 2555.4 1300 Output Total 700 1000 1000 Balance 2771.7 1555.4 300 Meds/Results Medications: Active Medications Generic Name Dose Route Start Last Admin Trade Name Freq PRN Reason Stop Dose Admin Hydrocodone Bitart/Acetaminophen 1 tab 08/14/24 10:12 08/15/24 11:00 Hydrocodone/Acetaminophen (*Crx) 5-325 Mg Tablet PO 1 tab Q6H PRN Administration Pain Rated 4-6 Amlodipine Besylate 5 mg 08/14/24 09:00 08/15/24 08:16 Amlodipine Besylate 5 Mg Tablet PO 5 mg DAILY SANCHEZ Administration Carvedilol 25 mg 08/14/24 09:00 08/15/24 08:16 Carvedilol 25 Mg Tablet PO 25 mg Q12HR SANCHEZ Administration Dextrose 12.5 gm 08/14/24 07:37 Dextrose 50% 25 Gm/50 Ml Syringe IV PUSH PRN PRN Hypoglycemia Protocol Enoxaparin Sodium 40 mg 08/14/24 09:00 08/15/24 08:16 Enoxaparin 40 Mg/0.4 Ml Syringe SUB-Q 40 mg DAILY SANCHEZ Administration Escitalopram Oxalate 10 mg 08/14/24 09:00 08/15/24 08:16 Escitalopram Oxalate 10 Mg Tablet PO 10 mg DAILY SANCHEZ Administration Glucagon 1 mg 08/14/24 07:37 Glucagon For Inj 1 Mg Vial IM PRN PRN Hypoglycemia Protocol Glucose 15 gm 08/14/24 07:37 Glucose Oral Gel 15 Gm Of Glucse In 37.5 Gm Tube PO PRN PRN Hypoglycemia Protocol Dextrose 1,000 mls @ 100 mls/hr 08/14/24 07:37 Dextrose 5% 1,000 Ml IVPB PRN PRN Hypoglycemia Protocol Ampicillin Sodium/Sulbactam Sodium 3 gm in 100 mls @ 200 mls/hr 08/15/24 10:25 08/15/24 10:58 Unasyn 3 Gm/Ns 100 Ml IVPB 200 mls/hr Q6HR SANCHEZ Administration Insulin Aspart 4 - 8 units 08/14/24 08:00 08/15/24 08:16 Insulin Aspart (*Bkc) 100 Units/Ml SUB-Q 5 units TIDWM SANCHEZ Administration Protocol Insulin Aspart 2 - 4 units 08/14/24 21:00 08/14/24 20:37 Insulin Aspart (*Bkc) 100 Units/Ml SUB-Q 2 units HS SANCHEZ Administration Protocol Insulin Glargine 70 units 08/15/24 09:00 08/15/24 08:17 Insulin Glargine (*Bkc) 100 Units/Ml SUB-Q 70 units DAILY SANHCEZ Administration Ondansetron HCl 4 mg 08/13/24 15:26 08/15/24 10:55 Ondansetron Inj 4 Mg/2 Ml Vial IV PUSH 4 mg Q6H PRN Administration Nausea And Vomiting Radiology Results: ITS Impressions Chest X-Ray 08/13/24 13:54 IMPRESSION: No acute cardiopulmonary pathology. Renal Ultrasound 08/13/24 15:07 IMPRESSION: 1. Normal kidneys. No hydronephrosis. Foot X-Ray 08/14/24 11:36 IMPRESSION: 1. Septic arthritis at the fifth metatarsophalangeal joint with associated osteomyelitis at the base of the fifth proximal phalanx and head of the fifth metatarsal. Lumbar Spine X-Ray 08/14/24 11:49 IMPRESSION: No acute osseous abnormality lumbar spine. Multilevel degenerative disc disease. Lumbar Spine MRI 08/14/24 15:23 IMPRESSION: 1. Moderate lumbar spondylosis. 2. No evidence of discitis/osteomyelitis. Labs Labs: Laboratory Results - last 24 hr 08/14/24 08/14/24 08/15/24 15:39 20:35 03:23 WBC 13.2 H RBC 3.85 L Hgb 11.1 L Hct 33.0 L MCV 85.7 MCH 28.8 MCHC 33.6 RDW 13.4 Plt Count 112 L MPV 10.7 H Immature Gran % (Auto) Not Reportable Neut % (Auto) Not Reportable Lymph % (Auto) Not Reportable [place] % (Auto) Not Reportable Eos % (Auto) Not Reportable Baso % (Auto) Not Reportable Lymph # (Auto) Not Reportable [place] # (Auto) Not Reportable Eos # (Auto) Not Reportable Baso # (Auto) Not Reportable Abs Immat Gran (auto) Not Reportable Absolute Neuts (auto) Not Reportable Absolute Nucleated RBC Not Reportable Total Counted 100 Neutrophils % (Manual) 86 H Band Neutrophils % 4 Lymphocytes % (Manual) 7.0 L Monocytes % (Manual) 3 Nucleated RBC % Not Reportable Abs Neuts (Manual) 11.88 H Abs Lymphs (Manual) 0.92 L Abs Monocytes (Manual) 0.39 Platelet Estimate Decreased Anisocytosis 1+ [place] Cells 1+ Schistocytes None seen Sodium 129 L Potassium 3.9 Chloride 101 Carbon Dioxide 18 L Anion Gap 10 BUN 30 H Creatinine 1.00 Estim Creat Clear Calc 109 Estimated GFR > 60 Glucose 273 H POC Capillary Glucose 191 H 223 H Lactic Acid 0.8 Calcium 8.4 Phosphorus 2.7 Magnesium 2.4 H Total Bilirubin 0.8 AST 25 ALT 19 Alkaline Phosphatase 97 C-Reactive Protein 31.2 H Total Protein 6.0 L Albumin 2.9 L 08/15/24 07:55 WBC RBC Hgb Hct MCV MCH MCHC RDW Plt Count MPV Immature Gran % (Auto) Neut % (Auto) Lymph % (Auto) [place] % (Auto) Eos % (Auto) Baso % (Auto) Lymph # (Auto) [place] # (Auto) Eos # (Auto) Baso # (Auto) Abs Immat Gran (auto) Absolute Neuts (auto) Absolute Nucleated RBC Total Counted Neutrophils % (Manual) Band Neutrophils % Lymphocytes % (Manual) Monocytes % (Manual) Nucleated RBC % Abs Neuts (Manual) Abs Lymphs (Manual) Abs Monocytes (Manual) Platelet Estimate Anisocytosis [place] Cells Schistocytes Sodium Potassium Chloride Carbon Dioxide Anion Gap BUN Creatinine Estim Creat Clear Calc Estimated GFR Glucose POC Capillary Glucose 291 H Lactic Acid Calcium Phosphorus Magnesium Total Bilirubin AST ALT Alkaline Phosphatase C-Reactive Protein Total Protein Albumin Quality VTE Prophylaxis VTE prophylaxis: pharmacologic ordered
[2024-08-15 11:46] LABS: Glucose Point of Care 279 mg/dl (65-105)
[2024-08-15] MEDS: LOSARTAN POTASSIUM 100 MG TABLET PO (11:48)
--- NOTE | 2024-08-15 15:26 | PM.PNGS ---
Progress Note: A&P Assessment and Plan (1) Osteomyelitis of foot, left, acute: Code(s): M86.172 - Other acute osteomyelitis, left ankle and foot Status: Acute Assessment and Plan: Septic arthritis and osteomyelitis will likely require amputation at this point. He has already been treated with 6 weeks of IV antibiotics and had recurrence of the osteomyelitis within 3 months. I have recommended proceeding with left 5th toe ray amputation tomorrow in the OR. I discussed the procedure, risks, benefits, and alternatives. Questions were answered. (2) Wound of left foot: Code(s): S91.302A - Unspecified open wound, left foot, initial encounter Status: Chronic (3) DKA (diabetic ketoacidosis): Code(s): E11.10 - Type 2 diabetes mellitus with ketoacidosis without coma Status: Acute (4) Type 2 diabetes mellitus with hyperglycemia: Qualifiers: Diabetes mellitus [facility] insulin use: with [facility] use Qualified Code(s): E11.65 - Type 2 diabetes mellitus with hyperglycemia; Z79.4 - local [employer] (current) use of insulin Code(s): E11.65 - Type 2 diabetes mellitus with hyperglycemia Status: Acute (5) Bacteremia due to Streptococcus pneumoniae: Code(s): R78.81 - Bacteremia; B95.3 - Streptococcus pneumoniae as the cause of diseases classified elsewhere Status: Acute Subjective Subjective Date/Time Seen: 08/15/24 15:26 Interval history: Mental status somewhat improved but still somewhat somnolent. Remaining hemodynamically stable. Exam Extrem: Other: Necrotic wound on lateral surface of left 5th metatarsal head. Purulence drainage expressed from dorsal surface out through wound. Objective Data Vital Signs Vital Signs: Vital Signs - 24 hr 08/14/24 16:00 08/14/24 16:00 08/14/24 16:00 Temperature 100.2 F H Pulse Rate 109 H 109 H 109 H Respiratory Rate 31 H 31 H Blood Pressure 141/77 H Pulse Oximetry 95 95 Oxygen Delivery Nasal Cannula Oxygen Flow Rate 2 08/14/24 18:00 08/14/24 20:36 08/14/24 20:00 Temperature Pulse Rate 106 H 104 H 103 H Respiratory Rate 27 H Blood Pressure 139/81 Pulse Oximetry 95 Oxygen Delivery Oxygen Flow Rate 08/14/24 20:00 08/14/24 20:00 08/14/24 22:00 Temperature 98.3 F Pulse Rate 103 H 104 H Respiratory Rate 26 H Blood Pressure 144/81 H Pulse Oximetry 95 95 Oxygen Delivery Nasal Cannula Oxygen Flow Rate 2.5 08/14/24 22:00 08/15/24 00:00 08/15/24 00:00 Temperature Pulse Rate 104 H 104 H Respiratory Rate 23 H Blood Pressure 131/67 Pulse Oximetry 92 96 Oxygen Delivery Nasal Cannula Oxygen Flow Rate 2.5 08/15/24 00:00 08/15/24 02:00 08/15/24 02:00 Temperature 98.6 F Pulse Rate 104 H 105 H 105 H Respiratory Rate 23 H 28 H Blood Pressure 113/64 141/85 H Pulse Oximetry 96 92 Oxygen Delivery Oxygen Flow Rate 08/15/24 04:00 08/15/24 04:00 08/15/24 04:00 Temperature 98.3 F Pulse Rate 108 H 108 H Respiratory Rate 26 H Blood Pressure 131/68 Pulse Oximetry 93 93 Oxygen Delivery Nasal Cannula Oxygen Flow Rate 2.5 08/15/24 06:00 08/15/24 06:00 08/15/24 08:16 Temperature Pulse Rate 107 H 107 H 106 H Respiratory Rate 30 H Blood Pressure 145/88 H Pulse Oximetry 93 Oxygen Delivery Oxygen Flow Rate 08/15/24 08:00 08/15/24 09:24 08/15/24 10:00 Temperature 98.5 F Pulse Rate 106 H 104 H Respiratory Rate 30 H 25 H Blood Pressure 146/87 H 142/84 H Pulse Oximetry 91 93 92 Oxygen Delivery Nasal Cannula Oxygen Flow Rate 2 08/15/24 08:00 08/15/24 10:00 08/15/24 08:00 Temperature Pulse Rate 106 H 103 H Respiratory Rate Blood Pressure Pulse Oximetry 92 Oxygen Delivery Nasal Cannula Oxygen Flow Rate 2 08/15/24 12:00 08/15/24 14:00 08/15/24 12:00 Temperature 98.4 F Pulse Rate 103 H 102 H 102 H Respiratory Rate 26 H 23 H Blood Pressure 135/82 130/81 Pulse Oximetry 92 92 Oxygen Delivery Oxygen Flow Rate 08/15/24 14:00 Temperature Pulse Rate 102 H Respiratory Rate Blood Pressure Pulse Oximetry Oxygen Delivery Oxygen Flow Rate Intake/Output Intake/Output: Intake & Output 08/12/24 08/13/24 08/14/24 08/15/24 23:59 23:59 23:59 23:59 Intake Total 3471.7 2555.4 1300 Output Total 700 1000 1000 Balance 2771.7 1555.4 300 Meds/Results Medications: Active Medications Generic Name Dose Route Start Last Admin Trade Name Freq PRN Reason Stop Dose Admin Hydrocodone Bitart/Acetaminophen 1 tab 08/14/24 10:12 08/15/24 11:00 Hydrocodone/Acetaminophen (*Crx) 5-325 Mg Tablet PO 1 tab Q6H PRN Administration Pain Rated 4-6 Amlodipine Besylate 5 mg 08/14/24 09:00 08/15/24 08:16 Amlodipine Besylate 5 Mg Tablet PO 5 mg DAILY SANCHEZ Administration Carvedilol 25 mg 08/14/24 09:00 08/15/24 08:16 Carvedilol 25 Mg Tablet PO 25 mg Q12HR SANCHEZ Administration Dextrose 12.5 gm 08/14/24 07:37 Dextrose 50% 25 Gm/50 Ml Syringe IV PUSH PRN PRN Hypoglycemia Protocol Enoxaparin Sodium 40 mg 08/14/24 09:00 08/15/24 08:16 Enoxaparin 40 Mg/0.4 Ml Syringe SUB-Q 40 mg DAILY SANCHEZ Administration Escitalopram Oxalate 10 mg 08/14/24 09:00 08/15/24 08:16 Escitalopram Oxalate 10 Mg Tablet PO 10 mg DAILY SANCHEZ Administration Glucagon 1 mg 08/14/24 07:37 Glucagon For Inj 1 Mg Vial IM PRN PRN Hypoglycemia Protocol Glucose 15 gm 08/14/24 07:37 Glucose Oral Gel 15 Gm Of Glucse In 37.5 Gm Tube PO PRN PRN Hypoglycemia Protocol Dextrose 1,000 mls @ 100 mls/hr 08/14/24 07:37 Dextrose 5% 1,000 Ml IVPB PRN PRN Hypoglycemia Protocol Ampicillin Sodium/Sulbactam Sodium 3 gm in 100 mls @ 200 mls/hr 08/15/24 10:25 08/15/24 10:58 Unasyn 3 Gm/Ns 100 Ml IVPB 200 mls/hr Q6HR SANCHEZ Administration Insulin Aspart 4 - 8 units 08/14/24 08:00 08/15/24 11:48 Insulin Aspart (*Bkc) 100 Units/Ml SUB-Q 5 units TIDWM SANCHEZ Administration Protocol Insulin Aspart 2 - 4 units 08/14/24 21:00 08/14/24 20:37 Insulin Aspart (*Bkc) 100 Units/Ml SUB-Q 2 units HS SANCHEZ Administration Protocol Insulin Glargine 70 units 08/15/24 09:00 08/15/24 08:17 Insulin Glargine (*Bkc) 100 Units/Ml SUB-Q 70 units DAILY SANCHEZ Administration Losartan Potassium 100 mg 08/15/24 11:35 08/15/24 11:48 Losartan Potassium 100 Mg Tablet PO 100 mg DAILY SANCHEZ Administration Ondansetron HCl 4 mg 08/13/24 15:26 08/15/24 10:55 Ondansetron Inj 4 Mg/2 Ml Vial IV PUSH 4 mg Q6H PRN Administration Nausea And Vomiting Radiology Results: ITS Impressions Chest X-Ray 08/13/24 13:54 IMPRESSION: No acute cardiopulmonary pathology. Renal Ultrasound 08/13/24 15:07 IMPRESSION: 1. Normal kidneys. No hydronephrosis. Foot X-Ray 08/14/24 11:36 IMPRESSION: 1. Septic arthritis at the fifth metatarsophalangeal joint with associated osteomyelitis at the base of the fifth proximal phalanx and head of the fifth metatarsal. Lumbar Spine X-Ray 08/14/24 11:49 IMPRESSION: No acute osseous abnormality lumbar spine. Multilevel degenerative disc disease. Lumbar Spine MRI 08/14/24 15:23 IMPRESSION: 1. Moderate lumbar spondylosis. 2. No evidence of discitis/osteomyelitis. Labs Labs: Laboratory Results - last 24 hr 08/14/24 08/14/24 08/15/24 15:39 20:35 03:23 WBC 13.2 H RBC 3.85 L Hgb 11.1 L Hct 33.0 L MCV 85.7 MCH 28.8 MCHC 33.6 RDW 13.4 Plt Count 112 L MPV 10.7 H Immature Gran % (Auto) Not Reportable Neut % (Auto) Not Reportable Lymph % (Auto) Not Reportable [place] % (Auto) Not Reportable Eos % (Auto) Not Reportable Baso % (Auto) Not Reportable Lymph # (Auto) Not Reportable [place] # (Auto) Not Reportable Eos # (Auto) Not Reportable Baso # (Auto) Not Reportable Abs Immat Gran (auto) Not Reportable Absolute Neuts (auto) Not Reportable Absolute Nucleated RBC Not Reportable Total Counted 100 Neutrophils % (Manual) 86 H Band Neutrophils % 4 Lymphocytes % (Manual) 7.0 L Monocytes % (Manual) 3 Nucleated RBC % Not Reportable Abs Neuts (Manual) 11.88 H Abs Lymphs (Manual) 0.92 L Abs Monocytes (Manual) 0.39 Platelet Estimate Decreased Anisocytosis 1+ [place] Cells 1+ Schistocytes None seen Sodium 129 L Potassium 3.9 Chloride 101 Carbon Dioxide 18 L Anion Gap 10 BUN 30 H Creatinine 1.00 Estim Creat Clear Calc 109 Estimated GFR > 60 Glucose 273 H POC Capillary Glucose 191 H 223 H Lactic Acid 0.8 Calcium 8.4 Phosphorus 2.7 Magnesium 2.4 H Total Bilirubin 0.8 AST 25 ALT 19 Alkaline Phosphatase 97 C-Reactive Protein 31.2 H Total Protein 6.0 L Albumin 2.9 L 08/15/24 08/15/24 07:55 11:37 WBC RBC Hgb Hct MCV MCH MCHC RDW Plt Count MPV Immature Gran % (Auto) Neut % (Auto) Lymph % (Auto) [place] % (Auto) Eos % (Auto) Baso % (Auto) Lymph # (Auto) [place] # (Auto) Eos # (Auto) Baso # (Auto) Abs Immat Gran (auto) Absolute Neuts (auto) Absolute Nucleated RBC Total Counted Neutrophils % (Manual) Band Neutrophils % Lymphocytes % (Manual) Monocytes % (Manual) Nucleated RBC % Abs Neuts (Manual) Abs Lymphs (Manual) Abs Monocytes (Manual) Platelet Estimate Anisocytosis [place] Cells Schistocytes Sodium Potassium Chloride Carbon Dioxide Anion Gap BUN Creatinine Estim Creat Clear Calc Estimated GFR Glucose POC Capillary Glucose 291 H 279 H Lactic Acid Calcium Phosphorus Magnesium Total Bilirubin AST ALT Alkaline Phosphatase C-Reactive Protein Total Protein Albumin
[2024-08-15 16:38] LABS: Glucose Point of Care 235 mg/dl (65-105)
--- NOTE | 2024-08-15 18:19 | PC.NURSE ---
This patient, Pavel Laughlin, was transferred to [facility] on 08/15/24 at 1800. Personal belongings sent with patient. Report given to Sherley. Appropriate documentation sent with patient.
--- NOTE | 2024-08-15 18:34 | PC.NURSE ---
RN assumed care. Pt is very sleepy but stable.
[2024-08-15 20:09] LABS: Glucose Point of Care 225 mg/dl (65-105)
[2024-08-16] VITALS (19 sets, daily range): BP systolic 109–161; BP diastolic 69–92; PULSE 85–102; RESP 10–21; TEMP 36.3–37.4; O2SAT 92–98
[2024-08-16] MEDS: HYDROcodone/acetaminophen (*CRX) 5-325 MG TABLET 1 TAB PO ×2 (05:42)
[2024-08-16] MEDS: AMPICILLIN SULB 3 GM/NS 100 ML 3 GM/100 ML VIAL IVPB ×3 (05:44→18:42)
[2024-08-16 06:45] LABS: Basophils Percent Auto 0.2 % (0.2-1.2); Eosinophils Percent Auto 0.2 % (0-4.4); Hematocrit 32.5 % (42.0-52.0); Hemoglobin 11.1 g/dL (14.0-18.0); Immature Granulocyte Absolute 0.19 K/mm3 (0.00-0.031); Immature Granulocyte Percent A 1.5 % (0-0.5); Lymphocytes Absolute Auto 0.75 K/mm3 (0.9-3.2); Mean Corpuscular HGB Conc 34.2 g/dl (32-36); Mean Corpuscular Hemoglobin 29.1 pg (26-34); Mean Corpuscular Volume 85.3 fl (80-100); Mean Platelet Volume 10.5 fl (7.4-10.4); Monocytes Absolute Auto 1.3 K/mm3 (0.1-0.6); Monocytes Percent Auto 10.6 % (2.6-8.5); Neutrophils Absolute Auto 10.2 K/mm3 (1.3-6.7); Neutrophils Percent Auto 81.5 % (45.5-73.1); Platelet Count Result 143 k/mm3 (150-375); Red Blood Count 3.81 M/mm3 (4.6-6.20); Red Cell Distribution Width 13.3 % (11.5-14.5); White Blood Count 12.5 K/mm3 (4.5-10.0)
[2024-08-16 06:56] LABS: Alanine Aminotransferase 16 U/L (6-50); Albumin Level 2.8 g/dL (3.5-5.1); Alkaline Phosphatase 99 U/L (38-126); Anion Gap 8 mmol/L (4-12); Aspartate Amino Transferase 22 U/L (17-59); Bilirubin,Total 0.9 mg/dL (0.2-1.3); Blood Urea Nitrogen 29 mg/dL (9-20); Calcium 8.4 mg/dL (8.4-10.2); Carbon Dioxide 23 mmol/L (22-30); Chloride 100 mmol/L (98-107); Estimated CRCL calculation 120 ml/min; Estimated Glomerular Filt Rate > 60; Glucose 209 mg/dL (65-110); Magnesium 2.3 mg/dL (1.6-2.3); Phosphorus 2.6 mg/dL (2.5-4.5); Potassium 3.7 mmol/L (3.4-5.0); Sodium 131 mmol/L (137-145)
[2024-08-16 08:04] LABS: Glucose Point of Care 213 mg/dl (65-105)
--- NOTE | 2024-08-16 08:18 | PM.IMPN ---
Progress Note: A&P Assessment and Plan (1) DKA (diabetic ketoacidosis): Code(s): E11.10 - Type 2 diabetes mellitus with ketoacidosis without coma Status: Acute (2) Wound of left foot: Code(s): S91.302A - Unspecified open wound, left foot, initial encounter Status: Chronic (3) Osteomyelitis of foot, left, acute: Code(s): M86.172 - Other acute osteomyelitis, left ankle and foot Status: Acute Plan Osteomyelitis of foot, left, acute: Code(s): M86.172 - Other acute osteomyelitis, left ankle and foot Status: Acute Assessment and Plan: Osteomyelitis as above, consulted surgery evaluation and treatment -08/14: Wound culture pending -08/13: Blood cultures positive for strep pneumo -patient was on vancomycin which has been switched to Unasyn after discussing with ID pharmacist 08/14: X-ray left foot: Septic arthritis at the fifth metatarsophalangeal joint with associated osteomyelitis at the base of the fifth proximal phalanx and head of the fifth metatarsal. 08/16: Appreciate general surgery consultation, patient has amputation of left 5th toe DKA (diabetic ketoacidosis): Code(s): E11.10 - Type 2 diabetes mellitus with ketoacidosis without coma Status: Acute Assessment and Plan: Patient presented with nausea, vomiting, generalized weakness, elevated blood sugars, was found to be in DKA likely related to osteomyelitis Patient is getting IVF bolus and will be followed by infusion Patient remains on insulin infusion, will transition to long-acting insulin and sliding scale insulin on 08/14 Continue diabetic diet Replace electrolytes as needed dietitian and natural resources extension educator have been consulted DKA has resolved Titrate insulin for glucose control (4) Hypertension: Qualifiers: Hypertension type: primary hypertension Qualified Code(s): I10 - Essential (primary) hypertension Code(s): I10 - Essential (primary) hypertension Status: Chronic Assessment and Plan: Blood pressure is slightly on the higher side, will start home amlodipine and Coreg (08/14) Will restart losartan which is a home med (5) PURNIMA (acute kidney injury): Code(s): N17.9 - Acute kidney failure, unspecified Status: Acute Assessment and Plan: Likely secondary to dehydration and DKA Urine lytes showed prerenal picture, patient did receive adequate amount of IV fluid -renal ultrasound did not show any hydronephrosis, normal kidneys Creatinine down to 0.9 Resolved (6) SIRS (systemic inflammatory response syndrome): Code(s): R65.10 - Systemic inflammatory response syndrome (SIRS) of non-infectious origin without acute organ dysfunction Status: Acute Assessment and Plan: Patient appears to have SIRS. Patient received adequate amount of IV fluids for DKA and dehydration Chest x-ray negative UA was negative 08/13: Strep pneumo 2/2 bottles, 08/14: Started patient on vancomycin 08/15: Discontinued vancomycin and started Unasyn after discussion with ID pharmacist -PCR for influenza RSV and COVID were negative Status post IV fluids for DKA and dehydration Mildly elevated lactic acid on admission, 2.30. Received fluid resuscitation Resolved Dehydration: Code(s): E86.0 - Dehydration Status: Acute Assessment and Plan: Patient appears significantly dehydrated secondary to DKA and poor p.o. intake likely secondary to side effect of Mounjaro Patient receiving his 3 L of IV fluid bolus at this time. Will continue IV fluids -adequately fluid-resuscitated, will continue to encourage oral intake Improving, BUN creatinine ratio 29/0.9 today Lumbar back pain: Code(s): M54.50 - Low back pain, unspecified Status: Acute Assessment and Plan: Patient presented with lower back pain, according the patient had lower back pain the last and was admitted for DKA which resolved on its own MRI of the lumbar spine: Moderate lumbar spondylosis, no evidence of diskitis or osteomyelitis Pain is better managed Subjective Date/time seen: 08/16/24 08:18 Interval history: Patient is afebrile, blood pressure stable, no O2 discharged on room air, patient still has severe pain of left foot, denies chest pain shortness of breath Exam Narrative: General: Pt is alert awake and in NAD Lungs/Chest: Trachea central Clear BS B/L, No crackles or wheezing. Cardiac: RRR. Normal S1 S2. No murmurs Circulation: Pedal pulses are intact and symmetrical. Abdomen: Normal bowel sounds.. Obese Soft. NT. ND. Extremities: No clubbing, cyanosis or edema. Warm : Ramirez in place Neurologic: Follows commands. Moves all 4 extremities PERRL AO x3 Skin: Left lateral foot wound more erythematous, swollen, warm. Objective Data Vital Signs Vital Signs: Vital Signs - 24 hr 08/15/24 09:24 08/15/24 10:00 08/15/24 10:00 Temperature Pulse Rate 104 H 103 H Respiratory Rate 25 H Blood Pressure 142/84 H Pulse Oximetry 93 92 Oxygen Delivery Nasal Cannula Oxygen Flow Rate 2 08/15/24 12:00 08/15/24 14:00 08/15/24 12:00 Temperature 98.4 F Pulse Rate 103 H 102 H 102 H Respiratory Rate 26 H 23 H Blood Pressure 135/82 130/81 Pulse Oximetry 92 92 Oxygen Delivery Oxygen Flow Rate 08/15/24 14:00 08/15/24 16:00 08/15/24 20:29 Temperature 98.1 F 97.7 F Pulse Rate 102 H 102 H 100 Respiratory Rate 32 H 20 Blood Pressure 138/83 147/83 H Pulse Oximetry 93 94 Oxygen Delivery Oxygen Flow Rate 08/15/24 21:13 08/16/24 04:24 Temperature 97.8 F Pulse Rate 100 98 Respiratory Rate 20 Blood Pressure 143/72 H Pulse Oximetry 95 Oxygen Delivery Oxygen Flow Rate Intake/Output Intake/Output: Intake & Output 08/13/24 08/14/24 08/15/24 08/16/24 23:59 23:59 23:59 23:59 Intake Total 3471.7 2555.4 1620 250 Output Total 700 1000 2000 Balance 2771.7 1555.4 -380 250 Meds/Results Medications: Active Medications Generic Name Dose Route Start Last Admin Trade Name Freq PRN Reason Stop Dose Admin Hydrocodone Bitart/Acetaminophen 1 tab 08/14/24 10:12 08/16/24 05:42 Hydrocodone/Acetaminophen (*Crx) 5-325 Mg Tablet PO 1 tab Q6H PRN Administration Pain Rated 4-6 Amlodipine Besylate 5 mg 08/14/24 09:00 08/15/24 08:16 Amlodipine Besylate 5 Mg Tablet PO 5 mg DAILY SANCHEZ Administration Carvedilol 25 mg 08/14/24 09:00 08/15/24 21:13 Carvedilol 25 Mg Tablet PO 25 mg Q12HR SANCHEZ Administration Dextrose 12.5 gm 08/14/24 07:37 Dextrose 50% 25 Gm/50 Ml Syringe IV PUSH PRN PRN Hypoglycemia Protocol Enoxaparin Sodium 40 mg 08/14/24 09:00 08/15/24 08:16 Enoxaparin 40 Mg/0.4 Ml Syringe SUB-Q 40 mg DAILY SANCHEZ Administration Escitalopram Oxalate 10 mg 08/14/24 09:00 08/15/24 08:16 Escitalopram Oxalate 10 Mg Tablet PO 10 mg DAILY SANCHEZ Administration Glucagon 1 mg 08/14/24 07:37 Glucagon For Inj 1 Mg Vial IM PRN PRN Hypoglycemia Protocol Glucose 15 gm 08/14/24 07:37 Glucose Oral Gel 15 Gm Of Glucse In 37.5 Gm Tube PO PRN PRN Hypoglycemia Protocol Dextrose 1,000 mls @ 100 mls/hr 08/14/24 07:37 Dextrose 5% 1,000 Ml IVPB PRN PRN Hypoglycemia Protocol Ampicillin Sodium/Sulbactam Sodium 3 gm in 100 mls @ 200 mls/hr 08/15/24 10:25 08/16/24 05:44 Unasyn 3 Gm/Ns 100 Ml IVPB 200 mls/hr Q6HR SANCHEZ Administration Insulin Aspart 4 - 8 units 08/14/24 08:00 08/15/24 16:43 Insulin Aspart (*Bkc) 100 Units/Ml SUB-Q 4 units TIDWM SANCHEZ Administration Protocol Insulin Aspart 2 - 4 units 08/14/24 21:00 08/15/24 21:14 Insulin Aspart (*Bkc) 100 Units/Ml SUB-Q 2 units HS SANCHEZ Administration Protocol Insulin Glargine 70 units 08/15/24 09:00 08/15/24 08:17 Insulin Glargine (*Bkc) 100 Units/Ml SUB-Q 70 units DAILY SANCHEZ Administration Losartan Potassium 100 mg 08/15/24 11:35 08/15/24 11:48 Losartan Potassium 100 Mg Tablet PO 100 mg DAILY SANCHEZ Administration Ondansetron HCl 4 mg 08/13/24 15:26 08/16/24 00:00 Ondansetron Inj 4 Mg/2 Ml Vial IV PUSH 4 mg Q6H PRN Administration Nausea And Vomiting Radiology Results: ITS Impressions Chest X-Ray 08/13/24 13:54 IMPRESSION: No acute cardiopulmonary pathology. Renal Ultrasound 08/13/24 15:07 IMPRESSION: 1. Normal kidneys. No hydronephrosis. Foot X-Ray 08/14/24 11:36 IMPRESSION: 1. Septic arthritis at the fifth metatarsophalangeal joint with associated osteomyelitis at the base of the fifth proximal phalanx and head of the fifth metatarsal. Lumbar Spine X-Ray 08/14/24 11:49 IMPRESSION: No acute osseous abnormality lumbar spine. Multilevel degenerative disc disease. Lumbar Spine MRI 08/14/24 15:23 IMPRESSION: 1. Moderate lumbar spondylosis. 2. No evidence of discitis/osteomyelitis. Labs Labs: Laboratory Results - last 24 hr 08/15/24 08/15/24 08/15/24 11:37 16:35 20:06 WBC RBC Hgb Hct MCV MCH MCHC RDW Plt Count MPV Immature Gran % (Auto) Neut % (Auto) Lymph % (Auto) [place] % (Auto) Eos % (Auto) Baso % (Auto) Lymph # (Auto) [place] # (Auto) Eos # (Auto) Baso # (Auto) Abs Immat Gran (auto) Absolute Neuts (auto) Absolute Nucleated RBC Nucleated RBC % Sodium Potassium Chloride Carbon Dioxide Anion Gap BUN Creatinine Estim Creat Clear Calc Estimated GFR Glucose POC Capillary Glucose 279 H 235 H 225 H Calcium Phosphorus Magnesium Total Bilirubin AST ALT Alkaline Phosphatase Total Protein Albumin 08/16/24 08/16/24 06:21 07:49 WBC 12.5 H RBC 3.81 L Hgb 11.1 L Hct 32.5 L MCV 85.3 MCH 29.1 MCHC 34.2 RDW 13.3 Plt Count 143 L MPV 10.5 H Immature Gran % (Auto) 1.5 H Neut % (Auto) 81.5 H Lymph % (Auto) 6.0 L [place] % (Auto) 10.6 H Eos % (Auto) 0.2 Baso % (Auto) 0.2 Lymph # (Auto) 0.75 L [place] # (Auto) 1.3 H Eos # (Auto) 0.0 Baso # (Auto) 0.0 Abs Immat Gran (auto) 0.19 H Absolute Neuts (auto) 10.2 H Absolute Nucleated RBC 0.000 Nucleated RBC % 0.0 Sodium 131 L Potassium 3.7 Chloride 100 Carbon Dioxide 23 Anion Gap 8 BUN 29 H Creatinine 0.90 Estim Creat Clear Calc 120 Estimated GFR > 60 Glucose 209 H POC Capillary Glucose 213 H Calcium 8.4 Phosphorus 2.6 Magnesium 2.3 Total Bilirubin 0.9 AST 22 ALT 16 Alkaline Phosphatase 99 Total Protein 6.0 L Albumin 2.8 L
[2024-08-16] MEDS: HYDROmorphone HCL INJ (*CRX) 1 MG/ML SYR 0.5 MG IV PUSH (08:42)
[2024-08-16] MEDS: ONDANSETRON INJ 4 MG/2 ML VIAL IV PUSH ×2 (08:45)
[2024-08-16] MEDS: carvediloL 25 MG TABLET PO ×2 (08:53→20:00)
[2024-08-16] MEDS: amLODIPine BESYLATE 5 MG TABLET PO (08:53)
[2024-08-16] MEDS: ESCITALOPRAM OXALATE 10 MG TABLET PO (08:54)
--- NOTE | 2024-08-16 09:40 | PC.NURSE ---
RN held the insulin since pt was going to surgery 1000
--- NOTE | 2024-08-16 10:05 | PC.NURSE ---
Pt was taken by pre-op at 1005
[2024-08-16 10:55] LABS: Glucose Point of Care 203 mg/dl (65-105)
--- NOTE | 2024-08-16 11:06 | WPDHPUPDATE1 ---
History and Physical Update Update Date/Time: 08/16/24 11:06 History and Physical has been reviewed, including an updated exam of the patient. There are NO changes in the patient's condition. Risks, benefits, and alternatives have been discussed and questions answered. Patient agrees to proceed with procedure.
--- NOTE | 2024-08-16 11:21 | P.PNAN_ITS ---
Anes - Initial Pre Proc Eval Procedure: Operation Date: 08/16/24 11:30 Proposed Procedures p Left Fifth Toe Ray Amputation - Sadi Ann DO Date/Time: 08/16/24 11:21 Surgeon: Carlos Richards MD Pre Op Diagnosis: dka Patient Data Age: 49 Gender: M Height: 1.88 m Weight: 123.2 kg Last Vital Signs Temp 37.0 C 08/16/24 10:46 Pulse 101 H 08/16/24 10:46 Resp 14 08/16/24 10:46 BP 160/85 H 08/16/24 10:46 Pulse Ox 97 08/16/24 10:46 O2 Del Method Room Air 08/16/24 10:46 O2 Flow Rate 2 08/15/24 09:24 Allergies Allergy/AdvReac Type Severity Reaction Status Date / Time No Known Allergies Allergy Verified 07/30/24 14:59 Home Medications Medication Instructions Recorded Confirmed Type blood-glucose sensor (Dexcom G7 #3 ea 01/17/24 08/13/24 Rx Sensor device) escitalopram oxalate 10 mg tablet 10 mg PO DAILY #90 tabs 01/17/24 08/13/24 Rx (Lexapro) insulin glargine U-300 conc 300 64 unit subcut HS 04/24/24 08/13/24 History unit/mL (3 mL) subcutaneous pen (Toujeo Max U-300 SoloStar) blood sugar diagnostic (OneTouch #1 [facility] 04/30/24 08/13/24 Rx Verio test strips) blood-glucose meter (OneTouch #1 [facility] 04/30/24 08/13/24 Rx Verio Flex Meter) insulin syringe-needle U-100 1 mL #1 [facility] 04/30/24 08/13/24 Rx 31 gauge x 15/64 (BD Veo Insulin Syringe Ultra-Fine) lancets 30 gauge (OneTouch Delica #1 [facility] 04/30/24 08/13/24 Rx Plus Lancet) insulin lispro 100 unit/mL 1 sliding scale dose subcut 07/16/24 08/13/24 Rx subcutaneous pen (Humalog KwikPen USEASDIRECTD #15 mL (U-100) Insulin) amlodipine 5 mg tablet 5 mg PO DAILY #30 tabs 07/17/24 08/13/24 Rx losartan 100 mg tablet 100 mg PO DAILY #30 tabs 07/17/24 08/13/24 Rx carvedilol 25 mg tablet (Coreg) 25 mg PO Q12HR #60 tabs 08/01/24 08/13/24 Rx Mounjaro 2.5 mg/0.5 mL 2.5 mg (0.5 mL) subcut WEEKLY #2 mL 08/09/24 08/13/24 Rx subcutaneous pen injector (tirzepatide) Laboratory Tests 08/15/24 08/15/24 08/15/24 11:37 16:35 20:06 WBC RBC Hgb Hct MCV MCH MCHC RDW Plt Count MPV Immature Gran % (Auto) Neut % (Auto) Lymph % (Auto) [place] % (Auto) Eos % (Auto) Baso % (Auto) Lymph # (Auto) [place] # (Auto) Eos # (Auto) Baso # (Auto) Abs Immat Gran (auto) Absolute Neuts (auto) Absolute Nucleated RBC Nucleated RBC % Sodium Potassium Chloride Carbon Dioxide Anion Gap BUN Creatinine Estim Creat Clear Calc Estimated GFR Glucose POC Capillary Glucose 279 H mg/dl 235 H mg/dl 225 H mg/dl (65-105) (65-105) (65-105) Calcium Phosphorus Magnesium Total Bilirubin AST ALT Alkaline Phosphatase Total Protein Albumin 08/16/24 08/16/24 08/16/24 06:21 07:49 10:52 WBC 12.5 H K/mm3 (4.5-10.0) RBC 3.81 L M/mm3 (4.6-6.20) Hgb 11.1 L g/dL (14.0-18.0) Hct 32.5 L % (42.0-52.0) MCV 85.3 fl (80-100) MCH 29.1 pg (26-34) MCHC 34.2 g/dl (32-36) RDW 13.3 % (11.5-14.5) Plt Count 143 L k/mm3 (150-375) MPV 10.5 H fl (7.4-10.4) Immature Gran % (Auto) 1.5 H % (0-0.5) Neut % (Auto) 81.5 H % (45.5-73.1) Lymph % (Auto) 6.0 L % (18.3-44.2) [place] % (Auto) 10.6 H % (2.6-8.5) Eos % (Auto) 0.2 % (0-4.4) Baso % (Auto) 0.2 % (0.2-1.2) Lymph # (Auto) 0.75 L K/mm3 (0.9-3.2) [place] # (Auto) 1.3 H K/mm3 (0.1-0.6) Eos # (Auto) 0.0 K/mm3 (0-0.3) Baso # (Auto) 0.0 K/mm3 (0.0-0.1) Abs Immat Gran (auto) 0.19 H K/mm3 (0.00-0.031) Absolute Neuts (auto) 10.2 H K/mm3 (1.3-6.7) Absolute Nucleated RBC 0.000 K/mm3 (0.0-0.012) Nucleated RBC % 0.0 % (0.0-0.2) Sodium 131 L mmol/L (137-145) Potassium 3.7 mmol/L (3.4-5.0) Chloride 100 mmol/L (98-107) Carbon Dioxide 23 mmol/L (22-30) Anion Gap 8 mmol/L (4-12) BUN 29 H mg/dL (9-20) Creatinine 0.90 mg/dL (0.7-1.3) Estim Creat Clear Calc 120 ml/min Estimated GFR > 60 (59 - ) Glucose 209 H mg/dL (65-110) POC Capillary Glucose 213 H mg/dl 203 H mg/dl (65-105) (65-105) Calcium 8.4 mg/dL (8.4-10.2) Phosphorus 2.6 mg/dL (2.5-4.5) Magnesium 2.3 mg/dL (1.6-2.3) Total Bilirubin 0.9 mg/dL (0.2-1.3) AST 22 U/L (17-59) ALT 16 U/L (6-50) Alkaline Phosphatase 99 U/L (38-126) Total Protein 6.0 L g/dL (6.3-8.2) Albumin 2.8 L g/dL (3.5-5.1) Patient hx anesthesia problems: none Family hx anesthesia problems: none Results Review: All pre-operative results and documents have been reviewed as part of the pre- operative evaluation. [facility] Past Medical History Medical History Depression Erectile dysfunction History of kidney stones Hypertension Insulin dependent type 2 diabetes mellitus Hemoglobin A1c on 10/26/2020 was 12.4%. 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 His 1st about 5 years ago. Nonsmoker. No alcohol or illicit substance abuse. He designates his fiancee, Estefania Fontaine, as his surrogate decision maker and he wishes to be a full code.. Smoking status: Never smoker Alcohol intake: never Alcohol use details: Previously listed as current; denies in 2023 Substance use: never Substance use type: does not use Do You Feel Safe in your Home?: Yes Lack of Transportation: No Lack of Food: Never True Current Housing: I Do Not Have Housing Concerned About Future Housing: No Difficulty Paying Gas/Electric Bills: No Difficulty Paying for Meds: No Currently Unemployed: No Education: Associate Degree Difficulty w/ Childcare or Family Care: No Living arrangements: with family Occupation/Education: occupation Gender identity (if verbalized by the patient): Male Sexual Orientation (if Verbalized by the Patient): Straight or Heterosexual Spiritual care concerns: No Anes - Eval Final PreProcedure Day of Procedure 08/16/24 11:21 Patient weight: obese Heart: tachycardia Lungs: decreased breath sounds Airway: Mallampati scale class III Neurological: alert and oriented Last oral intake: >/= 8 hours ASA classification: III Emergent: no Anesthetic plan: proceed Anesthesia type and monitoring: general LMA and standard monitoring Results Review: All pre-operative results and documents have been reviewed as part of the pre- operative evaluation. Informed Consent: The patient's anesthetic plan and its attendant risks and benefits were discussed with the patient/family/POA. Questions were solicited and answers provided to the satisfaction of the patient/family/POA.
[2024-08-16] MEDS: LACTATED RINGERS 1,000 ML 30 ML IV CONT (12:37)
--- NOTE | 2024-08-16 12:44 | P.OP_ITS ---
Procedure Note - Detailed Date of Procedure 08/16/24 Pre-op Diagnosis Osteomyelitis left 5th toe and metatarsal head, left foot ulcer Post-op Diagnosis Same Procedure Performed Left 5th toe ray amputation Surgeon Sadi Ann, DO Anesthesia General and Local (0.5% bupivacaine with epinephrine) Indications This is a 49-year-old man who presented to the emergency department with DKA and sepsis and was found to have osteomyelitis of his left 5th toe and metatarsal head. He has a history of osteomyelitis about 3 months ago and was treated with 6 weeks of antibiotics and was doing well for appeared of time. Over the past several days the wound worsened and he now has an open wound tunneling all the way to the bone and purulence drainage coming from this region. X-ray confirmed evidence of osteomyelitis. I discussed further treatment options with patient and his . Decision was made to proceed with left 5th toe ray amputation. Findings Left 5th toe ray amputation was performed. The patient had an ulcer on the plantar/lateral surface of the 5th metatarsal head. This made the incision location at the skin very difficult and I had to excise more tissue than would typically be necessary for a ray amputation. This made closure somewhat diff icult and I had to partially close the skin with about a 3-5 mm gap between the skin edges in some locations. The metatarsal was transected proximal to the metatarsal head in a location where there would be sufficient tissue to cover the bone. The left 5th toe was sent to the lab for pathology. Description of Procedure Procedure as well as risks, benefits, and alternatives were discussed with the patient. Written consent was obtained and placed in chart prior to procedure. Patient was brought back to surgical suite. He was placed supine on operating table. Time-out was done to confirm patient and procedure. He was then intubated by the anesthesia department. His left foot was prepped and draped in sterile fashion using Betadine prep. An elliptical incision was made from the webbing between the 4th and 5th digit around the ulcer and along the lateral forefoot using a 15 blade scalpel. Electrocautery was then used for hemostasis and dissection through the subcutaneous tissue. The subcutaneous fat pad was incised using electrocautery as well as the overlying fascia and tendons. Dissection was carried out down to the metatarsal head using electrocautery and then the more proximal metatarsal bone was freed up from surrounding tendinous attachments. A bone elevator was then used to clear the bone circumferentially for transection. I then transected the metatarsal bone just proximal to the metatarsal head using a Gigli saw. The remaining attachments to the metatarsal bone and phalanx were taken down using electrocautery. Hemostasis appeared adequate. I then irrigated the wound bed with sterile saline. 0.5% bupivacaine with epinephrine was infiltrated locally around the subcutaneous and periosteal space. 0 Vicryl subcutaneous sutures were placed to help approximate some of the deep tissue over the bone. The skin was then reapproximated with 3-0 nylon vertical mattress interrupted sutures. Due to some tension on the tissue, I was unable to completely approximate the skin together. There was about a 3-5 mm gap in the midportion of the wound, but the edges both proximally and distally came together. Xeroform gauze was then applied followed by fluff gauze, Kerlix wrap, and Jesus wrap. The patient was then awakened from anesthesia, extubated, and transferred to recovery. Estimated Blood Loss 50 Urine Output 1,000 Pathology Yes (Left 5th toe) Condition Stable Disposition Floor [facility] Billing Surgery - Charge Forward: Surgery Billing
[2024-08-16 12:52] LABS: Glucose Point of Care 213 mg/dl (65-105)
--- NOTE | 2024-08-16 14:44 | PC.NURSE ---
RN assumed care
[2024-08-16] MEDS: HYDROmorphone HCL INJ (*CRX) 1 MG/ML SYR IV PUSH ×2 (16:18→20:00)
[2024-08-16 16:54] LABS: Glucose Point of Care 262 mg/dl (65-105)
[2024-08-16] MEDS: INSULIN ASPART (*BKC) 100 UNITS/ML SUB-Q ×2 (17:52→20:01)
[2024-08-16 19:54] LABS: Glucose Point of Care 304 mg/dl (65-105)
[2024-08-17] VITALS (9 sets, daily range): BP systolic 143–192; BP diastolic 74–89; PULSE 88–104; RESP 16–18; TEMP 36.5–37.4; O2SAT 93–100; BMI 38.2
--- NOTE | 2024-08-17 | ECHO_ITS ---
Patient Info Name: Pavel Laughlin Age: 49 years : 1975 Gender: Male Ht: 74 in Wt: 297 lbs BSA: 2.70 m2 HR: 103 bpm BP: 158 / 75 mmHg Heart Rhythm: Sinus Rhythm Technical Quality: Good Exam Date: 08/17/2024 12:00 PM Exam Location: Echo Lab Patient Status: Inpatient Admit Date: 08/14/2024 Staff Ordering Physician: Coby Silver MD Electrotype Servicer: Alisa Reyna RDCS Attending Provider: Carlos Richards MD Exam Type: CA echo doppler color flow Study Info Indications - strptococcal bacteremia Complete two-dimensional, color flow and Doppler transthoracic echocardiogram is performed. Summary 1. Left ventricular chamber dimension is normal. 2. Left ventricular systolic function is normal, estimated at 55-60%. 3. The left ventricular diastolic function is grade I diastolic dysfunction. 4. Right ventricular systolic function is normal. 5. Left atrial chamber dimension is mildly enlarged. 6. Study was done for bacteremia. No obvious vegetations on this study, however, not all valves were well visualized. Consider LUCHO if clinically indicated. Left Ventricle Left ventricular chamber dimension is normal. Left ventricular systolic function is normal, estimated at 55-60%. There is no increased left ventricular wall thickness. The left ventricular diastolic function is grade I diastolic dysfunction. Right Ventricle Right ventricular chamber dimension is normal. Right ventricular systolic function is normal. Left Atria Left atrial chamber dimension is mildly enlarged. Right Atria Right atrial chamber dimension is normal. Atrial Septum Intact interatrial septum visualized by color flow imaging. Aortic Valve The aortic valve is not well visualized. There is no aortic valve stenosis. There is no aortic valve regurgitation. Pulmonic Valve The pulmonic valve is not well visualized. Mitral Valve There is trace mitral valve regurgitation. Tricuspid Valve There is trace tricuspid valve regurgitation. Pericardium/Pleural There is no pericardial effusion. Inferior Vena Cava Inferior vena cava is not well visualized. Aorta The aortic root size at the sinus of Valsalva is normal. Left Ventricular Outflow Tract Name Value Normal LVOT 2D LVOT Diameter 2.3 cm LVOT Doppler LVOT Peak Gradient 4 mmHg LVOT Mean Gradient 2 mmHg LVOT VTI 22 cm LVOT VTI/AV VTI Ratio 0.9 LVOT Stroke Volume 93 ml LVOT CO 8.5 l/min LVOT CI 3.1 l/min/m2 Mitral Valve Name Value Normal MV Doppler MV Decel [place] 684 cm/s2 MV PHT 33 ms MV Area (PHT) 6.6 cm2 4.0-5.0 MV Diastolic Function MV E Peak Velocity 79 cm/s MV A Peak Velocity 102 cm/s MV E/A 0.8 MV Decel Time 115 ms MV Annular TDI MV E/e' (Septal) 10.0 <=8.0 MV E/e' (Lateral) 7.1 <=8.0 MV E/e' (Average) 8.5 Tricuspid Valve Name Value Normal TV Regurgitation Doppler TR Peak Velocity 211 cm/s TR Peak Gradient 9 mmHg Estimated PAP/RSVP RV Systolic Pressure 19 mmHg <36 Aortic Valve Name Value Normal AV Doppler AV Peak Velocity 125 cm/s AV Peak Gradient 6 mmHg AV Mean Gradient 3 mmHg AV VTI 23 cm AV Area (Cont Eq VTI) 4.1 cm2 >=3.0 AV Area (Cont Eq Artie) 3.4 cm2 AV Regurgitation 2D LVOT Area 4.3 cm2 Ventricles Name Value Normal LV Dimensions 2D/MM IVS Diastolic Thickness (2D) 1.0 cm 0.6-1.0 LVID Diastole (2D) 5.9 cm 4.2-5.8 LVIW Diastolic Thickness (2D) 0.9 cm 0.6-1.0 LVID Systole (2D) 3.6 cm 2.5-4.0 LVOT Diameter 2.3 cm LV Mass (2D Cubed) 229.07 g 88.00-224.00 LV Mass Index (2D Cubed) 85 g/m2 49-115 Relative Wall Thickness (2D) 0.31 LV Fractional Shortening/Ejection Fraction 2D/MM LV Fractional Shortening (2D) 38 % 25-43 LV EF (2D Teicholz) 67 % 52-72 LV Diastolic Volume (4C MOD) 181 ml LV EF (4C MOD) 62 % LV Diastolic Volume (2C MOD) 151 ml LV EF (2C MOD) 52 % LV Diastolic Volume (BP MOD) 167 ml 62-150 LV Diastolic Volume Index (BP MOD) 62 ml/m2 34-74 LV Systolic Volume (BP MOD) 72 ml 21-61 LV Systolic Volume Index (BP MOD) 26 ml/m2 11-31 LV EF (BP MOD) 57 % 52-72 LV Diastolic Length (4C) 9.8 cm LV Systolic Length (4C) 8.4 cm LV Stroke Volume (4C MOD) 112 ml Atria Name Value Normal LA Dimensions LA Volume (4C A-L) 58 ml LA Volume (BP A-L) 62 ml RA Dimensions RA Area (4C) 10.6 cm2 <=18.0 Report Signatures
[2024-08-17] MEDS: ONDANSETRON INJ 4 MG/2 ML VIAL IV PUSH (00:26)
[2024-08-17] MEDS: HYDROmorphone HCL INJ (*CRX) 1 MG/ML SYR IV PUSH ×3 (00:26→21:11)
[2024-08-17] MEDS: AMPICILLIN SULB 3 GM/NS 100 ML 3 GM/100 ML VIAL IVPB ×2 (00:26→05:29)
[2024-08-17] MEDS: diphenhydrAMINE HCl INJ 50 MG/ML VIAL IV PUSH (01:15)
[2024-08-17] MEDS: CYCLOBENZAPRINE HCL 5 MG TABLET PO ×3 (01:15→21:12)
[2024-08-17] MEDS: oxyCODONE/ACETAMINOPHEN (*CRX) 10-325 MG TABLET 1 TAB PO (04:00)
[2024-08-17] MEDS: HYDROmorphone HCL INJ (*CRX) 1 MG/ML SYR 0.5 MG IV PUSH ×3 (05:27→16:00)
[2024-08-17 05:56] LABS: Basophils Percent Auto 0.3 % (0.2-1.2); Eosinophils Percent Auto 0.1 % (0-4.4); Hematocrit 31.4 % (42.0-52.0); Hemoglobin 10.7 g/dL (14.0-18.0); Immature Granulocyte Absolute 0.35 K/mm3 (0.00-0.031); Immature Granulocyte Percent A 3.1 % (0-0.5); Lymphocytes Absolute Auto 0.89 K/mm3 (0.9-3.2); Lymphocytes Percent Auto 7.9 % (18.3-44.2); Mean Corpuscular HGB Conc 34.1 g/dl (32-36); Mean Corpuscular Hemoglobin 29.1 pg (26-34); Mean Corpuscular Volume 85.3 fl (80-100); Mean Platelet Volume 10.7 fl (7.4-10.4); Monocytes Absolute Auto 1.4 K/mm3 (0.1-0.6); Monocytes Percent Auto 12.3 % (2.6-8.5); Neutrophils Absolute Auto 8.7 K/mm3 (1.3-6.7); Neutrophils Percent Auto 76.3 % (45.5-73.1); Platelet Count Result 190 k/mm3 (150-375); Red Blood Count 3.68 M/mm3 (4.6-6.20); Red Cell Distribution Width 13.5 % (11.5-14.5); White Blood Count 11.3 K/mm3 (4.5-10.0)
[2024-08-17 06:07] LABS: Alanine Aminotransferase 14 U/L (6-50); Albumin Level 2.7 g/dL (3.5-5.1); Alkaline Phosphatase 76 U/L (38-126); Anion Gap 7 mmol/L (4-12); Aspartate Amino Transferase 21 U/L (17-59); Bilirubin,Total 0.9 mg/dL (0.2-1.3); Blood Urea Nitrogen 27 mg/dL (9-20); Calcium 7.9 mg/dL (8.4-10.2); Carbon Dioxide 23 mmol/L (22-30); Chloride 98 mmol/L (98-107); Estimated CRCL calculation 134 ml/min; Estimated Glomerular Filt Rate > 60; Glucose 243 mg/dL (65-110); Magnesium 2.1 mg/dL (1.6-2.3); Phosphorus 2.9 mg/dL (2.5-4.5); Potassium 3.5 mmol/L (3.4-5.0); Sodium 128 mmol/L (137-145)
--- NOTE | 2024-08-17 07:30 | PC.NURSE ---
RN assumed care and pt R 18 iv was pulled out and hanging on iv pole. RN assessed are and no bruising present
[2024-08-17 07:51] LABS: Glucose Point of Care 251 mg/dl (65-105)
[2024-08-17] MEDS: LOSARTAN POTASSIUM 100 MG TABLET PO (10:03)
[2024-08-17] MEDS: ENOXAPARIN 40 MG/0.4 ML SYRINGE SUB-Q (10:03)
[2024-08-17] MEDS: carvediloL 25 MG TABLET PO ×2 (10:03→21:12)
[2024-08-17] MEDS: ESCITALOPRAM OXALATE 10 MG TABLET PO (10:03)
[2024-08-17] MEDS: levoFLOXacin 750 MG/D5W 150 ML 750 MG/150 ML BAG 100 MG IVPB (10:05)
[2024-08-17] MEDS: INSULIN ASPART (*BKC) 100 UNITS/ML SUB-Q ×2 (10:05→21:10)
--- NOTE | 2024-08-17 11:20 | PC.NURSE ---
RN spoke with the provider regarding the pts pain and 70 units of lantus and one time order was added per Dr. Silver.
[2024-08-17] MEDS: amLODIPine BESYLATE 5 MG TABLET PO (11:23)
[2024-08-17] MEDS: oxyCODONE/ACETAMINOPHEN (*CRX) 5-325 MG TABLET 1 TABLET PO ×2 (11:23→19:09)
[2024-08-17 11:25] LABS: Glucose Point of Care 253 mg/dl (65-105)
[2024-08-17] MEDS: INSULIN GLARGINE (*BKC) 100 UNITS/ML 30 UNITS SUB-Q (11:25)
--- NOTE | 2024-08-17 11:40 | P.PNAN_ITS ---
Anes - Prog Note Post-Op Date/Time: 08/17/24 11:40 Cardiovascular status: normal Respiratory status: normal Airway patency: baseline Mental status: baseline Post-Op hydration status: normal Vital Signs: Last Vital Signs Temp 36.6 C 08/17/24 08:00 Pulse 90 08/17/24 10:03 Resp 18 08/17/24 08:00 BP 158/76 H 08/17/24 08:00 Pulse Ox 96 08/17/24 08:46 O2 Del Method Nasal Cannula 08/17/24 08:46 O2 Flow Rate 2 08/17/24 08:46 FiO2 28 08/17/24 08:46 Pain Score (VAS): 0 I/O: Intake & Output 08/16/24 08/17/24 08/17/24 23:59 07:59 15:59 Intake Total 100 800 Output Total 3000 Balance 100 -2200 Laboratory Tests 08/17/24 05:11 08/17/24 05:11 08/16/24 08/16/24 08/16/24 12:45 16:29 19:42 WBC RBC Hgb Hct MCV MCH MCHC RDW Plt Count MPV Immature Gran % (Auto) Neut % (Auto) Lymph % (Auto) [place] % (Auto) Eos % (Auto) Baso % (Auto) Lymph # (Auto) [place] # (Auto) Eos # (Auto) Baso # (Auto) Abs Immat Gran (auto) Absolute Neuts (auto) Absolute Nucleated RBC Nucleated RBC % Sodium Potassium Chloride Carbon Dioxide Anion Gap BUN Creatinine Estim Creat Clear Calc Estimated GFR Glucose POC Capillary Glucose 213 H 262 H 304 H Calcium Phosphorus Magnesium Total Bilirubin AST ALT Alkaline Phosphatase Total Protein Albumin 08/17/24 08/17/24 08/17/24 05:11 07:45 11:19 WBC 11.3 H RBC 3.68 L Hgb 10.7 L Hct 31.4 L MCV 85.3 MCH 29.1 MCHC 34.1 RDW 13.5 Plt Count 190 MPV 10.7 H Immature Gran % (Auto) 3.1 H Neut % (Auto) 76.3 H Lymph % (Auto) 7.9 L [place] % (Auto) 12.3 H Eos % (Auto) 0.1 Baso % (Auto) 0.3 Lymph # (Auto) 0.89 L [place] # (Auto) 1.4 H Eos # (Auto) 0.0 Baso # (Auto) 0.0 Abs Immat Gran (auto) 0.35 H Absolute Neuts (auto) 8.7 H Absolute Nucleated RBC 0.000 Nucleated RBC % 0.0 Sodium 128 L Potassium 3.5 Chloride 98 Carbon Dioxide 23 Anion Gap 7 BUN 27 H Creatinine 0.80 Estim Creat Clear Calc 134 Estimated GFR > 60 Glucose 243 H POC Capillary Glucose 251 H 253 H Calcium 7.9 L Phosphorus 2.9 Magnesium 2.1 Total Bilirubin 0.9 AST 21 ALT 14 Alkaline Phosphatase 76 Total Protein 6.0 L Albumin 2.7 L Microbiology 08/14/24 10:39 Foot Left Wound Culture - Final Escherichia Coli 08/15/24 09:03 Blood Blood Culture - Preliminary 08/15/24 08:59 Blood Blood Culture - Preliminary 08/13/24 15:40 Blood Blood Culture - Preliminary Streptococcus pneumoniae 08/13/24 15:48 Blood Blood Culture - Preliminary Streptococcus pneumoniae Post-procedural complaints: none Patient Feedback: Patient satisfied with anesthetic care.
--- NOTE | 2024-08-17 11:45 | PC.NURSE ---
RN informed Dr. Silver that 1mg diladid was given at 10:12 and his pain is still at a 7-8. Dr. Silver instructed RN to give pt 5-325 percocet at 11:25 abd at noon give pt the 0.5mg diladid and put him on cont O2. 30 units of lantus one time since pt isn't eating.
--- NOTE | 2024-08-17 13:23 | PM.PNGS ---
Progress Note: A&P Assessment and Plan (1) Osteomyelitis of foot, left, acute: Code(s): M86.172 - Other acute osteomyelitis, left ankle and foot Status: Acute Assessment and Plan: Continue daily dressing changes with Xerofoam gauze, 4x4s, and Kerlix wrap. Continue antibiotics to treat bacteremia Non-weight bearing on LLE, PT eval for crutch use and ambulation. 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 No foot pain. Exam Extrem: Other: Left foot wound healing well. Good granulation tissue between skin edges. No erythema to forefoot. Objective Data Vital Signs Vital Signs: Vital Signs - 24 hr 08/16/24 13:35 08/16/24 13:50 08/16/24 14:06 Temperature Pulse Rate 102 H 102 H 102 H Respiratory Rate 15 18 20 Blood Pressure 147/92 H 143/69 H 143/69 H Pulse Oximetry 94 92 93 Oxygen Delivery Nasal Cannula Nasal Cannula Nasal Cannula Oxygen Flow Rate 2 2 2 Fraction of Inspired Oxygen 08/16/24 14:20 08/16/24 14:31 08/16/24 14:50 Temperature 98.1 F 98.1 F 99.4 F Pulse Rate 102 H 102 H 102 H Respiratory Rate 21 H 21 H 20 Blood Pressure 161/85 H 161/86 H 160/87 H Pulse Oximetry 93 95 94 Oxygen Delivery Nasal Cannula Nasal Cannula Oxygen Flow Rate 2 2 Fraction of Inspired Oxygen 08/16/24 15:05 08/16/24 16:00 08/16/24 15:35 Temperature 99.4 F 99.4 F Pulse Rate 101 H 101 H 100 Respiratory Rate 20 20 18 Blood Pressure 157/86 H 150/83 H Pulse Oximetry 95 95 96 Oxygen Delivery Nasal Cannula Oxygen Flow Rate 2 Fraction of Inspired Oxygen 08/16/24 16:35 08/16/24 20:00 08/16/24 20:51 Temperature 99.1 F 98.2 F Pulse Rate 101 H 99 101 H Respiratory Rate 18 18 Blood Pressure 147/89 H 158/85 H Pulse Oximetry 94 96 Oxygen Delivery Oxygen Flow Rate Fraction of Inspired Oxygen 08/16/24 20:00 08/17/24 00:47 08/17/24 05:55 Temperature 97.7 F 97.7 F Pulse Rate 101 H 104 H Respiratory Rate 18 16 Blood Pressure 149/76 H 143/74 H Pulse Oximetry 97 96 93 Oxygen Delivery Nasal Cannula Oxygen Flow Rate 2 Fraction of Inspired Oxygen 08/17/24 08:00 08/17/24 08:46 08/17/24 10:03 Temperature 97.8 F Pulse Rate 103 H 90 Respiratory Rate 18 Blood Pressure 158/76 H Pulse Oximetry 96 96 Oxygen Delivery Nasal Cannula Oxygen Flow Rate 2 Fraction of Inspired Oxygen 28 08/17/24 12:00 Temperature 99.4 F Pulse Rate 100 Respiratory Rate 18 Blood Pressure 149/81 H Pulse Oximetry 100 Oxygen Delivery Oxygen Flow Rate Fraction of Inspired Oxygen Intake/Output Intake/Output: Intake & Output 08/14/24 08/15/24 08/16/24 08/17/24 23:59 23:59 23:59 23:59 Intake Total 2555.4 1620 1050 800 Output Total 1000 2000 1000 3000 Balance 1555.4 -380 50 -2200 Meds/Results Medications: Active Medications Generic Name Dose Route Start Last Admin Trade Name Freq PRN Reason Stop Dose Admin Amlodipine Besylate 10 mg 08/18/24 09:00 Amlodipine Besylate 10 Mg Tablet PO DAILY SANCHEZ Carvedilol 25 mg 08/14/24 09:00 08/17/24 10:03 Carvedilol 25 Mg Tablet PO 25 mg Q12HR SANCHEZ Administration Cyclobenzaprine HCl 5 mg 08/17/24 00:46 08/17/24 10:04 Cyclobenzaprine Hcl 5 Mg Tablet PO 5 mg Q8H PRN Administration Muscle Spasm Dextrose 12.5 gm 08/14/24 07:37 Dextrose 50% 25 Gm/50 Ml Syringe IV PUSH PRN PRN Hypoglycemia Protocol Enoxaparin Sodium 40 mg 08/14/24 09:00 08/17/24 10:03 Enoxaparin 40 Mg/0.4 Ml Syringe SUB-Q 40 mg DAILY SANCHEZ Administration Escitalopram Oxalate 10 mg 08/14/24 09:00 08/17/24 10:03 Escitalopram Oxalate 10 Mg Tablet PO 10 mg DAILY SANCHEZ Administration Glucagon 1 mg 08/14/24 07:37 Glucagon For Inj 1 Mg Vial IM PRN PRN Hypoglycemia Protocol Glucose 15 gm 08/14/24 07:37 Glucose Oral Gel 15 Gm Of Glucse In 37.5 Gm Tube PO PRN PRN Hypoglycemia Protocol Hydromorphone HCl 1 mg 08/16/24 14:34 08/17/24 10:21 Hydromorphone Hcl Inj (*Crx) 1 Mg/Ml Syr IV PUSH 1 mg Q2H PRN Administration Breakthrough Pain Rated 7-10 or NPO Hydromorphone HCl 0.5 mg 08/16/24 14:34 08/17/24 12:56 Hydromorphone Hcl Inj (*Crx) 1 Mg/Ml Syr IV PUSH 0.5 mg Q2H PRN Administration Breakthrough Pain Rated 4-6 or NPO Dextrose 1,000 mls @ 100 mls/hr 08/14/24 07:37 Dextrose 5% 1,000 Ml IVPB PRN PRN Hypoglycemia Protocol Ceftriaxone Sodium 2 gm in 100 mls @ 200 mls/hr 08/17/24 21:00 Rocephin 2 Gm/Ns 100 Ml IVPB Q24H [facility] Insulin Aspart 4 - 8 units 08/14/24 08:00 08/17/24 10:05 Insulin Aspart (*Bkc) 100 Units/Ml SUB-Q 5 units TIDWM [facility] Administration Protocol Insulin Aspart 2 - 4 units 08/14/24 21:00 08/16/24 20:01 Insulin Aspart (*Bkc) 100 Units/Ml SUB-Q 3 units HS [facility] Administration Protocol Insulin Aspart 6 units 08/17/24 12:00 Insulin Aspart (*Bkc) 100 Units/Ml SUB-Q TIDWM [facility] Insulin Glargine 70 units 08/15/24 09:00 08/17/24 11:35 Insulin Glargine (*Bkc) 100 Units/Ml SUB-Q Not Given DAILY [facility] Losartan Potassium 100 mg 08/15/24 11:35 08/17/24 10:03 Losartan Potassium 100 Mg Tablet PO 100 mg DAILY SANCHEZ Administration Naloxone HCl 0.1 mg 08/16/24 14:34 Naloxone Hcl 0.4 Mg/Ml Vial IV PUSH Q2M PRN Opiate Reversal Ondansetron HCl 4 mg 08/13/24 15:26 08/17/24 00:26 Ondansetron Inj 4 Mg/2 Ml Vial IV PUSH 4 mg Q6H PRN Administration Nausea And Vomiting Oxycodone/Acetaminophen 1 tablet 08/16/24 14:34 08/17/24 11:23 Oxycodone/Acetaminophen (*Crx) 5-325 Mg Tablet PO 1 tablet Q4H PRN Administration Pain Rated 4-6 Oxycodone/Acetaminophen 1 tab 08/16/24 14:34 08/17/24 04:00 Oxycodone/Acetaminophen (*Crx) 10-325 Mg Tablet PO 1 tab Q6H PRN Administration Pain Rated 7-10 Perflutren Lipid Microsphere 0 ml 08/17/24 09:52 Perflutren Lipid Microspheres 1.5 Ml Vial Diluted To 10 Ml Total Volume IV PUSH 08/20/24 09:52 ONCE PRN adequate visualization Protocol Radiology Results: ITS Impressions Chest X-Ray 08/13/24 13:54 IMPRESSION: No acute cardiopulmonary pathology. Renal Ultrasound 08/13/24 15:07 IMPRESSION: 1. Normal kidneys. No hydronephrosis. Foot X-Ray 08/14/24 11:36 IMPRESSION: 1. Septic arthritis at the fifth metatarsophalangeal joint with associated osteomyelitis at the base of the fifth proximal phalanx and head of the fifth metatarsal. Lumbar Spine X-Ray 08/14/24 11:49 IMPRESSION: No acute osseous abnormality lumbar spine. Multilevel degenerative disc disease. Lumbar Spine MRI 08/14/24 15:23 IMPRESSION: 1. Moderate lumbar spondylosis. 2. No evidence of discitis/osteomyelitis. Labs Labs: Laboratory Results - last 24 hr 08/16/24 08/16/24 08/17/24 16:29 19:42 05:11 WBC 11.3 H RBC 3.68 L Hgb 10.7 L Hct 31.4 L MCV 85.3 MCH 29.1 MCHC 34.1 RDW 13.5 Plt Count 190 MPV 10.7 H Immature Gran % (Auto) 3.1 H Neut % (Auto) 76.3 H Lymph % (Auto) 7.9 L [place] % (Auto) 12.3 H Eos % (Auto) 0.1 Baso % (Auto) 0.3 Lymph # (Auto) 0.89 L [place] # (Auto) 1.4 H Eos # (Auto) 0.0 Baso # (Auto) 0.0 Abs Immat Gran (auto) 0.35 H Absolute Neuts (auto) 8.7 H Absolute Nucleated RBC 0.000 Nucleated RBC % 0.0 Sodium 128 L Potassium 3.5 Chloride 98 Carbon Dioxide 23 Anion Gap 7 BUN 27 H Creatinine 0.80 Estim Creat Clear Calc 134 Estimated GFR > 60 Glucose 243 H POC Capillary Glucose 262 H 304 H Calcium 7.9 L Phosphorus 2.9 Magnesium 2.1 Total Bilirubin 0.9 AST 21 ALT 14 Alkaline Phosphatase 76 Total Protein 6.0 L Albumin 2.7 L 08/17/24 08/17/24 07:45 11:19 WBC RBC Hgb Hct MCV MCH MCHC RDW Plt Count MPV Immature Gran % (Auto) Neut % (Auto) Lymph % (Auto) [place] % (Auto) Eos % (Auto) Baso % (Auto) Lymph # (Auto) [place] # (Auto) Eos # (Auto) Baso # (Auto) Abs Immat Gran (auto) Absolute Neuts (auto) Absolute Nucleated RBC Nucleated RBC % Sodium Potassium Chloride Carbon Dioxide Anion Gap BUN Creatinine Estim Creat Clear Calc Estimated GFR Glucose POC Capillary Glucose 251 H 253 H Calcium Phosphorus Magnesium Total Bilirubin AST ALT Alkaline Phosphatase Total Protein Albumin
--- NOTE | 2024-08-17 14:12 | PM.IMPN ---
Progress Note: A&P Assessment and Plan (1) Bacteremia due to Streptococcus pneumoniae: Code(s): R78.81 - Bacteremia; B95.3 - Streptococcus pneumoniae as the cause of diseases classified elsewhere Status: Acute (2) Lumbar back pain: Code(s): M54.50 - Low back pain, unspecified Status: Acute (3) DKA (diabetic ketoacidosis): Code(s): E11.10 - Type 2 diabetes mellitus with ketoacidosis without coma Status: Acute (4) Acute kidney injury: Code(s): N17.9 - Acute kidney failure, unspecified Status: Acute Plan 49-year-old male with a significant past medical history of insulin-dependent type 2 diabetes mellitus, diabetic foot ulcer, depression, erectile dysfunction, hypertension, history of kidney stones who presented to the hospital for evaluation of body aches, nausea without vomiting, fever, chills. Workup in the hospital included a chest x-ray which was negative for any acute cardiopulmonary process. Renal ultrasound was performed which showed normal kidneys, no hydronephrosis. Initial labs showed a white blood cell count of 9.5, hemoglobin 12.2, platelet count 120, band neutrophils 17, sodium 130, chloride 95, bicarb 17, anion gap 18, creatinine 2.10, EGFR 34, blood sugar ranging 300-449, lactic acid 2.3, beta hydroxybutyrate 3.31. Respiratory panel was negative for influenza a and B, RSV, COVID. EKG showed sinus tachycardia with a rate of 100, QTC 449. Patient was given 2 L of normal saline while in the ED, given 18 units IV push regular insulin and started on an insulin infusion per DKA protocol. 1. 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 Diabetic ketoacidosis: Hemoglobin A1c 8.8 Blood glucose checked t.i.d. a.c. and HS Continue with Lantus 70 units, today he received 30 units since he did not eat much today Continue with sliding scale insulin Add mealtime insulin as well Adjust dose as needed 3. Streptococcus bacteremia: Unclear source Blood culture from 08/15/2024 is negative to date Trans thoracic echocardiogram negative for any vegetation Less suspicion for endocarditis, will not pursue for transesophageal echo cardiac surgeon leukocytosis 4. Hypertension: Increase the dose of Norvasc to 10 mg Continue with losartan Continue with Coreg Once pain is better controlled blood pressure should improve 5. PURNIMA: Resolved Avoid nephrotoxins Recheck BMP in a.m. Renal ultrasound negative for hydronephrosis 6. Lumbar back pain: MRI of lumbar spine shows moderate lumbar spondylosis no evidence of diskitis or osteomyelitis Already on pain medications Will add Lidoderm patch 7. Code status: Full 8. DVT prophylaxis: Lovenox 9. Disposition: Pending improvement Time Spent With Patient Time with patient: 25 - 35 minutes Subjective Date/time seen: 08/17/24 14:12 Interval history: Continues to be hyperglycemic Uncontrolled pain in his legs, back Elevated blood pressure Review of Systems Review of Systems: All systems reviewed & are unremarkable except as noted in HPI and below Exam Narrative: General: Pt is alert awake and in pain Lungs/Chest: Clear BS B/L, No crackles or wheezing. Cardiac: RRR. Normal S1 S2. No murmurs Circulation: Pedal pulses are intact and symmetrical. Abdomen: Normal bowel sounds.. Obese Soft. NT. ND. Extremities: No clubbing, cyanosis or edema. Warm : Ramirez in place Neurologic: Moves all 4 extremities PERRL AO x3 Skin: Left lateral foot in dressing. Objective Data Vital Signs Vital Signs: Vital Signs - 24 hr 08/16/24 14:20 08/16/24 14:31 08/16/24 14:50 Temperature 98.1 F 98.1 F 99.4 F Pulse Rate 102 H 102 H 102 H Respiratory Rate 21 H 21 H 20 Blood Pressure 161/85 H 161/86 H 160/87 H Pulse Oximetry 93 95 94 Oxygen Delivery Nasal Cannula Nasal Cannula Oxygen Flow Rate 2 2 Fraction of Inspired Oxygen 08/16/24 15:05 08/16/24 16:00 08/16/24 15:35 Temperature 99.4 F 99.4 F Pulse Rate 101 H 101 H 100 Respiratory Rate 20 20 18 Blood Pressure 157/86 H 150/83 H Pulse Oximetry 95 95 96 Oxygen Delivery Nasal Cannula Oxygen Flow Rate 2 Fraction of Inspired Oxygen 08/16/24 16:35 08/16/24 20:00 08/16/24 20:51 Temperature 99.1 F 98.2 F Pulse Rate 101 H 99 101 H Respiratory Rate 18 18 Blood Pressure 147/89 H 158/85 H Pulse Oximetry 94 96 Oxygen Delivery Oxygen Flow Rate Fraction of Inspired Oxygen 08/16/24 20:00 08/17/24 00:47 08/17/24 05:55 Temperature 97.7 F 97.7 F Pulse Rate 101 H 104 H Respiratory Rate 18 16 Blood Pressure 149/76 H 143/74 H Pulse Oximetry 97 96 93 Oxygen Delivery Nasal Cannula Oxygen Flow Rate 2 Fraction of Inspired Oxygen 08/17/24 08:00 08/17/24 08:46 08/17/24 10:03 Temperature 97.8 F Pulse Rate 103 H 90 Respiratory Rate 18 Blood Pressure 158/76 H Pulse Oximetry 96 96 Oxygen Delivery Nasal Cannula Oxygen Flow Rate 2 Fraction of Inspired Oxygen 28 08/17/24 12:00 Temperature 99.4 F Pulse Rate 100 Respiratory Rate 18 Blood Pressure 149/81 H Pulse Oximetry 100 Oxygen Delivery Oxygen Flow Rate Fraction of Inspired Oxygen Intake/Output Intake/Output: Intake & Output 08/14/24 08/15/24 08/16/24 08/17/24 23:59 23:59 23:59 23:59 Intake Total 2555.4 1620 1050 800 Output Total 1000 2000 1000 3000 Balance 1555.4 -380 50 -2200 Meds/Results Medications: Active Medications Generic Name Dose Route Start Last Admin Trade Name Freq PRN Reason Stop Dose Admin Amlodipine Besylate 10 mg 08/18/24 09:00 Amlodipine Besylate 10 Mg Tablet PO DAILY [facility] Carvedilol 25 mg 08/14/24 09:00 08/17/24 10:03 Carvedilol 25 Mg Tablet PO 25 mg Q12HR SANCHEZ Administration Cyclobenzaprine HCl 5 mg 08/17/24 00:46 08/17/24 10:04 Cyclobenzaprine Hcl 5 Mg Tablet PO 5 mg Q8H PRN Administration Muscle Spasm Dextrose 12.5 gm 08/14/24 07:37 Dextrose 50% 25 Gm/50 Ml Syringe IV PUSH PRN PRN Hypoglycemia Protocol Enoxaparin Sodium 40 mg 08/14/24 09:00 08/17/24 10:03 Enoxaparin 40 Mg/0.4 Ml Syringe SUB-Q 40 mg DAILY SANCHEZ Administration Escitalopram Oxalate 10 mg 08/14/24 09:00 08/17/24 10:03 Escitalopram Oxalate 10 Mg Tablet PO 10 mg DAILY SANCHEZ Administration Glucagon 1 mg 08/14/24 07:37 Glucagon For Inj 1 Mg Vial IM PRN PRN Hypoglycemia Protocol Glucose 15 gm 08/14/24 07:37 Glucose Oral Gel 15 Gm Of Glucse In 37.5 Gm Tube PO PRN PRN Hypoglycemia Protocol Hydromorphone HCl 1 mg 08/16/24 14:34 08/17/24 10:21 Hydromorphone Hcl Inj (*Crx) 1 Mg/Ml Syr IV PUSH 1 mg Q2H PRN Administration Breakthrough Pain Rated 7-10 or NPO Hydromorphone HCl 0.5 mg 08/16/24 14:34 08/17/24 12:56 Hydromorphone Hcl Inj (*Crx) 1 Mg/Ml Syr IV PUSH 0.5 mg Q2H PRN Administration Breakthrough Pain Rated 4-6 or NPO Dextrose 1,000 mls @ 100 mls/hr 08/14/24 07:37 Dextrose 5% 1,000 Ml IVPB PRN PRN Hypoglycemia Protocol Ceftriaxone Sodium 2 gm in 100 mls @ 200 mls/hr 08/17/24 21:00 Rocephin 2 Gm/Ns 100 Ml IVPB Q24H [facility] Insulin Aspart 4 - 8 units 08/14/24 08:00 08/17/24 10:05 Insulin Aspart (*Bkc) 100 Units/Ml SUB-Q 5 units TIDWM [facility] Administration Protocol Insulin Aspart 2 - 4 units 08/14/24 21:00 08/16/24 20:01 Insulin Aspart (*Bkc) 100 Units/Ml SUB-Q 3 units HS [facility] Administration Protocol Insulin Aspart 6 units 08/17/24 12:00 Insulin Aspart (*Bkc) 100 Units/Ml SUB-Q TIDWM [facility] Insulin Glargine 70 units 08/15/24 09:00 08/17/24 11:35 Insulin Glargine (*Bkc) 100 Units/Ml SUB-Q Not Given DAILY [facility] Losartan Potassium 100 mg 08/15/24 11:35 08/17/24 10:03 Losartan Potassium 100 Mg Tablet PO 100 mg DAILY SANCHEZ Administration Naloxone HCl 0.1 mg 08/16/24 14:34 Naloxone Hcl 0.4 Mg/Ml Vial IV PUSH Q2M PRN Opiate Reversal Ondansetron HCl 4 mg 08/13/24 15:26 08/17/24 00:26 Ondansetron Inj 4 Mg/2 Ml Vial IV PUSH 4 mg Q6H PRN Administration Nausea And Vomiting Oxycodone/Acetaminophen 1 tablet 08/16/24 14:34 08/17/24 11:23 Oxycodone/Acetaminophen (*Crx) 5-325 Mg Tablet PO 1 tablet Q4H PRN Administration Pain Rated 4-6 Oxycodone/Acetaminophen 1 tab 08/16/24 14:34 08/17/24 04:00 Oxycodone/Acetaminophen (*Crx) 10-325 Mg Tablet PO 1 tab Q6H PRN Administration Pain Rated 7-10 Perflutren Lipid Microsphere 0 ml 08/17/24 09:52 Perflutren Lipid Microspheres 1.5 Ml Vial Diluted To 10 Ml Total Volume IV PUSH 08/20/24 09:52 ONCE PRN adequate visualization Protocol Radiology Results: ITS Impressions Chest X-Ray 08/13/24 13:54 IMPRESSION: No acute cardiopulmonary pathology. Renal Ultrasound 08/13/24 15:07 IMPRESSION: 1. Normal kidneys. No hydronephrosis. Foot X-Ray 08/14/24 11:36 IMPRESSION: 1. Septic arthritis at the fifth metatarsophalangeal joint with associated osteomyelitis at the base of the fifth proximal phalanx and head of the fifth metatarsal. Lumbar Spine X-Ray 08/14/24 11:49 IMPRESSION: No acute osseous abnormality lumbar spine. Multilevel degenerative disc disease. Lumbar Spine MRI 08/14/24 15:23 IMPRESSION: 1. Moderate lumbar spondylosis. 2. No evidence of discitis/osteomyelitis. Labs Labs: Laboratory Results - last 24 hr 08/16/24 08/16/24 08/17/24 16:29 19:42 05:11 WBC 11.3 H RBC 3.68 L Hgb 10.7 L Hct 31.4 L MCV 85.3 MCH 29.1 MCHC 34.1 RDW 13.5 Plt Count 190 MPV 10.7 H Immature Gran % (Auto) 3.1 H Neut % (Auto) 76.3 H Lymph % (Auto) 7.9 L [place] % (Auto) 12.3 H Eos % (Auto) 0.1 Baso % (Auto) 0.3 Lymph # (Auto) 0.89 L [place] # (Auto) 1.4 H Eos # (Auto) 0.0 Baso # (Auto) 0.0 Abs Immat Gran (auto) 0.35 H Absolute Neuts (auto) 8.7 H Absolute Nucleated RBC 0.000 Nucleated RBC % 0.0 Sodium 128 L Potassium 3.5 Chloride 98 Carbon Dioxide 23 Anion Gap 7 BUN 27 H Creatinine 0.80 Estim Creat Clear Calc 134 Estimated GFR > 60 Glucose 243 H POC Capillary Glucose 262 H 304 H Calcium 7.9 L Phosphorus 2.9 Magnesium 2.1 Total Bilirubin 0.9 AST 21 ALT 14 Alkaline Phosphatase 76 Total Protein 6.0 L Albumin 2.7 L 08/17/24 08/17/24 07:45 11:19 WBC RBC Hgb Hct MCV MCH MCHC RDW Plt Count MPV Immature Gran % (Auto) Neut % (Auto) Lymph % (Auto) [place] % (Auto) Eos % (Auto) Baso % (Auto) Lymph # (Auto) [place] # (Auto) Eos # (Auto) Baso # (Auto) Abs Immat Gran (auto) Absolute Neuts (auto) Absolute Nucleated RBC Nucleated RBC % Sodium Potassium Chloride Carbon Dioxide Anion Gap BUN Creatinine Estim Creat Clear Calc Estimated GFR Glucose POC Capillary Glucose 251 H 253 H Calcium Phosphorus Magnesium Total Bilirubin AST ALT Alkaline Phosphatase Total Protein Albumin Quality VTE Prophylaxis VTE prophylaxis: pharmacologic ordered
[2024-08-17] MEDS: INSULIN ASPART (*BKC) 100 UNITS/ML 6 UNITS SUB-Q (14:29)
[2024-08-17] MEDS: LIDOCAINE 5% PATCH 1 PATCH TRANSDERM (14:39)
[2024-08-17 16:37] LABS: Glucose Point of Care 192 mg/dl (65-105)
--- NOTE | 2024-08-17 18:13 | PC.NURSE ---
RN spoke with pt regarding schd insulin 1700 the 6 units but pt didn't want insulin due to not eating and being in a lot of pain. Pt was given some of his sliding during shift and education on sliding scale.
[2024-08-17] MEDS: cefTRIAXone 2 GM/NS 100 ML 2 GM/100 ML BAG IVPB (21:14)
[2024-08-17 22:17] LABS: Glucose Point of Care 238 mg/dl (65-105)
[2024-08-18] VITALS (9 sets, daily range): BP systolic 145–174; BP diastolic 78–93; PULSE 99–107; RESP 16–20; TEMP 37.1–38.1; O2SAT 93–95
[2024-08-18] MEDS: oxyCODONE/ACETAMINOPHEN (*CRX) 10-325 MG TABLET 1 TAB PO (00:46)
[2024-08-18] MEDS: HYDROmorphone HCL INJ (*CRX) 1 MG/ML SYR 0.5 MG IV PUSH ×2 (05:51→11:25)
[2024-08-18 06:45] LABS: Basophils Percent Auto 0.2 % (0.2-1.2); Eosinophils Percent Auto 0.3 % (0-4.4); Hematocrit 31.3 % (42.0-52.0); Hemoglobin 10.5 g/dL (14.0-18.0); Immature Granulocyte Absolute 0.52 K/mm3 (0.00-0.031); Immature Granulocyte Percent A 3.8 % (0-0.5); Lymphocytes Absolute Auto 0.95 K/mm3 (0.9-3.2); Lymphocytes Percent Auto 6.9 % (18.3-44.2); Mean Corpuscular HGB Conc 33.5 g/dl (32-36); Mean Corpuscular Hemoglobin 28.5 pg (26-34); Mean Corpuscular Volume 85.1 fl (80-100); Mean Platelet Volume 10.1 fl (7.4-10.4); Monocytes Absolute Auto 1.5 K/mm3 (0.1-0.6); Monocytes Percent Auto 10.9 % (2.6-8.5); Neutrophils Absolute Auto 10.8 K/mm3 (1.3-6.7); Neutrophils Percent Auto 77.9 % (45.5-73.1); Platelet Count Result 266 k/mm3 (150-375); Red Blood Count 3.68 M/mm3 (4.6-6.20); Red Cell Distribution Width 13.5 % (11.5-14.5); White Blood Count 13.8 K/mm3 (4.5-10.0)
[2024-08-18 07:07] LABS: Alanine Aminotransferase 13 U/L (6-50); Albumin Level 2.7 g/dL (3.5-5.1); Alkaline Phosphatase 91 U/L (38-126); Anion Gap 10 mmol/L (4-12); Aspartate Amino Transferase 22 U/L (17-59); Blood Urea Nitrogen 18 mg/dL (9-20); Calcium 7.9 mg/dL (8.4-10.2); Carbon Dioxide 23 mmol/L (22-30); Chloride 94 mmol/L (98-107); Estimated CRCL calculation 141 ml/min; Estimated Glomerular Filt Rate > 60; Glucose 253 mg/dL (65-110); Phosphorus 2.9 mg/dL (2.5-4.5); Potassium 3.2 mmol/L (3.4-5.0); Sodium 127 mmol/L (137-145)
--- NOTE | 2024-08-18 07:36 | P.PNIM_ITS ---
Progress Note: A&P Assessment and Plan (1) Bacteremia due to Streptococcus pneumoniae: Code(s): R78.81 - Bacteremia; B95.3 - Streptococcus pneumoniae as the cause of diseases classified elsewhere Status: Acute (2) Lumbar back pain: Code(s): M54.50 - Low back pain, unspecified Status: Acute (3) DKA (diabetic ketoacidosis): Code(s): E11.10 - Type 2 diabetes mellitus with ketoacidosis without coma Status: Acute (4) Acute kidney injury: Code(s): N17.9 - Acute kidney failure, unspecified Status: Acute Plan 49-year-old male with a significant past medical history of insulin-dependent type 2 diabetes mellitus, diabetic foot ulcer, depression, erectile dysfunction, hypertension, history of kidney stones who presented to the hospital for evaluation of body aches, nausea without vomiting, fever, chills. Workup in the hospital included a chest x-ray which was negative for any acute cardiopulmonary process. Renal ultrasound was performed which showed normal kidneys, no hydronephrosis. Initial labs showed a white blood cell count of 9.5, hemoglobin 12.2, platelet count 120, band neutrophils 17, sodium 130, chloride 95, bicarb 17, anion gap 18, creatinine 2.10, EGFR 34, blood sugar ranging 300-449, lactic acid 2.3, beta hydroxybutyrate 3.31. Respiratory panel was negative for influenza a and B, RSV, COVID. EKG showed sinus tachycardia with a rate of 100, QTC 449. Patient was given 2 L of normal saline while in the ED, given 18 units IV push regular insulin and started on an insulin infusion per DKA protocol. 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 a.c. 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 Renal ultrasound negative for hydronephrosis 6. Lumbar back pain: MRI of lumbar spine shows moderate lumbar spondylosis no evidence of diskitis or osteomyelitis Already on pain medications Will add Lidoderm patch 7. Code status: Full 8. DVT prophylaxis: Lovenox 9. Disposition: Pending improvement Subjective Date/time seen: 08/18/24 07:36 Interval history: I saw exam patient today, patient feels better today, the left foot pain is tolerable on no cardiac medication. Patient has fever today, 100.6, lab showed leukocytosis 13,800, patient still has lower back pain, patient denies your fecal incontinence, decreased sensation or weakness of lower extremities Exam Narrative: GENERAL: Pleasant, in no acute distress. Well-nourished. - EYES: EOMI. Anicteric. - HENT: Moist mucous membranes. - LUNGS: Clear to auscultation bilateral ly, no wheezing, rhonchi, or rales. - CARDIOVASCULAR: Regular rate and rhyth m. No murmur. No JVD. - ABDOMEN: Soft, non-tender and non-dist ended. No palpable masses. - EXTREMITIES: No edema. Peripheral puls es 2+. Non-tender. Surgical wound of left foot is well dressed, dressing is dry and clean. No back tenderness by light punch - NEUROLOGIC: No focal neurological defi cits. CN II-XII grossly intact.. - PSYCHIATRIC: Awake, Alert and oriented x 3. Appropriate mood and affect. - SKIN: No rashes or lesions. Warm. - LYMPH: No cervical lymphadenopathy. Objective Data Vital Signs Vital Signs: Vital Signs - 24 hr 08/17/24 08:00 08/17/24 08:46 08/17/24 10:03 Temperature 97.8 F Pulse Rate 103 H 90 Respiratory Rate 18 Blood Pressure 158/76 H Pulse Oximetry 96 96 Oxygen Delivery Nasal Cannula Oxygen Flow Rate 2 Fraction of Inspired Oxygen 28 08/17/24 12:00 08/17/24 08:00 08/17/24 16:00 Temperature 99.4 F 99.3 F Pulse Rate 100 100 100 Respiratory Rate 18 18 18 Blood Pressure 149/81 H 171/89 H Pulse Oximetry 100 100 93 Oxygen Delivery Nasal Cannula Oxygen Flow Rate 2 Fraction of Inspired Oxygen 28 08/17/24 20:00 08/17/24 21:12 08/17/24 20:00 Temperature 98.4 F Pulse Rate 102 H 88 Respiratory Rate 16 Blood Pressure 192/84 H Pulse Oximetry 94 93 Oxygen Delivery Nasal Cannula Oxygen Flow Rate 1 Fraction of Inspired Oxygen 08/18/24 06:00 Temperature 98.8 F Pulse Rate 104 H Respiratory Rate 16 Blood Pressure 174/93 H Pulse Oximetry 95 Oxygen Delivery Oxygen Flow Rate Fraction of Inspired Oxygen Intake/Output Intake/Output: Intake & Output 08/15/24 08/16/24 08/17/24 08/18/24 23:59 23:59 23:59 23:59 Intake Total 1620 2238 025 7429 Output Total 2000 1000 4700 1000 Balance -380 50 -3750 250 Meds/Results Medications: Active Medications Generic Name Dose Route Start Last Admin Trade Name Freq PRN Reason Stop Dose Admin Amlodipine Besylate 10 mg 08/18/24 09:00 Amlodipine Besylate 10 Mg Tablet PO DAILY SANCHEZ Carvedilol 25 mg 08/14/24 09:00 08/17/24 21:12 Carvedilol 25 Mg Tablet PO 25 mg Q12HR SANCHEZ Administration Cyclobenzaprine HCl 5 mg 08/17/24 00:46 08/17/24 21:12 Cyclobenzaprine Hcl 5 Mg Tablet PO 5 mg Q8H PRN Administration Muscle Spasm Dextrose 12.5 gm 08/14/24 07:37 Dextrose 50% 25 Gm/50 Ml Syringe IV PUSH PRN PRN Hypoglycemia Protocol Enoxaparin Sodium 40 mg 08/14/24 09:00 08/17/24 10:03 Enoxaparin 40 Mg/0.4 Ml Syringe SUB-Q 40 mg DAILY SANCHEZ Administration Escitalopram Oxalate 10 mg 08/14/24 09:00 08/17/24 10:03 Escitalopram Oxalate 10 Mg Tablet PO 10 mg DAILY SANCHEZ Administration Glucagon 1 mg 08/14/24 07:37 Glucagon For Inj 1 Mg Vial IM PRN PRN Hypoglycemia Protocol Glucose 15 gm 08/14/24 07:37 Glucose Oral Gel 15 Gm Of Glucse In 37.5 Gm Tube PO PRN PRN Hypoglycemia Protocol Hydromorphone HCl 1 mg 08/16/24 14:34 08/17/24 21:11 Hydromorphone Hcl Inj (*Crx) 1 Mg/Ml Syr IV PUSH 1 mg Q2H PRN Administration Breakthrough Pain Rated 7-10 or NPO Hydromorphone HCl 0.5 mg 08/16/24 14:34 08/18/24 05:51 Hydromorphone Hcl Inj (*Crx) 1 Mg/Ml Syr IV PUSH 0.5 mg Q2H PRN Administration Breakthrough Pain Rated 4-6 or NPO Dextrose 1,000 mls @ 100 mls/hr 08/14/24 07:37 Dextrose 5% 1,000 Ml IVPB PRN PRN Hypoglycemia Protocol Ceftriaxone Sodium 2 gm in 100 mls @ 200 mls/hr 08/17/24 21:00 08/17/24 21:14 Rocephin 2 Gm/Ns 100 Ml IVPB 200 mls/hr Q24H SANCHEZ Administration Insulin Aspart 4 - 8 units 08/14/24 08:00 08/17/24 19:08 Insulin Aspart (*Bkc) 100 Units/Ml SUB-Q Not Given TIDWM [facility] Protocol Insulin Aspart 2 - 4 units 08/14/24 21:00 08/17/24 21:10 Insulin Aspart (*Bkc) 100 Units/Ml SUB-Q 2 units HS [facility] Administration Protocol Insulin Aspart 6 units 08/17/24 12:00 08/17/24 18:12 Insulin Aspart (*Bkc) 100 Units/Ml SUB-Q Not Given TIDWM [facility] Insulin Glargine 70 units 08/15/24 09:00 08/17/24 11:35 Insulin Glargine (*Bkc) 100 Units/Ml SUB-Q Not Given DAILY [facility] Lidocaine 1 patch 08/17/24 14:15 08/17/24 14:39 Lidocaine 5% Patch TRANSDERM 1 patch DAILY SANCHEZ Administration Losartan Potassium 100 mg 08/15/24 11:35 08/17/24 10:03 Losartan Potassium 100 Mg Tablet PO 100 mg DAILY SANCHEZ Administration Naloxone HCl 0.1 mg 08/16/24 14:34 Naloxone Hcl 0.4 Mg/Ml Vial IV PUSH Q2M PRN Opiate Reversal Ondansetron HCl 4 mg 08/13/24 15:26 08/17/24 00:26 Ondansetron Inj 4 Mg/2 Ml Vial IV PUSH 4 mg Q6H PRN Administration Nausea And Vomiting Oxycodone/Acetaminophen 1 tablet 08/16/24 14:34 08/17/24 19:09 Oxycodone/Acetaminophen (*Crx) 5-325 Mg Tablet PO 1 tablet Q4H PRN Administration Pain Rated 4-6 Oxycodone/Acetaminophen 1 tab 08/16/24 14:34 08/18/24 00:46 Oxycodone/Acetaminophen (*Crx) 10-325 Mg Tablet PO 1 tab Q6H PRN Administration Pain Rated 7-10 Perflutren Lipid Microsphere 0 ml 08/17/24 09:52 Perflutren Lipid Microspheres 1.5 Ml Vial Diluted To 10 Ml Total Volume IV PUSH 08/20/24 09:52 ONCE PRN adequate visualization Protocol Radiology Results: ITS Impressions Chest X-Ray 08/13/24 13:54 IMPRESSION: No acute cardiopulmonary pathology. Renal Ultrasound 08/13/24 15:07 IMPRESSION: 1. Normal kidneys. No hydronephrosis. Foot X-Ray 08/14/24 11:36 IMPRESSION: 1. Septic arthritis at the fifth metatarsophalangeal joint with associated osteomyelitis at the base of the fifth proximal phalanx and head of the fifth metatarsal. Lumbar Spine X-Ray 08/14/24 11:49 IMPRESSION: No acute osseous abnormality lumbar spine. Multilevel degenerative disc disease. Lumbar Spine MRI 08/14/24 15:23 IMPRESSION: 1. Moderate lumbar spondylosis. 2. No evidence of discitis/osteomyelitis. Labs Labs: Laboratory Results - last 24 hr 08/17/24 08/17/24 08/17/24 07:45 11:19 16:30 WBC RBC Hgb Hct MCV MCH MCHC RDW Plt Count MPV Immature Gran % (Auto) Neut % (Auto) Lymph % (Auto) [place] % (Auto) Eos % (Auto) Baso % (Auto) Lymph # (Auto) [place] # (Auto) Eos # (Auto) Baso # (Auto) Abs Immat Gran (auto) Absolute Neuts (auto) Absolute Nucleated RBC Nucleated RBC % Sodium Potassium Chloride Carbon Dioxide Anion Gap BUN Creatinine Estim Creat Clear Calc Estimated GFR Glucose POC Capillary Glucose 251 H 253 H 192 H Calcium Phosphorus Magnesium Total Bilirubin AST ALT Alkaline Phosphatase Total Protein Albumin 08/17/24 08/18/24 19:34 05:59 WBC 13.8 H RBC 3.68 L Hgb 10.5 L Hct 31.3 L MCV 85.1 MCH 28.5 MCHC 33.5 RDW 13.5 Plt Count 266 MPV 10.1 Immature Gran % (Auto) 3.8 H Neut % (Auto) 77.9 H Lymph % (Auto) 6.9 L [place] % (Auto) 10.9 H Eos % (Auto) 0.3 Baso % (Auto) 0.2 Lymph # (Auto) 0.95 [place] # (Auto) 1.5 H Eos # (Auto) 0.0 Baso # (Auto) 0.0 Abs Immat Gran (auto) 0.52 H Absolute Neuts (auto) 10.8 H Absolute Nucleated RBC 0.000 Nucleated RBC % 0.0 Sodium 127 L Potassium 3.2 L Chloride 94 L Carbon Dioxide 23 Anion Gap 10 BUN 18 Creatinine 0.80 Estim Creat Clear Calc 141 Estimated GFR > 60 Glucose 253 H POC Capillary Glucose 238 H Calcium 7.9 L Phosphorus 2.9 Magnesium 2.0 Total Bilirubin 1.0 AST 22 ALT 13 Alkaline Phosphatase 91 Total Protein 6.0 L Albumin 2.7 L
[2024-08-18 08:02] LABS: Glucose Point of Care 261 mg/dl (65-105)
[2024-08-18] MEDS: INSULIN GLARGINE (*BKC) 100 UNITS/ML 70 UNITS SUB-Q (08:07)
[2024-08-18] MEDS: INSULIN ASPART (*BKC) 100 UNITS/ML 8 UNITS SUB-Q ×2 (08:08→12:12)
[2024-08-18] MEDS: INSULIN ASPART (*BKC) 100 UNITS/ML SUB-Q ×3 (08:08→20:45)
[2024-08-18] MEDS: ESCITALOPRAM OXALATE 10 MG TABLET PO (08:13)
[2024-08-18] MEDS: carvediloL 25 MG TABLET PO ×2 (08:14→20:46)
[2024-08-18] MEDS: amLODIPine BESYLATE 10 MG TABLET PO (08:15)
[2024-08-18] MEDS: LOSARTAN POTASSIUM 100 MG TABLET PO (08:15)
[2024-08-18] MEDS: ENOXAPARIN 40 MG/0.4 ML SYRINGE SUB-Q (08:16)
[2024-08-18] MEDS: LIDOCAINE 5% PATCH 1 PATCH TRANSDERM (08:39)
[2024-08-18] MEDS: HYDROmorphone HCL INJ (*CRX) 1 MG/ML SYR IV PUSH ×2 (08:40→19:18)
--- NOTE | 2024-08-18 11:06 | PC.NURSE ---
On 08/18/24, the student, [Nighat Humphrey ], provided care and completed [facility] documentation on this patient. I have reviewed the student's documentation and agree with the findings.
[2024-08-18 11:40] LABS: Glucose Point of Care 206 mg/dl (65-105)
--- NOTE | 2024-08-18 14:15 | P.PNGS_ITS ---
Progress Note: A&P Assessment and Plan (1) Osteomyelitis of foot, left, acute: Code(s): M86.172 - Other acute osteomyelitis, left ankle and foot Status: Acute Assessment and Plan: Status post left 5th toe transmetatarsal amputation for osteomyelitis of the 5th metatarsal. Wound healing well, on broad-spectrum antibiotics. White blood cell count slightly higher today, will recheck. Continue wound care and antibiotics. (2) Bacteremia due to Streptococcus pneumoniae: Code(s): R78.81 - Bacteremia; B95.3 - Streptococcus pneumoniae as the cause of diseases classified elsewhere Status: Acute Assessment and Plan: Streptococcus pneumoniae, repeat cultures pending Subjective Subjective Date/Time Seen: 08/18/24 14:15 Post Op day: 2 Patient reports: no new complaints (Very sleepy this afternoon), pain is less, voiding w/o difficulty and afebrile Exam Const: General: cooperative, comfortable, lethargic and tired appearing Nutritional Appearance: obese Orientation/consciousness: lethargic Extrem: Left lower extremity: foot (5th toe amputation wound clean and healing) Objective Data Vital Signs Vital Signs: Vital Signs - 24 hr 08/17/24 16:00 08/17/24 20:00 08/17/24 21:12 Temperature 37.4 C 36.9 C Pulse Rate 100 102 H 88 Respiratory Rate 18 16 Blood Pressure 171/89 H 192/84 H Pulse Oximetry 93 94 Oxygen Delivery Oxygen Flow Rate 08/17/24 20:00 08/18/24 06:00 08/18/24 08:07 Temperature 37.1 C 37.3 C Pulse Rate 104 H 107 H Respiratory Rate 16 20 Blood Pressure 174/93 H 172/88 H Pulse Oximetry 93 95 94 Oxygen Delivery Nasal Cannula Oxygen Flow Rate 1 08/18/24 08:14 08/18/24 08:00 08/18/24 09:35 Temperature Pulse Rate 104 H Respiratory Rate Blood Pressure Pulse Oximetry 93 Oxygen Delivery Room Air Room Air Oxygen Flow Rate 08/18/24 11:22 Temperature Pulse Rate Respiratory Rate Blood Pressure Pulse Oximetry Oxygen Delivery Room Air Oxygen Flow Rate Intake/Output Intake/Output: Intake & Output 08/15/24 08/16/24 08/17/24 08/18/24 23:59 23:59 23:59 23:59 Intake Total 1620 0695 853 4632 Output Total 2000 1000 4700 1000 Balance -380 50 -3750 250 Meds/Results Medications: Active Medications Generic Name Dose Route Start Last Admin Trade Name Freq PRN Reason Stop Dose Admin Amlodipine Besylate 10 mg 08/18/24 09:00 08/18/24 08:15 Amlodipine Besylate 10 Mg Tablet PO 10 mg DAILY SANCHEZ Administration Carvedilol 25 mg 08/14/24 09:00 08/18/24 08:14 Carvedilol 25 Mg Tablet PO 25 mg Q12HR SANCHEZ Administration Cyclobenzaprine HCl 5 mg 08/17/24 00:46 08/17/24 21:12 Cyclobenzaprine Hcl 5 Mg Tablet PO 5 mg Q8H PRN Administration Muscle Spasm Dextrose 12.5 gm 08/14/24 07:37 Dextrose 50% 25 Gm/50 Ml Syringe IV PUSH PRN PRN Hypoglycemia Protocol Enoxaparin Sodium 40 mg 08/14/24 09:00 08/18/24 08:16 Enoxaparin 40 Mg/0.4 Ml Syringe SUB-Q 40 mg DAILY SANCHEZ Administration Escitalopram Oxalate 10 mg 08/14/24 09:00 08/18/24 08:13 Escitalopram Oxalate 10 Mg Tablet PO 10 mg DAILY SANCHEZ Administration Glucagon 1 mg 08/14/24 07:37 Glucagon For Inj 1 Mg Vial IM PRN PRN Hypoglycemia Protocol Glucose 15 gm 08/14/24 07:37 Glucose Oral Gel 15 Gm Of Glucse In 37.5 Gm Tube PO PRN PRN Hypoglycemia Protocol Hydromorphone HCl 1 mg 08/16/24 14:34 08/18/24 08:40 Hydromorphone Hcl Inj (*Crx) 1 Mg/Ml Syr IV PUSH 1 mg Q2H PRN Administration Breakthrough Pain Rated 7-10 or NPO Hydromorphone HCl 0.5 mg 08/16/24 14:34 08/18/24 11:25 Hydromorphone Hcl Inj (*Crx) 1 Mg/Ml Syr IV PUSH 0.5 mg Q2H PRN Administration Breakthrough Pain Rated 4-6 or NPO Dextrose 1,000 mls @ 100 mls/hr 08/14/24 07:37 Dextrose 5% 1,000 Ml IVPB PRN PRN Hypoglycemia Protocol Ceftriaxone Sodium 2 gm in 100 mls @ 200 mls/hr 08/17/24 21:00 08/17/24 21:14 Rocephin 2 Gm/Ns 100 Ml IVPB 200 mls/hr Q24H SANCHEZ Administration Insulin Aspart 4 - 8 units 08/14/24 08:00 08/18/24 12:13 Insulin Aspart (*Bkc) 100 Units/Ml SUB-Q 4 units TIDWM SANCHEZ Administration Protocol Insulin Aspart 2 - 4 units 08/14/24 21:00 08/17/24 21:10 Insulin Aspart (*Bkc) 100 Units/Ml SUB-Q 2 units HS SANCHEZ Administration Protocol Insulin Aspart 8 units 08/18/24 08:00 08/18/24 12:12 Insulin Aspart (*Bkc) 100 Units/Ml SUB-Q 8 units TIDWM SANCHEZ Administration Insulin Glargine 70 units 08/15/24 09:00 08/18/24 08:07 Insulin Glargine (*Bkc) 100 Units/Ml SUB-Q 70 units DAILY SANCHEZ Administration Lidocaine 1 patch 08/17/24 14:15 08/18/24 08:39 Lidocaine 5% Patch TRANSDERM 1 patch DAILY SANCHEZ Administration Losartan Potassium 100 mg 08/15/24 11:35 08/18/24 08:15 Losartan Potassium 100 Mg Tablet PO 100 mg DAILY SANCHEZ Administration Naloxone HCl 0.1 mg 08/16/24 14:34 Naloxone Hcl 0.4 Mg/Ml Vial IV PUSH Q2M PRN Opiate Reversal Ondansetron HCl 4 mg 08/13/24 15:26 08/17/24 00:26 Ondansetron Inj 4 Mg/2 Ml Vial IV PUSH 4 mg Q6H PRN Administration Nausea And Vomiting Oxycodone/Acetaminophen 1 tablet 08/16/24 14:34 08/17/24 19:09 Oxycodone/Acetaminophen (*Crx) 5-325 Mg Tablet PO 1 tablet Q4H PRN Administration Pain Rated 4-6 Oxycodone/Acetaminophen 1 tab 08/16/24 14:34 08/18/24 00:46 Oxycodone/Acetaminophen (*Crx) 10-325 Mg Tablet PO 1 tab Q6H PRN Administration Pain Rated 7-10 Perflutren Lipid Microsphere 0 ml 08/17/24 09:52 Perflutren Lipid Microspheres 1.5 Ml Vial Diluted To 10 Ml Total Volume IV PUSH 08/20/24 09:52 ONCE PRN adequate visualization Protocol Radiology Results: ITS Impressions Chest X-Ray 08/13/24 13:54 IMPRESSION: No acute cardiopulmonary pathology. Renal Ultrasound 08/13/24 15:07 IMPRESSION: 1. Normal kidneys. No hydronephrosis. Foot X-Ray 08/14/24 11:36 IMPRESSION: 1. Septic arthritis at the fifth metatarsophalangeal joint with associated osteomyelitis at the base of the fifth proximal phalanx and head of the fifth metatarsal. Lumbar Spine X-Ray 08/14/24 11:49 IMPRESSION: No acute osseous abnormality lumbar spine. Multilevel degenerative disc disease. Lumbar Spine MRI 08/14/24 15:23 IMPRESSION: 1. Moderate lumbar spondylosis. 2. No evidence of discitis/osteomyelitis. Labs Labs: Laboratory Results - last 24 hr 08/17/24 08/17/24 08/18/24 16:30 19:34 05:59 WBC 13.8 H RBC 3.68 L Hgb 10.5 L Hct 31.3 L MCV 85.1 MCH 28.5 MCHC 33.5 RDW 13.5 Plt Count 266 MPV 10.1 Immature Gran % (Auto) 3.8 H Neut % (Auto) 77.9 H Lymph % (Auto) 6.9 L Hudson % (Auto) 10.9 H Eos % (Auto) 0.3 Baso % (Auto) 0.2 Lymph # (Auto) 0.95 Hudson # (Auto) 1.5 H Eos # (Auto) 0.0 Baso # (Auto) 0.0 Abs Immat Gran (auto) 0.52 H Absolute Neuts (auto) 10.8 H Absolute Nucleated RBC 0.000 Nucleated RBC % 0.0 Sodium 127 L Potassium 3.2 L Chloride 94 L Carbon Dioxide 23 Anion Gap 10 BUN 18 Creatinine 0.80 Estim Creat Clear Calc 141 Estimated GFR > 60 Glucose 253 H POC Capillary Glucose 192 H 238 H Calcium 7.9 L Phosphorus 2.9 Magnesium 2.0 Total Bilirubin 1.0 AST 22 ALT 13 Alkaline Phosphatase 91 Total Protein 6.0 L Albumin 2.7 L 08/18/24 08/18/24 07:59 11:32 WBC RBC Hgb Hct MCV MCH MCHC RDW Plt Count MPV Immature Gran % (Auto) Neut % (Auto) Lymph % (Auto) Hudson % (Auto) Eos % (Auto) Baso % (Auto) Lymph # (Auto) Hudson # (Auto) Eos # (Auto) Baso # (Auto) Abs Immat Gran (auto) Absolute Neuts (auto) Absolute Nucleated RBC Nucleated RBC % Sodium Potassium Chloride Carbon Dioxide Anion Gap BUN Creatinine Estim Creat Clear Calc Estimated GFR Glucose POC Capillary Glucose 261 H 206 H Calcium Phosphorus Magnesium Total Bilirubin AST ALT Alkaline Phosphatase Total Protein Albumin White blood cell count up to 13,800. There is a slight left shift. Blood cultures grew pneumococcus. Wound cultures grew E coli.
[2024-08-18] MEDS: ACETAMINOPHEN 325 MG TABLET 650 MG PO (14:33)
--- NOTE | 2024-08-18 14:36 | PC.NURSE ---
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 Looked at MAR and had nothing ordered for fever. Called and he ordered tylenol for PT. tylenol administered at 1433
[2024-08-18 16:50] LABS: Glucose Point of Care 146 mg/dl (65-105)
[2024-08-18] MEDS: cefTRIAXone 2 GM/NS 100 ML 2 GM/100 ML BAG IVPB (20:46)
[2024-08-18 20:56] LABS: Glucose Point of Care 262 mg/dl (65-105)
[2024-08-19] MEDS: oxyCODONE/ACETAMINOPHEN (*CRX) 10-325 MG TABLET 1 TAB PO ×2 (03:27→20:27)
[2024-08-19 05:20] VITALS: BP 190/89; PULSE 101; RESP 18; TEMP 36.9; O2SAT 97
[2024-08-19 08:00] LABS: Glucose Point of Care 293 mg/dl (65-105)
--- NOTE | 2024-08-19 08:05 | PM.IMPN ---
Progress Note: A&P Assessment and Plan (1) Bacteremia due to Streptococcus pneumoniae: Code(s): R78.81 - Bacteremia; B95.3 - Streptococcus pneumoniae as the cause of diseases classified elsewhere Status: Acute (2) Lumbar back pain: Code(s): M54.50 - Low back pain, unspecified Status: Acute (3) DKA (diabetic ketoacidosis): Code(s): E11.10 - Type 2 diabetes mellitus with ketoacidosis without coma Status: Acute (4) Acute kidney injury: Code(s): N17.9 - Acute kidney failure, unspecified Status: Acute Plan 49-year-old male with a significant past medical history of insulin-dependent type 2 diabetes mellitus, diabetic foot ulcer, depression, erectile dysfunction, hypertension, history of kidney stones who presented to the hospital for evaluation of body aches, nausea without vomiting, fever, chills. Workup in the hospital included a chest x-ray which was negative for any acute cardiopulmonary process. Renal ultrasound was performed which showed normal kidneys, no hydronephrosis. Initial labs showed a white blood cell count of 9.5, hemoglobin 12.2, platelet count 120, band neutrophils 17, sodium 130, chloride 95, bicarb 17, anion gap 18, creatinine 2.10, EGFR 34, blood sugar ranging 300-449, lactic acid 2.3, beta hydroxybutyrate 3.31. Respiratory panel was negative for influenza a and B, RSV, COVID. EKG showed sinus tachycardia with a rate of 100, QTC 449. Patient was given 2 L of normal saline while in the ED, given 18 units IV push regular insulin and started on an insulin infusion per DKA protocol. Acute osteomyelitis of left foot: Foot culture growing E coli Appreciate surgery help Status post left 5th toe amputation Pain control Based on cut foot culture, will start on ceftriaxone Local wound care, dressing change as per surgery Non-weight bearing on LLE, PT eval for crutch use and ambulation Diabetic ketoacidosis: Hemoglobin A1c 8.8 now controlled Blood glucose checked t.i.d. a.c. 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 once and b.i.d. p.o. Follow-up BMP PURNIMA: Resolved Avoid nephrotoxins Recheck BMP in a.m. Renal ultrasound negative for hydronephrosis 6. Lumbar back pain: MRI of lumbar spine shows moderate lumbar spondylosis no evidence of diskitis or osteomyelitis Already on pain medications Will add Lidoderm patch 7. Code status: Full 8. DVT prophylaxis: Lovenox 9. Disposition: Pending improvement Subjective Date/time seen: 08/19/24 08:05 Interval history: I saw exam patient today, patient feels better today, the left foot pain is tolerable, patient denies chest pain, shortness of breath, abdomen pain, nausea vomiting diarrhea. Patient is afebrile, blood pressure stable, labs reviewed, leukocytosis persists, sodium 126, potassium 3.3, uncontrolled glucose Exam Narrative: GENERAL: Pleasant, in no acute distress. Well-nourished. - EYES: EOMI. Anicteric. - HENT: Moist mucous membranes. - LUNGS: Clear to auscultation bilaterally, no wheezing, rhonchi, or rales. - CARDIOVASCULAR: Regular rate and rhythm. No murmur. No JVD. - ABDOMEN: Soft, non-tender and non-distended. No palpable masses. - EXTREMITIES: No edema. Peripheral pulses 2+. Non-tender. Surgical wound of left foot is dry, no discharge, low back tenderness by light punch - NEUROLOGIC: No focal neurological deficits. CN II-XII grossly intact.. - PSYCHIATRIC: Awake, Alert and oriented x 3. Appropriate mood and affect. - SKIN: No rashes or lesions. Warm. - LYMPH: No cervical lymphadenopathy. Objective Data Vital Signs Vital Signs: Vital Signs - 24 hr 08/18/24 08:07 08/18/24 08:14 08/18/24 09:35 Temperature 99.1 F Pulse Rate 107 H 104 H Respiratory Rate 20 Blood Pressure 172/88 H Pulse Oximetry 94 Oxygen Delivery Room Air 08/18/24 11:22 08/18/24 14:00 08/18/24 14:33 Temperature 100.6 F H 100.6 F H Pulse Rate 101 H Respiratory Rate 18 Blood Pressure 145/78 H Pulse Oximetry 93 Oxygen Delivery Room Air 08/18/24 15:33 08/18/24 20:46 08/18/24 20:15 Temperature 98.8 F 98.9 F Pulse Rate 99 99 Respiratory Rate 18 Blood Pressure 172/89 H Pulse Oximetry 94 Oxygen Delivery 08/18/24 20:00 08/19/24 05:20 08/19/24 07:49 Temperature 98.4 F Pulse Rate 101 H Respiratory Rate 18 Blood Pressure 190/89 H Pulse Oximetry 97 Oxygen Delivery Room Air Room Air Intake/Output Intake/Output: Intake & Output 08/16/24 08/17/24 08/18/24 08/19/24 23:59 23:59 23:59 23:59 Intake Total 1050 1050 1350 2172 Output Total 1000 4700 1000 600 Balance 50 -3650 350 1572 Meds/Results Medications: Active Medications Generic Name Dose Route Start Last Admin Trade Name Freq PRN Reason Stop Dose Admin Acetaminophen 650 mg 08/18/24 14:25 08/18/24 14:33 Acetaminophen 325 Mg Tablet PO 650 mg Q6H PRN Administration Mild Pain (1-3) or Fever Amlodipine Besylate 10 mg 08/18/24 09:00 08/18/24 08:15 Amlodipine Besylate 10 Mg Tablet PO 10 mg DAILY SANCHEZ Administration Carvedilol 25 mg 08/14/24 09:00 08/18/24 20:46 Carvedilol 25 Mg Tablet PO 25 mg Q12HR SANCHEZ Administration Cyclobenzaprine HCl 5 mg 08/17/24 00:46 08/17/24 21:12 Cyclobenzaprine Hcl 5 Mg Tablet PO 5 mg Q8H PRN Administration Muscle Spasm Dextrose 12.5 gm 08/14/24 07:37 Dextrose 50% 25 Gm/50 Ml Syringe IV PUSH PRN PRN Hypoglycemia Protocol Enoxaparin Sodium 40 mg 08/14/24 09:00 08/18/24 08:16 Enoxaparin 40 Mg/0.4 Ml Syringe SUB-Q 40 mg DAILY SANCHEZ Administration Escitalopram Oxalate 10 mg 08/14/24 09:00 08/18/24 08:13 Escitalopram Oxalate 10 Mg Tablet PO 10 mg DAILY SANCHEZ Administration Glucagon 1 mg 08/14/24 07:37 Glucagon For Inj 1 Mg Vial IM PRN PRN Hypoglycemia Protocol Glucose 15 gm 08/14/24 07:37 Glucose Oral Gel 15 Gm Of Glucse In 37.5 Gm Tube PO PRN PRN Hypoglycemia Protocol Hydromorphone HCl 1 mg 08/16/24 14:34 08/18/24 19:18 Hydromorphone Hcl Inj (*Crx) 1 Mg/Ml Syr IV PUSH 1 mg Q2H PRN Administration Breakthrough Pain Rated 7-10 or NPO Hydromorphone HCl 0.5 mg 08/16/24 14:34 08/18/24 11:25 Hydromorphone Hcl Inj (*Crx) 1 Mg/Ml Syr IV PUSH 0.5 mg Q2H PRN Administration Breakthrough Pain Rated 4-6 or NPO Dextrose 1,000 mls @ 100 mls/hr 08/14/24 07:37 Dextrose 5% 1,000 Ml IVPB PRN PRN Hypoglycemia Protocol Ceftriaxone Sodium 2 gm in 100 mls @ 200 mls/hr 08/17/24 21:00 08/19/24 04:13 Rocephin 2 Gm/Ns 100 Ml IVPB Infused Q24H SANCHEZ Infusion Insulin Aspart 4 - 8 units 08/14/24 08:00 08/18/24 16:50 Insulin Aspart (*Bkc) 100 Units/Ml SUB-Q Not Given [facility] Protocol Insulin Aspart 2 - 4 units 08/14/24 21:00 08/18/24 20:45 Insulin Aspart (*Bkc) 100 Units/Ml SUB-Q 2 units HS SANCHEZ Administration Protocol Insulin Aspart 8 units 08/18/24 08:00 08/18/24 17:32 Insulin Aspart (*Bkc) 100 Units/Ml SUB-Q Not Given TIDWM SANCHEZ Insulin Glargine 70 units 08/15/24 09:00 08/18/24 08:07 Insulin Glargine (*Bkc) 100 Units/Ml SUB-Q 70 units DAILY SANCHEZ Administration Lidocaine 1 patch 08/17/24 14:15 08/18/24 08:39 Lidocaine 5% Patch TRANSDERM 1 patch DAILY SANCHEZ Administration Losartan Potassium 100 mg 08/15/24 11:35 08/18/24 08:15 Losartan Potassium 100 Mg Tablet PO 100 mg DAILY SANCHEZ Administration Naloxone HCl 0.1 mg 08/16/24 14:34 Naloxone Hcl 0.4 Mg/Ml Vial IV PUSH Q2M PRN Opiate Reversal Ondansetron HCl 4 mg 08/13/24 15:26 08/17/24 00:26 Ondansetron Inj 4 Mg/2 Ml Vial IV PUSH 4 mg Q6H PRN Administration Nausea And Vomiting Oxycodone/Acetaminophen 1 tablet 08/16/24 14:34 08/17/24 19:09 Oxycodone/Acetaminophen (*Crx) 5-325 Mg Tablet PO 1 tablet Q4H PRN Administration Pain Rated 4-6 Oxycodone/Acetaminophen 1 tab 08/16/24 14:34 08/19/24 03:27 Oxycodone/Acetaminophen (*Crx) 10-325 Mg Tablet PO 1 tab Q6H PRN Administration Pain Rated 7-10 Perflutren Lipid Microsphere 0 ml 08/17/24 09:52 Perflutren Lipid Microspheres 1.5 Ml Vial Diluted To 10 Ml Total Volume IV PUSH 08/20/24 09:52 ONCE PRN adequate visualization Protocol Radiology Results: ITS Impressions Chest X-Ray 08/13/24 13:54 IMPRESSION: No acute cardiopulmonary pathology. Renal Ultrasound 08/13/24 15:07 IMPRESSION: 1. Normal kidneys. No hydronephrosis. Foot X-Ray 08/14/24 11:36 IMPRESSION: 1. Septic arthritis at the fifth metatarsophalangeal joint with associated osteomyelitis at the base of the fifth proximal phalanx and head of the fifth metatarsal. Lumbar Spine X-Ray 08/14/24 11:49 IMPRESSION: No acute osseous abnormality lumbar spine. Multilevel degenerative disc disease. Lumbar Spine MRI 08/14/24 15:23 IMPRESSION: 1. Moderate lumbar spondylosis. 2. No evidence of discitis/osteomyelitis. Labs Labs: Laboratory Results - last 24 hr 08/18/24 08/18/24 08/18/24 11:32 16:48 20:17 POC Capillary Glucose 206 H 146 H 262 H 08/19/24 07:33 POC Capillary Glucose 293 H
[2024-08-19 08:15] LABS: Basophils Percent Auto 0.3 % (0.2-1.2); Eosinophils Percent Auto 0.3 % (0-4.4); Hematocrit 31.9 % (42.0-52.0); Hemoglobin 11.1 g/dL (14.0-18.0); Immature Granulocyte Absolute 0.39 K/mm3 (0.00-0.031); Immature Granulocyte Percent A 2.6 % (0-0.5); Lymphocytes Absolute Auto 1.13 K/mm3 (0.9-3.2); Lymphocytes Percent Auto 7.6 % (18.3-44.2); Mean Corpuscular HGB Conc 34.8 g/dl (32-36); Mean Corpuscular Volume 83.3 fl (80-100); Mean Platelet Volume 9.4 fl (7.4-10.4); Monocytes Absolute Auto 1.4 K/mm3 (0.1-0.6); Monocytes Percent Auto 9.6 % (2.6-8.5); Neutrophils Absolute Auto 11.9 K/mm3 (1.3-6.7); Neutrophils Percent Auto 79.6 % (45.5-73.1); Platelet Count Result 367 k/mm3 (150-375); Red Blood Count 3.83 M/mm3 (4.6-6.20); Red Cell Distribution Width 13.6 % (11.5-14.5); White Blood Count 14.9 K/mm3 (4.5-10.0)
[2024-08-19 08:25] LABS: Anion Gap 10 mmol/L (4-12); Blood Urea Nitrogen 20 mg/dL (9-20); Calcium 8.2 mg/dL (8.4-10.2); Carbon Dioxide 23 mmol/L (22-30); Chloride 93 mmol/L (98-107); Estimated CRCL calculation 141 ml/min; Estimated Glomerular Filt Rate > 60; Glucose 286 mg/dL (65-110); Potassium 3.3 mmol/L (3.4-5.0); Sodium 126 mmol/L (137-145)
[2024-08-19 08:43] VITALS: PULSE 100
[2024-08-19] MEDS: ESCITALOPRAM OXALATE 10 MG TABLET PO (08:43)
[2024-08-19] MEDS: amLODIPine BESYLATE 10 MG TABLET PO (08:43)
[2024-08-19] MEDS: INSULIN GLARGINE (*BKC) 100 UNITS/ML 70 UNITS SUB-Q (08:43)
[2024-08-19] MEDS: INSULIN ASPART (*BKC) 100 UNITS/ML 8 UNITS SUB-Q (08:43)
[2024-08-19] MEDS: carvediloL 25 MG TABLET PO ×2 (08:43→20:26)
[2024-08-19] MEDS: LOSARTAN POTASSIUM 100 MG TABLET PO (08:43)
[2024-08-19] MEDS: HYDROmorphone HCL INJ (*CRX) 1 MG/ML SYR 0.5 MG IV PUSH (08:44)
[2024-08-19] MEDS: INSULIN ASPART (*BKC) 100 UNITS/ML SUB-Q ×2 (08:44→12:19)
[2024-08-19] MEDS: ENOXAPARIN 40 MG/0.4 ML SYRINGE SUB-Q (08:44)
[2024-08-19] MEDS: LIDOCAINE 5% PATCH 1 PATCH TRANSDERM (08:49)
[2024-08-19] MEDS: DULoxetine HCL 30 MG CAPSULE.DR PO (08:50)
[2024-08-19 11:19] LABS: Glucose Point of Care 252 mg/dl (65-105)
[2024-08-19] MEDS: POTASSIUM CHLORIDE 20 MEQ PACKET (FOR LIQUID) 40 MEQ PO ×2 (12:18→17:00)
[2024-08-19] MEDS: SODIUM CHLORIDE 0.9% IV 1,000 ML 125 ML IV CONT ×3 (12:19→20:27)
[2024-08-19] MEDS: INSULIN ASPART (*BKC) 100 UNITS/ML 12 UNITS SUB-Q (12:20)
--- NOTE | 2024-08-19 13:38 | P.PNGS_ITS ---
Progress Note: A&P Assessment and Plan (1) Osteomyelitis of foot, left, acute: Code(s): M86.172 - Other acute osteomyelitis, left ankle and foot Status: Acute Assessment and Plan: Postop day 3. Status post left 5th toe transmetatarsal amputation. Patient had some fever yesterday and white blood cell count is slightly higher at 14.9 K. automated differential is improved. Repeat blood cultures do not show b acteremia. Blood glucose control has been more difficult with blood sugar today 286. Discussed with hospitalist, Dr. Burgess. (2) Somnolence: Code(s): R40.0 - Somnolence Status: Acute Assessment and Plan: Patient complaining of lower thoracic back pain and painful joints. Not sure if this is response to infection of the 5th toe and recovery or if it is receiving more narcotics than needed. Discussed with hospitalist (3) Bacteremia due to Streptococcus pneumoniae: Code(s): R78.81 - Bacteremia; B95.3 - Streptococcus pneumoniae as the cause of diseases classified elsewhere Status: Acute Assessment and Plan: Repeat blood cultures negative (4) Lumbar back pain: Code(s): M54.50 - Low back pain, unspecified Status: Acute Assessment and Plan: As above (5) Chills with fever: Code(s): R50.9 - Fever, unspecified Status: Acute Assessment and Plan: Temp 38.1? about 2:00 p.m. yesterday. No fever since then. Wound healing well and foot is not swollen or erythematous Subjective Subjective Date/Time Seen: 08/19/24 13:38 Post Op day: 3 Patient reports: no new complaints (Patient remains somnolent, does arouse and answers questions), tolerating a regular diet and fever (Temperature to 38.1 yesterday afternoon, normal today) Exam Const: General: lethargic, tired appearing and obese Extrem: Left lower extremity: foot ([place] amputation wound healing well) Details: other (No erythema or swelling, no purulent drainage); no tenderness, no unusual warmth and no crepitus Objective Data Vital Signs Vital Signs: Vital Signs - 24 hr 08/18/24 14:00 08/18/24 14:33 08/18/24 15:33 Temperature 38.1 C H 38.1 C H 37.1 C Pulse Rate 101 H Respiratory Rate 18 Blood Pressure 145/78 H Pulse Oximetry 93 Oxygen Delivery 08/18/24 20:46 08/18/24 20:15 08/18/24 20:00 Temperature 37.2 C Pulse Rate 99 99 Respiratory Rate 18 Blood Pressure 172/89 H Pulse Oximetry 94 Oxygen Delivery Room Air 08/19/24 05:20 08/19/24 07:49 08/19/24 08:43 Temperature 36.9 C Pulse Rate 101 H 100 Respiratory Rate 18 Blood Pressure 190/89 H Pulse Oximetry 97 Oxygen Delivery Room Air 08/19/24 10:06 Temperature Pulse Rate Respiratory Rate Blood Pressure Pulse Oximetry Oxygen Delivery Room Air Intake/Output Intake/Output: Intake & Output 08/16/24 08/17/24 08/18/24 08/19/24 23:59 23:59 23:59 23:59 Intake Total 1050 1050 1350 2180.3 Output Total 1000 4700 1000 600 Balance 50 -3650 350 1580.3 Meds/Results Medications: Active Medications Generic Name Dose Route Start Last Admin Trade Name Freq PRN Reason Stop Dose Admin Acetaminophen 650 mg 08/18/24 14:25 08/18/24 14:33 Acetaminophen 325 Mg Tablet PO 650 mg Q6H PRN Administration Mild Pain (1-3) or Fever Amlodipine Besylate 10 mg 08/18/24 09:00 08/19/24 08:43 Amlodipine Besylate 10 Mg Tablet PO 10 mg DAILY SANCHEZ Administration Carvedilol 25 mg 08/14/24 09:00 08/19/24 08:43 Carvedilol 25 Mg Tablet PO 25 mg Q12HR SANCHEZ Administration Cyclobenzaprine HCl 5 mg 08/17/24 00:46 08/17/24 21:12 Cyclobenzaprine Hcl 5 Mg Tablet PO 5 mg Q8H PRN Administration Muscle Spasm Dextrose 12.5 gm 08/14/24 07:37 Dextrose 50% 25 Gm/50 Ml Syringe IV PUSH PRN PRN Hypoglycemia Protocol Duloxetine HCl 30 mg 08/19/24 09:00 08/19/24 08:50 Duloxetine Hcl 30 Mg Capsule.Dr PO 30 mg QAM SANCHEZ Administration Enoxaparin Sodium 40 mg 08/14/24 09:00 08/19/24 08:44 Enoxaparin 40 Mg/0.4 Ml Syringe SUB-Q 40 mg DAILY SANCHEZ Administration Escitalopram Oxalate 10 mg 08/14/24 09:00 08/19/24 08:43 Escitalopram Oxalate 10 Mg Tablet PO 10 mg DAILY SANCHEZ Administration Glucagon 1 mg 08/14/24 07:37 Glucagon For Inj 1 Mg Vial IM PRN PRN Hypoglycemia Protocol Glucose 15 gm 08/14/24 07:37 Glucose Oral Gel 15 Gm Of Glucse In 37.5 Gm Tube PO PRN PRN Hypoglycemia Protocol Hydromorphone HCl 0.5 mg 08/19/24 08:21 08/19/24 08:44 Hydromorphone Hcl Inj (*Crx) 1 Mg/Ml Syr IV PUSH 0.5 mg Q3H PRN Administration Breakthrough Pain Rated 4-6 or NPO Ceftriaxone Sodium 2 gm in 100 mls @ 200 mls/hr 08/17/24 21:00 08/19/24 04:13 Rocephin 2 Gm/Ns 100 Ml IVPB Infused Q24H SANCHEZ Infusion Sodium Chloride 1,000 mls @ 125 mls/hr 08/19/24 10:55 08/19/24 12:23 Normal Saline Iv IV CONT 125 mls/hr .Q8H SANCHEZ Administration Insulin Aspart 4 - 8 units 08/14/24 08:00 08/19/24 12:19 Insulin Aspart (*Bkc) 100 Units/Ml SUB-Q 5 units TIDWM SANCHEZ Administration Protocol Insulin Aspart 2 - 4 units 08/14/24 21:00 08/18/24 20:45 Insulin Aspart (*Bkc) 100 Units/Ml SUB-Q 2 units HS SANCHEZ Administration Protocol Insulin Aspart 12 units 08/19/24 12:00 08/19/24 12:20 Insulin Aspart (*Bkc) 100 Units/Ml SUB-Q 12 units TIDWM SANCHEZ Administration Insulin Glargine 70 units 08/15/24 09:00 08/19/24 08:43 Insulin Glargine (*Bkc) 100 Units/Ml SUB-Q 70 units DAILY SANCHEZ Administration Lidocaine 1 patch 08/17/24 14:15 08/19/24 08:49 Lidocaine 5% Patch TRANSDERM 1 patch DAILY SANCHEZ Administration Losartan Potassium 100 mg 08/15/24 11:35 08/19/24 08:43 Losartan Potassium 100 Mg Tablet PO 100 mg DAILY SANCHEZ Administration Naloxone HCl 0.1 mg 08/16/24 14:34 Naloxone Hcl 0.4 Mg/Ml Vial IV PUSH Q2M PRN Opiate Reversal Ondansetron HCl 4 mg 08/13/24 15:26 08/17/24 00:26 Ondansetron Inj 4 Mg/2 Ml Vial IV PUSH 4 mg Q6H PRN Administration Nausea And Vomiting Oxycodone/Acetaminophen 1 tab 08/16/24 14:34 08/19/24 03:27 Oxycodone/Acetaminophen (*Crx) 10-325 Mg Tablet PO 1 tab Q6H PRN Administration Pain Rated 7-10 Perflutren Lipid Microsphere 0 ml 08/17/24 09:52 Perflutren Lipid Microspheres 1.5 Ml Vial Diluted To 10 Ml Total Volume IV PUSH 08/20/24 09:52 ONCE PRN adequate visualization Protocol Potassium Chloride 40 meq 08/19/24 17:00 Potassium Chloride 20 Meq Packet (For Liquid) PO BID SANCHEZ Radiology Results: ITS Impressions Chest X-Ray 08/13/24 13:54 IMPRESSION: No acute cardiopulmonary pathology. Renal Ultrasound 08/13/24 15:07 IMPRESSION: 1. Normal kidneys. No hydronephrosis. Foot X-Ray 08/14/24 11:36 IMPRESSION: 1. Septic arthritis at the fifth metatarsophalangeal joint with associated osteomyelitis at the base of the fifth proximal phalanx and head of the fifth metatarsal. Lumbar Spine X-Ray 08/14/24 11:49 IMPRESSION: No acute osseous abnormality lumbar spine. Multilevel degenerative disc disease. Lumbar Spine MRI 08/14/24 15:23 IMPRESSION: 1. Moderate lumbar spondylosis. 2. No evidence of discitis/osteomyelitis. Labs Labs: Laboratory Results - last 24 hr 08/18/24 08/18/24 08/19/24 16:48 20:17 07:33 WBC RBC Hgb Hct MCV MCH MCHC RDW Plt Count MPV Immature Gran % (Auto) Neut % (Auto) Lymph % (Auto) [place] % (Auto) Eos % (Auto) Baso % (Auto) Lymph # (Auto) [place] # (Auto) Eos # (Auto) Baso # (Auto) Abs Immat Gran (auto) Absolute Neuts (auto) Absolute Nucleated RBC Nucleated RBC % Sodium Potassium Chloride Carbon Dioxide Anion Gap BUN Creatinine Estim Creat Clear Calc Estimated GFR Glucose POC Capillary Glucose 146 H 262 H 293 H Calcium 08/19/24 08/19/24 08:11 11:10 WBC 14.9 H RBC 3.83 L Hgb 11.1 L Hct 31.9 L MCV 83.3 MCH 29.0 MCHC 34.8 RDW 13.6 Plt Count 367 MPV 9.4 Immature Gran % (Auto) 2.6 H Neut % (Auto) 79.6 H Lymph % (Auto) 7.6 L [place] % (Auto) 9.6 H Eos % (Auto) 0.3 Baso % (Auto) 0.3 Lymph # (Auto) 1.13 [place] # (Auto) 1.4 H Eos # (Auto) 0.0 Baso # (Auto) 0.0 Abs Immat Gran (auto) 0.39 H Absolute Neuts (auto) 11.9 H Absolute Nucleated RBC 0.000 Nucleated RBC % 0.0 Sodium 126 L Potassium 3.3 L Chloride 93 L Carbon Dioxide 23 Anion Gap 10 BUN 20 Creatinine 0.80 Estim Creat Clear Calc 141 Estimated GFR > 60 Glucose 286 H POC Capillary Glucose 252 H Calcium 8.2 L
[2024-08-19 14:00] VITALS: BP 137/72; PULSE 101; RESP 18; TEMP 37.9; O2SAT 94
[2024-08-19 16:01] VITALS: TEMP 36.6
[2024-08-19 16:34] LABS: Glucose Point of Care 116 mg/dl (65-105)
[2024-08-19 19:44] LABS: Glucose Point of Care 111 mg/dl (65-105)
[2024-08-19] MEDS: cefTRIAXone 2 GM/NS 100 ML 2 GM/100 ML BAG IVPB (20:24)
[2024-08-19 20:25] VITALS: BP 165/84; PULSE 108; RESP 18; TEMP 37.4; O2SAT 96
[2024-08-20] MEDS: oxyCODONE/ACETAMINOPHEN (*CRX) 10-325 MG TABLET 1 TAB PO ×3 (02:52→17:42)
[2024-08-20] MEDS: CYCLOBENZAPRINE HCL 5 MG TABLET PO ×2 (02:53→11:57)
[2024-08-20] MEDS: SODIUM CHLORIDE 0.9% IV 1,000 ML 125 ML IV CONT ×2 (04:55→17:24)
[2024-08-20 05:24] VITALS: BP 153/94; PULSE 99; RESP 20; TEMP 36.8; O2SAT 96
[2024-08-20 08:00] VITALS: PULSE 99; O2SAT 93
[2024-08-20 08:04] LABS: Glucose Point of Care 162 mg/dl (65-105)
[2024-08-20 08:19] LABS: Basophils Percent Auto 0.3 % (0.2-1.2); Eosinophils Percent Auto 0.3 % (0-4.4); Hematocrit 30.7 % (42.0-52.0); Hemoglobin 10.6 g/dL (14.0-18.0); Immature Granulocyte Absolute 0.25 K/mm3 (0.00-0.031); Immature Granulocyte Percent A 2.2 % (0-0.5); Lymphocytes Absolute Auto 1.05 K/mm3 (0.9-3.2); Lymphocytes Percent Auto 9.1 % (18.3-44.2); Mean Corpuscular HGB Conc 34.5 g/dl (32-36); Mean Corpuscular Volume 83.9 fl (80-100); Mean Platelet Volume 9.4 fl (7.4-10.4); Monocytes Absolute Auto 1.3 K/mm3 (0.1-0.6); Monocytes Percent Auto 11.3 % (2.6-8.5); Neutrophils Absolute Auto 8.8 K/mm3 (1.3-6.7); Neutrophils Percent Auto 76.8 % (45.5-73.1); Platelet Count Result 373 k/mm3 (150-375); Red Blood Count 3.66 M/mm3 (4.6-6.20); Red Cell Distribution Width 13.5 % (11.5-14.5); White Blood Count 11.5 K/mm3 (4.5-10.0)
[2024-08-20] MEDS: LIDOCAINE 5% PATCH 1 PATCH TRANSDERM (08:22)
[2024-08-20] MEDS: INSULIN ASPART (*BKC) 100 UNITS/ML 12 UNITS SUB-Q (08:27)
[2024-08-20] MEDS: ENOXAPARIN 40 MG/0.4 ML SYRINGE SUB-Q (08:28)
[2024-08-20 08:33] LABS: Anion Gap 6 mmol/L (4-12); Blood Urea Nitrogen 17 mg/dL (9-20); Calcium 7.6 mg/dL (8.4-10.2); Carbon Dioxide 24 mmol/L (22-30); Chloride 97 mmol/L (98-107); Estimated CRCL calculation 141 ml/min; Estimated Glomerular Filt Rate > 60; Glucose 152 mg/dL (65-110); Potassium 3.4 mmol/L (3.4-5.0); Sodium 127 mmol/L (137-145)
[2024-08-20] MEDS: POTASSIUM CHLORIDE 20 MEQ PACKET (FOR LIQUID) 40 MEQ PO (08:33)
[2024-08-20] MEDS: DULoxetine HCL 30 MG CAPSULE.DR PO (08:35)
[2024-08-20 08:36] VITALS: PULSE 99
[2024-08-20] MEDS: amLODIPine BESYLATE 10 MG TABLET PO (08:36)
[2024-08-20] MEDS: LOSARTAN POTASSIUM 100 MG TABLET PO (08:36)
[2024-08-20] MEDS: ESCITALOPRAM OXALATE 10 MG TABLET PO (08:36)
[2024-08-20] MEDS: carvediloL 25 MG TABLET PO ×2 (08:36→20:58)
--- NOTE | 2024-08-20 08:44 | PC.NURSE ---
Called DR. Aditya ambrosio pt bs of 162 this morning. Pt ate 1 bite of sausage and a whole bowl of grapes. Pt is very tired and wanting to sleep. said hold lantus 7o units this morning.
--- NOTE | 2024-08-20 08:56 | P.PNIM_ITS ---
Progress Note: A&P Assessment and Plan (1) Bacteremia due to Streptococcus pneumoniae: Code(s): R78.81 - Bacteremia; B95.3 - Streptococcus pneumoniae as the cause of diseases classified elsewhere Status: Acute (2) Lumbar back pain: Code(s): M54.50 - Low back pain, unspecified Status: Acute (3) DKA (diabetic ketoacidosis): Code(s): E11.10 - Type 2 diabetes mellitus with ketoacidosis without coma Status: Acute (4) Acute kidney injury: Code(s): N17.9 - Acute kidney failure, unspecified Status: Acute Plan 49-year-old male with a significant past medical history of insulin-dependent type 2 diabetes mellitus, diabetic foot ulcer, depression, erectile dysfunction, hypertension, history of kidney stones who presented to the hospital for evaluation of body aches, nausea without vomiting, fever, chills. Workup in the hospital included a chest x-ray which was negative for any acute cardiopulmonary process. Renal ultrasound was performed which showed normal kidneys, no hydronephrosis. Initial labs showed a white blood cell count of 9.5, hemoglobin 12.2, platelet count 120, band neutrophils 17, sodium 130, chloride 95, bicarb 17, anion gap 18, creatinine 2.10, EGFR 34, blood sugar ranging 300-449, lactic acid 2.3, beta hydroxybutyrate 3.31. Respiratory panel was negative for influenza a and B, RSV, COVID. EKG showed sinus tachycardia with a rate of 100, QTC 449. Patient was given 2 L of normal saline while in the ED, given 18 units IV push regular insulin and started on an insulin infusion per DKA protocol. Acute osteomyelitis of left foot: Foot culture growing E coli Appreciate surgery help Status post left 5th toe amputation Pain control Based on cut foot culture, c/w ceftriaxone Local wound care, dressing change as per surgery Non-weight bearing on LLE, PT eval for crutch use and ambulation Diabetic ketoacidosis: Hemoglobin A1c 8.8 now controlled DKA resolved Blood glucose checked t.i.d. a.c. and HS change from Lantus 70 units am to 35 units bid change aspart from 12 to 10 units tid Continue with sliding scale insulin Adjust dose as needed now glucose is well controlled below 180 Streptococcus bacteremia: Unclear source Blood culture from 08/15/2024 is negative to date Trans thoracic echocardiogram negative for any vegetation Less suspicion for endocarditis, will not pursue for transesophageal echo c ardiac Monitor leukocytosis fever on 08/18, repeate BCX: no growth so far Continue ceftriaxone IV 2 g daily Hypertension: Increase the dose of Norvasc to 10 mg Continue with losartan Continue with Coreg Once pain is better controlled blood pressure should improve Hyponatremia Sodium 126 Discontinue D5 Start normal saline 125 mL/hour s/w sodium chloride 1 g t.i.d. p.o. Hypokalemia 3.3 provide potassium chloride 40 mEq p.o. once and b.i.d. p.o. Follow-up BMP Corrected PURNIMA: Creatinine 2.1 upon arrival August 13 Avoid nephrotoxins Recheck BMP in a.m. Renal ultrasound negative for hydronephrosis resolved Lumbar back pain: MRI of lumbar spine shows moderate lumbar spondylosis no evidence of diskitis or osteomyelitis Already on pain medications add Lidoderm patch add gabapentin 300mg tid po Code status: Full DVT prophylaxis: Lovenox 9. Disposition: Pending improvement Subjective Date/time seen: 08/20/24 08:56 Interval history: I saw exam patient today, patient has no new issue or events over the night. Patient feels better today, the left foot pain is tolerable, patient denies chest pain, shortness of breath, abdomen pain, nausea vomiting diarrhea. Patient is afebrile, blood pressure stable, labs reviewed,leukocytosis is improved, glucose is controlled below by 180 Exam Narrative: GENERAL: Pleasant, in no acute distress. Well-nourished. - EYES: EOMI. Anicteric. - HENT: Moist mucous membranes. - LUNGS: Clear to auscultation bilateral ly, no wheezing, rhonchi, or rales. - CARDIOVASCULAR: Regular rate and rhyth m. No murmur. No JVD. - ABDOMEN: Soft, non-tender and non-dist ended. No palpable masses. - EXTREMITIES: No edema. Peripheral puls es 2+. Non-tender. Surgical wound of left foot is dry, no discharge, low back tenderness by light punch - NEUROLOGIC: No focal neurological defi cits. CN II-XII grossly intact.. - PSYCHIATRIC: Awake, Alert and oriented x 3. Appropriate mood and affect. - SKIN: No rashes or lesions. Warm. - LYMPH: No cervical lymphadenopathy. Objective Data Vital Signs Vital Signs: Vital Signs - 24 hr 08/19/24 10:06 08/19/24 14:00 08/19/24 16:01 Temperature 100.3 F H 97.9 F Pulse Rate 101 H Respiratory Rate 18 Blood Pressure 137/72 Pulse Oximetry 94 Oxygen Delivery Room Air 08/19/24 20:25 08/19/24 20:00 08/20/24 05:24 Temperature 99.3 F 98.3 F Pulse Rate 108 H 99 Respiratory Rate 18 20 Blood Pressure 165/84 H 153/94 H Pulse Oximetry 96 96 Oxygen Delivery Room Air 08/20/24 08:36 Temperature Pulse Rate 99 Respiratory Rate Blood Pressure Pulse Oximetry Oxygen Delivery Intake/Output Intake/Output: Intake & Output 08/17/24 08/18/24 08/19/24 08/20/24 23:59 23:59 23:59 23:59 Intake Total 1050 1350 3762.4 1997.9 Output Total 4700 1000 600 700 Balance -3650 350 3162.4 1297.9 Meds/Results Medications: Active Medications Generic Name Dose Route Start Last Admin Trade Name Freq PRN Reason Stop Dose Admin Acetaminophen 650 mg 08/18/24 14:25 08/18/24 14:33 Acetaminophen 325 Mg Tablet PO 650 mg Q6H PRN Administration Mild Pain (1-3) or Fever Amlodipine Besylate 10 mg 08/18/24 09:00 08/20/24 08:36 Amlodipine Besylate 10 Mg Tablet PO 10 mg DAILY ASNCHEZ Administration Carvedilol 25 mg 08/14/24 09:00 08/20/24 08:36 Carvedilol 25 Mg Tablet PO 25 mg Q12HR SANCHEZ Administration Cyclobenzaprine HCl 5 mg 08/17/24 00:46 08/20/24 02:53 Cyclobenzaprine Hcl 5 Mg Tablet PO 5 mg Q8H PRN Administration Muscle Spasm Dextrose 12.5 gm 08/14/24 07:37 Dextrose 50% 25 Gm/50 Ml Syringe IV PUSH PRN PRN Hypoglycemia Protocol Duloxetine HCl 30 mg 08/19/24 09:00 08/20/24 08:35 Duloxetine Hcl 30 Mg Capsule.Dr PO 30 mg QAM SANCHEZ Administration Enoxaparin Sodium 40 mg 08/14/24 09:00 08/20/24 08:28 Enoxaparin 40 Mg/0.4 Ml Syringe SUB-Q 40 mg DAILY SANCHEZ Administration Escitalopram Oxalate 10 mg 08/14/24 09:00 08/20/24 08:36 Escitalopram Oxalate 10 Mg Tablet PO 10 mg DAILY SANCHEZ Administration Glucagon 1 mg 08/14/24 07:37 Glucagon For Inj 1 Mg Vial IM PRN PRN Hypoglycemia Protocol Glucose 15 gm 08/14/24 07:37 Glucose Oral Gel 15 Gm Of Glucse In 37.5 Gm Tube PO PRN PRN Hypoglycemia Protocol Hydromorphone HCl 0.5 mg 08/19/24 08:21 08/19/24 08:44 Hydromorphone Hcl Inj (*Crx) 1 Mg/Ml Syr IV PUSH 0.5 mg Q3H PRN Administration Breakthrough Pain Rated 4-6 or NPO Ceftriaxone Sodium 2 gm in 100 mls @ 200 mls/hr 08/17/24 21:00 08/19/24 20:55 Rocephin 2 Gm/Ns 100 Ml IVPB Infused Q24H SANCHEZ Infusion Sodium Chloride 1,000 mls @ 125 mls/hr 08/19/24 10:55 08/20/24 04:55 Normal Saline Iv IV CONT 125 mls/hr .Q8H SANCHEZ Administration Insulin Aspart 4 - 8 units 08/14/24 08:00 08/20/24 08:13 Insulin Aspart (*Bkc) 100 Units/Ml SUB-Q Not Given TIDWM [facility] Protocol Insulin Aspart 2 - 4 units 08/14/24 21:00 08/19/24 19:45 Insulin Aspart (*Bkc) 100 Units/Ml SUB-Q Not Given HS [facility] Protocol Insulin Aspart 12 units 08/19/24 12:00 08/20/24 08:27 Insulin Aspart (*Bkc) 100 Units/Ml SUB-Q 12 units TIDWM SANCHEZ Administration Insulin Glargine 70 units 08/15/24 09:00 08/20/24 08:43 Insulin Glargine (*Bkc) 100 Units/Ml SUB-Q Not Given DAILY SANCHEZ Lidocaine 1 patch 08/17/24 14:15 08/20/24 08:22 Lidocaine 5% Patch TRANSDERM 1 patch DAILY SANCHEZ Administration Losartan Potassium 100 mg 08/15/24 11:35 08/20/24 08:36 Losartan Potassium 100 Mg Tablet PO 100 mg DAILY SANCHEZ Administration Naloxone HCl 0.1 mg 08/16/24 14:34 Naloxone Hcl 0.4 Mg/Ml Vial IV PUSH Q2M PRN Opiate Reversal Ondansetron HCl 4 mg 08/13/24 15:26 08/17/24 00:26 Ondansetron Inj 4 Mg/2 Ml Vial IV PUSH 4 mg Q6H PRN Administration Nausea And Vomiting Oxycodone/Acetaminophen 1 tab 08/16/24 14:34 08/20/24 08:30 Oxycodone/Acetaminophen (*Crx) 10-325 Mg Tablet PO 1 tab Q6H PRN Administration Pain Rated 7-10 Perflutren Lipid Microsphere 0 ml 08/17/24 09:52 Perflutren Lipid Microspheres 1.5 Ml Vial Diluted To 10 Ml Total Volume IV PUSH 08/20/24 09:52 ONCE PRN adequate visualization Protocol Potassium Chloride 40 meq 08/19/24 17:00 08/20/24 08:33 Potassium Chloride 20 Meq Packet (For Liquid) PO 40 meq BID SANCHEZ Administration Radiology Results: ITS Impressions Chest X-Ray 08/13/24 13:54 IMPRESSION: No acute cardiopulmonary pathology. Renal Ultrasound 08/13/24 15:07 IMPRESSION: 1. Normal kidneys. No hydronephrosis. Foot X-Ray 08/14/24 11:36 IMPRESSION: 1. Septic arthritis at the fifth metatarsophalangeal joint with associated osteomyelitis at the base of the fifth proximal phalanx and head of the fifth metatarsal. Lumbar Spine X-Ray 08/14/24 11:49 IMPRESSION: No acute osseous abnormality lumbar spine. Multilevel degenerative disc disease. Lumbar Spine MRI 08/14/24 15:23 IMPRESSION: 1. Moderate lumbar spondylosis. 2. No evidence of discitis/osteomyelitis. Labs Labs: Laboratory Results - last 24 hr 08/19/24 08/19/24 08/19/24 11:10 16:25 19:26 WBC RBC Hgb Hct MCV MCH MCHC RDW Plt Count MPV Immature Gran % (Auto) Neut % (Auto) Lymph % (Auto) [place] % (Auto) Eos % (Auto) Baso % (Auto) Lymph # (Auto) [place] # (Auto) Eos # (Auto) Baso # (Auto) Abs Immat Gran (auto) Absolute Neuts (auto) Absolute Nucleated RBC Nucleated RBC % Sodium Potassium Chloride Carbon Dioxide Anion Gap BUN Creatinine Estim Creat Clear Calc Estimated GFR Glucose POC Capillary Glucose 252 H 116 H 111 H Calcium 08/20/24 08/20/24 07:29 08:05 WBC 11.5 H RBC 3.66 L Hgb 10.6 L Hct 30.7 L MCV 83.9 MCH 29.0 MCHC 34.5 RDW 13.5 Plt Count 373 MPV 9.4 Immature Gran % (Auto) 2.2 H Neut % (Auto) 76.8 H Lymph % (Auto) 9.1 L [place] % (Auto) 11.3 H Eos % (Auto) 0.3 Baso % (Auto) 0.3 Lymph # (Auto) 1.05 [place] # (Auto) 1.3 H Eos # (Auto) 0.0 Baso # (Auto) 0.0 Abs Immat Gran (auto) 0.25 H Absolute Neuts (auto) 8.8 H Absolute Nucleated RBC 0.000 Nucleated RBC % 0.0 Sodium 127 L Potassium 3.4 Chloride 97 L Carbon Dioxide 24 Anion Gap 6 BUN 17 Creatinine 0.80 Estim Creat Clear Calc 141 Estimated GFR > 60 Glucose 152 H POC Capillary Glucose 162 H Calcium 7.6 L
--- NOTE | 2024-08-20 11:13 | PCNFU ---
Nutrition Follow-Up Complete: Suboptimal energy intake as related to DKA as evidenced by poor po intake reported. Goal:Meet estimated nutritional needs. Pt slowly progressing towards goal, continue with same goal. Pt current nutrition is Diabetic consistent carb. Nutrition recommendation: Glucerna shakes BID - reorder Last recorded weight is 136 kg. Bowel Motility: No BM recorded at this time Labs Reviewed: NA:127, glu:152 Meds Noted: lovneox, novolog, zofran Skin: DM foot ulcer Additional Notes: Pt continues on a diabetic diet, intake poor at 10-25% at this time. Pt asleep during assessment. No orders for Glucerna shakes but was previously on them. Will reorder. Encourage po intake. Will monitor weight, labs, skin, oral intake, meds every 5 days.
[2024-08-20 11:14] LABS: Glucose Point of Care 143 mg/dl (65-105)
--- NOTE | 2024-08-20 11:38 | PCOTNOTE ---
Patient sleepingin the recliner chair at this time. Per RN, Patient was given pain medication earlier this morning. Patient declines particpating in therapy at this time Patient states he can not keep his eyes open, extremely tired and needs to sleep. Will check back at a later time.
[2024-08-20] MEDS: INSULIN ASPART (*BKC) 100 UNITS/ML 10 UNITS SUB-Q ×2 (11:54→17:31)
[2024-08-20 13:55] VITALS: BP 124/74; PULSE 100; RESP 18; TEMP 36.6; O2SAT 94
--- NOTE | 2024-08-20 14:12 | PCOTNOTE ---
Patient having increased confusion at this time this P.M. RN notified, aware. Per PT, attempted to stand Patient, 10 pain , not safe to attempt movement at his session. Patient asked to participate in UE exercises for direction following and increased processing abilities. Patient stated he can not move, so much pain, Patient would not move his arms. RN notified.
--- NOTE | 2024-08-20 16:05 | PM.PNGS ---
Progress Note: A&P Assessment and Plan (1) Osteomyelitis of foot, left, acute: Code(s): M86.172 - Other acute osteomyelitis, left ankle and foot Status: Acute Assessment and Plan: Healing well POD4 following left 5th toe ray amputation. Wound is healing well. Continue local wound care. Patient had a fever the last two days, which does not appear to be related to his foot, which is healing well. His main complaint at this time is back pain and Hospitalist is aware and managing. Neurosurgery has been consulted. (2) Somnolence: Code(s): R40.0 - Somnolence Status: Acute Assessment and Plan: Patient with altered mental status and complaining of lower thoracic back pain. MRI lumbar spine showed moderate lumbar spondylosis and multiple bulging discs with annular fissure. Neurosurgery consulted today. (3) Bacteremia due to Streptococcus pneumoniae: Code(s): R78.81 - Bacteremia; B95.3 - Streptococcus pneumoniae as the cause of diseases classified elsewhere Status: Acute Assessment and Plan: Repeat blood cultures negative (4) Lumbar back pain: Code(s): M54.50 - Low back pain, unspecified Status: Acute Assessment and Plan: Neurosurgery consulted (5) Chills with fever: Code(s): R50.9 - Fever, unspecified Status: Acute Assessment and Plan: Unclear etiology. Fever once the last two days. His left foot amputation site appears to be healing well with no drainage or erythema. No pain or tenderness. Plan I have discussed the patient's case and plan of care with Dr. Ann. Subjective Subjective Date/Time Seen: 08/20/24 16:05 Post Op day: 4 (Left fifth toe ray amputation) Interval history: Patient seen today with no family at the bedside. He is alert and oriented x3, although he has some inconsistency with his answers and seems confused with certain questions that I have asked him. For example, he was unable to recall what his did for work and it took him some time before he could tell me where we were located. His only complaint for me today is back pain. Per nursing staff, his states that this has been ongoing for a few weeks, but he is denying any history of back pain. He tried standing with physical therapy today and began shaking severely and became diaphoretic. He was unable to take any steps due to this severe back pain and had to sit back down. No issues with his foot. Denies any foot pain. Exam Const: General: no acute distress and ill appearing Orientation/consciousness: patient oriented x3, confusion and lethargic Extrem: Other: Left foot dressing removed. Left fifth toe amputation healing well with vertical mattress sutures intact. Wound bed is pink with no surrounding erythema or swelling. No purulence drainage. No tenderness. Objective Data Vital Signs Vital Signs: Vital Signs - 24 hr 08/19/24 20:25 08/19/24 20:00 08/20/24 05:24 Temperature 99.3 F 98.3 F Pulse Rate 108 H 99 Respiratory Rate 18 20 Blood Pressure 165/84 H 153/94 H Pulse Oximetry 96 96 Oxygen Delivery Room Air 08/20/24 08:36 08/20/24 08:00 08/20/24 13:55 Temperature 97.9 F Pulse Rate 99 99 100 Respiratory Rate 18 Blood Pressure 124/74 Pulse Oximetry 93 94 Oxygen Delivery Room Air Intake/Output Intake/Output: Intake & Output 08/17/24 08/18/24 08/19/24 08/20/24 23:59 23:59 23:59 23:59 Intake Total 1050 1350 3762.4 2477.9 Output Total 4700 1000 600 700 Balance -3650 350 3162.4 1777.9 Meds/Results Medications: Active Medications Generic Name Dose Route Start Last Admin Trade Name Freq PRN Reason Stop Dose Admin Acetaminophen 650 mg 08/18/24 14:25 08/18/24 14:33 Acetaminophen 325 Mg Tablet PO 650 mg Q6H PRN Administration Mild Pain (1-3) or Fever Amlodipine Besylate 10 mg 08/18/24 09:00 08/20/24 08:36 Amlodipine Besylate 10 Mg Tablet PO 10 mg DAILY SANCHEZ Administration Carvedilol 25 mg 08/14/24 09:00 08/20/24 08:36 Carvedilol 25 Mg Tablet PO 25 mg Q12HR SANCHEZ Administration Cyclobenzaprine HCl 5 mg 08/17/24 00:46 08/20/24 11:57 Cyclobenzaprine Hcl 5 Mg Tablet PO 5 mg Q8H PRN Administration Muscle Spasm Dextrose 12.5 gm 08/14/24 07:37 Dextrose 50% 25 Gm/50 Ml Syringe IV PUSH PRN PRN Hypoglycemia Protocol Duloxetine HCl 30 mg 08/19/24 09:00 08/20/24 08:35 Duloxetine Hcl 30 Mg Capsule. PO 30 mg QAM SANCHEZ Administration Enoxaparin Sodium 40 mg 08/14/24 09:00 08/20/24 08:28 Enoxaparin 40 Mg/0.4 Ml Syringe SUB-Q 40 mg DAILY SANCHEZ Administration Escitalopram Oxalate 10 mg 08/14/24 09:00 08/20/24 08:36 Escitalopram Oxalate 10 Mg Tablet PO 10 mg DAILY S[facility]HEZ Administration Glucagon 1 mg 08/14/24 07:37 Glucagon For Inj 1 Mg Vial IM PRN PRN Hypoglycemia Protocol Glucose 15 gm 08/14/24 07:37 Glucose Oral Gel 15 Gm Of Glucse In 37.5 Gm Tube PO PRN PRN Hypoglycemia Protocol Hydromorphone HCl 0.5 mg 08/20/24 09:08 Hydromorphone Hcl Inj (*Crx) 1 Mg/Ml Syr IV PUSH Q6H PRN Breakthrough Pain Rated 4-6 or NPO Ceftriaxone Sodium 2 gm in 100 mls @ 200 mls/hr 08/17/24 21:00 08/19/24 20:55 Rocephin 2 Gm/Ns 100 Ml IVPB Infused Q24H SANCHEZ Infusion Sodium Chloride 1,000 mls @ 125 mls/hr 08/19/24 10:55 08/20/24 04:55 Normal Saline Iv IV CONT 125 mls/hr .Q8H SANCHEZ Administration Insulin Aspart 4 - 8 units 08/14/24 08:00 08/20/24 11:52 Insulin Aspart (*Bkc) 100 Units/Ml SUB-Q Not Given TIDWM [facility] Protocol Insulin Aspart 2 - 4 units 08/14/24 21:00 08/19/24 19:45 Insulin Aspart (*Bkc) 100 Units/Ml SUB-Q Not Given HS [facility] Protocol Insulin Aspart 10 units 08/20/24 12:00 08/20/24 11:54 Insulin Aspart (*Bkc) 100 Units/Ml SUB-Q 10 units TIDWM [facility] Administration Insulin Glargine 35 units 08/20/24 17:00 Insulin Glargine (*Bkc) 100 Units/Ml SUB-Q BIDWM [facility] Lidocaine 1 patch 08/17/24 14:15 08/20/24 08:22 Lidocaine 5% Patch TRANSDERM 1 patch DAILY [facility]Z Administration Losartan Potassium 100 mg 10/16/24 11:35 08/20/24 08:36 Losartan Potassium 100 Mg Tablet PO 100 mg DAILY S[facility]HEZ Administration Naloxone HCl 0.1 mg 08/16/24 14:34 Naloxone Hcl 0.4 Mg/Ml Vial IV PUSH Q2M PRN Opiate Reversal Ondansetron HCl 4 mg 08/13/24 15:26 08/17/24 00:26 Ondansetron Inj 4 Mg/2 Ml Vial IV PUSH 4 mg Q6H PRN Administration Nausea And Vomiting Oxycodone/Acetaminophen 1 tab 08/16/24 14:34 08/20/24 08:30 Oxycodone/Acetaminophen (*Crx) 10-325 Mg Tablet PO 1 tab Q6H PRN Administration Pain Rated 7-10 Potassium Chloride 40 meq 08/19/24 17:00 08/20/24 08:33 Potassium Chloride 20 Meq Packet (For Liquid) PO 40 meq BID [facility]Z Administration Radiology Results: ITS Impressions Chest X-Ray 08/13/24 13:54 IMPRESSION: No acute cardiopulmonary pathology. Renal Ultrasound 08/13/24 15:07 IMPRESSION: 1. Normal kidneys. No hydronephrosis. Foot X-Ray 08/14/24 11:36 IMPRESSION: 1. Septic arthritis at the fifth metatarsophalangeal joint with associated osteomyelitis at the base of the fifth proximal phalanx and head of the fifth metatarsal. Lumbar Spine X-Ray 08/14/24 11:49 IMPRESSION: No acute osseous abnormality lumbar spine. Multilevel degenerative disc disease. Lumbar Spine MRI 08/14/24 15:23 IMPRESSION: 1. Moderate lumbar spondylosis. 2. No evidence of discitis/osteomyelitis. Labs Labs: Laboratory Results - last 24 hr 08/19/24 08/19/24 08/20/24 16:25 19:26 07:29 WBC RBC Hgb Hct MCV MCH MCHC RDW Plt Count MPV Immature Gran % (Auto) Neut % (Auto) Lymph % (Auto) [place] % (Auto) Eos % (Auto) Baso % (Auto) Lymph # (Auto) [place] # (Auto) Eos # (Auto) Baso # (Auto) Abs Immat Gran (auto) Absolute Neuts (auto) Absolute Nucleated RBC Nucleated RBC % Sodium Potassium Chloride Carbon Dioxide Anion Gap BUN Creatinine Estim Creat Clear Calc Estimated GFR Glucose POC Capillary Glucose 116 H 111 H 162 H Calcium 08/20/24 08/20/24 08:05 11:11 WBC 11.5 H RBC 3.66 L Hgb 10.6 L Hct 30.7 L MCV 83.9 MCH 29.0 MCHC 34.5 RDW 13.5 Plt Count 373 MPV 9.4 Immature Gran % (Auto) 2.2 H Neut % (Auto) 76.8 H Lymph % (Auto) 9.1 L [place] % (Auto) 11.3 H Eos % (Auto) 0.3 Baso % (Auto) 0.3 Lymph # (Auto) 1.05 [place] # (Auto) 1.3 H Eos # (Auto) 0.0 Baso # (Auto) 0.0 Abs Immat Gran (auto) 0.25 H Absolute Neuts (auto) 8.8 H Absolute Nucleated RBC 0.000 Nucleated RBC % 0.0 Sodium 127 L Potassium 3.4 Chloride 97 L Carbon Dioxide 24 Anion Gap 6 BUN 17 Creatinine 0.80 Estim Creat Clear Calc 141 Estimated GFR > 60 Glucose 152 H POC Capillary Glucose 143 H Calcium 7.6 L
[2024-08-20 16:16] LABS: Glucose Point of Care 142 mg/dl (65-105)
[2024-08-20] MEDS: CALCIUM CARBONATE (OSCAL) 500 MG TABLET PO (17:29)
[2024-08-20] MEDS: GABAPENTIN 300 MG CAPSULE PO (17:29)
[2024-08-20] MEDS: INSULIN GLARGINE (*BKC) 100 UNITS/ML 35 UNITS SUB-Q (17:31)
[2024-08-20 20:28] LABS: Glucose Point of Care 131 mg/dl (65-105)
[2024-08-20 20:58] VITALS: PULSE 98
[2024-08-20] MEDS: cefTRIAXone 2 GM/NS 100 ML 2 GM/100 ML BAG IVPB (20:59)
[2024-08-20 22:00] VITALS: BP 146/75; PULSE 101; RESP 28; TEMP 36.4; O2SAT 94
[2024-08-21] VITALS (8 sets, daily range): BP systolic 120–157; BP diastolic 55–75; PULSE 86–104; RESP 16–22; TEMP 36.5–37.8; O2SAT 92–96
[2024-08-21] MEDS: SODIUM CHLORIDE 0.9% IV 1,000 ML 125 ML IV CONT (01:10)
[2024-08-21 07:50] LABS: Anion Gap 5 mmol/L (4-12); Blood Urea Nitrogen 16 mg/dL (9-20); Calcium 7.5 mg/dL (8.4-10.2); Carbon Dioxide 24 mmol/L (22-30); Chloride 98 mmol/L (98-107); Estimated CRCL calculation 141 ml/min; Estimated Glomerular Filt Rate > 60; Glucose 117 mg/dL (65-110); Potassium 3.5 mmol/L (3.4-5.0); Sodium 127 mmol/L (137-145)
[2024-08-21 08:03] LABS: Glucose Point of Care 116 mg/dl (65-105)
[2024-08-21 08:14] LABS: Basophils Percent Auto 0.3 % (0.2-1.2); Eosinophils Percent Auto 0.3 % (0-4.4); Hematocrit 28.5 % (42.0-52.0); Hemoglobin 9.6 g/dL (14.0-18.0); Immature Granulocyte Absolute 0.16 K/mm3 (0.00-0.031); Immature Granulocyte Percent A 1.3 % (0-0.5); Lymphocytes Percent Auto 8.2 % (18.3-44.2); Mean Corpuscular HGB Conc 33.7 g/dl (32-36); Mean Corpuscular Hemoglobin 28.7 pg (26-34); Mean Corpuscular Volume 85.1 fl (80-100); Mean Platelet Volume 9.6 fl (7.4-10.4); Monocytes Absolute Auto 1.4 K/mm3 (0.1-0.6); Monocytes Percent Auto 11.4 % (2.6-8.5); Neutrophils Absolute Auto 9.5 K/mm3 (1.3-6.7); Neutrophils Percent Auto 78.5 % (45.5-73.1); Platelet Count Result 463 k/mm3 (150-375); Red Blood Count 3.35 M/mm3 (4.6-6.20); Red Cell Distribution Width 13.5 % (11.5-14.5); White Blood Count 12.2 K/mm3 (4.5-10.0)
[2024-08-21] MEDS: INSULIN ASPART (*BKC) 100 UNITS/ML 10 UNITS SUB-Q ×3 (08:35→18:26)
[2024-08-21] MEDS: INSULIN GLARGINE (*BKC) 100 UNITS/ML 35 UNITS SUB-Q ×2 (08:36→18:26)
[2024-08-21] MEDS: LIDOCAINE 5% PATCH 1 PATCH TRANSDERM (08:41)
[2024-08-21] MEDS: ENOXAPARIN 40 MG/0.4 ML SYRINGE SUB-Q (08:42)
[2024-08-21] MEDS: ESCITALOPRAM OXALATE 10 MG TABLET PO (08:43)
[2024-08-21] MEDS: DULoxetine HCL 30 MG CAPSULE.DR PO (08:44)
[2024-08-21] MEDS: LOSARTAN POTASSIUM 100 MG TABLET PO (08:44)
[2024-08-21] MEDS: CALCIUM CARBONATE (OSCAL) 500 MG TABLET PO ×3 (08:44→18:11)
[2024-08-21] MEDS: amLODIPine BESYLATE 10 MG TABLET PO (08:44)
[2024-08-21] MEDS: carvediloL 25 MG TABLET PO ×2 (08:45→21:05)
[2024-08-21] MEDS: GABAPENTIN 300 MG CAPSULE PO ×3 (08:45→18:11)
[2024-08-21] MEDS: ACETAMINOPHEN 325 MG TABLET 650 MG PO ×2 (08:57→14:28)
--- NOTE | 2024-08-21 11:35 | P.PNNEUSUR_ITS ---
Subjective Date/time seen: 08/21/24 11:35 Interval history: Received Consult for back pain from RN yesterday afternoon. I requested the hospitalist contact me for the reason for neurosurgical consult. Received call from Dr. Burgess at 6:02 PM. He explained that he did not think the patient needed surgery and this was a chronic low back pain issue without need for acute neurosurgical intervention. I reviewed the imaging and agreed that no acute neurosurgical intervention was needed. I again asked to clarify the reason for neurosurgical consultation. He explained that the family really wanted a consultation. I explained that given this was not urgent, I would see the patient on a non urgent basis. I asked how long the patient would be staying in the hospital, and he explained that the patient would be in the hospital for several days and discharge would be dependent on the surgical team as he recently had a toe amputation. I offered to see the patient tuesday morning. Dr. Burgess indicated that this would be fine. However, my partner Dr. Stout was consulted again this morning to see the patient and spoke to our colleague Dr. Lara who will see the patient today. Objective Data Vital Signs Vital Signs: Vital Signs - 24 hr 08/20/24 13:55 08/20/24 20:58 08/20/24 20:00 Temperature 97.9 F Pulse Rate 100 98 Respiratory Rate 18 Blood Pressure 124/74 Pulse Oximetry 94 Oxygen Delivery Room Air 08/20/24 22:00 08/21/24 06:00 08/21/24 08:45 Temperature 97.6 F 98.8 F Pulse Rate 101 H 100 104 H Respiratory Rate 28 H 22 H Blood Pressure 146/75 H 157/74 H Pulse Oximetry 94 94 Oxygen Delivery 08/21/24 08:00 Temperature Pulse Rate 104 H Respiratory Rate Blood Pressure Pulse Oximetry 92 Oxygen Delivery Room Air Intake/Output Intake/Output: Intake & Output 08/18/24 08/19/24 08/20/24 08/21/24 23:59 23:59 23:59 23:59 Intake Total 1350 3762.4 4265.8 2340 Output Total 0433 892 7071 150 Balance 350 3162.4 965.8 2190 Meds/Results Medications: Active Medications Generic Name Dose Route Start Last Admin Trade Name Freq PRN Reason Stop Dose Admin Acetaminophen 650 mg 08/18/24 14:25 08/21/24 08:57 Acetaminophen 325 Mg Tablet PO 650 mg Q6H PRN Administration Mild Pain (1-3) or Fever Amlodipine Besylate 10 mg 08/18/24 09:00 08/21/24 08:44 Amlodipine Besylate 10 Mg Tablet PO 10 mg DAILY SANCHEZ Administration Calcium Carbonate 500 mg 08/20/24 17:00 08/21/24 08:44 Calcium Carbonate (Oscal) 500 Mg Tablet PO 500 mg TIDWM [facility] Administration Carvedilol 25 mg 08/14/24 09:00 08/21/24 08:45 Carvedilol 25 Mg Tablet PO 25 mg Q12HR SANCHEZ Administration Cyclobenzaprine HCl 5 mg 08/17/24 00:46 08/20/24 11:57 Cyclobenzaprine Hcl 5 Mg Tablet PO 5 mg Q8H PRN Administration Muscle Spasm Dextrose 12.5 gm 08/14/24 07:37 Dextrose 50% 25 Gm/50 Ml Syringe IV PUSH PRN PRN Hypoglycemia Protocol Duloxetine HCl 30 mg 08/19/24 09:00 08/21/24 08:44 Duloxetine Hcl 30 Mg Capsule.Dr PO 30 mg QAM SANCHEZ Administration Enoxaparin Sodium 40 mg 08/14/24 09:00 08/21/24 08:42 Enoxaparin 40 Mg/0.4 Ml Syringe SUB-Q 40 mg DAILY SANCHEZ Administration Escitalopram Oxalate 10 mg 08/14/24 09:00 08/21/24 08:43 Escitalopram Oxalate 10 Mg Tablet PO 10 mg DAILY SANCHEZ Administration Gabapentin 300 mg 08/20/24 17:00 08/21/24 08:45 Gabapentin 300 Mg Capsule PO 300 mg TID SANCHEZ Administration Glucagon 1 mg 08/14/24 07:37 Glucagon For Inj 1 Mg Vial IM PRN PRN Hypoglycemia Protocol Glucose 15 gm 08/14/24 07:37 Glucose Oral Gel 15 Gm Of Glucse In 37.5 Gm Tube PO PRN PRN Hypoglycemia Protocol Hydromorphone HCl 0.5 mg 08/20/24 09:08 Hydromorphone Hcl Inj (*Crx) 1 Mg/Ml Syr IV PUSH Q6H PRN Breakthrough Pain Rated 4-6 or NPO Ceftriaxone Sodium 2 gm in 100 mls @ 200 mls/hr 08/17/24 21:00 08/20/24 21:30 Rocephin 2 Gm/Ns 100 Ml IVPB Infused Q24H SANCHEZ Infusion Sodium Chloride 1,000 mls @ 125 mls/hr 08/19/24 10:55 08/21/24 01:10 Normal Saline Iv IV CONT 125 mls/hr .Q8H SANCHEZ Administration Insulin Aspart 4 - 8 units 08/14/24 08:00 08/21/24 08:09 Insulin Aspart (*Bkc) 100 Units/Ml SUB-Q Not Given TIDWM [facility] Protocol Insulin Aspart 2 - 4 units 08/14/24 21:00 08/20/24 20:36 Insulin Aspart (*Bkc) 100 Units/Ml SUB-Q Not Given HS [facility] Protocol Insulin Aspart 10 units 08/20/24 12:00 08/21/24 08:35 Insulin Aspart (*Bkc) 100 Units/Ml SUB-Q 10 units TIDWM [facility] Administration Insulin Glargine 35 units 08/20/24 17:00 08/21/24 08:36 Insulin Glargine (*Bkc) 100 Units/Ml SUB-Q 35 units BIDWM [facility] Administration Lidocaine 1 patch 08/17/24 14:15 08/21/24 08:41 Lidocaine 5% Patch TRANSDERM 1 patch DAILY [facility] Administration Losartan Potassium 100 mg 08/15/24 11:35 08/21/24 08:44 Losartan Potassium 100 Mg Tablet PO 100 mg DAILY [facility] Administration Naloxone HCl 0.1 mg 08/16/24 14:34 Naloxone Hcl 0.4 Mg/Ml Vial IV PUSH Q2M PRN Opiate Reversal Ondansetron HCl 4 mg 08/13/24 15:26 08/17/24 00:26 Ondansetron Inj 4 Mg/2 Ml Vial IV PUSH 4 mg Q6H PRN Administration Nausea And Vomiting Oxycodone/Acetaminophen 1 tab 08/16/24 14:34 08/20/24 17:42 Oxycodone/Acetaminophen (*Crx) 10-325 Mg Tablet PO 1 tab Q6H PRN Administration Pain Rated 7-10 Potassium Chloride 40 meq 08/19/24 17:00 08/21/24 08:40 Potassium Chloride 20 Meq Packet (For Liquid) PO Not Given BID [facility] Radiology Results: ITS Impressions Chest X-Ray 08/13/24 13:54 IMPRESSION: No acute cardiopulmonary pathology. Renal Ultrasound 08/13/24 15:07 IMPRESSION: 1. Normal kidneys. No hydronephrosis. Foot X-Ray 08/14/24 11:36 IMPRESSION: 1. Septic arthritis at the fifth metatarsophalangeal joint with associated osteomyelitis at the base of the fifth proximal phalanx and head of the fifth metatarsal. Lumbar Spine X-Ray 08/14/24 11:49 IMPRESSION: No acute osseous abnormality lumbar spine. Multilevel degenerative disc disease. Lumbar Spine MRI 08/14/24 15:23 IMPRESSION: 1. Moderate lumbar spondylosis. 2. No evidence of discitis/osteomyelitis. Labs Labs: Laboratory Results - last 24 hr 08/20/24 08/20/24 08/21/24 16:06 20:23 07:30 WBC 12.2 H RBC 3.35 L Hgb 9.6 L Hct 28.5 L MCV 85.1 MCH 28.7 MCHC 33.7 RDW 13.5 Plt Count 463 H MPV 9.6 Immature Gran % (Auto) 1.3 H Neut % (Auto) 78.5 H Lymph % (Auto) 8.2 L [place] % (Auto) 11.4 H Eos % (Auto) 0.3 Baso % (Auto) 0.3 Lymph # (Auto) 1.00 [place] # (Auto) 1.4 H Eos # (Auto) 0.0 Baso # (Auto) 0.0 Abs Immat Gran (auto) 0.16 H Absolute Neuts (auto) 9.5 H Absolute Nucleated RBC 0.000 Nucleated RBC % 0.0 Sodium 127 L Potassium 3.5 Chloride 98 Carbon Dioxide 24 Anion Gap 5 BUN 16 Creatinine 0.80 Estim Creat Clear Calc 141 Estimated GFR > 60 Glucose 117 H POC Capillary Glucose 142 H 131 H Calcium 7.5 L 08/21/24 07:46 WBC RBC Hgb Hct MCV MCH MCHC RDW Plt Count MPV Immature Gran % (Auto) Neut % (Auto) Lymph % (Auto) [place] % (Auto) Eos % (Auto) Baso % (Auto) Lymph # (Auto) [place] # (Auto) Eos # (Auto) Baso # (Auto) Abs Immat Gran (auto) Absolute Neuts (auto) Absolute Nucleated RBC Nucleated RBC % Sodium Potassium Chloride Carbon Dioxide Anion Gap BUN Creatinine Estim Creat Clear Calc Estimated GFR Glucose POC Capillary Glucose 116 H Calcium
[2024-08-21 11:42] LABS: Glucose Point of Care 102 mg/dl (65-105)
[2024-08-21] MEDS: PANTOPRAZOLE SOD SESQUIHYDRATE 20 MG TAB PO (12:29)
[2024-08-21] MEDS: IBUPROFEN IV 800 MG/200 ML 800 MG/200 ML BAG 400 MG IVPB (12:29)
[2024-08-21] MEDS: DOXYCYCLINE HYCLATE 100 MG TABLET PO ×2 (13:44→21:05)
--- NOTE | 2024-08-21 14:24 | P.PNGS_ITS ---
Progress Note: A&P Assessment and Plan (1) Osteomyelitis of foot, left, acute: Code(s): M86.172 - Other acute osteomyelitis, left ankle and foot Status: Acute Assessment and Plan: * POD5 following left 5th toe ray amputation and healing well. * Continue local wound care. * We will sign off at this time. Please call with any wound or surgical concerns. We will eventually follow-up with the patient after discharge for suture removal if he is discharged later this week. (2) Somnolence: Code(s): R40.0 - Somnolence Status: Acute Assessment and Plan: * Mentation seems better today. (3) Bacteremia due to Streptococcus pneumoniae: Code(s): R78.81 - Bacteremia; B95.3 - Streptococcus pneumoniae as the cause of diseases classified elsewhere Status: Acute Assessment and Plan: * Repeat blood cultures negative (4) Lumbar back pain: Code(s): M54.50 - Low back pain, unspecified Status: Acute Assessment and Plan: * Neurosurgery consulted (5) Chills with fever: Code(s): R50.9 - Fever, unspecified Status: Acute Assessment and Plan: * Etiology unclear. No signs of infection at his amputation site and no surrounding cellulitis. Fevers do not seem to be related to his foot. Would recommend evaluating other etiologies for his fever. Plan I have discussed the patient's case and plan of care with Dr. Ann. Subjective Subjective Date/Time Seen: 08/21/24 14:24 Post Op day: 5 (Left fifth toe ray amputation) Patient reports: no new complaints Interval history: Patient more alert today and oriented. He is able to answer all my questions appropriately. He is still complaining of lower back pain but no other complaints. Exam Const: General: comfortable; No acute distress Extrem: Other: Left foot dressing removed. Left fifth toe amputation healing well with vertical mattress sutures intact. Wound bed is pink with no surrounding erythema or swelling. No purulence drainage. No tenderness. Objective Data Vital Signs Vital Signs: Vital Signs - 24 hr 08/20/24 20:58 08/20/24 20:00 08/20/24 22:00 Temperature 97.6 F Pulse Rate 98 101 H Respiratory Rate 28 H Blood Pressure 146/75 H Pulse Oximetry 94 Oxygen Delivery Room Air 08/21/24 06:00 08/21/24 08:45 08/21/24 08:00 Temperature 98.8 F Pulse Rate 100 104 H 104 H Respiratory Rate 22 H Blood Pressure 157/74 H Pulse Oximetry 94 92 Oxygen Delivery Room Air Intake/Output Intake/Output: Intake & Output 08/18/24 08/19/24 08/20/24 08/21/24 23:59 23:59 23:59 23:59 Intake Total 1350 3762.4 4265.8 2540 Output Total 0816 262 9349 150 Balance 350 3162.4 965.8 2390 Meds/Results Medications: Active Medications Generic Name Dose Route Start Last Admin Trade Name Freq PRN Reason Stop Dose Admin Acetaminophen 650 mg 08/18/24 14:25 08/21/24 08:57 Acetaminophen 325 Mg Tablet PO 650 mg Q6H PRN Administration Mild Pain (1-3) or Fever Amlodipine Besylate 10 mg 08/18/24 09:00 08/21/24 08:44 Amlodipine Besylate 10 Mg Tablet PO 10 mg DAILY [facility]Z Administration Calcium Carbonate 500 mg 08/21/24 17:00 Calcium Carbonate (Oscal) 500 Mg Tablet PO 1100,1200,1700 [facility] Carvedilol 25 mg 08/14/24 09:00 08/21/24 08:45 Carvedilol 25 Mg Tablet PO 25 mg Q12HR SANCHEZ Administration Cyclobenzaprine HCl 5 mg 08/17/24 00:46 08/20/24 11:57 Cyclobenzaprine Hcl 5 Mg Tablet PO 5 mg Q8H PRN Administration Muscle Spasm Dextrose 12.5 gm 08/14/24 07:37 Dextrose 50% 25 Gm/50 Ml Syringe IV PUSH PRN PRN Hypoglycemia Protocol Doxycycline Hyclate 100 mg 08/21/24 14:00 08/21/24 13:44 Doxycycline Hyclate 100 Mg Tablet PO 100 mg Q12HR SANCHEZ Administration Duloxetine HCl 30 mg 08/19/24 09:00 08/21/24 08:44 Duloxetine Hcl 30 Mg Capsule.Dr PO 30 mg QAM SANCHEZ Administration Enoxaparin Sodium 40 mg 08/14/24 09:00 08/21/24 08:42 Enoxaparin 40 Mg/0.4 Ml Syringe SUB-Q 40 mg DAILY [facility]Z Administration Escitalopram Oxalate 10 mg 08/14/24 09:00 08/21/24 08:43 Escitalopram Oxalate 10 Mg Tablet PO 10 mg DAILY [facility] Administration Gabapentin 300 mg 08/20/24 17:00 08/21/24 12:22 Gabapentin 300 Mg Capsule PO 300 mg TID SANCHEZ Administration Glucagon 1 mg 08/14/24 07:37 Glucagon For Inj 1 Mg Vial IM PRN PRN Hypoglycemia Protocol Glucose 15 gm 08/14/24 07:37 Glucose Oral Gel 15 Gm Of Glucse In 37.5 Gm Tube PO PRN PRN Hypoglycemia Protocol Hydromorphone HCl 0.5 mg 08/20/24 09:08 Hydromorphone Hcl Inj (*Crx) 1 Mg/Ml Syr IV PUSH Q6H PRN Breakthrough Pain Rated 4-6 or NPO Ceftriaxone Sodium 2 gm in 100 mls @ 200 mls/hr 08/17/24 21:00 08/20/24 21:30 Rocephin 2 Gm/Ns 100 Ml IVPB Infused Q24H [facility]HEZ Infusion Insulin Aspart 4 - 8 units 08/14/24 08:00 08/21/24 11:47 Insulin Aspart (*Bkc) 100 Units/Ml SUB-Q Not Given TIDWM [facility] Protocol Insulin Aspart 2 - 4 units 08/14/24 21:00 08/20/24 20:36 Insulin Aspart (*Bkc) 100 Units/Ml SUB-Q Not Given HS [facility] Protocol Insulin Aspart 10 units 08/20/24 12:00 08/21/24 12:22 Insulin Aspart (*Bkc) 100 Units/Ml SUB-Q 10 units TIDWM [facility] Administration Insulin Glargine 35 units 08/20/24 17:00 08/21/24 08:36 Insulin Glargine (*Bkc) 100 Units/Ml SUB-Q 35 units BIDWM [facility] Administration Lidocaine 1 patch 08/17/24 14:15 08/21/24 08:41 Lidocaine 5% Patch TRANSDERM 1 patch DAILY [facility] Administration Losartan Potassium 100 mg 08/15/24 11:35 08/21/24 08:44 Losartan Potassium 100 Mg Tablet PO 100 mg DAILY [facility] Administration Naloxone HCl 0.1 mg 08/16/24 14:34 Naloxone Hcl 0.4 Mg/Ml Vial IV PUSH Q2M PRN Opiate Reversal Ondansetron HCl 4 mg 08/13/24 15:26 08/17/24 00:26 Ondansetron Inj 4 Mg/2 Ml Vial IV PUSH 4 mg Q6H PRN Administration Nausea And Vomiting Oxycodone/Acetaminophen 1 tab 08/16/24 14:34 08/20/24 17:42 Oxycodone/Acetaminophen (*Crx) 10-325 Mg Tablet PO 1 tab Q6H PRN Administration Pain Rated 7-10 Pantoprazole Sodium 20 mg 08/21/24 12:25 08/21/24 12:29 Pantoprazole Sod Sesquihydrate 20 Mg Tab PO 20 mg QAM SANCHEZ Administration Potassium Chloride 40 meq 08/19/24 17:00 08/21/24 08:40 Potassium Chloride 20 Meq Packet (For Liquid) PO Not Given BID [facility] Radiology Results: ITS Impressions Chest X-Ray 08/13/24 13:54 IMPRESSION: No acute cardiopulmonary pathology. Renal Ultrasound 08/13/24 15:07 IMPRESSION: 1. Normal kidneys. No hydronephrosis. Foot X-Ray 08/14/24 11:36 IMPRESSION: 1. Septic arthritis at the fifth metatarsophalangeal joint with associated osteomyelitis at the base of the fifth proximal phalanx and head of the fifth metatarsal. Lumbar Spine X-Ray 08/14/24 11:49 IMPRESSION: No acute osseous abnormality lumbar spine. Multilevel degenerative disc disease. Lumbar Spine MRI 08/14/24 15:23 IMPRESSION: 1. Moderate lumbar spondylosis. 2. No evidence of discitis/osteomyelitis. Labs Labs: Laboratory Results - last 24 hr 08/20/24 08/20/24 08/21/24 16:06 20:23 07:30 WBC 12.2 H RBC 3.35 L Hgb 9.6 L Hct 28.5 L MCV 85.1 MCH 28.7 MCHC 33.7 RDW 13.5 Plt Count 463 H MPV 9.6 Immature Gran % (Auto) 1.3 H Neut % (Auto) 78.5 H Lymph % (Auto) 8.2 L [place] % (Auto) 11.4 H Eos % (Auto) 0.3 Baso % (Auto) 0.3 Lymph # (Auto) 1.00 [place] # (Auto) 1.4 H Eos # (Auto) 0.0 Baso # (Auto) 0.0 Abs Immat Gran (auto) 0.16 H Absolute Neuts (auto) 9.5 H Absolute Nucleated RBC 0.000 Nucleated RBC % 0.0 Sodium 127 L Potassium 3.5 Chloride 98 Carbon Dioxide 24 Anion Gap 5 BUN 16 Creatinine 0.80 Estim Creat Clear Calc 141 Estimated GFR > 60 Glucose 117 H POC Capillary Glucose 142 H 131 H Calcium 7.5 L 08/21/24 08/21/24 07:46 11:32 WBC RBC Hgb Hct MCV MCH MCHC RDW Plt Count MPV Immature Gran % (Auto) Neut % (Auto) Lymph % (Auto) [place] % (Auto) Eos % (Auto) Baso % (Auto) Lymph # (Auto) [place] # (Auto) Eos # (Auto) Baso # (Auto) Abs Immat Gran (auto) Absolute Neuts (auto) Absolute Nucleated RBC Nucleated RBC % Sodium Potassium Chloride Carbon Dioxide Anion Gap BUN Creatinine Estim Creat Clear Calc Estimated GFR Glucose POC Capillary Glucose 116 H 102 Calcium
--- NOTE | 2024-08-21 15:04 | P.PNIM_ITS ---
Progress Note: A&P Assessment and Plan (1) Bacteremia due to Streptococcus pneumoniae: Code(s): R78.81 - Bacteremia; B95.3 - Streptococcus pneumoniae as the cause of diseases classified elsewhere Status: Acute (2) Lumbar back pain: Code(s): M54.50 - Low back pain, unspecified Status: Acute (3) DKA (diabetic ketoacidosis): Code(s): E11.10 - Type 2 diabetes mellitus with ketoacidosis without coma Status: Acute (4) Acute kidney injury: Code(s): N17.9 - Acute kidney failure, unspecified Status: Acute Plan 49-year-old male with a significant past medical history of insulin-dependent type 2 diabetes mellitus, diabetic foot ulcer, depression, erectile dysfunction, hypertension, history of kidney stones who presented to the hospital for evaluation of body aches, nausea without vomiting, fever, chills. Workup in the hospital included a chest x-ray which was negative for any acute cardiopulmonary process. Renal ultrasound was performed which showed normal kidneys, no hydronephrosis. Initial labs showed a white blood cell count of 9.5, hemoglobin 12.2, platelet count 120, band neutrophils 17, sodium 130, chloride 95, bicarb 17, anion gap 18, creatinine 2.10, EGFR 34, blood sugar ranging 300-449, lactic acid 2.3, beta hydroxybutyrate 3.31. Respiratory panel was negative for influenza a and B, RSV, COVID. EKG showed sinus tachycardia with a rate of 100, QTC 449. Patient was given 2 L of normal saline while in the ED, given 18 units IV push regular insulin and started on an insulin infusion per DKA protocol. Acute osteomyelitis of left foot: Foot culture growing E coli Appreciate surgery help Status post left 5th toe amputation Pain control Based on cut foot culture, c/w ceftriaxone Local wound care, dressing change as per surgery Non-weight bearing on LLE, PT eval for crutch use and ambulation Diabetic ketoacidosis: Hemoglobin A1c 8.8 now controlled DKA resolved Blood glucose checked t.i.d. a.c. and HS change from Lantus 70 units am to 35 units bid change aspart from 12 to 10 units tid Continue with sliding scale insulin Adjust dose as needed now glucose is well controlled below 180 Streptococcus bacteremia: Unclear source Blood culture from 08/15/2024 is negative to date Trans thoracic echocardiogram negative for any vegetation Less suspicion for endocarditis, will not pursue for transesophageal echo c ardiac Monitor leukocytosis fever on 08/18, repeate BCX: no growth so far Continue ceftriaxone IV 2 g daily Hypertension: Increase the dose of Norvasc to 10 mg Continue with losartan Continue with Coreg Once pain is better controlled blood pressure should improve Hyponatremia Sodium 126 Discontinue D5 Start normal saline 125 mL/hour s/w sodium chloride 1 g t.i.d. p.o. Hypokalemia 3.3 provide potassium chloride 40 mEq p.o. once and b.i.d. p.o. Follow-up BMP Corrected PURNIMA: Creatinine 2.1 upon arrival August 13 Avoid nephrotoxins Recheck BMP in a.m. Renal ultrasound negative for hydronephrosis resolved Lumbar back pain: 08/21/2024 : MRI of Cervical,Thoracic,Lumbar ordered to r/o discitis MRI Brain ordered MRI of lumbar spine shows moderate lumbar spondylosis no evidence of diskitis or osteomyelitis Already on pain medications add Lidoderm patch add gabapentin 300mg tid po Code status: Full DVT prophylaxis: Lovenox 9. Disposition: Pending improvement Subjective Date/time seen: 08/21/24 15:04 Interval history: Patient was evaluated at the bedside. Patient family was concerned due to his immobility for past few days after he was hospitalized due to DKA. Patient was initially admitted due to DKA which was resolved and during the course of hospitalization patient underwent a surgery for his left 5th toe chronic osteomyelitis. Currently patient's and family concern is immobilization for which he underwent MRI of the lumbar on 08/14 which shows moderate lumbar spondylosis and no evidence of diskitis forward/osteomyelitis. Neurosurgery was consulted and pending evaluation. Patient blood culture on 08/13 shows Streptococcus pneumonia for which he was treated with ceftriaxone under repeat blood culture on 08/18 shows no growth. Patient has spikes of fever past few days so today we repeated his blood culture and urine culture, chest x-ray. As per the wound care team and surgery team, postsurgical site on the left 5th toe looks clean and not infected. Today we have repeated the MRI of the spine for possible diskitis even previously it was negative. MRI of the brain has been also ordered . Review of Systems Review of Systems: 10 point ROS complete, negative other th an what is specified in HPI. All systems reviewed & are unremarkable except as noted in HPI and below Constitutional: Constitutional: Reports as per HPI and Reports no additional constitutional complaints Eyes: Eyes: Reports as per HPI and Reports no additional eye complaints ENT: Reports system reviewed and no additional complaints, except as documented and Reports as per HPI Cardiovascular: Cardiovascular: Reports as per HPI and Reports no additional cardiovascular complaints Respiratory: Respiratory: Reports as per HPI and Reports no additional respiratory complaints Gastrointestinal: Gastrointestinal: Reports as per HPI and Reports no additional gastrointestinal complaints Genitourinary: Genitourinary: Reports no additional male genitourinary complaints and Reports as per HPI Musculoskeletal: Musculoskeletal: Reports no additional musculoskeletal complaints and Reports as per HPI Integumentary/Breasts: Skin/Breast: Reports system reviewed and no additional complaints, except as docu and Reports as per HPI Neurologic: Reports system reviewed and no additional complaints, except as documented and Reports as per HPI Psychiatric: Psychiatric: Reports no additional psychiatric complaints and Reports as per HPI Exam Narrative: GENERAL: Pleasant, in no acute distress. Well-nourished. - EYES: EOMI. Anicteric. - HENT: Moist mucous membranes. - LUNGS: Clear to auscultation bilateral ly, no wheezing, rhonchi, or rales. - CARDIOVASCULAR: Regular rate and rhyth m. No murmur. No JVD. - ABDOMEN: Soft, non-tender and non-dist ended. No palpable masses. - EXTREMITIES: No edema. Peripheral puls es 2+. Non-tender. Surgical wound of left foot is dry, no discharge, low back tenderness by light punch - NEUROLOGIC: No focal neurological defi cits. CN II-XII grossly intact.. - PSYCHIATRIC: Awake, Alert and oriented x 3. Appropriate mood and affect. - SKIN: No rashes or lesions. Warm. - LYMPH: No cervical lymphadenopathy. Objective Data Vital Signs Vital Signs: Vital Signs - 24 hr 08/20/24 20:58 08/20/24 20:00 08/20/24 22:00 Temperature 97.6 F Pulse Rate 98 101 H Respiratory Rate 28 H Blood Pressure 146/75 H Pulse Oximetry 94 Oxygen Delivery Room Air 08/21/24 06:00 08/21/24 08:45 08/21/24 08:00 Temperature 98.8 F Pulse Rate 100 104 H 104 H Respiratory Rate 22 H Blood Pressure 157/74 H Pulse Oximetry 94 92 Oxygen Delivery Room Air 08/21/24 14:28 08/21/24 14:00 Temperature 100.1 F H 100.1 F H Pulse Rate 91 Respiratory Rate 20 Blood Pressure 120/55 L Pulse Oximetry 96 Oxygen Delivery Intake/Output Intake/Output: Intake & Output 08/18/24 08/19/24 08/20/24 08/21/24 23:59 23:59 23:59 23:59 Intake Total 1350 3762.4 4265.8 2658 Output Total 5140 769 7611 150 Balance 350 3162.4 965.8 2508 Meds/Results Medications: Active Medications Generic Name Dose Route Start Last Admin Trade Name Freq PRN Reason Stop Dose Admin Acetaminophen 650 mg 08/18/24 14:25 08/21/24 14:28 Acetaminophen 325 Mg Tablet PO 650 mg Q6H PRN Administration Mild Pain (1-3) or Fever Amlodipine Besylate 10 mg 08/18/24 09:00 08/21/24 08:44 Amlodipine Besylate 10 Mg Tablet PO 10 mg DAILY SANCHEZ Administration Calcium Carbonate 500 mg 08/21/24 17:00 Calcium Carbonate (Oscal) 500 Mg Tablet PO 1100,1200,1700 [facility] Carvedilol 25 mg 08/14/24 09:00 08/21/24 08:45 Carvedilol 25 Mg Tablet PO 25 mg Q12HR SANCHEZ Administration Cyclobenzaprine HCl 5 mg 08/17/24 00:46 08/20/24 11:57 Cyclobenzaprine Hcl 5 Mg Tablet PO 5 mg Q8H PRN Administration Muscle Spasm Dextrose 12.5 gm 08/14/24 07:37 Dextrose 50% 25 Gm/50 Ml Syringe IV PUSH PRN PRN Hypoglycemia Protocol Doxycycline Hyclate 100 mg 08/21/24 14:00 08/21/24 13:44 Doxycycline Hyclate 100 Mg Tablet PO 100 mg Q12HR SANCHEZ Administration Duloxetine HCl 30 mg 08/19/24 09:00 08/21/24 08:44 Duloxetine Hcl 30 Mg Capsule.Dr PO 30 mg QAM SANCHEZ Administration Enoxaparin Sodium 40 mg 08/14/24 09:00 08/21/24 08:42 Enoxaparin 40 Mg/0.4 Ml Syringe SUB-Q 40 mg DAILY SANCHEZ Administration Escitalopram Oxalate 10 mg 08/14/24 09:00 08/21/24 08:43 Escitalopram Oxalate 10 Mg Tablet PO 10 mg DAILY SANCHEZ Administration Gabapentin 300 mg 08/20/24 17:00 08/21/24 12:22 Gabapentin 300 Mg Capsule PO 300 mg TID SANCHEZ Administration Glucagon 1 mg 08/14/24 07:37 Glucagon For Inj 1 Mg Vial IM PRN PRN Hypoglycemia Protocol Glucose 15 gm 08/14/24 07:37 Glucose Oral Gel 15 Gm Of Glucse In 37.5 Gm Tube PO PRN PRN Hypoglycemia Protocol Hydromorphone HCl 0.5 mg 08/20/24 09:08 Hydromorphone Hcl Inj (*Crx) 1 Mg/Ml Syr IV PUSH Q6H PRN Breakthrough Pain Rated 4-6 or NPO Ceftriaxone Sodium 2 gm in 100 mls @ 200 mls/hr 08/17/24 21:00 08/20/24 21:30 Rocephin 2 Gm/Ns 100 Ml IVPB Infused Q24H SANCHEZ Infusion Insulin Aspart 4 - 8 units 08/14/24 08:00 08/21/24 11:47 Insulin Aspart (*Bkc) 100 Units/Ml SUB-Q Not Given TIDWM [facility] Protocol Insulin Aspart 2 - 4 units 08/14/24 21:00 08/20/24 20:36 Insulin Aspart (*Bkc) 100 Units/Ml SUB-Q Not Given HS [facility] Protocol Insulin Aspart 10 units 08/20/24 12:00 08/21/24 12:22 Insulin Aspart (*Bkc) 100 Units/Ml SUB-Q 10 units TIDWM SANCHEZ Administration Insulin Glargine 35 units 08/20/24 17:00 08/21/24 08:36 Insulin Glargine (*Bkc) 100 Units/Ml SUB-Q 35 units BIDWM SANCHEZ Administration Lidocaine 1 patch 08/17/24 14:15 08/21/24 08:41 Lidocaine 5% Patch TRANSDERM 1 patch DAILY SANCHEZ Administration Losartan Potassium 100 mg 08/15/24 11:35 08/21/24 08:44 Losartan Potassium 100 Mg Tablet PO 100 mg DAILY SANCHEZ Administration Naloxone HCl 0.1 mg 08/16/24 14:34 Naloxone Hcl 0.4 Mg/Ml Vial IV PUSH Q2M PRN Opiate Reversal Ondansetron HCl 4 mg 08/13/24 15:26 08/17/24 00:26 Ondansetron Inj 4 Mg/2 Ml Vial IV PUSH 4 mg Q6H PRN Administration Nausea And Vomiting Oxycodone/Acetaminophen 1 tab 10/17/24 14:34 08/20/24 17:42 Oxycodone/Acetaminophen (*Crx) 10-325 Mg Tablet PO 1 tab Q6H PRN Administration Pain Rated 7-10 Pantoprazole Sodium 20 mg 08/21/24 12:25 08/21/24 12:29 Pantoprazole Sod Sesquihydrate 20 Mg Tab PO 20 mg QAM SANCHEZ Administration Potassium Chloride 40 meq 08/19/24 17:00 08/21/24 08:40 Potassium Chloride 20 Meq Packet (For Liquid) PO Not Given BID [facility] Radiology Results: ITS Impressions Chest X-Ray 08/13/24 13:54 IMPRESSION: No acute cardiopulmonary pathology. Renal Ultrasound 08/13/24 15:07 IMPRESSION: 1. Normal kidneys. No hydronephrosis. Foot X-Ray 08/14/24 11:36 IMPRESSION: 1. Septic arthritis at the fifth metatarsophalangeal joint with associated osteomyelitis at the base of the fifth proximal phalanx and head of the fifth metatarsal. Lumbar Spine X-Ray 08/14/24 11:49 IMPRESSION: No acute osseous abnormality lumbar spine. Multilevel degenerative disc disease. Lumbar Spine MRI 08/14/24 15:23 IMPRESSION: 1. Moderate lumbar spondylosis. 2. No evidence of discitis/osteomyelitis. Labs Labs: Laboratory Results - last 24 hr 08/20/24 08/20/24 08/21/24 16:06 20:23 07:30 WBC 12.2 H RBC 3.35 L Hgb 9.6 L Hct 28.5 L MCV 85.1 MCH 28.7 MCHC 33.7 RDW 13.5 Plt Count 463 H MPV 9.6 Immature Gran % (Auto) 1.3 H Neut % (Auto) 78.5 H Lymph % (Auto) 8.2 L Benson % (Auto) 11.4 H Eos % (Auto) 0.3 Baso % (Auto) 0.3 Lymph # (Auto) 1.00 Benson # (Auto) 1.4 H Eos # (Auto) 0.0 Baso # (Auto) 0.0 Abs Immat Gran (auto) 0.16 H Absolute Neuts (auto) 9.5 H Absolute Nucleated RBC 0.000 Nucleated RBC % 0.0 Sodium 127 L Potassium 3.5 Chloride 98 Carbon Dioxide 24 Anion Gap 5 BUN 16 Creatinine 0.80 Estim Creat Clear Calc 141 Estimated GFR > 60 Glucose 117 H POC Capillary Glucose 142 H 131 H Calcium 7.5 L 08/21/24 08/21/24 07:46 11:32 WBC RBC Hgb Hct MCV MCH MCHC RDW Plt Count MPV Immature Gran % (Auto) Neut % (Auto) Lymph % (Auto) Benson % (Auto) Eos % (Auto) Baso % (Auto) Lymph # (Auto) Benson # (Auto) Eos # (Auto) Baso # (Auto) Abs Immat Gran (auto) Absolute Neuts (auto) Absolute Nucleated RBC Nucleated RBC % Sodium Potassium Chloride Carbon Dioxide Anion Gap BUN Creatinine Estim Creat Clear Calc Estimated GFR Glucose POC Capillary Glucose 116 H 102 Calcium Quality VTE Prophylaxis VTE prophylaxis: pharmacologic ordered Hospitalist [facility] Advance Care Plan I have confirmed that the patient's Advanced Care Plan is present, code status is documented, or surrogate decision maker is listed in patient medical record.: Yes Medication Reconciliation I have utilized all available resources to obtain, update and review the patients current medications (includes all prescriptions, OTC, herbals, cannabis, and nutritional supplements).: Yes
[2024-08-21 18:41] LABS: Glucose Point of Care 134 mg/dl (65-105)
[2024-08-21 20:45] LABS: Glucose Point of Care 155 mg/dl (65-105)
[2024-08-21] MEDS: cefTRIAXone 2 GM/NS 100 ML 2 GM/100 ML BAG IVPB (21:05)
--- NOTE | 2024-08-21 21:19 | P.PNCROSS_ITS ---
Event Note Event Note Event Note: Dr. Lara neurosurgeon called in regards to patient got update will be stopp ing by in am, patient was in MRI for prolong amount of time today earlier in the day.
[2024-08-21] MEDS: oxyCODONE/ACETAMINOPHEN (*CRX) 10-325 MG TABLET 1 TAB PO (21:35)
[2024-08-21] MEDS: CYCLOBENZAPRINE HCL 5 MG TABLET PO (21:36)
--- NOTE | 2024-08-21 21:43 | P.PNNEUSUR_ITS ---
Subjective Date/time seen: 08/21/24 21:43 Interval history: Mr. Laughlin is a 49-year-old gentleman My partner was consulted about for complaints of back pain. he was undergoing an MRI of his entire spine when I stopped by this evening to see him. That scan has now been completed and I had a chance to review it. It is significantly worse radiographically than the scan done a week ago. That is, there is the appearance of a septic joint at L5- S1 and more material in the epidural space, likely infectious and more neurocompressive. He is apparently moving his legs well bilaterally and has good sensation in his legs. However, he had a Ramirez catheter placed last night and may have been retaining urine. He is bacteremic and potentially septic. In my opinion, this patient should be transferred to a hospital that has infectious disease specialists as his situation is becoming more complex. I instructed the nurses to closely monitor his neurologic status and keep neurosurgery informed of any changes. My partner will be able to see him 1st thing in the morning. Objective Data Vital Signs Vital Signs: Vital Signs - 24 hr 08/20/24 22:00 08/21/24 06:00 08/21/24 08:45 Temperature 97.6 F 98.8 F Pulse Rate 101 H 100 104 H Respiratory Rate 28 H 22 H Blood Pressure 146/75 H 157/74 H Pulse Oximetry 94 94 Oxygen Delivery 08/21/24 08:00 08/21/24 14:28 08/21/24 14:00 Temperature 100.1 F H 100.1 F H Pulse Rate 104 H 91 Respiratory Rate 20 Blood Pressure 120/55 L Pulse Oximetry 92 96 Oxygen Delivery Room Air 08/21/24 15:24 08/21/24 21:05 Temperature 98.6 F Pulse Rate 86 Respiratory Rate Blood Pressure Pulse Oximetry Oxygen Delivery Intake/Output Intake/Output: Intake & Output 08/18/24 08/19/24 08/20/24 08/21/24 23:59 23:59 23:59 23:59 Intake Total 1350 3762.4 4265.8 2898 Output Total 0378 811 3626 2400 Balance 350 3162.4 965.8 498 Meds/Results Medications: Active Medications Generic Name Dose Route Start Last Admin Trade Name Freq PRN Reason Stop Dose Admin Acetaminophen 650 mg 08/18/24 14:25 08/21/24 14:28 Acetaminophen 325 Mg Tablet PO 650 mg Q6H PRN Administration Mild Pain (1-3) or Fever Amlodipine Besylate 10 mg 08/18/24 09:00 08/21/24 08:44 Amlodipine Besylate 10 Mg Tablet PO 10 mg DAILY SANCHEZ Administration Calcium Carbonate 500 mg 08/21/24 17:00 08/21/24 18:11 Calcium Carbonate (Oscal) 500 Mg Tablet PO 500 mg 1100,1200,1700 SANCHEZ Administration Carvedilol 25 mg 08/14/24 09:00 08/21/24 21:05 Carvedilol 25 Mg Tablet PO 25 mg Q12HR SANCHEZ Administration Cyclobenzaprine HCl 5 mg 08/17/24 00:46 08/21/24 21:36 Cyclobenzaprine Hcl 5 Mg Tablet PO 5 mg Q8H PRN Administration Muscle Spasm Dextrose 12.5 gm 08/14/24 07:37 Dextrose 50% 25 Gm/50 Ml Syringe IV PUSH PRN PRN Hypoglycemia Protocol Doxycycline Hyclate 100 mg 08/21/24 14:00 08/21/24 21:05 Doxycycline Hyclate 100 Mg Tablet PO 100 mg Q12HR SANCHEZ Administration Duloxetine HCl 30 mg 08/19/24 09:00 08/21/24 08:44 Duloxetine Hcl 30 Mg Capsule.Dr PO 30 mg QAM [facility] Administration Enoxaparin Sodium 40 mg 08/14/24 09:00 08/21/24 08:42 Enoxaparin 40 Mg/0.4 Ml Syringe SUB-Q 40 mg DAILY SANCHEZ Administration Escitalopram Oxalate 10 mg 08/14/24 09:00 08/21/24 08:43 Escitalopram Oxalate 10 Mg Tablet PO 10 mg DAILY SANCHEZ Administration Gabapentin 300 mg 08/20/24 17:00 08/21/24 18:11 Gabapentin 300 Mg Capsule PO 300 mg TID SANCHEZ Administration Glucagon 1 mg 08/14/24 07:37 Glucagon For Inj 1 Mg Vial IM PRN PRN Hypoglycemia Protocol Glucose 15 gm 08/14/24 07:37 Glucose Oral Gel 15 Gm Of Glucse In 37.5 Gm Tube PO PRN PRN Hypoglycemia Protocol Hydromorphone HCl 0.5 mg 08/20/24 09:08 Hydromorphone Hcl Inj (*Crx) 1 Mg/Ml Syr IV PUSH Q6H PRN Breakthrough Pain Rated 4-6 or NPO Ceftriaxone Sodium 2 gm in 100 mls @ 200 mls/hr 08/17/24 21:00 08/21/24 21:05 Rocephin 2 Gm/Ns 100 Ml IVPB 200 mls/hr Q24H SANCHEZ Administration Insulin Aspart 4 - 8 units 08/14/24 08:00 08/21/24 18:25 Insulin Aspart (*Bkc) 100 Units/Ml SUB-Q Not Given TIDWM [facility] Protocol Insulin Aspart 2 - 4 units 08/14/24 21:00 08/21/24 20:59 Insulin Aspart (*Bkc) 100 Units/Ml SUB-Q Not Given HS [facility] Protocol Insulin Aspart 10 units 08/20/24 12:00 08/21/24 18:26 Insulin Aspart (*Bkc) 100 Units/Ml SUB-Q 10 units TIDWM SANCHEZ Administration Insulin Glargine 35 units 08/20/24 17:00 08/21/24 18:26 Insulin Glargine (*Bkc) 100 Units/Ml SUB-Q 35 units BIDWM SANCHEZ Administration Lidocaine 1 patch 08/17/24 14:15 08/21/24 08:41 Lidocaine 5% Patch TRANSDERM 1 patch DAILY SANCHEZ Administration Losartan Potassium 100 mg 08/15/24 11:35 08/21/24 08:44 Losartan Potassium 100 Mg Tablet PO 100 mg DAILY SANCHEZ Administration Naloxone HCl 0.1 mg 08/16/24 14:34 Naloxone Hcl 0.4 Mg/Ml Vial IV PUSH Q2M PRN Opiate Reversal Ondansetron HCl 4 mg 08/13/24 15:26 08/17/24 00:26 Ondansetron Inj 4 Mg/2 Ml Vial IV PUSH 4 mg Q6H PRN Administration Nausea And Vomiting Oxycodone/Acetaminophen 1 tab 08/16/24 14:34 08/21/24 21:35 Oxycodone/Acetaminophen (*Crx) 10-325 Mg Tablet PO 1 tab Q6H PRN Administration Pain Rated 7-10 Pantoprazole Sodium 20 mg 08/21/24 12:25 08/21/24 12:29 Pantoprazole Sod Sesquihydrate 20 Mg Tab PO 20 mg QAM SANCHEZ Administration Potassium Chloride 40 meq 08/19/24 17:00 08/21/24 16:24 Potassium Chloride 20 Meq Packet (For Liquid) PO Not Given BID [facility] Radiology Results: ITS Impressions Chest X-Ray 08/13/24 13:54 IMPRESSION: No acute cardiopulmonary pathology. Renal Ultrasound 08/13/24 15:07 IMPRESSION: 1. Normal kidneys. No hydronephrosis. Foot X-Ray 08/14/24 11:36 IMPRESSION: 1. Septic arthritis at the fifth metatarsophalangeal joint with associated osteomyelitis at the base of the fifth proximal phalanx and head of the fifth metatarsal. Lumbar Spine X-Ray 08/14/24 11:49 IMPRESSION: No acute osseous abnormality lumbar spine. Multilevel degenerative disc disease. Brain MRI 08/21/24 18:52 IMPRESSION: 1. Normal for age brain. No acute intracranial process. Cervical Spine MRI 08/21/24 18:55 IMPRESSION: 1. Mild to moderate cervical spondylosis.. No findings to suggest discitis or ostomy myelitis. 2. Nonspecific 15 x 12 x 10 mm superficial subcutaneous lesion near the midline at the level of C3 but with suggestion of a tiny tract extending to the skin surface which would favor an epidermoid/sebaceous cyst. Thoracic Spine MRI 08/21/24 19:15 IMPRESSION: 1. Mild to moderate thoracic spondylosis with no evidence of discitis or osteomyelitis. 2. 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 Lumbar Spine MRI 08/21/24 20:07 IMPRESSION: 1. Widening of the right L5-S1 facet joint with increased fluid and new prominent surrounding marrow edema at the facet joints and edema in the more posterior paraspinal musculature which raises concern for septic arthritis and associated myositis. There is also increased edema in the epidural fat extending cephalad throughout the lumbar spine which contributes to significant increase in central canal stenosis at multiple levels since the study from one week prior. Dr. Hwang discussed these findings with Dr. Lara at 8:35 PM. Labs Labs: Laboratory Results - last 24 hr 08/21/24 08/21/24 08/21/24 07:30 07:46 11:32 WBC 12.2 H RBC 3.35 L Hgb 9.6 L Hct 28.5 L MCV 85.1 MCH 28.7 MCHC 33.7 RDW 13.5 Plt Count 463 H MPV 9.6 Immature Gran % (Auto) 1.3 H Neut % (Auto) 78.5 H Lymph % (Auto) 8.2 L Cooper % (Auto) 11.4 H Eos % (Auto) 0.3 Baso % (Auto) 0.3 Lymph # (Auto) 1.00 Cooper # (Auto) 1.4 H Eos # (Auto) 0.0 Baso # (Auto) 0.0 Abs Immat Gran (auto) 0.16 H Absolute Neuts (auto) 9.5 H Absolute Nucleated RBC 0.000 Nucleated RBC % 0.0 Sodium 127 L Potassium 3.5 Chloride 98 Carbon Dioxide 24 Anion Gap 5 BUN 16 Creatinine 0.80 Estim Creat Clear Calc 141 Estimated GFR > 60 Glucose 117 H POC Capillary Glucose 116 H 102 Calcium 7.5 L 08/21/24 08/21/24 18:20 19:40 WBC RBC Hgb Hct MCV MCH MCHC RDW Plt Count MPV Immature Gran % (Auto) Neut % (Auto) Lymph % (Auto) Cooper % (Auto) Eos % (Auto) Baso % (Auto) Lymph # (Auto) Cooper # (Auto) Eos # (Auto) Baso # (Auto) Abs Immat Gran (auto) Absolute Neuts (auto) Absolute Nucleated RBC Nucleated RBC % Sodium Potassium Chloride Carbon Dioxide Anion Gap BUN Creatinine Estim Creat Clear Calc Estimated GFR Glucose POC Capillary Glucose 134 H 155 H Calcium
[2024-08-22 05:40] VITALS: BP 156/57; PULSE 113; RESP 16; TEMP 37.4; O2SAT 93
[2024-08-22 06:54] LABS: Hematocrit 27.8 % (42.0-52.0); Hemoglobin 9.2 g/dL (14.0-18.0); Mean Corpuscular HGB Conc 33.1 g/dl (32-36); Mean Corpuscular Hemoglobin 28.9 pg (26-34); Mean Corpuscular Volume 87.4 fl (80-100); Mean Platelet Volume 9.6 fl (7.4-10.4); Platelet Count Result 487 k/mm3 (150-375); Red Blood Count 3.18 M/mm3 (4.6-6.20); Red Cell Distribution Width 13.4 % (11.5-14.5); White Blood Count 11.9 K/mm3 (4.5-10.0)
[2024-08-22 07:07] LABS: Alanine Aminotransferase 15 U/L (6-50); Albumin Level 2.5 g/dL (3.5-5.1); Alkaline Phosphatase 78 U/L (38-126); Anion Gap 5 mmol/L (4-12); Aspartate Amino Transferase 20 U/L (17-59); Bilirubin,Total 0.5 mg/dL (0.2-1.3); Blood Urea Nitrogen 18 mg/dL (9-20); Calcium 7.4 mg/dL (8.4-10.2); Carbon Dioxide 25 mmol/L (22-30); Chloride 98 mmol/L (98-107); Estimated CRCL calculation 128 ml/min; Estimated Glomerular Filt Rate > 60; Glucose 218 mg/dL (65-110); Potassium 3.5 mmol/L (3.4-5.0); Sodium 128 mmol/L (137-145)
--- NOTE | 2024-08-22 07:34 | P.CONNS_ITS ---
Assessment and Plan Assessment and plan (1) Septic arthritis of lumbar spine: Code(s): M46.56 - Other infective spondylopathies, lumbar region Status: Acute Plan Mr. Laughlin is a 49-year-old male who was admitted on 08/13 with DKA and an infected left foot ulcer ultimately requiring toe amputation last week. He has had progressive lower back pain over the last few weeks in the setting of Strep bacteremia. He did require ruelas catheter placement a few days ago but has good strength and sensation in his legs. He has been able to ambulate. MRI lumbar spine was repeated yesterday which shows progression of septic arthritis on the right at L5-S1, myositis, and worsening central canal stenosis. Given his good neurologic exam, I do not believe that he requires urgent surgical intervention; however, I agree with Dr. Lara that he would be best served by transferring to a hospital with Infectious Disease specialists as his infection has clearly progressed despite antibiotic treatment over the last few months for his foot infection. I am hopeful that, with antibiotic adjustment, his infection will clear without surgery and will ultimately improve his back pain. Consult date: 08/22/24 HPI: Pavel Laughlin is a 49 year old male with history of poorly-controlled diabetes and osteomyelitis of the left foot who was admitted here on August 13 for DKA, nausea/vomiting, body aches, and back pain. He has been treated for an infected ulcer on his left 5th toe since this summer and ultimately required amputation of the toe during this admission. He has had progressive lower back pain over the last few weeks, and Neurosurgical consultation was requested for this. Repeat MRI lumbar spine was completed yesterday evening showing progression of infection involving the right L5-S1 facet joint, paraspinal muscles, and epidural space with worsened central stenosis. He states his back pain has been in the lower back on the right side. He has pa in in the joints of the legs but denies radicular pain or paresthesias. He apparently had a ruelas catheter placed a few days ago. He has been ambulatory, although this is difficult due to his significant pain. He denies any significant issues with his lower back before the onset of his current symptoms a few weeks ago. He has never had back surgery, although he has had an injection in his back in the past, seemingly several years ago. [facility] Past Medical History Medical History Depression Erectile dysfunction History of kidney stones Hypertension Insulin dependent type 2 diabetes mellitus Hemoglobin A1c on 10/26/2020 was 12.4%. 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 His 1st about 5 years ago. Nonsmoker. No alcohol or illicit substance abuse. He designates his fiancee, Estefania Fontaine, as his surrogate decision maker and he wishes to be a full code.. Smoking status: Never smoker Alcohol intake: never Alcohol use details: Previously listed as current; denies in 2023 Substance use: never Substance use type: does not use Do You Feel Safe in your Home?: Yes Lack of Transportation: No Lack of Food: Never True Current Housing: I Do Not Have Housing Concerned About Future Housing: No Difficulty Paying Gas/Electric Bills: No Difficulty Paying for Meds: No Currently Unemployed: No Education: Associate Degree Difficulty w/ Childcare or Family Care: No Living arrangements: with family Occupation/Education: occupation Gender identity (if verbalized by the patient): Male Sexual Orientation (if Verbalized by the Patient): Straight or Heterosexual Spiritual care concerns: No Meds Home Medications and Allergies Home Medications Medication Instructions Recorded Confirmed Type blood-glucose sensor (Dexcom G7 #3 ea 01/17/24 08/13/24 Rx Sensor device) escitalopram oxalate 10 mg tablet 10 mg PO DAILY #90 tabs 01/17/24 08/13/24 Rx (Lexapro) insulin glargine U-300 conc 300 64 unit subcut HS 04/24/24 08/13/24 History unit/mL (3 mL) subcutaneous pen (Toujeo Max U-300 SoloStar) blood sugar diagnostic (OneTouch #1 g 04/30/24 08/13/24 Rx Verio test strips) blood-glucose meter (OneTouch #1 page hospital 04/30/24 08/13/24 Rx Verio Flex Meter) insulin syringe-needle U-100 1 mL #1 g 04/30/24 08/13/24 Rx 31 gauge x 15/64 (BD Veo Insulin Syringe Ultra-Fine) lancets 30 gauge (OneTouch Delica #1 page hospital 04/30/24 08/13/24 Rx Plus Lancet) insulin lispro 100 unit/mL 1 sliding scale dose subcut 07/16/24 08/13/24 Rx subcutaneous pen (Humalog KwikPen USEASDIRECTD #15 mL (U-100) Insulin) amlodipine 5 mg tablet 5 mg PO DAILY #30 tabs 07/17/24 08/13/24 Rx losartan 100 mg tablet 100 mg PO DAILY #30 tabs 07/17/24 08/13/24 Rx carvedilol 25 mg tablet (Coreg) 25 mg PO Q12HR #60 tabs 08/01/24 08/13/24 Rx Mounjaro 2.5 mg/0.5 mL 2.5 mg (0.5 mL) subcut WEEKLY #2 mL 08/09/24 08/13/24 Rx subcutaneous pen injector (tirzepatide) Allergies Allergy/AdvReac Type Severity Reaction Status Date / Time No Known Allergies Allergy Verified 07/30/24 14:59 Vital Signs Vital Signs - 24 hr 08/21/24 08:45 08/21/24 08:00 08/21/24 14:28 Temperature 100.1 F H Pulse Rate 104 H 104 H Respiratory Rate Blood Pressure Pulse Oximetry 92 Oxygen Delivery Room Air 08/21/24 14:00 08/21/24 15:24 08/21/24 21:05 Temperature 100.1 F H 98.6 F Pulse Rate 91 86 Respiratory Rate 20 Blood Pressure 120/55 L Pulse Oximetry 96 Oxygen Delivery 08/21/24 22:00 08/21/24 20:00 08/22/24 05:40 Temperature 97.7 F 99.4 F Pulse Rate 88 113 H Respiratory Rate 16 16 Blood Pressure 155/75 H 156/57 H Pulse Oximetry 93 93 Oxygen Delivery Room Air Exam Narrative: Appears uncomfortable. Reclining in chair at bedside Ruelas catheter in place Good lower extremity strength and sensation. Able to lift both legs off the chair without difficulty Unless otherwise stated above, the patient's physical exam is as follows: General: -Well developed and well nourished. No a cute distress. Cooperative with exam. Mental status: -Awake and oriented to person, place, an d time. Integumentary: -No obvious skin lesions or masses Motor: -Muscle tone normal without spasticity o f flaccidity. No atrophy. No fasciculations. -No pronator drift -Right upper extremity: deltoid 5/5, bic eps 5/5, triceps 5/5, wrist extensors 5/5, wrist flexors 5/5, intrinsics 5/5 -Left upper extremity: deltoid 5/5, roselyn ps 5/5, triceps 5/5, wrist extensors 5/5, wrist flexors 5/5, intrinsics 5/5 -Right lower extremity: iliopsoas 5/5, q uadriceps 5/5, hamstrings 5/5, tibialis anterior 5/5, gastroc-soleus 5/5, EHL 5/5 -Left lower extremity: iliopsoas 5/5, qu adriceps 5/5, hamstrings 5/5, tibialis anterior 5/5, gastroc-soleus 5/5, EHL 5/5 Sensory: -Intact to light touch throughout -Normal proprioception throughout Reflexes: -1-2+ DTR's throughout -No Serrano's, clonus, or Babinski bilat erally Results Labs 08/21/24 07:30 08/22/24 05:53 Labs: Short CBC 08/21/24 Range/Units 07:30 WBC 12.2 H (4.5-10.0) K/mm3 Hgb 9.6 L (14.0-18.0) g/dL Hct 28.5 L (42.0-52.0) % Plt Count 463 H (150-375) k/mm3 BMP 08/21/24 08/22/24 07:30 05:53 Sodium 127 L 128 L Potassium 3.5 3.5 Chloride 98 98 Carbon Dioxide 24 25 BUN 16 18 Creatinine 0.80 0.90 Glucose 117 H 218 H Calcium 7.5 L 7.4 L Liver Function 08/22/24 Range/Units 05:53 Total Bilirubin 0.5 (0.2-1.3) mg/dL AST 20 (17-59) U/L ALT 15 (6-50) U/L Alkaline Phosphatase 78 (38-126) U/L Albumin 2.5 L (3.5-5.1) g/dL
[2024-08-22 08:09] LABS: Glucose Point of Care 231 mg/dl (65-105)
[2024-08-22] MEDS: DOXYCYCLINE HYCLATE 100 MG TABLET PO (09:10)
[2024-08-22] MEDS: POTASSIUM CHLORIDE 20 MEQ PACKET (FOR LIQUID) 40 MEQ PO ×2 (09:10→17:20)
[2024-08-22] MEDS: PANTOPRAZOLE SOD SESQUIHYDRATE 20 MG TAB PO (09:10)
[2024-08-22] MEDS: carvediloL 25 MG TABLET PO ×2 (09:10→20:11)
[2024-08-22] MEDS: GABAPENTIN 300 MG CAPSULE PO ×3 (09:11→17:20)
[2024-08-22] MEDS: INSULIN ASPART (*BKC) 100 UNITS/ML 10 UNITS SUB-Q ×2 (09:11→12:02)
[2024-08-22] MEDS: DULoxetine HCL 30 MG CAPSULE.DR PO (09:11)
[2024-08-22] MEDS: INSULIN ASPART (*BKC) 100 UNITS/ML SUB-Q ×2 (09:11→12:02)
[2024-08-22] MEDS: amLODIPine BESYLATE 10 MG TABLET PO (09:11)
[2024-08-22] MEDS: LOSARTAN POTASSIUM 100 MG TABLET PO (09:11)
[2024-08-22] MEDS: ESCITALOPRAM OXALATE 10 MG TABLET PO (09:11)
[2024-08-22] MEDS: INSULIN GLARGINE (*BKC) 100 UNITS/ML 35 UNITS SUB-Q ×2 (09:12→17:20)
[2024-08-22] MEDS: ENOXAPARIN 40 MG/0.4 ML SYRINGE SUB-Q (09:25)
--- NOTE | 2024-08-22 10:21 | PM.IMPN ---
Progress Note: A&P Assessment and Plan (1) Bacteremia due to Streptococcus pneumoniae: Code(s): R78.81 - Bacteremia; B95.3 - Streptococcus pneumoniae as the cause of diseases classified elsewhere Status: Acute (2) Lumbar back pain: Code(s): M54.50 - Low back pain, unspecified Status: Acute (3) DKA (diabetic ketoacidosis): Code(s): E11.10 - Type 2 diabetes mellitus with ketoacidosis without coma Status: Acute (4) Acute kidney injury: Code(s): N17.9 - Acute kidney failure, unspecified Status: Acute Plan 49-year-old male with a significant past medical history of insulin-dependent type 2 diabetes mellitus, diabetic foot ulcer, depression, erectile dysfunction, hypertension, history of kidney stones who presented to the hospital for evaluation of body aches, nausea without vomiting, fever, chills. Workup in the hospital included a chest x-ray which was negative for any acute cardiopulmonary process. Renal ultrasound was performed which showed normal kidneys, no hydronephrosis. Initial labs showed a white blood cell count of 9.5, hemoglobin 12.2, platelet count 120, band neutrophils 17, sodium 130, chloride 95, bicarb 17, anion gap 18, creatinine 2.10, EGFR 34, blood sugar ranging 300-449, lactic acid 2.3, beta hydroxybutyrate 3.31. Respiratory panel was negative for influenza a and B, RSV, COVID. EKG showed sinus tachycardia with a rate of 100, QTC 449. Patient was given 2 L of normal saline while in the ED, given 18 units IV push regular insulin and started on an insulin infusion per DKA protocol. Lumbar back pain: 08/21/2024 : MRI ,Lumbar : Widening of the right L5-S1 facet joint with increased fluid and new prominent surrounding marrow edema at the facet joints and edema in the more posterior paraspinal musculature which raises concern for septic arthritis and associated myositis. There is also increased edema in the epidural fat extending cephalad throughout the lumbar spine which contributes to significant increase in central canal stenosis at multiple levels since the study from one week prior. 08/21: MRI Brain no significant findings 08/14: MRI of lumbar spine shows moderate lumbar spondylosis no evidence of diskitis or osteomyelitis New finding septic arthritis on right L5-S1 facet joint and associated myositis Started on vancomycin due to the high risk of developing meningitis. Continue ceftriaxone 2 g. Transferring the patient to tertiary care hospital Already on pain medications add Lidoderm patch add gabapentin 300mg tid po Acute osteomyelitis of left foot: Foot culture growing E coli Appreciate surgery help Status post left 5th toe amputation Pain control Based on cut foot culture, c/w ceftriaxone Local wound care, dressing change as per surgery Non-weight bearing on LLE, PT eval for crutch use and ambulation Diabetic ketoacidosis: Hemoglobin A1c 8.8 now controlled DKA resolved Blood glucose checked t.i.d. a.c. and HS change from Lantus 70 units am to 35 units bid change aspart from 12 to 10 units tid Continue with sliding scale insulin Adjust dose as needed now glucose is well controlled below 180 Streptococcus bacteremia: Unclear source Blood culture from 08/15/2024 is negative to date Trans thoracic echocardiogram negative for any vegetation Less suspicion for endocarditis, will not pursue for transesophageal echo hospitality associate leukocytosis fever on 08/18, repeate BCX: no growth so far Continue ceftriaxone IV 2 g daily Hypertension: Increase the dose of Norvasc to 10 mg Continue with losartan Continue with Coreg Once pain is better controlled blood pressure should improve Hyponatremia Sodium 126 Discontinue D5 Start normal saline 125 mL/hour s/w sodium chloride 1 g t.i.d. p.o. Hypokalemia 3.3 provide potassium chloride 40 mEq p.o. once and b.i.d. p.o. Follow-up BMP Corrected PURNIMA: Creatinine 2.1 upon arrival August 13 Avoid nephrotoxins Recheck BMP in a.m. Renal ultrasound negative for hydronephrosis resolved Code status: Full DVT prophylaxis: Lovenox 9. Disposition: Pending improvement Subjective Date/time seen: 08/22/24 10:21 Interval history: Yesterday I repeated the MRI even though his previous MRI show no significant findings . The repeat MRI lumbar spine shows progression of septic arthritis on the right at L5-S1, myositis, and worsening central canal stenosis. These findings were not present on initial MRI performed. With regards to the new finding of septic arthritis in the spine that can lead to number of other complications including meningitis, I will change his antibiotic to ceftriaxone and vancomycin. Discussed with his who agrees with transferring the patient to a tertiary care center to get help from Infectious Disease. I called [place] and waiting for the update. Patient had a Ramirez catheter placement day before yesterday possibly due to the autonomic dysfunction from the pain medications least likely from neurologic compromise but will be monitored closely. Patient apparently able to move his legs bilaterally and good sensation as well. Update on transfer: Spoke with Neurosurgeon Dr Ramirez Vegas, who accepted to see the patient as consult once the hospitalist accepts . Awaiting call from Hospitalist Review of Systems Review of Systems: 10 point ROS complete, negative other than what is specified in HPI. All systems reviewed & are unremarkable except as noted in HPI and below Constitutional: Constitutional: Reports as per HPI and Reports no additional constitutional complaints Eyes: Eyes: Reports as per HPI and Reports no additional eye complaints ENT: Reports system reviewed and no additional complaints, except as documented and Reports as per HPI Cardiovascular: Cardiovascular: Reports as per HPI and Reports no additional cardiovascular complaints Respiratory: Respiratory: Reports as per HPI and Reports no additional respiratory complaints Gastrointestinal: Gastrointestinal: Reports as per HPI and Reports no additional gastrointestinal complaints Genitourinary: Genitourinary: Reports no additional male genitourinary complaints and Reports as per HPI Musculoskeletal: Musculoskeletal: Reports no additional musculoskeletal complaints and Reports as per HPI Integumentary/Breasts: Skin/Breast: Reports system reviewed and no additional complaints, except as docu and Reports as per HPI Neurologic: Reports system reviewed and no additional complaints, except as documented and Reports as per HPI Psychiatric: Psychiatric: Reports no additional psychiatric complaints and Reports as per HPI Exam Narrative: GENERAL: Pleasant, in no acute distress. Well-nourished. - EYES: EOMI. Anicteric. - HENT: Moist mucous membranes. - LUNGS: Clear to auscultation bilaterally, no wheezing, rhonchi, or rales. - CARDIOVASCULAR: Regular rate and rhythm. No murmur. No JVD. - ABDOMEN: Soft, non-tender and non-distended. No palpable masses. - EXTREMITIES: No edema. Peripheral pulses 2+. Non-tender. Surgical wound of left foot is dry, no discharge, low back tenderness by light punch - NEUROLOGIC: No focal neurological deficits. CN II-XII grossly intact.. - PSYCHIATRIC: Awake, Alert and oriented x 3. Appropriate mood and affect. - SKIN: No rashes or lesions. Warm. - LYMPH: No cervical lymphadenopathy. Objective Data Vital Signs Vital Signs: Vital Signs - 24 hr 08/21/24 14:28 08/21/24 14:00 08/21/24 15:24 Temperature 100.1 F H 100.1 F H 98.6 F Pulse Rate 91 Respiratory Rate 20 Blood Pressure 120/55 L Pulse Oximetry 96 Oxygen Delivery 08/21/24 21:05 08/21/24 22:00 08/21/24 20:00 Temperature 97.7 F Pulse Rate 86 88 Respiratory Rate 16 Blood Pressure 155/75 H Pulse Oximetry 93 Oxygen Delivery Room Air 08/22/24 05:40 Temperature 99.4 F Pulse Rate 113 H Respiratory Rate 16 Blood Pressure 156/57 H Pulse Oximetry 93 Oxygen Delivery Intake/Output Intake/Output: Intake & Output 08/19/24 08/20/24 08/21/24 08/22/24 23:59 23:59 23:59 23:59 Intake Total 3762.4 4265.8 2998 800 Output Total 600 3300 2600 1800 Balance 3162.4 965.8 398 -1000 Meds/Results Medications: Active Medications Generic Name Dose Route Start Last Admin Trade Name Freq PRN Reason Stop Dose Admin Acetaminophen 650 mg 08/18/24 14:25 08/21/24 14:28 Acetaminophen 325 Mg Tablet PO 650 mg Q6H PRN Administration Mild Pain (1-3) or Fever Amlodipine Besylate 10 mg 08/18/24 09:00 08/22/24 09:11 Amlodipine Besylate 10 Mg Tablet PO 10 mg DAILY SANCHEZ Administration Calcium Carbonate 500 mg 08/21/24 17:00 08/21/24 18:11 Calcium Carbonate (Oscal) 500 Mg Tablet PO 500 mg 1100,1200,1700 SANCHEZ Administration Carvedilol 25 mg 08/14/24 09:00 08/22/24 09:10 Carvedilol 25 Mg Tablet PO 25 mg Q12HR SANCHEZ Administration Cyclobenzaprine HCl 5 mg 08/17/24 00:46 08/21/24 21:36 Cyclobenzaprine Hcl 5 Mg Tablet PO 5 mg Q8H PRN Administration Muscle Spasm Dextrose 12.5 gm 08/14/24 07:37 Dextrose 50% 25 Gm/50 Ml Syringe IV PUSH PRN PRN Hypoglycemia Protocol Doxycycline Hyclate 100 mg 08/21/24 14:00 08/22/24 09:10 Doxycycline Hyclate 100 Mg Tablet PO 100 mg Q12HR SANCHEZ Administration Duloxetine HCl 30 mg 08/19/24 09:00 08/22/24 09:11 Duloxetine Hcl 30 Mg Capsule.Dr PO 30 mg QAM SANCHEZ Administration Enoxaparin Sodium 40 mg 08/14/24 09:00 08/22/24 09:25 Enoxaparin 40 Mg/0.4 Ml Syringe SUB-Q 40 mg DAILY SANCHEZ Administration Escitalopram Oxalate 10 mg 08/14/24 09:00 08/22/24 09:11 Escitalopram Oxalate 10 Mg Tablet PO 10 mg DAILY SANCHEZ Administration Gabapentin 300 mg 08/20/24 17:00 08/22/24 09:11 Gabapentin 300 Mg Capsule PO 300 mg TID SANCHEZ Administration Glucagon 1 mg 08/14/24 07:37 Glucagon For Inj 1 Mg Vial IM PRN PRN Hypoglycemia Protocol Glucose 15 gm 08/14/24 07:37 Glucose Oral Gel 15 Gm Of Glucse In 37.5 Gm Tube PO PRN PRN Hypoglycemia Protocol Hydromorphone HCl 0.5 mg 08/20/24 09:08 Hydromorphone Hcl Inj (*Crx) 1 Mg/Ml Syr IV PUSH Q6H PRN Breakthrough Pain Rated 4-6 or NPO Ceftriaxone Sodium 2 gm in 100 mls @ 200 mls/hr 08/17/24 21:00 08/21/24 23:07 Rocephin 2 Gm/Ns 100 Ml IVPB Infused Q24H SANCHEZ Infusion Ibuprofen 800 mg in 200 mls @ 400 mls/hr 08/22/24 10:14 Caldolor 800 Mg/200 Ml IVPB Q6H PRN Pain Rated 4-6 Insulin Aspart 4 - 8 units 08/14/24 08:00 08/22/24 09:11 Insulin Aspart (*Bkc) 100 Units/Ml SUB-Q 4 units TIDWM SANCHEZ Administration Protocol Insulin Aspart 2 - 4 units 08/14/24 21:00 08/21/24 20:59 Insulin Aspart (*Bkc) 100 Units/Ml SUB-Q Not Given HS SANCHEZ Protocol Insulin Aspart 10 units 08/20/24 12:00 08/22/24 09:11 Insulin Aspart (*Bkc) 100 Units/Ml SUB-Q 10 units TIDWM SANCHEZ Administration Insulin Glargine 35 units 08/20/24 17:00 08/22/24 09:12 Insulin Glargine (*Bkc) 100 Units/Ml SUB-Q 35 units BIDWM SANCHEZ Administration Lidocaine 1 patch 08/17/24 14:15 08/21/24 08:41 Lidocaine 5% Patch TRANSDERM 1 patch DAILY SANCHEZ Administration Losartan Potassium 100 mg 08/15/24 11:35 08/22/24 09:11 Losartan Potassium 100 Mg Tablet PO 100 mg DAILY SANCHEZ Administration Naloxone HCl 0.1 mg 08/16/24 14:34 Naloxone Hcl 0.4 Mg/Ml Vial IV PUSH Q2M PRN Opiate Reversal Ondansetron HCl 4 mg 08/13/24 15:26 08/17/24 00:26 Ondansetron Inj 4 Mg/2 Ml Vial IV PUSH 4 mg Q6H PRN Administration Nausea And Vomiting Oxycodone/Acetaminophen 1 tab 08/16/24 14:34 08/21/24 21:35 Oxycodone/Acetaminophen (*Crx) 10-325 Mg Tablet PO 1 tab Q6H PRN Administration Pain Rated 7-10 Pantoprazole Sodium 20 mg 08/21/24 12:25 08/22/24 09:10 Pantoprazole Sod Sesquihydrate 20 Mg Tab PO 20 mg QAM SANCHEZ Administration Potassium Chloride 40 meq 08/19/24 17:00 08/22/24 09:10 Potassium Chloride 20 Meq Packet (For Liquid) PO 40 meq BID SANCHEZ Administration Radiology Results: ITS Impressions Chest X-Ray 08/13/24 13:54 IMPRESSION: No acute cardiopulmonary pathology. Renal Ultrasound 08/13/24 15:07 IMPRESSION: 1. Normal kidneys. No hydronephrosis. Foot X-Ray 08/14/24 11:36 IMPRESSION: 1. Septic arthritis at the fifth metatarsophalangeal joint with associated osteomyelitis at the base of the fifth proximal phalanx and head of the fifth metatarsal. Lumbar Spine X-Ray 08/14/24 11:49 IMPRESSION: No acute osseous abnormality lumbar spine. Multilevel degenerative disc disease. Brain MRI 08/21/24 18:52 IMPRESSION: 1. Normal for age brain. No acute intracranial process. Cervical Spine MRI 08/21/24 18:55 IMPRESSION: 1. Mild to moderate cervical spondylosis.. No findings to suggest discitis or ostomy myelitis. 2. Nonspecific 15 x 12 x 10 mm superficial subcutaneous lesion near the midline at the level of C3 but with suggestion of a tiny tract extending to the skin surface which would favor an epidermoid/sebaceous cyst. Thoracic Spine MRI 08/21/24 19:15 IMPRESSION: 1. Mild to moderate thoracic spondylosis with no evidence of discitis or osteomyelitis. 2. 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 Lumbar Spine MRI 08/21/24 20:07 IMPRESSION: 1. Widening of the right L5-S1 facet joint with increased fluid and new prominent surrounding marrow edema at the facet joints and edema in the more posterior paraspinal musculature which raises concern for septic arthritis and associated myositis. There is also increased edema in the epidural fat extending cephalad throughout the lumbar spine which contributes to significant increase in central canal stenosis at multiple levels since the study from one week prior. Dr. Hwang discussed these findings with Dr. Lara at 8:35 PM. Labs Labs: Laboratory Results - last 24 hr 08/21/24 08/21/24 08/21/24 11:32 18:20 19:40 WBC RBC Hgb Hct MCV MCH MCHC RDW Plt Count MPV Sodium Potassium Chloride Carbon Dioxide Anion Gap BUN Creatinine Estim Creat Clear Calc Estimated GFR Glucose POC Capillary Glucose 102 134 H 155 H Calcium Total Bilirubin AST ALT Alkaline Phosphatase Total Protein Albumin 08/22/24 08/22/24 05:53 07:49 WBC 11.9 H RBC 3.18 L Hgb 9.2 L Hct 27.8 L MCV 87.4 MCH 28.9 MCHC 33.1 RDW 13.4 Plt Count 487 H MPV 9.6 Sodium 128 L Potassium 3.5 Chloride 98 Carbon Dioxide 25 Anion Gap 5 BUN 18 Creatinine 0.90 Estim Creat Clear Calc 128 Estimated GFR > 60 Glucose 218 H POC Capillary Glucose 231 H Calcium 7.4 L Total Bilirubin 0.5 AST 20 ALT 15 Alkaline Phosphatase 78 Total Protein 6.0 L Albumin 2.5 L Hospitalist MIPS Advance Care Plan I have confirmed that the patient's Advanced Care Plan is present, code status is documented, or surrogate decision maker is listed in patient medical record.: Yes Medication Reconciliation I have utilized all available resources to obtain, update and review the patients current medications (includes all prescriptions, OTC, herbals, cannabis, and nutritional supplements).: Yes
[2024-08-22] MEDS: IBUPROFEN IV 800 MG/200 ML 800 MG/200 ML BAG 400 MG IVPB (11:56)
[2024-08-22] MEDS: CALCIUM CARBONATE (OSCAL) 500 MG TABLET PO ×3 (11:56→18:12)
[2024-08-22 12:03] LABS: Glucose Point of Care 241 mg/dl (65-105)
[2024-08-22] MEDS: VANCOMYCIN 1,250 MG/NS 250 ML 1,250 MG/250 ML BAG 166.67 MG IVPB ×2 (13:06→16:26)
[2024-08-22 14:00] VITALS: BP 148/73; PULSE 97; RESP 16; TEMP 36.7; O2SAT 97
[2024-08-22 16:48] LABS: Glucose Point of Care 97 mg/dl (65-105)
[2024-08-22] MEDS: cefTRIAXone 2 GM/NS 100 ML 2 GM/100 ML BAG IVPB ×2 (17:19→22:34)
[2024-08-22 20:11] VITALS: PULSE 97
[2024-08-22 21:02] LABS: Glucose Point of Care 159 mg/dl (65-105)
[2024-08-22 21:53] VITALS: BP 134/67; PULSE 93; RESP 22; TEMP 37.1; O2SAT 96
[2024-08-22] MEDS: VANCOMYCIN 1,500 MG/NS 500 ML 1,500 MG/500 ML BAG 250 MG IVPB (23:10)
[2024-08-23 05:30] VITALS: BP 147/78; PULSE 99; RESP 20; TEMP 37.1; O2SAT 96
[2024-08-23 06:43] LABS: Hematocrit 28.5 % (42.0-52.0); Hemoglobin 9.4 g/dL (14.0-18.0); Mean Corpuscular Hemoglobin 28.6 pg (26-34); Mean Corpuscular Volume 86.6 fl (80-100); Mean Platelet Volume 9.6 fl (7.4-10.4); Platelet Count Result 595 k/mm3 (150-375); Red Blood Count 3.29 M/mm3 (4.6-6.20); Red Cell Distribution Width 13.3 % (11.5-14.5); White Blood Count 11.8 K/mm3 (4.5-10.0)
[2024-08-23 06:59] LABS: Alanine Aminotransferase 16 U/L (6-50); Albumin Level 2.6 g/dL (3.5-5.1); Alkaline Phosphatase 80 U/L (38-126); Anion Gap 5 mmol/L (4-12); Aspartate Amino Transferase 28 U/L (17-59); Bilirubin,Total 0.6 mg/dL (0.2-1.3); Blood Urea Nitrogen 15 mg/dL (9-20); Calcium 7.6 mg/dL (8.4-10.2); Carbon Dioxide 25 mmol/L (22-30); Chloride 97 mmol/L (98-107); Estimated CRCL calculation 143 ml/min; Estimated Glomerular Filt Rate > 60; Glucose 139 mg/dL (65-110); Sodium 127 mmol/L (137-145)
[2024-08-23 08:14] LABS: Glucose Point of Care 140 mg/dl (65-105)
[2024-08-23] MEDS: LIDOCAINE 5% PATCH 1 PATCH TRANSDERM (08:46)
[2024-08-23] MEDS: carvediloL 25 MG TABLET PO ×2 (08:46→19:58)
[2024-08-23] MEDS: DULoxetine HCL 30 MG CAPSULE.DR PO (08:47)
[2024-08-23] MEDS: POTASSIUM CHLORIDE 20 MEQ PACKET (FOR LIQUID) 40 MEQ PO (08:47)
[2024-08-23] MEDS: amLODIPine BESYLATE 10 MG TABLET PO (08:47)
[2024-08-23] MEDS: ESCITALOPRAM OXALATE 10 MG TABLET PO (08:47)
[2024-08-23] MEDS: GABAPENTIN 300 MG CAPSULE PO ×3 (08:47→17:20)
[2024-08-23] MEDS: LOSARTAN POTASSIUM 100 MG TABLET PO (08:47)
[2024-08-23] MEDS: PANTOPRAZOLE SOD SESQUIHYDRATE 20 MG TAB PO (08:47)
[2024-08-23] MEDS: ENOXAPARIN 40 MG/0.4 ML SYRINGE SUB-Q (08:48)
[2024-08-23] MEDS: INSULIN ASPART (*BKC) 100 UNITS/ML 10 UNITS SUB-Q ×3 (08:48→17:23)
[2024-08-23] MEDS: INSULIN GLARGINE (*BKC) 100 UNITS/ML 35 UNITS SUB-Q ×2 (08:50→17:21)
[2024-08-23] MEDS: cefTRIAXone 2 GM/NS 100 ML 2 GM/100 ML BAG IVPB ×2 (08:51→20:02)
[2024-08-23] MEDS: ACETAMINOPHEN 325 MG TABLET 650 MG PO ×2 (09:02→15:06)
[2024-08-23] MEDS: CYCLOBENZAPRINE HCL 5 MG TABLET PO (09:03)
--- NOTE | 2024-08-23 10:54 | PCOTNOTE ---
Per RN, Patient not to be seen for therapy services. Patient has been accepted to be transferred out, waiting on a bed.
[2024-08-23 11:27] LABS: Glucose Point of Care 124 mg/dl (65-105)
--- NOTE | 2024-08-23 11:27 | PM.IMPN ---
Progress Note: A&P Assessment and Plan (1) Bacteremia due to Streptococcus pneumoniae: Code(s): R78.81 - Bacteremia; B95.3 - Streptococcus pneumoniae as the cause of diseases classified elsewhere Status: Acute (2) Lumbar back pain: Code(s): M54.50 - Low back pain, unspecified Status: Acute (3) DKA (diabetic ketoacidosis): Code(s): E11.10 - Type 2 diabetes mellitus with ketoacidosis without coma Status: Acute (4) Acute kidney injury: Code(s): N17.9 - Acute kidney failure, unspecified Status: Acute Plan 49-year-old male with a significant past medical history of insulin-dependent type 2 diabetes mellitus, diabetic foot ulcer, depression, erectile dysfunction, hypertension, history of kidney stones who presented to the hospital for evaluation of body aches, nausea without vomiting, fever, chills. Workup in the hospital included a chest x-ray which was negative for any acute cardiopulmonary process. Renal ultrasound was performed which showed normal kidneys, no hydronephrosis. Initial labs showed a white blood cell count of 9.5, hemoglobin 12.2, platelet count 120, band neutrophils 17, sodium 130, chloride 95, bicarb 17, anion gap 18, creatinine 2.10, EGFR 34, blood sugar ranging 300-449, lactic acid 2.3, beta hydroxybutyrate 3.31. Respiratory panel was negative for influenza a and B, RSV, COVID. EKG showed sinus tachycardia with a rate of 100, QTC 449. Patient was given 2 L of normal saline while in the ED, given 18 units IV push regular insulin and started on an insulin infusion per DKA protocol. Lumbar back pain: 08/21/2024 : MRI ,Lumbar : Widening of the right L5-S1 facet joint with increased fluid and new prominent surrounding marrow edema at the facet joints and edema in the more posterior paraspinal musculature which raises concern for septic arthritis and associated myositis. There is also increased edema in the epidural fat extending cephalad throughout the lumbar spine which contributes to significant increase in central canal stenosis at multiple levels since the study from one week prior. 08/21: MRI Brain no significant findings 08/14: MRI of lumbar spine shows moderate lumbar spondylosis no evidence of diskitis or osteomyelitis New finding septic arthritis on right L5-S1 facet joint and associated myositis Started on vancomycin due to the high risk of developing meningitis. Continue ceftriaxone 2 g. Transferring the patient to tertiary care hospital Already on pain medications add Lidoderm patch add gabapentin 300mg tid po Acute osteomyelitis of left foot: Foot culture growing E coli Appreciate surgery help Status post left 5th toe amputation Pain control Based on cut foot culture, c/w ceftriaxone Local wound care, dressing change as per surgery Non-weight bearing on LLE, PT eval for crutch use and ambulation Diabetic ketoacidosis: Hemoglobin A1c 8.8 now controlled DKA resolved Blood glucose checked t.i.d. a.c. 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 p.o. Hypokalemia 3.3 provide potassium chloride 40 mEq p.o. once and b.i.d. p.o. Follow-up BMP Corrected PURNIMA: Creatinine 2.1 upon arrival August 13 Avoid nephrotoxins Recheck BMP in a.m. Renal ultrasound negative for hydronephrosis resolved Code status: Full DVT prophylaxis: Lovenox 9. Disposition: Pending improvement Subjective Date/time seen: 08/23/24 11:27 Interval history: Off note: Patient is accepted at [facility] , Accepting physician Dr Dalton Alberto, Consulting Neurosurgeon : Dr. Ramirez Vegas Patient was initially admitted for DKA (resolved) , S/P Left 5th toe amputation. During the course of hospitalization blood culture was positive for Streptococcus pneumoniae. Patient was treated with ceftriaxone and repeat culture was negative. Patient was complaining of back pain which was acute on chronic pain. Initial MRI of lumbar(08/14) did not show any significant findings but repeat MRI on 08/21 shows septic arthritis on the right at L5-S1, myositis and worsening canal stenosis. Patient antibiotic was adjusted to ceftriaxone 2 g b.i.d. and added vancomycin due to the risk of meningitis. Patient shows no signs of neurological compromise. The repeat blood culture shows no growth until today. No spikes of fever yesterday and today. Review of Systems Review of Systems: 10 point ROS complete, negative other than what is specified in HPI. All systems reviewed & are unremarkable except as noted in HPI and below Constitutional: Constitutional: Reports as per HPI and Reports no additional constitutional complaints Eyes: Eyes: Reports as per HPI and Reports no additional eye complaints ENT: Reports system reviewed and no additional complaints, except as documented and Reports as per HPI Cardiovascular: Cardiovascular: Reports as per HPI and Reports no additional cardiovascular complaints Respiratory: Respiratory: Reports as per HPI and Reports no additional respiratory complaints Gastrointestinal: Gastrointestinal: Reports as per HPI and Reports no additional gastrointestinal complaints Genitourinary: Genitourinary: Reports no additional male genitourinary complaints and Reports as per HPI Musculoskeletal: Musculoskeletal: Reports no additional musculoskeletal complaints and Reports as per HPI Integumentary/Breasts: Skin/Breast: Reports system reviewed and no additional complaints, except as docu and Reports as per HPI Neurologic: Reports system reviewed and no additional complaints, except as documented and Reports as per HPI Psychiatric: Psychiatric: Reports no additional psychiatric complaints and Reports as per HPI Exam Narrative: GENERAL: Pleasant, in no acute distress. Well-nourished. - EYES: EOMI. Anicteric. - HENT: Moist mucous membranes. - LUNGS: Clear to auscultation bilaterally, no wheezing, rhonchi, or rales. - CARDIOVASCULAR: Regular rate and rhythm. No murmur. No JVD. - ABDOMEN: Soft, non-tender and non-distended. No palpable masses. - EXTREMITIES: No edema. Peripheral pulses 2+. Non-tender. Surgical wound of left foot is dry, no discharge, low back tenderness by light punch - NEUROLOGIC: No focal neurological deficits. CN II-XII grossly intact.. - PSYCHIATRIC: Awake, Alert and oriented x 3. Appropriate mood and affect. - SKIN: No rashes or lesions. Warm. - LYMPH: No cervical lymphadenopathy. Objective Data Vital Signs Vital Signs: Vital Signs - 24 hr 08/22/24 14:00 08/22/24 20:11 08/22/24 20:00 Temperature 98.0 F Pulse Rate 97 97 Respiratory Rate 16 Blood Pressure 148/73 H Pulse Oximetry 97 Oxygen Delivery Room Air 08/22/24 21:53 08/23/24 05:30 Temperature 98.8 F 98.7 F Pulse Rate 93 99 Respiratory Rate 22 H 20 Blood Pressure 134/67 147/78 H Pulse Oximetry 96 96 Oxygen Delivery Intake/Output Intake/Output: Intake & Output 08/20/24 08/21/24 08/22/24 08/23/24 23:59 23:59 23:59 23:59 Intake Total 4265.8 2998 1684 1522 Output Total 3300 2600 3500 1250 Balance 965.8 398 -4216 272 Meds/Results Medications: Active Medications Generic Name Dose Route Start Last Admin Trade Name Freq PRN Reason Stop Dose Admin Acetaminophen 650 mg 08/18/24 14:25 08/23/24 09:02 Acetaminophen 325 Mg Tablet PO 650 mg Q6H PRN Administration Mild Pain (1-3) or Fever Amlodipine Besylate 10 mg 08/18/24 09:00 08/23/24 08:47 Amlodipine Besylate 10 Mg Tablet PO 10 mg DAILY SANCHEZ Administration Calcium Carbonate 500 mg 08/21/24 17:00 08/22/24 18:12 Calcium Carbonate (Oscal) 500 Mg Tablet PO 500 mg 1100,1200,1700 SANCHEZ Administration Carvedilol 25 mg 08/14/24 09:00 08/23/24 08:46 Carvedilol 25 Mg Tablet PO 25 mg Q12HR SANCHEZ Administration Cyclobenzaprine HCl 5 mg 08/17/24 00:46 08/23/24 09:03 Cyclobenzaprine Hcl 5 Mg Tablet PO 5 mg Q8H PRN Administration Muscle Spasm Dextrose 12.5 gm 08/14/24 07:37 Dextrose 50% 25 Gm/50 Ml Syringe IV PUSH PRN PRN Hypoglycemia Protocol Duloxetine HCl 30 mg 08/19/24 09:00 08/23/24 08:47 Duloxetine Hcl 30 Mg Capsule.Dr PO 30 mg QAM SANCHEZ Administration Enoxaparin Sodium 40 mg 08/14/24 09:00 08/23/24 08:48 Enoxaparin 40 Mg/0.4 Ml Syringe SUB-Q 40 mg DAILY SANCHEZ Administration Escitalopram Oxalate 10 mg 08/14/24 09:00 08/23/24 08:47 Escitalopram Oxalate 10 Mg Tablet PO 10 mg DAILY SANCHEZ Administration Gabapentin 300 mg 08/20/24 17:00 08/23/24 08:47 Gabapentin 300 Mg Capsule PO 300 mg TID SANCHEZ Administration Glucagon 1 mg 08/14/24 07:37 Glucagon For Inj 1 Mg Vial IM PRN PRN Hypoglycemia Protocol Glucose 15 gm 08/14/24 07:37 Glucose Oral Gel 15 Gm Of Glucse In 37.5 Gm Tube PO PRN PRN Hypoglycemia Protocol Hydromorphone HCl 0.5 mg 08/20/24 09:08 Hydromorphone Hcl Inj (*Crx) 1 Mg/Ml Syr IV PUSH Q6H PRN Breakthrough Pain Rated 4-6 or NPO Ibuprofen 800 mg in 200 mls @ 400 mls/hr 08/22/24 10:14 08/22/24 11:56 Caldolor 800 Mg/200 Ml IVPB 400 mls/hr Q6H PRN Administration Pain Rated 4-6 Vancomycin HCl 1,500 mg in 500 mls @ 250 mls/hr 08/23/24 00:00 08/23/24 01:10 Vancomycin 1,500 Mg/Ns 500 Ml IVPB Infused Q12H SANCHEZ Infusion Ceftriaxone Sodium 2 gm in 100 mls @ 200 mls/hr 08/22/24 14:00 08/23/24 08:51 Rocephin 2 Gm/Ns 100 Ml IVPB 200 mls/hr Q12HR SANCHEZ Administration Insulin Aspart 4 - 8 units 08/14/24 08:00 08/23/24 08:42 Insulin Aspart (*Bkc) 100 Units/Ml SUB-Q Not Given TIDWM [facility] Protocol Insulin Aspart 2 - 4 units 08/14/24 21:00 08/22/24 21:21 Insulin Aspart (*Bkc) 100 Units/Ml SUB-Q Not Given HS [facility] Protocol Insulin Aspart 10 units 08/20/24 12:00 08/23/24 08:48 Insulin Aspart (*Bkc) 100 Units/Ml SUB-Q 10 units TIDWM SANCHEZ Administration Insulin Glargine 35 units 08/20/24 17:00 08/23/24 08:50 Insulin Glargine (*Bkc) 100 Units/Ml SUB-Q 35 units BIDWM SANCHEZ Administration Lidocaine 1 patch 08/17/24 14:15 08/23/24 08:46 Lidocaine 5% Patch TRANSDERM 1 patch DAILY SANCHEZ Administration Losartan Potassium 100 mg 08/15/24 11:35 08/23/24 08:47 Losartan Potassium 100 Mg Tablet PO 100 mg DAILY SANCHEZ Administration Naloxone HCl 0.1 mg 08/16/24 14:34 Naloxone Hcl 0.4 Mg/Ml Vial IV PUSH Q2M PRN Opiate Reversal Ondansetron HCl 4 mg 08/13/24 15:26 08/17/24 00:26 Ondansetron Inj 4 Mg/2 Ml Vial IV PUSH 4 mg Q6H PRN Administration Nausea And Vomiting Oxycodone/Acetaminophen 1 tab 08/16/24 14:34 08/21/24 21:35 Oxycodone/Acetaminophen (*Crx) 10-325 Mg Tablet PO 1 tab Q6H PRN Administration Pain Rated 7-10 Pantoprazole Sodium 20 mg 08/21/24 12:25 08/23/24 08:47 Pantoprazole Sod Sesquihydrate 20 Mg Tab PO 20 mg QAM SANCHEZ Administration Potassium Chloride 40 meq 08/19/24 17:00 08/23/24 08:47 Potassium Chloride 20 Meq Packet (For Liquid) PO 40 meq BID SANCHEZ Administration Radiology Results: ITS Impressions Chest X-Ray 08/13/24 13:54 IMPRESSION: No acute cardiopulmonary pathology. Renal Ultrasound 08/13/24 15:07 IMPRESSION: 1. Normal kidneys. No hydronephrosis. Foot X-Ray 08/14/24 11:36 IMPRESSION: 1. Septic arthritis at the fifth metatarsophalangeal joint with associated osteomyelitis at the base of the fifth proximal phalanx and head of the fifth metatarsal. Lumbar Spine X-Ray 08/14/24 11:49 IMPRESSION: No acute osseous abnormality lumbar spine. Multilevel degenerative disc disease. Brain MRI 08/21/24 18:52 IMPRESSION: 1. Normal for age brain. No acute intracranial process. Cervical Spine MRI 08/21/24 18:55 IMPRESSION: 1. Mild to moderate cervical spondylosis.. No findings to suggest discitis or ostomy myelitis. 2. Nonspecific 15 x 12 x 10 mm superficial subcutaneous lesion near the midline at the level of C3 but with suggestion of a tiny tract extending to the skin surface which would favor an epidermoid/sebaceous cyst. Thoracic Spine MRI 08/21/24 19:15 IMPRESSION: 1. Mild to moderate thoracic spondylosis with no evidence of discitis or osteomyelitis. 2. 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 Lumbar Spine MRI 08/21/24 20:07 IMPRESSION: 1. Widening of the right L5-S1 facet joint with increased fluid and new prominent surrounding marrow edema at the facet joints and edema in the more posterior paraspinal musculature which raises concern for septic arthritis and associated myositis. There is also increased edema in the epidural fat extending cephalad throughout the lumbar spine which contributes to significant increase in central canal stenosis at multiple levels since the study from one week prior. Dr. Hwang discussed these findings with Dr. Lara at 8:35 PM. Labs Labs: Laboratory Results - last 24 hr 08/22/24 08/22/24 08/22/24 11:59 16:41 20:55 WBC RBC Hgb Hct MCV MCH MCHC RDW Plt Count MPV Sodium Potassium Chloride Carbon Dioxide Anion Gap BUN Creatinine Estim Creat Clear Calc Estimated GFR Glucose POC Capillary Glucose 241 H 97 159 H Calcium Total Bilirubin AST ALT Alkaline Phosphatase Total Protein Albumin 08/23/24 08/23/24 08/23/24 05:48 05:48 07:34 WBC 11.8 H RBC 3.29 L Hgb 9.4 L Hct 28.5 L MCV 86.6 MCH 28.6 MCHC 33.0 RDW 13.3 Plt Count 595 H MPV 9.6 Sodium 127 L Potassium 4.0 4.0 Chloride 97 L Carbon Dioxide 25 Anion Gap 5 BUN 15 Creatinine 0.80 Estim Creat Clear Calc 143 Estimated GFR > 60 Glucose 139 H POC Capillary Glucose 140 H Calcium 7.6 L Total Bilirubin 0.6 AST 28 ALT 16 Alkaline Phosphatase 80 Total Protein 6.0 L Albumin 2.6 L Quality VTE Prophylaxis VTE prophylaxis: pharmacologic ordered Hospitalist MIPS Advance Care Plan I have confirmed that the patient's Advanced Care Plan is present, code status is documented, or surrogate decision maker is listed in patient medical record.: Yes Medication Reconciliation I have utilized all available resources to obtain, update and review the patients current medications (includes all prescriptions, OTC, herbals, cannabis, and nutritional supplements).: Yes
[2024-08-23] MEDS: CALCIUM CARBONATE (OSCAL) 500 MG TABLET PO ×3 (11:40→17:25)
[2024-08-23] MEDS: VANCOMYCIN 1,500 MG/NS 500 ML 1,500 MG/500 ML BAG 250 MG IVPB (12:50)
[2024-08-23 13:59] VITALS: BP 147/76; PULSE 102; RESP 18; TEMP 37.8; O2SAT 95
[2024-08-23 16:23] LABS: Glucose Point of Care 81 mg/dl (65-105)
[2024-08-23] MEDS: POTASSIUM CHLORIDE 20 MEQ ER TABLET 40 MEQ PO (17:25)
[2024-08-23 19:45] VITALS: BP 146/79; PULSE 96; RESP 32; TEMP 37.5; O2SAT 95
[2024-08-23 19:58] VITALS: PULSE 102
[2024-08-23 21:39] LABS: Glucose Point of Care 122 mg/dl (65-105)
[2024-08-24] VITALS (8 sets, daily range): BP systolic 146–167; BP diastolic 75–82; PULSE 94–106; RESP 20–32; TEMP 35.9–38.7; O2SAT 95–96
[2024-08-24 02:07] LABS: Vancomycin Trough 10.1 ug/mL (10.0-20.0)
[2024-08-24] MEDS: VANCOMYCIN 1,500 MG/NS 500 ML 1,500 MG/500 ML BAG 250 MG IVPB (02:25)
--- NOTE | 2024-08-24 03:00 | PC.NURSE ---
Pt. had pressed his call light stating that he needed cleaned up. Pt. was incontinent of stool (this is new for Pt. to our knowledge). PCT's who assisted Pt. stated that he had 'black substance' on his pad with montserrat colored stool. Dr. Dallas was here on the unit and informed of new onset of fecal incontinence. Dr. Dallas went and saw Pt. and spoke with charge nurse who was in the room.
[2024-08-24] MEDS: IBUPROFEN IV 800 MG/200 ML 800 MG/200 ML BAG 400 MG IVPB (05:31)
[2024-08-24 07:28] LABS: Glucose Point of Care 171 mg/dl (65-105)
[2024-08-24 07:36] LABS: Hematocrit 28.5 % (42.0-52.0); Hemoglobin 9.1 g/dL (14.0-18.0); Mean Corpuscular HGB Conc 31.9 g/dl (32-36); Mean Corpuscular Hemoglobin 27.7 pg (26-34); Mean Corpuscular Volume 86.6 fl (80-100); Mean Platelet Volume 9.2 fl (7.4-10.4); Platelet Count Result 634 k/mm3 (150-375); Red Blood Count 3.29 M/mm3 (4.6-6.20); Red Cell Distribution Width 13.1 % (11.5-14.5); White Blood Count 10.1 K/mm3 (4.5-10.0)
[2024-08-24 07:48] LABS: Alanine Aminotransferase 19 U/L (6-50); Albumin Level 2.6 g/dL (3.5-5.1); Alkaline Phosphatase 78 U/L (38-126); Anion Gap 6 mmol/L (4-12); Aspartate Amino Transferase 25 U/L (17-59); Bilirubin,Total 0.7 mg/dL (0.2-1.3); Blood Urea Nitrogen 16 mg/dL (9-20); Calcium 7.6 mg/dL (8.4-10.2); Carbon Dioxide 26 mmol/L (22-30); Chloride 96 mmol/L (98-107); Estimated CRCL calculation 128 ml/min; Estimated Glomerular Filt Rate > 60; Glucose 163 mg/dL (65-110); Potassium 4.4 mmol/L (3.4-5.0); Sodium 128 mmol/L (137-145)
--- NOTE | 2024-08-24 08:33 | PM.IMPN ---
Progress Note: A&P Assessment and Plan (1) Bacteremia due to Streptococcus pneumoniae: Code(s): R78.81 - Bacteremia; B95.3 - Streptococcus pneumoniae as the cause of diseases classified elsewhere Status: Acute (2) Lumbar back pain: Code(s): M54.50 - Low back pain, unspecified Status: Acute (3) DKA (diabetic ketoacidosis): Code(s): E11.10 - Type 2 diabetes mellitus with ketoacidosis without coma Status: Acute (4) Acute kidney injury: Code(s): N17.9 - Acute kidney failure, unspecified Status: Acute Plan 49-year-old male with a significant past medical history of insulin-dependent type 2 diabetes mellitus, diabetic foot ulcer, depression, erectile dysfunction, hypertension, history of kidney stones who presented to the hospital for evaluation of body aches, nausea without vomiting, fever, chills. Workup in the hospital included a chest x-ray which was negative for any acute cardiopulmonary process. Renal ultrasound was performed which showed normal kidneys, no hydronephrosis. Initial labs showed a white blood cell count of 9.5, hemoglobin 12.2, platelet count 120, band neutrophils 17, sodium 130, chloride 95, bicarb 17, anion gap 18, creatinine 2.10, EGFR 34, blood sugar ranging 300-449, lactic acid 2.3, beta hydroxybutyrate 3.31. Respiratory panel was negative for influenza a and B, RSV, COVID. EKG showed sinus tachycardia with a rate of 100, QTC 449. Patient was given 2 L of normal saline while in the ED, given 18 units IV push regular insulin and started on an insulin infusion per DKA protocol. Lumbar back pain: 08/21/2024 : MRI ,Lumbar : Widening of the right L5-S1 facet joint with increased fluid and new prominent surrounding marrow edema at the facet joints and edema in the more posterior paraspinal musculature which raises concern for septic arthritis and associated myositis. There is also increased edema in the epidural fat extending cephalad throughout the lumbar spine which contributes to significant increase in central canal stenosis at multiple levels since the study from one week prior. 08/21: MRI Brain no significant findings 08/14: MRI of lumbar spine shows moderate lumbar spondylosis no evidence of diskitis or osteomyelitis New finding septic arthritis on right L5-S1 facet joint and associated myositis Started on vancomycin due to the high risk of developing meningitis. Continue ceftriaxone 2 g. Transferring the patient to tertiary care hospital Already on pain medications add Lidoderm patch add gabapentin 300mg tid po Acute osteomyelitis of left foot: Foot culture growing E coli Appreciate surgery help Status post left 5th toe amputation Pain control Based on cut foot culture, c/w ceftriaxone Local wound care, dressing change as per surgery Non-weight bearing on LLE, PT eval for crutch use and ambulation Diabetic ketoacidosis: Hemoglobin A1c 8.8 now controlled DKA resolved Blood glucose checked t.i.d. a.c. 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 p.o. Hypokalemia 3.3 provide potassium chloride 40 mEq p.o. once and b.i.d. p.o. Follow-up BMP Corrected PURNIMA: Creatinine 2.1 upon arrival August 13 Avoid nephrotoxins Recheck BMP in a.m. Renal ultrasound negative for hydronephrosis resolved Code status: Full DVT prophylaxis: Lovenox 9. Disposition: Pending improvement Subjective Date/time seen: 08/24/24 08:33 Interval history: Patient was initially admitted for DKA (resolved) , S/P Left 5th toe amputation. During the course of hospitalization blood culture was positive for Streptococcus pneumoniae. Patient was treated with ceftriaxone and repeat culture was negative. Patient was complaining of back pain(right lower back) which was acute on chronic pain. Initial MRI of lumbar(08/14) did not show any significant findings but repeat MRI on 08/21 shows septic arthritis on the right at L5-S1, myositis and worsening canal stenosis. Patient antibiotic was adjusted to ceftriaxone 2 g b.i.d. and added vancomycin due to the risk of meningitis. 08/24: Called [facility] again and spoke with , requested for expedite the case .He agrees with the choice of antibiotics currently the patient is on . Still pending transfer. Called [facility] ,accepted by Dr Dorman and called [facility] ,accepted by . Patient shows no signs of neurological compromise. The repeat blood culture shows no growth until today. Spikes of fever yesterday and today. Review of Systems Review of Systems: 10 point ROS complete, negative other than what is specified in HPI. All systems reviewed & are unremarkable except as noted in HPI and below Constitutional: Constitutional: Reports as per HPI and Reports no additional constitutional complaints Eyes: Eyes: Reports as per HPI and Reports no additional eye complaints ENT: Reports system reviewed and no additional complaints, except as documented and Reports as per HPI Cardiovascular: Cardiovascular: Reports as per HPI and Reports no additional cardiovascular complaints Respiratory: Respiratory: Reports as per HPI and Reports no additional respiratory complaints Gastrointestinal: Gastrointestinal: Reports as per HPI and Reports no additional gastrointestinal complaints Genitourinary: Genitourinary: Reports no additional male genitourinary complaints and Reports as per HPI Musculoskeletal: Musculoskeletal: Reports no additional musculoskeletal complaints and Reports as per HPI Integumentary/Breasts: Skin/Breast: Reports system reviewed and no additional complaints, except as docu and Reports as per HPI Neurologic: Reports system reviewed and no additional complaints, except as documented and Reports as per HPI Psychiatric: Psychiatric: Reports no additional psychiatric complaints and Reports as per HPI Exam Narrative: GENERAL: Pleasant, in no acute distress. Well-nourished. - EYES: EOMI. Anicteric. - HENT: Moist mucous membranes. - LUNGS: Clear to auscultation bilaterally, no wheezing, rhonchi, or rales. - CARDIOVASCULAR: Regular rate and rhythm. No murmur. No JVD. - ABDOMEN: Soft, non-tender and non-distended. No palpable masses. - EXTREMITIES: No edema. Peripheral pulses 2+. Non-tender. Surgical wound of left foot is dry, no discharge, low back tenderness by light punch - NEUROLOGIC: No focal neurological deficits. CN II-XII grossly intact.. - PSYCHIATRIC: Awake, Alert and oriented x 3. Appropriate mood and affect. - SKIN: No rashes or lesions. Warm. - LYMPH: No cervical lymphadenopathy. Objective Data Vital Signs Vital Signs: Vital Signs - 24 hr 08/23/24 13:59 08/23/24 19:58 08/23/24 20:00 Temperature 100.1 F H Pulse Rate 102 H 102 H Respiratory Rate 18 Blood Pressure 147/76 H Pulse Oximetry 95 Oxygen Delivery Room Air 08/23/24 19:45 08/24/24 01:05 08/24/24 05:31 Temperature 99.5 F 100.5 F H 101.7 F H Pulse Rate 96 104 H Respiratory Rate 32 H 32 H Blood Pressure 146/79 H Pulse Oximetry 95 95 Oxygen Delivery 08/24/24 04:45 08/24/24 06:20 08/24/24 08:24 Temperature 101.7 F H 100.0 F H 96.7 F L Pulse Rate 106 H 98 Respiratory Rate 30 H 24 H Blood Pressure 167/75 H 146/76 H Pulse Oximetry 96 95 Oxygen Delivery Intake/Output Intake/Output: Intake & Output 08/21/24 08/22/24 08/23/24 08/24/24 23:59 23:59 23:59 23:59 Intake Total 2998 1884 2722 1250 Output Total 2600 3500 3050 1650 Balance 063 -7996 -001 -221 Meds/Results Medications: Active Medications Generic Name Dose Route Start Last Admin Trade Name Freq PRN Reason Stop Dose Admin Acetaminophen 650 mg 08/18/24 14:25 08/23/24 15:06 Acetaminophen 325 Mg Tablet PO 650 mg Q6H PRN Administration Mild Pain (1-3) or Fever Amlodipine Besylate 10 mg 08/18/24 09:00 08/23/24 08:47 Amlodipine Besylate 10 Mg Tablet PO 10 mg DAILY SANCHEZ Administration Calcium Carbonate 500 mg 08/21/24 17:00 08/23/24 17:25 Calcium Carbonate (Oscal) 500 Mg Tablet PO 500 mg 1100,1200,1700 SANCHEZ Administration Carvedilol 25 mg 08/14/24 09:00 08/23/24 19:58 Carvedilol 25 Mg Tablet PO 25 mg Q12HR SANCHEZ Administration Cyclobenzaprine HCl 5 mg 08/17/24 00:46 08/23/24 09:03 Cyclobenzaprine Hcl 5 Mg Tablet PO 5 mg Q8H PRN Administration Muscle Spasm Dextrose 12.5 gm 08/14/24 07:37 Dextrose 50% 25 Gm/50 Ml Syringe IV PUSH PRN PRN Hypoglycemia Protocol Duloxetine HCl 30 mg 08/19/24 09:00 08/23/24 08:47 Duloxetine Hcl 30 Mg Capsule.Dr PO 30 mg QAM SANCHEZ Administration Enoxaparin Sodium 40 mg 08/14/24 09:00 08/23/24 08:48 Enoxaparin 40 Mg/0.4 Ml Syringe SUB-Q 40 mg DAILY SANCHEZ Administration Escitalopram Oxalate 10 mg 08/14/24 09:00 08/23/24 08:47 Escitalopram Oxalate 10 Mg Tablet PO 10 mg DAILY SANCHEZ Administration Gabapentin 300 mg 08/20/24 17:00 08/23/24 17:20 Gabapentin 300 Mg Capsule PO 300 mg TID SANCHEZ Administration Glucagon 1 mg 08/14/24 07:37 Glucagon For Inj 1 Mg Vial IM PRN PRN Hypoglycemia Protocol Glucose 15 gm 08/14/24 07:37 Glucose Oral Gel 15 Gm Of Glucse In 37.5 Gm Tube PO PRN PRN Hypoglycemia Protocol Hydromorphone HCl 0.5 mg 08/20/24 09:08 Hydromorphone Hcl Inj (*Crx) 1 Mg/Ml Syr IV PUSH Q6H PRN Breakthrough Pain Rated 4-6 or NPO Ibuprofen 800 mg in 200 mls @ 400 mls/hr 08/22/24 10:14 08/24/24 06:01 Caldolor 800 Mg/200 Ml IVPB Infused Q6H PRN Infusion Pain Rated 4-6 Ceftriaxone Sodium 2 gm in 100 mls @ 200 mls/hr 08/22/24 14:00 08/23/24 20:32 Rocephin 2 Gm/Ns 100 Ml IVPB Infused Q12HR SANCHEZ Infusion Vancomycin HCl 1,500 mg in 500 mls @ 250 mls/hr 08/24/24 02:00 08/24/24 04:25 Vancomycin 1,500 Mg/Ns 500 Ml IVPB Infused Q8H SANCHEZ Infusion Insulin Aspart 4 - 8 units 08/14/24 08:00 08/23/24 17:19 Insulin Aspart (*Bkc) 100 Units/Ml SUB-Q Not Given TIDWM [facility] Protocol Insulin Aspart 2 - 4 units 08/14/24 21:00 08/23/24 20:03 Insulin Aspart (*Bkc) 100 Units/Ml SUB-Q Not Given HS [facility] Protocol Insulin Aspart 10 units 08/20/24 12:00 08/23/24 17:23 Insulin Aspart (*Bkc) 100 Units/Ml SUB-Q 10 units TIDWM S[facility]Z Administration Insulin Glargine 35 units 08/20/24 17:00 08/23/24 17:21 Insulin Glargine (*Bkc) 100 Units/Ml SUB-Q 35 units BIDWM S[facility] Administration Lidocaine 1 patch 08/17/24 14:15 08/23/24 08:46 Lidocaine 5% Patch TRANSDERM 1 patch DAILY SANCHEZ Administration Losartan Potassium 100 mg 08/15/24 11:35 08/23/24 08:47 Losartan Potassium 100 Mg Tablet PO 100 mg DAILY SANCHEZ Administration Naloxone HCl 0.1 mg 08/16/24 14:34 Naloxone Hcl 0.4 Mg/Ml Vial IV PUSH Q2M PRN Opiate Reversal Ondansetron HCl 4 mg 08/13/24 15:26 08/17/24 00:26 Ondansetron Inj 4 Mg/2 Ml Vial IV PUSH 4 mg Q6H PRN Administration Nausea And Vomiting Oxycodone/Acetaminophen 1 tab 08/16/24 14:34 08/21/24 21:35 Oxycodone/Acetaminophen (*Crx) 10-325 Mg Tablet PO 1 tab Q6H PRN Administration Pain Rated 7-10 Pantoprazole Sodium 20 mg 08/21/24 12:25 08/23/24 08:47 Pantoprazole Sod Sesquihydrate 20 Mg Tab PO 20 mg QAM SANCHEZ Administration Potassium Chloride 40 meq 08/23/24 17:00 08/23/24 17:25 Potassium Chloride 20 Meq Er Tablet PO 40 meq BID SANCHEZ Administration Radiology Results: ITS Impressions Chest X-Ray 08/13/24 13:54 IMPRESSION: No acute cardiopulmonary pathology. Renal Ultrasound 08/13/24 15:07 IMPRESSION: 1. Normal kidneys. No hydronephrosis. Foot X-Ray 08/14/24 11:36 IMPRESSION: 1. Septic arthritis at the fifth metatarsophalangeal joint with associated osteomyelitis at the base of the fifth proximal phalanx and head of the fifth metatarsal. Lumbar Spine X-Ray 08/14/24 11:49 IMPRESSION: No acute osseous abnormality lumbar spine. Multilevel degenerative disc disease. Brain MRI 08/21/24 18:52 IMPRESSION: 1. Normal for age brain. No acute intracranial process. Cervical Spine MRI 08/21/24 18:55 IMPRESSION: 1. Mild to moderate cervical spondylosis.. No findings to suggest discitis or ostomy myelitis. 2. Nonspecific 15 x 12 x 10 mm superficial subcutaneous lesion near the midline at the level of C3 but with suggestion of a tiny tract extending to the skin surface which would favor an epidermoid/sebaceous cyst. Thoracic Spine MRI 08/21/24 19:15 IMPRESSION: 1. Mild to moderate thoracic spondylosis with no evidence of discitis or osteomyelitis. 2. 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 Lumbar Spine MRI 08/21/24 20:07 IMPRESSION: 1. Widening of the right L5-S1 facet joint with increased fluid and new prominent surrounding marrow edema at the facet joints and edema in the more posterior paraspinal musculature which raises concern for septic arthritis and associated myositis. There is also increased edema in the epidural fat extending cephalad throughout the lumbar spine which contributes to significant increase in central canal stenosis at multiple levels since the study from one week prior. Dr. Hwang discussed these findings with Dr. Lara at 8:35 PM. Labs Labs: Laboratory Results - last 24 hr 08/23/24 08/23/24 08/23/24 01:07 11:19 16:14 WBC RBC Hgb Hct MCV MCH MCHC RDW Plt Count MPV Sodium Potassium Chloride Carbon Dioxide Anion Gap BUN Creatinine Estim Creat Clear Calc Estimated GFR Glucose POC Capillary Glucose 124 H 81 Calcium Total Bilirubin AST ALT Alkaline Phosphatase Total Protein Albumin Vancomycin Trough Cancelled 08/23/24 08/24/24 08/24/24 19:47 01:07 06:53 WBC 10.1 H RBC 3.29 L Hgb 9.1 L Hct 28.5 L MCV 86.6 MCH 27.7 MCHC 31.9 L RDW 13.1 Plt Count 634 H MPV 9.2 Sodium 128 L Potassium 4.4 Chloride 96 L Carbon Dioxide 26 Anion Gap 6 BUN 16 Creatinine 0.90 Estim Creat Clear Calc 128 Estimated GFR > 60 Glucose 163 H POC Capillary Glucose 122 H Calcium 7.6 L Total Bilirubin 0.7 AST 25 ALT 19 Alkaline Phosphatase 78 Total Protein 6.0 L Albumin 2.6 L Vancomycin Trough .1 08/24/24 07:18 WBC RBC Hgb Hct MCV MCH MCHC RDW Plt Count MPV Sodium Potassium Chloride Carbon Dioxide Anion Gap BUN Creatinine Estim Creat Clear Calc Estimated GFR Glucose POC Capillary Glucose 171 H Calcium Total Bilirubin AST ALT Alkaline Phosphatase Total Protein Albumin Vancomycin Trough Quality VTE Prophylaxis VTE prophylaxis: pharmacologic ordered Hospitalist MIPS Advance Care Plan I have confirmed that the patient's Advanced Care Plan is present, code status is documented, or surrogate decision maker is listed in patient medical record.: Yes Medication Reconciliation I have utilized all available resources to obtain, update and review the patients current medications (includes all prescriptions, OTC, herbals, cannabis, and nutritional supplements).: Yes
[2024-08-24] MEDS: INSULIN GLARGINE (*BKC) 100 UNITS/ML 35 UNITS SUB-Q (08:56)
[2024-08-24] MEDS: cefTRIAXone 2 GM/NS 100 ML 2 GM/100 ML BAG IVPB (09:00)
[2024-08-24] MEDS: ESCITALOPRAM OXALATE 10 MG TABLET PO (09:01)
[2024-08-24] MEDS: LOSARTAN POTASSIUM 100 MG TABLET PO (09:01)
[2024-08-24] MEDS: DULoxetine HCL 30 MG CAPSULE.DR PO (09:01)
[2024-08-24] MEDS: amLODIPine BESYLATE 10 MG TABLET PO (09:01)
[2024-08-24] MEDS: POTASSIUM CHLORIDE 20 MEQ ER TABLET 40 MEQ PO (09:01)
[2024-08-24] MEDS: GABAPENTIN 300 MG CAPSULE PO ×2 (09:01→12:15)
[2024-08-24] MEDS: PANTOPRAZOLE SOD SESQUIHYDRATE 20 MG TAB PO (09:01)
[2024-08-24] MEDS: carvediloL 25 MG TABLET PO (09:02)
[2024-08-24] MEDS: ENOXAPARIN 40 MG/0.4 ML SYRINGE SUB-Q (09:04)
[2024-08-24] MEDS: LIDOCAINE 5% PATCH 1 PATCH TRANSDERM (09:04)
[2024-08-24] MEDS: CYCLOBENZAPRINE HCL 5 MG TABLET PO (09:20)
[2024-08-24] MEDS: CALCIUM CARBONATE (OSCAL) 500 MG TABLET PO ×2 (09:40→12:15)
--- NOTE | 2024-08-24 10:21 | PCNFU ---
Nutrition Follow-Up Complete: Suboptimal energy intake as related to DKA as evidenced by poor po intake reported. Goal:Meet estimated nutritional needs. Pt slowly progressing towards goal Pt current nutrition is Diabetic, Glucerna shakes BID. Nutrition recommendation: continue with current plan of care. Encourage po intake, allow preferences off always available menu Last recorded weight is 138.8 kg. Bowel Motility: +BM 08/24 Labs Reviewed: Hgb:9.1, HCT:28.5, Glu:163 Meds Noted: lovenox, novolog, zofran, prtonix, KCL Skin: DM foot ulcer Additional Notes: Pt continues on a diabetic diet, intake varied and family reports pt is a picky eater. Drinks the Glucerna shakes occasionally. Encouraged the always available menu options and to order preferences as needed to try and increase po intake. Will monitor weight, labs, skin, oral intake, meds every 5 days.
[2024-08-24] MEDS: VANCOMYCIN 1,500 MG/NS 500 ML 1,500 MG/500 ML BAG 150 MG IVPB (10:27)
[2024-08-24 11:14] LABS: Glucose Point of Care 204 mg/dl (65-105)
[2024-08-24] MEDS: INSULIN ASPART (*BKC) 100 UNITS/ML SUB-Q (12:14)
[2024-08-24] MEDS: INSULIN ASPART (*BKC) 100 UNITS/ML 10 UNITS SUB-Q (12:14)
[2024-08-24] MEDS: CEFEPIME 2 GM/NS 50 ML 2 GM/50 ML BAG IVPB (15:29)
--- NOTE | 2024-08-24 16:04 | PC.NURSE ---
Report called to Josey ANDERS at [facility]. Pt going to room 3323. Ramirez d/c'd at 1100 today. Pt unable to pee. Bladder scan revealed 1200+ retaining. Ramirez reinserted at 1600.
--- NOTE | 2024-08-24 18:38 | P.TS_ITS ---
Transfer Discharge Sum: Prov Provider Date of admission: 08/14/24 10:36 Primary care physician: Luc Elena MD Admitting clinician: Carlos Richards MD Consults: 08/13/24 Wound/ET Consult Routine Reason for Consult:: Left foot wound 08/13/24 14:18 Consult to Dietitian Routine Reason for Consult:: DKA admission 08/14/24 11:54 Consult to Physician Routine Comment: left foot wound Consulting Provider: Sadi Ann Reason for consultation: left foot wound Has provider been notified: Yes 08/20/24 13:10 Consult to Physician Routine Comment: spoke to @[phone], requesting Dr. Burgess to call him Consulting Provider: Alex Godwin Reason for consultation: severe continuous sharp lower back pain Has provider been notified: Yes 08/23/24 Wound/ET Consult Routine Reason for Consult:: breakdown on coccyx DS: Admitting Diagnosis Discharge Date 08/24/24 Admitting Diagnosis DKA DS: Discharge Diagnosis Discharge Diagnosis (1) Bacteremia due to Streptococcus pneumoniae: Code(s): R78.81 - Bacteremia; B95.3 - Streptococcus pneumoniae as the cause of diseases classified elsewhere Status: Acute (2) Lumbar back pain: Code(s): M54.50 - Low back pain, unspecified Status: Acute (3) DKA (diabetic ketoacidosis): Code(s): E11.10 - Type 2 diabetes mellitus with ketoacidosis without coma Status: Acute (4) Acute kidney injury: Code(s): N17.9 - Acute kidney failure, unspecified Status: Acute Plan 49-year-old male with a significant past medical history of insulin-dependent type 2 diabetes mellitus, diabetic foot ulcer, depression, erectile dysfunction, hypertension, history of kidney stones who presented to the hospital for evaluation of body aches, nausea without vomiting, fever, chills. Workup in the hospital included a chest x-ray which was negative for any acute cardiopulmonary process. Renal ultrasound was performed which showed normal kidneys, no hydronephrosis. Initial labs showed a white blood cell count of 9.5, hemoglobin 12.2, platelet count 120, band neutrophils 17, sodium 130, chloride 95, bicarb 17, anion gap 18, creatinine 2.10, EGFR 34, blood sugar ranging 300-449, lactic acid 2.3, beta hydroxybutyrate 3.31. Respiratory panel was negative for influenza a and B, RSV, COVID. EKG showed sinus tachycardia with a rate of 100, QTC 449. Patient was given 2 L of normal saline while in the ED, given 18 units IV push regular insulin and started on an insulin infusion per DKA protocol. Lumbar back pain: 08/21/2024 : MRI ,Lumbar : Widening of the right L5-S1 facet joint with increased fluid and new prominent surrounding marrow edema at the facet joints and edema in the more posterior paraspinal musculature which raises concern for septic arthritis and associated myositis. There is also increased edema in the e pidural fat extending cephalad throughout the lumbar spine which contributes to significant increase in central canal stenosis at multiple levels since the study from one week prior. 08/21: MRI Brain no significant findings 08/14: MRI of lumbar spine shows moderate lumbar spondylosis no evidence of diskitis or osteomyelitis New finding septic arthritis on right L5-S1 facet joint and associated myositis Started on vancomycin due to the high risk of developing meningitis. Continue ceftriaxone 2 g. Transferring the patient to tertiary [facility] Already on pain medications add Lidoderm patch add gabapentin 300mg tid po Acute osteomyelitis of left foot: Foot culture growing E coli Appreciate surgery help Status post left 5th toe amputation Pain control Based on cut foot culture, c/w ceftriaxone Local wound care, dressing change as per surgery Non-weight bearing on LLE, PT eval for crutch use and ambulation Diabetic ketoacidosis: Hemoglobin A1c 8.8 now controlled DKA resolved Blood glucose checked t.i.d. a.c. 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 p.o. Hypokalemia 3.3 provide potassium chloride 40 mEq p.o. once and b.i.d. p.o. Follow-up BMP Corrected PURNIMA: Creatinine 2.1 upon arrival August 13 Avoid nephrotoxins Recheck BMP in a.m. Renal ultrasound negative for hydronephrosis resolved Code status: Full DVT prophylaxis: Lovenox 9. Disposition: Pending improvement Transfer Discharge Sum: Med Medications Active and Home Medications: Home Medications blood-glucose sensor (AnonymAsk G7 Sensor device) #3 ea 01/17/24 [Rx Confirmed 08/13/24] escitalopram oxalate 10 mg tablet (Lexapro) 10 mg PO DAILY #90 tabs 01/17/24 [Rx Confirmed 08/13/24] insulin glargine U-300 conc 300 unit/mL (3 mL) subcutaneous pen (Toujeo Max U- 300 SoloStar) 64 unit subcut HS 04/24/24 [History Confirmed 08/13/24] blood sugar diagnostic (SOAK (Smart Operational Agricultural toolKit)uch Verio test strips) #1 pkg 04/30/24 [Rx Confirmed 08/13/24] blood-glucose meter (WikiCell DesignsTouch Verio Flex Meter) #1 pkg 04/30/24 [Rx Confirmed 08/13/24] insulin syringe-needle U-100 1 mL 31 gauge x 15/64 (BD Veo Insulin Syringe Ultra-Fine) #1 pkg 04/30/24 [Rx Confirmed 08/13/24] lancets 30 gauge (OneTouch Delica Plus Lancet) #1 pkg 04/30/24 [Rx Confirmed 08/13/24] insulin lispro 100 unit/mL subcutaneous pen (Humalog KwikPen (U-100) Insulin) 1 sliding scale dose subcut USEASDIRECTD #15 mL 07/16/24 [Rx Confirmed 08/13/24] amlodipine 5 mg tablet 5 mg PO DAILY #30 tabs 07/17/24 [Rx Confirmed 08/13/24] losartan 100 mg tablet 100 mg PO DAILY #30 tabs 07/17/24 [Rx Confirmed 08/13/24] carvedilol 25 mg tablet (Coreg) 25 mg PO Q12HR #60 tabs 08/01/24 [Rx Confirmed 08/13/24] Mounjaro 2.5 mg/0.5 mL subcutaneous pen injector (tirzepatide) 2.5 mg (0.5 mL) subcut WEEKLY #2 mL 08/09/24 [Rx Confirmed 08/13/24] Transfer Discharge Sum: Hosp Hospital Course Hospital course: Pavel Laughlin is a 49 year old male .Patient was initially admitted for DKA (resolved) , S/P Left 5th toe amputation. During the course of hospitalization blood culture was positive for Streptococcus pneumoniae. Patient was treated with ceftriaxone and repeat culture was negative. Patient was complaining of back pain(right lower back) which was acute on chronic pain. Initial MRI of lumbar(08/14) did not show any significant findings but repeat MRI on 08/21 shows septic arthritis on the right at L5-S1, myositis and worsening canal stenosis. Patient antibiotic was adjusted to ceftriaxone 2 g b.i.d. and added vancomycin due to the risk of meningitis. 08/24: Called [facility] again and spoke with , requested for expedite the case .He agrees with the choice of antibiotics currently the patient is on . Still pending transfer. Called [facility] ,accepted by Dr Dorman and called Cam[facility] ,accepted by . Patient shows no signs of neurological compromise. The repeat blood culture shows no growth until today. Spikes of fever yesterday and today so changed his antibiotic from Ceftrixone to cefepime. Patient is transferred to [facility] Time Spent with Patient Time attestation: Total time spent providing and/or coordinating transfer services: 45 Exam Narrative: GENERAL: Pleasant, in no acute distress. Well-nourished. - EYES: EOMI. Anicteric. - HENT: Moist mucous membranes. - LUNGS: Clear to auscultation bilateral ly, no wheezing, rhonchi, or rales. - CARDIOVASCULAR: Regular rate and rhyth m. No murmur. No JVD. - ABDOMEN: Soft, non-tender and non-dist ended. No palpable masses. - EXTREMITIES: No edema. Peripheral puls es 2+. Non-tender. Surgical wound of left foot is dry, no discharge, low back tenderness by light punch - NEUROLOGIC: No focal neurological defi cits. CN II-XII grossly intact.. - PSYCHIATRIC: Awake, Alert and oriented x 3. Appropriate mood and affect. - SKIN: No rashes or lesions. Warm. - LYMPH: No cervical lymphadenopathy. DS: Data Data Completed and Pending Completed studies during hospitalization: Pending at discharge 08/16/24 12:08 Surgical [PTH] Routine Labs on day of discharge: Labs from last 24 hours 08/24/24 08/24/24 08/24/24 11:06 07:18 06:53 WBC 10.1 H RBC 3.29 L Hgb 9.1 L Hct 28.5 L MCV 86.6 MCH 27.7 MCHC 31.9 L RDW 13.1 Plt Count 634 H MPV 9.2 Sodium 128 L Potassium 4.4 Chloride 96 L Carbon Dioxide 26 Anion Gap 6 BUN 16 Creatinine 0.90 Estim Creat Clear Calc 128 Estimated GFR > 60 Glucose 163 H POC Capillary Glucose 204 H 171 H Calcium 7.6 L Total Bilirubin 0.7 AST 25 ALT 19 Alkaline Phosphatase 78 Total Protein 6.0 L Albumin 2.6 L Vancomycin Trough 08/24/24 08/23/24 08/23/24 01:07 19:47 01:07 WBC RBC Hgb Hct MCV MCH MCHC RDW Plt Count MPV Sodium Potassium Chloride Carbon Dioxide Anion Gap BUN Creatinine Estim Creat Clear Calc Estimated GFR Glucose POC Capillary Glucose 122 H Calcium Total Bilirubin AST ALT Alkaline Phosphatase Total Protein Albumin Vancomycin Trough 10.1 Cancelled Imaging Radiologist's impression: ITS Impressions Chest X-Ray 08/13/24 13:54 IMPRESSION: No acute cardiopulmonary pathology. Renal Ultrasound 08/13/24 15:07 IMPRESSION: 1. Normal kidneys. No hydronephrosis. Foot X-Ray 08/14/24 11:36 IMPRESSION: 1. Septic arthritis at the fifth metatarsophalangeal joint with associated osteomyelitis at the base of the fifth proximal phalanx and head of the fifth metatarsal. Lumbar Spine X-Ray 08/14/24 11:49 IMPRESSION: No acute osseous abnormality lumbar spine. Multilevel degenerative disc disease. Lumbar Spine MRI 08/14/24 15:23 IMPRESSION: 1. Moderate lumbar spondylosis. 2. No evidence of discitis/osteomyelitis. Brain MRI 08/21/24 18:52 IMPRESSION: 1. Normal for age brain. No acute intracranial process. Cervical Spine MRI 08/21/24 18:55 IMPRESSION: 1. Mild to moderate cervical spondylosis.. No findings to suggest discitis or ostomy myelitis. 2. Nonspecific 15 x 12 x 10 mm superficial subcutaneous lesion near the midline at the level of C3 but with suggestion of a tiny tract extending to the skin surface which would favor an epidermoid/sebaceous cyst. Thoracic Spine MRI 08/21/24 19:15 IMPRESSION: 1. Mild to moderate thoracic spondylosis with no evidence of discitis or osteomyelitis. 2. 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 Lumbar Spine MRI 08/21/24 20:07 IMPRESSION: 1. Widening of the right L5-S1 facet joint with increased fluid and new prominent surrounding marrow edema at the facet joints and edema in the more posterior paraspinal musculature which raises concern for septic arthritis and associated myositis. There is also increased edema in the epidural fat extending cephalad throughout the lumbar spine which contributes to significant increase in central canal stenosis at multiple levels since the study from one week prior. Dr. Hwang discussed these findings with Dr. Lara at 8:35 PM.
== END 2024-08-24 16:35 | disposition short-term general hospital (02) | DRG 853 ==
LOC: ANHED 13:15 → ANHICU 14:39 → ANH3MEDSUR 08-15 18:02
PROVIDERS: Hospitalist; Internal Medicine; Nurse Practitioner Acute Care; Surgery; Admitting Provider Internal Medicine; Emergency Provider Emergency Medicine; PCP Family Medicine; Visit Provider General Practice
PROC: 0Y6Y0Z0 Detachment at Left 5th Toe, Complete, Open Approach (ICD-10-PCS; principal; 2024-08-16 11:30)
DX: A41.9 Sepsis, unspecified organism (principal); E11.10 Type 2 diabetes mellitus with ketoacidosis without coma; E87.1 Hypo-osmolality and hyponatremia; M86.172 Other acute osteomyelitis, left ankle and foot; N17.9 Acute kidney failure, unspecified; M00.872 Arthritis due to other bacteria, left ankle and foot; R65.10 Systemic inflammatory response syndrome (SIRS) of non-infectious origin without acute organ dysfunction; B96.20 Unspecified Escherichia coli [E. coli] as the cause of diseases classified elsewhere; B95.3 Streptococcus pneumoniae as the cause of diseases classified elsewhere; E86.0 Dehydration; E87.6 Hypokalemia; F32.A Depression, unspecified; I10 Essential (primary) hypertension; M47.816 Spondylosis without myelopathy or radiculopathy, lumbar region; M46.57 Other infective spondylopathies, lumbosacral region; M60.9 Myositis, unspecified; M48.061 Spinal stenosis, lumbar region without neurogenic claudication; T38.3X5A Adverse effect of insulin and oral hypoglycemic [antidiabetic] drugs, initial encounter; Z20.822 Contact with and (suspected) exposure to COVID-19; Z79.4 Long term (current) use of insulin; Z79.85 Long-term (current) use of injectable non-insulin antidiabetic drugs; Z87.442 Personal history of urinary calculi
CPT/HCPCS: 36415; 70551; 71046; 72100; 72141; 72146; 72148; 72158; 73620; 76775; 80048; 80053; 80076; 80202; 81001; 82010; 82550; 82570; 82948; 83036; 83605; 83690; 83735; 84100; 84132; 84300; 85025; 85027; 85055; 86140; 87040; 87070; 87086; 87181; 87186; 87205; 87637; 87641; 88305; 88311; 93005; 93306; 96361; 96365; 96366; 96368; 96375; 96376; 97110; 97162; 97166; 97530; 97535; 99285; A9270; A9577; G0378; J0295; J0692; J0696; J1171; J1200; J1650; J1741; J1815; J1956; J2250; J2270; J2405; J2704; J3370; J3480; J7030; J7120

== ENCOUNTER 2024-09-25 12:43 | Outpatient (NON) | payer OTHER, SELFPAY ==
[2024-09-25 13:11] LABS: Hematocrit 30.4 % (42.0-52.0); Hemoglobin 10.2 g/dL (14.0-18.0); Mean Corpuscular HGB Conc 33.6 g/dl (32-36); Mean Corpuscular Hemoglobin 28.7 pg (26-34); Mean Corpuscular Volume 85.4 fl (80-100); Mean Platelet Volume 9.9 fl (7.4-10.4); Platelet Count Result 294 k/mm3 (150-375); Red Blood Count 3.56 M/mm3 (4.6-6.20); Red Cell Distribution Width 13.9 % (11.5-14.5); White Blood Count 8.2 K/mm3 (4.5-10.0)
[2024-09-25 13:32] LABS: Alanine Aminotransferase 10 U/L (6-50); Albumin Level 3.3 g/dL (3.5-5.1); Alkaline Phosphatase 100 U/L (38-126); Anion Gap 9 mmol/L (4-12); Aspartate Amino Transferase 12 U/L (17-59); Bilirubin,Total 0.6 mg/dL (0.2-1.3); Blood Urea Nitrogen 14 mg/dL (9-20); CRP 6.7 mg/dL (<1.0); Carbon Dioxide 23 mmol/L (22-30); Chloride 100 mmol/L (98-107); Estimated Glomerular Filt Rate > 60; Glucose 328 mg/dL (65-110); Potassium 3.5 mmol/L (3.4-5.0); Sodium 132 mmol/L (137-145)
== END 2024-09-25 12:44 | disposition home or self-care (01) ==
PROVIDERS: PCP Family Medicine
DX: L03.116 Cellulitis of left lower limb (principal)
CPT/HCPCS: 36415; 80053; 85027; 86140

== ENCOUNTER 2024-10-16 10:35 | Outpatient (RCR) | payer OTHER, SELFPAY ==
[2024-10-03 15:29] LABS: Basophils Absolute Auto 0.1 K/mm3 (0.0-0.1); Basophils Percent Auto 0.8 % (0.2-1.2); Eosinophils Absolute Auto 0.2 K/mm3 (0-0.3); Eosinophils Percent Auto 2.9 % (0-4.4); Hematocrit 29.7 % (42.0-52.0); Hemoglobin 9.4 g/dL (14.0-18.0); Immature Granulocyte Absolute 0.03 K/mm3 (0.00-0.031); Immature Granulocyte Percent A 0.4 % (0-0.5); Lymphocytes Absolute Auto 1.34 K/mm3 (0.9-3.2); Lymphocytes Percent Auto 17.5 % (18.3-44.2); Mean Corpuscular HGB Conc 31.6 g/dl (32-36); Mean Corpuscular Hemoglobin 27.6 pg (26-34); Mean Corpuscular Volume 87.4 fl (80-100); Mean Platelet Volume 9.3 fl (7.4-10.4); Monocytes Absolute Auto 0.7 K/mm3 (0.1-0.6); Neutrophils Absolute Auto 5.3 K/mm3 (1.3-6.7); Neutrophils Percent Auto 69.4 % (45.5-73.1); Platelet Count Result 286 k/mm3 (150-375); Red Cell Distribution Width 13.6 % (11.5-14.5); White Blood Count 7.7 K/mm3 (4.5-10.0)
[2024-10-03 15:44] LABS: Alanine Aminotransferase 9 U/L (6-50); Alkaline Phosphatase 87 U/L (38-126); Anion Gap 3 mmol/L (4-12); Aspartate Amino Transferase 14 U/L (17-59); Bilirubin,Total 0.3 mg/dL (0.2-1.3); Blood Urea Nitrogen 17 mg/dL (9-20); CRP 3.6 mg/dL (<1.0); Calcium 8.6 mg/dL (8.4-10.2); Carbon Dioxide 30 mmol/L (22-30); Chloride 102 mmol/L (98-107); Estimated Glomerular Filt Rate > 60; Glucose 141 mg/dL (65-110); Potassium 3.4 mmol/L (3.4-5.0); Sodium 135 mmol/L (137-145)
[2024-10-09 13:09] LABS: Basophils Absolute Auto 0.1 K/mm3 (0.0-0.1); Eosinophils Absolute Auto 0.2 K/mm3 (0-0.3); Eosinophils Percent Auto 2.7 % (0-4.4); Hematocrit 35.2 % (42.0-52.0); Hemoglobin 11.1 g/dL (14.0-18.0); Immature Granulocyte Absolute 0.04 K/mm3 (0.00-0.031); Immature Granulocyte Percent A 0.5 % (0-0.5); Lymphocytes Absolute Auto 1.25 K/mm3 (0.9-3.2); Lymphocytes Percent Auto 14.8 % (18.3-44.2); Mean Corpuscular HGB Conc 31.5 g/dl (32-36); Mean Corpuscular Hemoglobin 27.5 pg (26-34); Mean Corpuscular Volume 87.1 fl (80-100); Mean Platelet Volume 9.4 fl (7.4-10.4); Monocytes Absolute Auto 0.7 K/mm3 (0.1-0.6); Monocytes Percent Auto 8.3 % (2.6-8.5); Neutrophils Absolute Auto 6.1 K/mm3 (1.3-6.7); Neutrophils Percent Auto 72.7 % (45.5-73.1); Platelet Count Result 422 k/mm3 (150-375); Red Blood Count 4.04 M/mm3 (4.6-6.20); Red Cell Distribution Width 13.6 % (11.5-14.5); White Blood Count 8.4 K/mm3 (4.5-10.0)
[2024-10-09 13:23] LABS: Alanine Aminotransferase 12 U/L (6-50); Albumin Level 3.5 g/dL (3.5-5.1); Alkaline Phosphatase 98 U/L (38-126); Anion Gap 3 mmol/L (4-12); Aspartate Amino Transferase 17 U/L (17-59); Bilirubin,Total 0.3 mg/dL (0.2-1.3); Blood Urea Nitrogen 21 mg/dL (9-20); CRP 3.1 mg/dL (<1.0); Calcium 9.1 mg/dL (8.4-10.2); Carbon Dioxide 32 mmol/L (22-30); Chloride 101 mmol/L (98-107); Estimated Glomerular Filt Rate > 60; Glucose 132 mg/dL (65-110); Potassium 3.9 mmol/L (3.4-5.0); Sodium 136 mmol/L (137-145)
[2024-10-16 11:12] LABS: Basophils Absolute Auto 0.1 K/mm3 (0.0-0.1); Basophils Percent Auto 0.7 % (0.2-1.2); Eosinophils Absolute Auto 0.2 K/mm3 (0-0.3); Eosinophils Percent Auto 2.8 % (0-4.4); Hematocrit 32.3 % (42.0-52.0); Hemoglobin 10.3 g/dL (14.0-18.0); Immature Granulocyte Absolute 0.02 K/mm3 (0.00-0.031); Immature Granulocyte Percent A 0.3 % (0-0.5); Lymphocytes Absolute Auto 1.11 K/mm3 (0.9-3.2); Lymphocytes Percent Auto 15.4 % (18.3-44.2); Mean Corpuscular HGB Conc 31.9 g/dl (32-36); Mean Corpuscular Hemoglobin 27.5 pg (26-34); Mean Corpuscular Volume 86.1 fl (80-100); Mean Platelet Volume 9.2 fl (7.4-10.4); Monocytes Absolute Auto 0.7 K/mm3 (0.1-0.6); Monocytes Percent Auto 9.2 % (2.6-8.5); Neutrophils Absolute Auto 5.2 K/mm3 (1.3-6.7); Neutrophils Percent Auto 71.6 % (45.5-73.1); Platelet Count Result 297 k/mm3 (150-375); Red Blood Count 3.75 M/mm3 (4.6-6.20); Red Cell Distribution Width 13.8 % (11.5-14.5); White Blood Count 7.2 K/mm3 (4.5-10.0)
[2024-10-16 11:28] LABS: Alanine Aminotransferase 12 U/L (6-50); Albumin Level 3.2 g/dL (3.5-5.1); Alkaline Phosphatase 80 U/L (38-126); Anion Gap 4 mmol/L (4-12); Aspartate Amino Transferase 15 U/L (17-59); Bilirubin,Total 0.2 mg/dL (0.2-1.3); Blood Urea Nitrogen 14 mg/dL (9-20); CRP 2.1 mg/dL (<1.0); Calcium 8.9 mg/dL (8.4-10.2); Carbon Dioxide 29 mmol/L (22-30); Chloride 106 mmol/L (98-107); Estimated Glomerular Filt Rate > 60; Glucose 155 mg/dL (65-110); Potassium 3.6 mmol/L (3.4-5.0); Sodium 139 mmol/L (137-145)
== END 2025-01-01 23:59 | disposition home or self-care (01) ==
LOC: HOME HLTH 10:35
PROVIDERS: PCP Family Medicine; Visit Provider Family Medicine
DX: I10 Essential (primary) hypertension (principal); L02.612 Cutaneous abscess of left foot; M86.172 Other acute osteomyelitis, left ankle and foot; E11.10 Type 2 diabetes mellitus with ketoacidosis without coma
CPT/HCPCS: 80053; 85025; 86140

== ENCOUNTER 2024-11-17 08:31 | Outpatient (CLI) | payer OTHER, MEDICAID, SELFPAY ==
--- NOTE | ~2024-11-17 | MR_ITS ---
EXAMINATION: MR thoracic spine wo/w con DATE: 11/17/2024 10:00 INDICATION: Epidural abscess. TECHNIQUE: Magnetic resonance imaging (MRI) of the thoracic spine was performed without and with 20 m L MultiHance intravenous contrast. COMPARISON: Thoracic spine MRI 08/21/2024 FINDINGS: There is 4 degrees levocurvature of cervicothoracic spine. There is mild chronic height los s of C4-L1 vertebral bodies with Schmorl's nodes at most of these levels. There is mildly decreased d isc height from T3-T4 through T6-T7. At T4-T5, there is a left central extrusion with mild central ca nal stenosis and ventral indentation of the spinal cord. At T5-T6, there is a left central protrusion with mild central canal stenosis and ventral indentation of the spinal cord. At T6-T7, there is a ri ght central extrusion with mild central canal stenosis. At T9-T10, there is a central protrusion with mild central canal stenosis. There is a 3.1 x 1.7 cm right paraspinal cyst at T8-T9. There is epidur al enhancement involving most of the thoracic spine with an inferior predominance. The spinal cord si gnal intensity is normal. IMPRESSION: 1. Widespread epidural enhancement, consistent with phlegmon. 2. Mild thoracic spondylosis. Reviewed, dictated and finalized at location A. [employer]
--- NOTE | ~2024-11-17 | MR_ITS ---
EXAMINATION: MR lumbar spine wo/w con DATE: 11/17/2024 10:00 INDICATION: Epidural abscess. TECHNIQUE: Magnetic resonance imaging (MRI) of the lumbar spine was performed without and with 20 mL MultiHance intravenous contrast. COMPARISON: Lumbar spine MRI 08/21/2024 FINDINGS: There is 7 degrees levocurvature of thoracic lumbar spine. There is mild chronic anterior w edging of T12-L2 vertebral bodies. There is moderately decreased disc height at L1-L2, mildly decreas ed disc height at L3-L4, and severely decreased disc height at L4-L5. There is epidural enhancement f rom T12 to S2. There are laminectomies at L4 and L5. The distal spinal cord signal intensity is rhonda l. The conus medullaris is at L1. There is edema and enhancement involving the right sacral ala, righ t S1 superior facet, right sacroiliac joint, and jaden-joint right ilium. The following disc levels ar e specifically discussed: L1-L2: The disc is bulging and has an annular fissure. There is mild bilateral facet joint osteoarthr itis. There is mild bilateral neural foraminal stenosis. There is moderate central canal stenosis. L2-L3: The disc does not extend beyond the endplate margin. There is mild bilateral facet joint osteo arthritis. There is no neural foraminal stenosis. There is no central canal stenosis. L3-L4: The disc is bulging and has an annular fissure. There is moderate right and severe left facet joint osteoarthritis. There is mild bilateral neural foraminal stenosis. There is mild central canal stenosis. L4-L5: The disc is bulging and has an annular fissure. There is severe bilateral facet joint osteoart hritis. There is mild bilateral neural foraminal stenosis. There is mild central canal stenosis with posterior decompression. L5-S1: The disc is bulging. There is severe bilateral facet joint osteoarthritis. There is mild left neural foraminal stenosis. There is mild central canal stenosis. IMPRESSION: 1. Severe lumbar spondylosis. 2. Enhancement involving the right sacrum, right sacroiliac joint, and adjacent right ilium, consiste nt with osteomyelitis and septic arthritis. 3. Epidural enhancement from T12 to S2, consistent with phlegmon. Reviewed, dictated and finalized at location A. 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 Severe lumbar spondylosis. 2. Enhancement involving the right sacrum, right sacroiliac joint, and adjacent right ilium, consistent with osteomyelitis and septic arthritis. 3. Epidural enhancement from T12 to S2, consistent with phlegmon.
--- OUTSIDE RECORDS SUMMARY | 2024-11-22 08:37 | XMS_ITS | Encounter Summary ---
Author Organization [facility] Address [address] [place] [address] Care Team Providers Care Custodial Worker Name Role Phone Luc Elena MD Primary Care Provider [phone] Encounter Details Date Type Department Care Team (Late Contact Info) Description 11/07/2024 Abstract [facility] - [facility] [place] [address] [facility] [address] [place] [phone] Deanne So PA [address] [facility] [address] [place] [id number] Social History Tobacco Use Types Packs/Day Years Used Date Smoking Tobacco: Never Smokeless Tobacco: Never Feeling Safe Answer Date Recorded Are you in a relationship wi th someone who hurts you emotionally and/or physically? 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 [address] [address] -[phone] (Work) documented as of this encounter Visit Diagnoses Not on filedocumented in this encounter Care Teams Custodial Worker Relationship Specialty Start Date End Date Luc Elena MD [address] [place] [address] [place] [address] PCP - General Family Practice 08/25/24 documented as of this encounter
--- OUTSIDE RECORDS SUMMARY | 2024-11-22 08:37 | XMS_ITS | Clinical Summary ---
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 Active losartan (COZAAR) 100 mg tablet Take 100 mg by mouth daily. Active carvediloL (COREG) 25 mg tablet Take 25 mg by mouth 2 times daily with meals. Active gabapentin (NEURONTIN) 300 mg capsule Take 300 mg by mouth 3 times daily. Active pantoprazole (PROTONIX) 20 mg Tablet, Delayed Release (E.C.) Take 20 mg by mouth daily. Active acetaminophen (TYLENOL) 325 mg tablet Take 2 Tablets (650 mg) by mouth every 6 hours. 4 Active heparin 5,000 unit/mL Solution Inject 1 mL (5,000 Units) by subcutaneous injection every 8 hours. 4 Active Sodium Chloride 1,000 mg Tablet, Soluble Take 1 Tablet (1,000 mg) by mouth 2 times daily with meals. 4 Active Additional Information Patient taking differently:1,000 mg OralONE TIME ONLY, Reported on 10/05/2024 Saccharomyces boulardii (FLORASTOR) 250 mg Capsule Take 1 Capsule (250 mg) by mouth 2 times daily. 4 Active insulin glargine-yfgn 100 unit/mL pen syringe Inject 30 Units by subcutaneous injection daily with breakfast. 4 Active Additional Information Patient taking differently:30 Units subCUTTWO TIMES DAILY, Reported on 10/05/2024 insulin lispro (HumaLOG,ADMELOG ) 100 unit/mL pen syringe Inject 0-18 Units by subcutaneous injection 3 times daily with meals. Active insulin lispro (HumaLOG,ADMELOG ) 100 unit/mL pen syringe Inject 5 Units by subcutaneous injection 3 times daily with meals. Active Additional Information Patient taking differently: 6 UnitssubCUT THREE TIMES DAILY WITH MEALS, Reported on 10/05/2024 mv-min/folic/vit K/lycop/coQ10 (DAILY MULTIVITAMIN ORAL) Take 1 Tablet by mouth daily. Active ferrous sulfate 325 mg (65 mg iron) tablet Take 1 Tablet (325 mg) by mouth daily. 60 Tablet Active Active Problems Problem Noted Date Diagnosed Date Foot infection 09/04/2024 Urinary retention 08/28/2024 Pyogenic inflammation of bone 08/28/2024 Epidural abscess 08/26/2024 Type 2 diabetes mellitus with other specified co mplication 08/24/2024 Streptococcal arthritis of vertebra 08/24/2024 Bacteremia due to Streptococcus pneumoniae 08/24 HTN (hypertension), benign 08/24/2024 Hyponatremia 08/24/2024 Acute hearing loss 08/24/2024 Acute metabolic encephalopathy 08/24/2024 Encounters Date Type Department Care Team Description 11/21/2024 External Device Data STL ABSTRACTION Provider, Abstract 11/19/2024 Abstract [facility] [place] [address] [facility] [address] [place] [address] Landry Lee MD 11/14/2024 External Device Data STL ABSTRACTION Provider, Abstract 11/07/2024 Abstract [facility] [place] [address] [facility] [address] [place] [address] Deanne So PA 11/06/2024 External Device Data STL ABSTRACTION Provider, Abstract 10/30/2024 External Device Data STL ABSTRACTION Provider, Abstract 10/19/2024 Abstract [facility] [place] [address] [facility] [address] [place] [address] Landry Lee MD 10/17/[address] [facility] INFECTIOUS DISEASE [place] [address] [place] [address] Haris Michaels MD 10/12/2024 11:00 AM VENEER SORTER Office Visit [facility] [place] [address] [facility] [address] [place] [address] Deanne So PA Epidural abscess (Primary Dx); Postoperative visit 10/10/[address] [facility] INFECTIOUS DISEASE [place] [facility] [address] [place] [address] Haris Michaels MD 10/05/2024 10:00 AM VENEER SORTER Office Visit [facility] INFECTIOUS DISEASE [place] [address] [place] [address] Haris Michaels MD Epidural abscess (Primary Dx) 10/05/[address] [facility] INFECTIOUS DISEASE [place] [facility] [address] [facility] [address] [place] [address] Haris Michaels MD 09/25/2024 External Device Data STL ABSTRACTION Provider, Abstract 09/24/[address] [facility] INFECTIOUS DISEASE [place] [address] [facility] [address] [place] [address] Haris Michaels MD Medication Question 09/19/[address] [facility] INFECTIOUS DISEASE [place] [address] [facility] [address] [place] [address] Haris Michaels MD Needs Appointment 09/14/[address] [facility] INFECTIOUS DISEASE [place] [address] [facility] [address] [place] [address] Haris Michaels MD needs appt for hospital follow up 08/29/2024 Abstract [facility] [place] [address] [facility] [address] [place] [address] Landry Lee MD 08/28/2024 External Device Data STL ABSTRACTION Provider, Abstract 08/28/2024 Chart Note [facility] Specialty and Home Infusion - [address] [place] [address] Romero Montez RN 08/27/2024 10:04 AM CDT Anesthesia Event [facility] Non Invasive Cardiology [address] [place] [address] Venkat Naqvi MD 08/26/2024 9:48 AM CDT Anesthesia Event [facility] Operating Room [address] [place] [address] Ivan Michelle III, MD 08/26/2024 8:35 AM CDT - 08/26/2024 11:01 AM CDT Surgery [facility] Operating Room [address] [place] [address] Landry Lee MD LUMBAR LAMINECTOMY FOR EVACUATION OF EPIDURAL ABCESS 08/24/2024 5:32 PM CDT - 09/07/2024 1:46 PM VENEER SORTER Hospital Encounter [facility] Neurosurgery [address] [place] [address] Dayanna Tinoco MD Bucci, Timothy, MD Ye, Musi, MD Chinnasamy, Ramya, MD Pokal, MD Taty Epidural abscess Discharge Disposition: Rehab Facility IP from Last 3 Months Social History Tobacco Use Types Packs/Day Years Used Date Smoking Tobacco: Never Smokeless Tobacco: Never Tobacco Cessation:Counseling Given: Not Answered Feeling Safe Answer Date Recorded Are you in a relationship wi th someone who hurts you emotionally and/or physically? No 08/26/2024 Sex and Gender Information Value Date Recorded Sex Assigned at Not on file Legal Sex Male 9:25 AM CDT Gender Identity Not on file Sexual Orientation Not on file Last Filed Vital Signs Vital Sign Reading Time Taken Comments Blood Pressure 117/77 10/12/2024 11:04 AM VENEER SORTER Pulse 108 10/12/2024 11:04 AM VENEER SORTER Temperature 36.6 ??C (97.9 ??F) 10/12/2024 1 1:04 AM VENEER SORTER Respiratory Rate 20 09/07/2024 12:2 6 PM VENEER SORTER Oxygen Saturation 96% 10/12/2024 11: 04 AM VENEER SORTER Inhaled Oxygen Concentration - - Weight 105.6 kg (232 lb 12.8 oz) 2023 11:04 AM VENEER SORTER Height 188 cm (6' 2 ) 10/12/2024 11:04 AM VENEER SORTER Body Mass Index 29.89 10/12/2024 11:04 AM VENEER SORTER Plan of Treatment Upcoming Encounters Date Type Department Care Team (Late st Contact Info) Description 12/04/2024 9:45 AM VENEER SORTER Office Visit [facility] [address] [facility] [address] [place] [address] Landry Lee MD [address] [facility] [address] [address] -x0 (Work) Health Maintenance Due Date Last Done Comments DIABETES ANNUAL FOOT EXAM 1992 DIABETES ANNUAL RETINAL EXAM 1992 DIABETES MICROALBUMIN ANNUAL SCREEN 1992 LDL CHOLESTEROL ANNUAL 1992 DTAP/TDAP/TD VACCINES (1 - Tdap) 1993 HEPATITIS B VACCINES (1 of 3 - 19+ 3-dose series) 03/31 COLORECTAL SCREENING 2019 Colorectal Cancer Screening 2019 FIT-DNA Q 3 years 2019 FIT/FOBT Q 1 year 2019 Flex Sig/CT Colonography Q 5 years 2019 ZOSTER VACCINE (1 of 2) 2024 INFLUENZA VACCINE (#1) 2024 Preventative Visit- Commercial 10/31/2024 DIABETES HBA1C Q 6 MONTHS 02/22/2025 08/24/2024 Procedures Procedure Name Priority Date/Time Associated Diagnosis Comments POC GLUCOSE Routine 09/07/2024 8:19 AM VENEER SORTER CBC WITHOUT DIFFERENTIAL Routine 09/07/2024 5:17 AM VENEER SORTER BASIC METABOLIC PANEL Timed Study 09/07/2024 5:17 AM VENEER SORTER POC GLUCOSE Routine 09/06/2024 8:31 PM VENEER SORTER POC GLUCOSE Routine 09/06/2024 5:55 PM VENEER SORTER POC GLUCOSE Routine 09/06/2024 1:40 PM VENEER SORTER POC GLUCOSE Routine 09/06/2024 8:47 AM VENEER SORTER CBC WITHOUT DIFFERENTIAL Routine 09/06/2024 8:25 AM VENEER SORTER BASIC METABOLIC PANEL Timed Study 09/06/2024 8:25 AM VENEER SORTER POC GLUCOSE Routine 09/06/2024 12:15 AM VENEER SORTER POC GLUCOSE Routine 09/05/2024 6:03 PM VENEER SORTER POC GLUCOSE Routine 09/05/2024 1:46 PM VENEER SORTER POC GLUCOSE Routine 09/05/2024 8:07 AM VENEER SORTER C-REACTIVE PROTEIN Routine 09/05/2024 5: 40 AM VENEER SORTER BASIC METABOLIC PANEL Timed Study 09/05/2024 5:40 AM VENEER SORTER POC GLUCOSE Routine 09/04/2024 11:28 PM VENEER SORTER POC GLUCOSE Routine 09/04/2024 6:56 PM VENEER SORTER POC GLUCOSE Routine 09/04/2024 2:28 PM VENEER SORTER POC GLUCOSE Routine 09/04/2024 10:16 AM VENEER SORTER BASIC METABOLIC PANEL Timed Study 09/04/2024 5:38 AM VENEER SORTER POC GLUCOSE Routine 09/03/2024 10:42 PM VENEER SORTER POC GLUCOSE Routine 09/03/2024 6:37 PM VENEER SORTER BLOOD GAS VENOUS Stat 09/03/2024 5:13 PM VENEER SORTER LACTIC ACID Stat 09/03/2024 3:04 PM VENEER SORTER AMMONIA LEVEL Stat 09/03/2024 3:04 PM VENEER SORTER POC GLUCOSE Routine 09/03/2024 2:01 PM VENEER SORTER POC GLUCOSE Routine 09/03/2024 10:03 AM VENEER SORTER CBC WITH DIFFERENTIAL Routine 09/03/2024 4:28 AM VENEER SORTER BASIC METABOLIC PANEL Timed Study 09/03/2024 4:28 AM VENEER SORTER POC GLUCOSE Routine 09/02/2024 11:08 PM VENEER SORTER POC GLUCOSE Routine 09/02/2024 8:31 PM VENEER SORTER POC GLUCOSE Routine 09/02/2024 6:55 PM VENEER SORTER POC GLUCOSE Routine 09/02/2024 2:40 PM VENEER SORTER POC GLUCOSE Routine 09/02/2024 9:29 AM VENEER SORTER C-REACTIVE PROTEIN Routine 09/02/2024 4: 16 AM VENEER SORTER BASIC METABOLIC PANEL Timed Study 09/02/2024 4:16 AM VENEER SORTER POC GLUCOSE Routine 09/01/2024 8:42 PM CDT POC GLUCOSE Routine 09/01/2024 7:14 PM CDT POC GLUCOSE Routine 09/01/2024 1:32 PM CDT POC GLUCOSE Routine 09/01/2024 10:05 AM CDT BASIC METABOLIC PANEL Timed Study 09/01/2024 3:52 AM CDT POC GLUCOSE Routine 08/31/2024 9:28 PM CDT POC GLUCOSE Routine 08/31/2024 6:01 PM CDT POC GLUCOSE Routine 08/31/2024 12:47 PM CDT POC GLUCOSE Routine 08/31/2024 8:44 AM CDT POC GLUCOSE Routine 08/31/2024 6:16 AM CDT BASIC METABOLIC PANEL Timed Study 08/31/2024 5:52 AM CDT CBC WITH DIFFERENTIAL Routine 08/31/2024 5:51 AM CDT POC GLUCOSE Routine 08/30/2024 11:40 PM CDT POC GLUCOSE Routine 08/30/2024 7:03 PM CDT POC GLUCOSE Routine 08/30/2024 12:53 PM CDT POC GLUCOSE Routine 08/30/2024 9:16 AM CDT C-REACTIVE PROTEIN Routine 08/30/2024 7: 57 AM CDT CBC WITH DIFFERENTIAL Routine 08/30/2024 7:57 AM CDT BASIC METABOLIC PANEL Timed Study 08/30/2024 7:57 AM CDT POC GLUCOSE Routine 08/29/2024 11:37 PM CDT POC GLUCOSE Routine 08/29/2024 7:07 PM CDT IR VENOUS ACCESS Routine 08/29/2024 4:06 PM CDT POC GLUCOSE Routine 08/29/2024 2:09 PM CDT LACTIC ACID Stat 08/29/2024 11:08 AM CDT BLOOD GAS VENOUS Stat 08/29/2024 10:5 9 AM CDT POC GLUCOSE Routine 08/29/2024 8:43 AM CDT CBC WITH DIFFERENTIAL Routine 08/29/2024 6:53 AM CDT BASIC METABOLIC PANEL Timed Study 08/29/2024 6:53 AM CDT POC GLUCOSE Routine 08/28/2024 10:43 PM CDT POC GLUCOSE Routine 08/28/2024 6:31 PM CDT POC GLUCOSE Routine 08/28/2024 2:07 PM CDT POC GLUCOSE Routine 08/28/2024 9:49 AM CDT POC GLUCOSE Routine 08/28/2024 8:44 AM CDT BASIC METABOLIC PANEL Timed Study 08/28/2024 5:12 AM CDT CBC WITH DIFFERENTIAL Routine 08/28/2024 5:11 AM CDT POC GLUCOSE Routine 08/28/2024 12:22 AM CDT POC GLUCOSE Routine 08/27/2024 7:54 PM CDT POC GLUCOSE Routine 08/27/2024 2:24 PM CDT POC GLUCOSE Routine 08/27/2024 12:05 PM CDT ECHO TRANSESOPHAGEAL W DOPPLER AND COLOR FLOW Routine 08/27/2024 10:37 AM CDT POC GLUCOSE Routine 08/27/2024 8:09 AM CDT BASIC METABOLIC PANEL Timed Study 08/27/2024 5:23 AM CDT POC GLUCOSE Routine 08/26/2024 11:47 PM CDT POC GLUCOSE Routine 08/26/2024 7:19 PM CDT VITAMIN B12 AND FOLATE Routine 5:08 PM CDT CORTISOL LEVEL Routine 08/26/2024 5:08 PM CDT BASIC METABOLIC PANEL Timed Study 08/26/2024 5:08 PM CDT POC GLUCOSE Routine 08/26/2024 2:22 PM CDT POC GLUCOSE Routine 08/26/2024 11:44 AM CDT XR LUMBAR SPINE 1 VW Routine 08/26/2024 10:41 AM CDT AFB CULTURE WITH STAIN Routine 10:36 AM CDT ANAEROBIC/AEROBIC CULTURE W GRAM STAIN Routine 08/26/2024 10:36 AM CDT NE ANES INSERT ENDOTRACHEAL AIRWAY Routine 08/26/2024 9:59 AM CDT BASIC METABOLIC PANEL Stat 08/26/2024 8:58 AM CDT LUMBAR DECOMPRESSION LAMINECTOMY 08/26/2024 8:35 AM CDT POC GLUCOSE Routine 08/26/2024 7:34 AM CDT POC GLUCOSE Routine 08/26/2024 4:35 AM CDT POC GLUCOSE Routine 08/25/2024 10:53 PM CDT POC GLUCOSE Routine 08/25/2024 5:07 PM CDT POC GLUCOSE Routine 08/25/2024 1:06 PM CDT MRI THORACIC LUM W WO CONT Routine 08/25/2024 11:29 AM CDT POC GLUCOSE Routine 08/25/2024 9:44 AM CDT VERIFICATION BLOOD GROUP Stat 08/25/2024 7:00 AM CDT Encounter for blood typing TYPE AND SCREEN Routine 08/25/2024 6:21 AM CDT LIPASE Routine 08/25/2024 6:20 AM CDT IRON, TIBC, AND PERCENT SATURATION Routine 08/25/2024 6:20 AM CDT CBC WITH DIFFERENTIAL Routine 08/25/2024 6:20 AM CDT BASIC METABOLIC PANEL Timed Study 08/25/2024 6:20 AM CDT URINALYSIS W/REFLEX MICROSCOPIC Routine 08/25/2024 1:17 AM CDT OSMOLALITY, URINE Routine 08/25/2024 1:1 7 AM CDT SODIUM, RANDOM URINE Routine 08/25/2024 1:17 AM CDT POC GLUCOSE Routine 08/24/2024 11:[address] CHEST ABDOMEN PELVIS W CONT Routine 08/24/2024 11:40 PM CDT BLOOD CULTURE Routine 08/24/2024 8:58 PM CDT BLOOD CULTURE Routine 08/24/2024 8:58 PM CDT VANCOMYCIN LEVEL RANDOM Routine 08/24/20 8:52 PM CDT PROTIME-INR Routine 08/24/2024 8:52 PM CDT COMPREHENSIVE METABOLIC PANEL Timed Study 08/24/2024 8:52 PM CDT CBC WITH DIFFERENTIAL Timed Study 08/24/2024 8:52 PM CDT SEDIMENTATION RATE Routine 08/24/2024 8: 52 PM CDT C-REACTIVE PROTEIN Routine 08/24/2024 8: 52 PM CDT HEMOGLOBIN A1C Routine 08/24/2024 8:52 PM CDT BLOOD CULTURE Routine 08/24/2024 8:52 PM CDT BLOOD CULTURE Routine 08/24/2024 8:52 PM CDT from Last 3 Months Results * (ABNORMAL) POC GLUCOSE (09/07/2024 8:19 AM VENEER SORTER) Only the most recent of60 resultswithin the time period is included. GLUCOSE POC 180(H) 74 - 99 mg/dL 09/07/2024 8:[address] [facility] SPECIMEN SOURCE, GLUCOSE POC Whole Blood 09/07/2024 8:19 AM VENEER SORTER [facility] [employer] [facility] COMMENT, GLU POC Notified RN/MD 09/07/2024 8:19 AM VENEER SORTER [facility] [employer] [facility] Blood, whole 09/07/2024 8:19 AM VENEER SORTER 09/07/2024 8:43 AM VENEER SORTER Taty Goodman MD POINT OF CARE TESTING Final Resu lt [facility] [employer] [facility]# [id number] [address] [facility] [place] [address] * (ABNORMAL) CBC WITHOUT DIFFERENTIAL (09/07/2024 5:17 AM VENEER SORTER) Only the most recent of2 resultswithin the time period is included. WBC 9.0 4.0 - 9.8 K/uL 09/07/2024 5:53 AM VENEER SORTER [facility] [employer] [facility] RBC 3.10(L) 4.50 - 5.40 M/uL 09/07/2024 5:53 AM [facility] HEMOGLOBIN 8.6(L) 13.6 - 16.5 g/dL 09/07/2024 5:53 AM [facility] HEMATOCRIT 26.8(L) 40.0 - 48.0 % 09/07/2024 5:53 AM [facility] MCV 86.5 82.0 - 99.0 fL 09/07/2024 5:53 AM [facility] MCH 27.7 27.2 - 32.6 pg 09/07/2024 5:53 AM [facility] MCHC 32.1 31.5 - 35.5 g/dL 09/07/2024 5:53 AM [facility] - . [facility] PLATELETS 393(H) 140 - 350 K/uL 09/07/2024 5:53 AM [facility] [employer] [facility] MPV 9.0(L) 9.3 - 12.4 fL 09/07/2024 5:53 AM [facility] [employer] [facility] RDW 12.8 11.5 - 14.5 % 09/07/2024 5:53 AM [facility] [employer] [facility] RDW-STDEV 40.4 37.1 - 48.7 fL 09/07/2024 5:53 AM [facility] [employer] [facility] Blood Venipuncture / Unknown 09/07/2024 5:17 AM VENEER SORTER 09/07/2024 5:29 AM [facility] us Taty Goodman MD HEMATOLOGY ORDERABLES Final Resu lt [facility] [employer] SERVICES [facility] CLIA# [id number] [address] [facility] [address] [place] [id number] * (ABNORMAL) BASIC METABOLIC PANEL (09/07/2024 5:17 AM VENEER SORTER) Only the most recent of15 resultswithin the time period is included. SODIUM 134(L) 136 - 145 mmol/L 09/07/2024 6:38 AM [facility] POTASSIUM 4.5 3.5 - 5.0 mmol/L 09/07/2024 6:38 AM [facility] CHLORIDE 99 98 - 107 mmol/L 09/07/2024 6:38 AM [facility] CO2 26 22 - 29 mmol/L 09/07/2024 6:38 AM [facility] CALCIUM 8.7 8.6 - 10.2 mg/dL 09/07/2024 6:38 AM [facility] BUN 25(H) 6 - 20 mg/dL 09/07/2024 6:38 AM [facility] CREATININE 0.94 0.67 - 1.17 mg/dL 09/07/2024 6:38 AM [facility] GLUCOSE 182(H) 74 - 99 mg/dL 09/07/2024 6:38 AM [facility] GFR >60 >=60 mL/min/1.7 3 sq meter 09/07/2024 6:38 AM [facility] Comment:eGFR calculated with 2020 CKD-EPI equation. Vegetarian diet, extremely high or low muscle mass, and may affect results. Cystatin C with Glomerular Filtration Rate is a suitable alternative for these patients. ANION GAP 9 8 - 16 mmol/L 09/07/2024 6:38 AM [facility] Blood Venipuncture / Unknown 09/07/2024 5:17 AM VENEER SORTER 09/07/2024 5:29 AM V[facility]ER SORTER us Mehdi Claire MD CHEMISTRY ORDERABLES Final Resu lt [facility]# [id number] [facility] [place] [id number] * (ABNORMAL) C-REACTIVE PROTEIN (09/05/2024 5:40 AM VENEER SORTER) Only the most recent of4 resultswithin the time period is included. CRP 142.0(H) <5.0 mg/L 09/05/2024 9:46 AM VENEER SORTER [facility] LABORATORY SERVICES - [facility] Blood Venipuncture / Unknown 09/05/2024 5:40 AM VENEER SORTER 09/05/2024 6:01 AM VENEER SORTER Taty Goodman MD CHEMISTRY ORDERABLES Final Resul t Performing Organization Address City/[facility]/ZIP Co de Phone Number [facility] [employer] [facility]# [id number] [address] [place] [address] * BLOOD GAS VENOUS (09/03/2024 5:13 PM VENEER SORTER) Only the most recent of2 resultswithin the time period is included. PH, VENOUS 7.38 7.32 - 7.43 09/03/2024 5:47 PM [facility] SERVICES [facility] PCO2 VENOUS 46 38 - 50 mm Hg 09/03/2024 5:47 PM VENEER SORTER [facility] LABORATORY SERVICES - [facility] PO2 VENOUS 35 25 - 40 mm Hg 09/03/2024 5:47 PM [facility]ORY SERVICES - [facility] HCO3 VENOUS 27 22 - 29 mmol/L 5:47 PM [facility]OR[facility]ORY SERVICES [facility] BASE EXCESS VENOUS 1.8 Reference Range Not Established mmol/L 09/03/2024 5:47 PM [facility] SERVICES - [facility] HEMOGLOBIN VENOUS 8.6 No Ref Range Estab g/dL 09/03/2024 5:47 PM VENEER SORTER [facility]ORY SERVICES - [facility] O2 SAT EST VENOUS 65 40 - 70 % 09/03/2024 5:47 PM [facility] Blood, venous Venipuncture / Unknown 09/03/2024 5:13 PM VENEER SORTER 09/03/2024 5:40 PM VENEER SORTER Pavel Tomlin NP ABG ORDERABLES Final Result [id number] [address] [place] [address] * LACTIC ACID (09/03/2024 3:04 PM VENEER SORTER) Only the most recent of2 resultswithin the time period is included. [facility] LACTIC ACID 2.0 <=2.0 mmol/L 09/03/2024 3:45 PM VENEER SORTER [facility] [employer] [facility] Blood Venipuncture / Unknown 09/03/2024 3:04 PM VENEER SORTER 09/03/2024 3:15 PM VENEER SORTER Pavel Tomlin TAR LEVELER CHEMISTRY ORDERABLES Final Resu lt Performing Organization Address City/[facility]/ZIP Co de Phone Number [facility]# [id number] [address] [place] [address] * (ABNORMAL) AMMONIA LEVEL (09/03/2024 3:04 PM VENEER SORTER) [facility] AMMONIA 15.6(L) 16.0 - 60.0 umol/L 09/03/2024 3:44 PM VENEER SORTER [facility] [employer] [facility] Blood, venous Venipuncture / Unknown 09/03/2024 3:04 PM VENEER SORTER 09/03/2024 3:15 PM VENEER SORTER Pavel Tomlin TAR LEVELER CHEMISTRY ORDERABLES Final Resu lt [facility] [employer] [facility]# [id number] [address] [place] [address] * (ABNORMAL) CBC WITH DIFFERENTIAL (09/03/2024 4:28 AM VENEER SORTER) Only the most recent of7 resultswithin the time period is included. [facility] WBC 9.9(H) 4.0 - 9.8 K/uL 09/03/2024 5:02 AM VENEER SORTER [facility] [employer] [facility] RBC 3.27(L) 4.50 - 5.40 M/uL 09/03/2024 5:02 AM VENE[facility] SORTER [facility] - [facility] HEMOGLOBIN 9.1(L) 13.6 - 16.5 g/dL 09/03/2024 5:02 AM [employer] LABORATORY SERVICES - [facility] HEMATOCRIT 28.6(L) 40.0 - 48.0 % 09/03/2024 5:02 AM [employer] [facility]ORATORY SERVICES - [facility] MCV 87.5 82.0 - 99.0 fL 09/03/2024 5:02 AM [employer] [facility]AT[facility] - [facility] MCH 27.8 27.2 - 32.6 pg 09/03/2024 5:02 AM [employer] LABORATORY SERVICES - . [facility] MCHC 31.8 31.5 - 35.5 g/dL 09/03/2024 5:02 AM [employer] [facility]ORY [facility] - . [facility] RDW 13.1 11.5 - 14.5 % 09/03/2024 5:02 AM [employer] [facility]AT[facility] - [facility] RDW-STDEV 41.2 37.1 - 48.7 fL 09/03/2024 5:02 AM [employer] [facility]AT[facility] - [facility] PLATELETS 414(H) 140 - 350 K/uL 09/03/2024 5:02 AM [employer] [facility] - [facility] MPV 8.4(L) 9.3 - 12.4 fL 09/03/2024 5:02 AM [employer] [facility]ATORY [facility] - . [facility] NEUTROPHILS 66 % 09/03/2024 5:02 AM [employer] [facility] SERVICES - . [facility] LYMPHOCYTES 18 % 09/03/2024 5:02 AM [employer] [facility] - . [facility] MONOCYTES 10 % 09/03/2024 5:02 AM [employer] [facility] - . [facility] EOSINOPHILS 4 % 09/03/2024 5:02 AM [employer] [facility] - . [facility] BASOPHILS 1 % 09/03/2024 5:02 AM [employer] [facility] - . [facility] IMMATURE GRANULOCYTES 1 % 09/03/2024 5:02 AM [employer] [facility] - . [facility] Comment:IG (Immature Granulo cyte) count includes Metamyelocytes, Myelocytes, and Promyelocytes NEUTROPHIL ABSOLUTE 6.52 1.90 - 7.00 K/uL 09/03/2024 5:02 AM [employer] [facility] - . [facility] LYMPHOCYTE ABSOLUTE 1.76 0.70 - 4.50 K/uL 09/03/2024 5:02 AM [facility] - . [facility] MONOCYTE ABSOLUTE 1.01 0.10 - 1.30 K/uL 09/03/2024 5:02 AM [facility] HOSPITAL LABORATORY [facility] EOSINOPHIL ABSOLUTE 0.40 0.00 - 0.70 K/uL 09/03/2024 5:02 AM [facility] BASOPHILS ABSOLUTE 0.06 0.00 - 0.20 K/uL 09/03/2024 5:02 AM [facility] [place] IMMATURE GRANULOCYTES ABSOLUTE 0.10(H) 0.00 - 0.03 K/uL 09/03/2024 5:02 AM [facility] Blood Venipuncture / Unknown 09/03/2024 4:28 AM VENEER SORTER 09/03/2024 4:42 AM VENE[facility] SORTER us Brielle Peña MD HEMATOLOGY ORDERABLES Final Result Performing Organization Address City/State/[facility] Co de Phone Number [facility] [id number] [address] [place] [address] * IR VENOUS ACCESS (08/29/2024 4:06 PM CDT) Narrative 08/29/2024 4:06 PM CDT Order information only. ??Exam was auto-finalized. ?? us Haris Michaels MD IR ORDERABLES Final Result * ECHO TRANSESOPHAGEAL W DOPPLER AND COLOR FLOW (08/27/2024 10:37 AM CDT) EJECTION FRACTION 55 INTERFACE SYSTEM 08/27/2024 10:0 3 AM CDT Narrative INTERFACE SYSTEM - 08/27/2024 10:47 AM CDT [facility] [address] [place] [address] [email or web address] Transesophageal Echocardiogram Patient: ? Pavel Laughlin: ? [id number] Study ID: ?ECHO TRANSESOPHA Gender: ?M : ? 1975 Age: ? 49 Race: ?CAU Height Study Date: ?08/27/2024 Weight: Access. #: ? [id number] Account #: ? [id number] BP: *Referring Physician:* Haris Michaels *Ordering Physician:* ??Haris Michaels certified paralegal: Nurse: Indications: R/o IE. STUDY CONCLUSIONS: SUMMARY: - Left ventricle: The cavity size was normal. Wall thickness was normal. ??Global systolic function is normal. The estimated ejection fraction is ??50-55%. For [facility] reporting: the left ventricular ejection fraction is 55% . - Mitral valve: Mild regurgitation. - Left atrium: The atrium is normal in size. No evidence of thrombus in the ??atrium or atrial appendage. - Right ventricle: The cavity size is normal. Systolic function is normal. Impressions: ?? No evidence of endocarditis. Cardiac Anatomy: LEFT VENTRICLE: ??The cavity size was normal. Wall thickness was normal. Global systolic function is normal. The estimated ejection fraction is 50-55%. For Epic reporting: the left ventricular ejection fraction is 55% . AORTIC VALVE: ?? Structurally normal valve. Trileaflet. ??No significant regurgitation. AORTA: The aorta was normal. MITRAL VALVE: ?? Structurally normal valve. ?Mild regurgitation. LEFT ATRIUM: ??The atrium is normal in size. ??No evidence of thrombus in the atrium or atrial appendage. ATRIAL SEPTUM: ??The septum is normal. PULMONARY VEINS: ??Well visualized, appeared normal. RIGHT VENTRICLE: ??The cavity size is normal. Systolic function is normal. PULMONIC VALVE: ?? Structurally normal valve. ?No significant regurgitation. TRICUSPID VALVE: ?? Structurally normal valve. ?No significant regurgitation. RIGHT ATRIUM: ??The atrium was normal in size. SYSTEMIC VEINS: Superior vena cava: The SVC is normal. PERICARDIUM: ?? There is no pericardial effusion. Procedure data: Procedure information: ??The patient arrived at the laboratory in a fasting state. Intravenous access was obtained. Surface ECG leads and pulse oximetric signals were monitored. ??Moderate sedation was administered by cardiology staff. A transesophageal echocardiogram was performed. Topical anesthesia was obtained using viscous lidocaine. A transesophageal probe was insertedby the attending cardiologistwithout difficulty. ??Study completion: ??There were no complications. ??Administered medications: ?? Fentanyl. ??Midazolam. Diagnostic transesophageal echocardiogram. ??2D, spectral Doppler, and color Doppler. ??Birthdate: ??Patient birthdate: 1975. ??Age: ??Patient is 49year(s) old. ??Sex: ?? gender: male. ??Study date: ??Study date: 08/27/2024. Study time: 10:03 AM. ?Prepared and Electronically Authenticated Gustavo Rico [id number] Procedure Note Gustavo Rico MD - 08/27/2024 [place] [address] [email or web address] Transesophageal Echocardiogram Patient: Pavel Laughlin Study ID: ECHO TRANSESOPHA Gender: M : 1975 Age: 49 Race: [facility] Height Study Date: 08/27/2024 Weight: Access. #: [id number] BP: *Referring Physician:* Haris Michaels *Ordering Physician:* Haris Michaels certified paralegal: Nurse: Indications: R/o IE. STUDY CONCLUSIONS: SUMMARY: - Left ventricle: The cavity size was normal. Wall thickness was normal. Global systolic function is normal. The estimated ejection fraction is 50-55%. For Epic reporting: the left ventricular ejection fraction is55% . - Mitral valve: Mild regurgitation. - Left atrium: The atrium is normal in size. No evidence of thrombus inthe atrium or atrial appendage. - Right ventricle: The cavity size is normal. Systolic function isnormal. Impressions: No evidence of endocarditis. Cardiac Anatomy: LEFT VENTRICLE: The cavity size was normal. Wall thickness was normal.Global systolic function is normal. The estimated ejection fraction is 50-55%.For Epic reporting: the left ventricular ejection fraction is 55% . AORTIC VALVE: Structurally normal valve. Trileaflet. No significant regurgitation. AORTA: The aorta was normal. MITRAL VALVE: Structurally normal valve. Mild regurgitation. LEFT ATRIUM: The atrium is normal in size. No evidence of thrombus inthe atrium or atrial appendage. ATRIAL SEPTUM: The septum is normal. PULMONARY VEINS: Well visualized, appeared normal. RIGHT VENTRICLE: The cavity size is normal. Systolic function isnormal. PULMONIC VALVE: Structurally normal valve. No significantregurgitation. TRICUSPID VALVE: Structurally normal valve. No significantregurgitation. RIGHT ATRIUM: The atrium was normal in size. SYSTEMIC VEINS: Superior vena cava: The SVC is normal. PERICARDIUM: There is no pericardial effusion. Procedure data: Procedure information: The patient arrived at the laboratory in afasting state. Intravenous access was obtained. Surface ECG leads and pulseoximetric signals were monitored. Moderate sedation was administered bycardiology staff. A transesophageal echocardiogram was performed. Topical anesthesiawas obtained using viscous lidocaine. A transesophageal probe was insertedbythe attending cardiologistwithout difficulty. Study completion: There wereno complications. Administered medications: Fentanyl. Midazolam. Diagnostic transesophageal echocardiogram. 2D, spectral Doppler, andcolor Doppler. Birthdate: Patient birthdate: 1975. Age: Patient is 49year(s) old. Sex: gender: male. Study date: Study date: 08/27/2024. Study time: 10:03 AM. Prepared and Electronically Authenticated Gustavo Rico [id number] us Haris Michaels MD ORDERABLES Final Result INTERFACE SYSTEM Refer to clinic/hospital department * VITAMIN B12 AND FOLATE (08/26/2024 5:08 PM CDT) VITAMIN B12 874 232 - 1,245 pg/mL 08/26/2024 6:[address] [facility] Comment:It has been reported that between 5 to 10% of patients with values between 200 and 400 pg/mL may experience neuropsychiatric and hematologic abnormalities due to occult B12 deficiency. Less than 1% of patients with values above 400 pg/mL will have symptoms. FOLATE, SERUM 10.7 >4.5 ng/mL 08/26/2024 6:[address] [facility] Blood Venipuncture / Unknown 08/26/2024 5:08 PM CDT 08/26/2024 5:14 PM CDT Shawnee Allison MD CHEMISTRY ORDERABLES Final Resul t Performing Organization Address [facility] de Phone Number [facility] CLIA# [id number] [address] [place] [address] * CORTISOL LEVEL (08/26/2024 5:08 PM CDT) CORTISOL LEVEL 8.8 ug/dL 08/26/2024 6:[address] [facility] Comment: Cortisol Reference Range Morning Hours ?? 6-10 a.m. ? 6.0-18.4 ug/dL Afternoon Hours ??4-8 p.m. ? 2.7-10.5 ug/dL Blood Venipuncture / Unknown 08/26/2024 5:08 PM CDT 08/26/2024 5:14 PM CDT Shawnee Allison MD CHEMISTRY ORDERABLES Final Resul t Performing Organization Address [facility] Co de Phone Number [facility] CLIA# [id number] [address] [place] [address] * XR LUMBAR SPINE 1 VW (08/26/2024 10:41 AM CDT) Anatomical Region Laterality Modality Spine Computed Radiogr aphy 08/26/2024 10:4 1 AM CDT Impressions 08/26/2024 2:05 PM CDT IMPRESSION: ?? Single lateral intraoperative image. DICTATION LOCATION: Location 1 - [facility] Narrative 08/26/2024 2:05 PM CDT EXAMINATION: XR LUMBAR SPINE 1 VW DATE: 08/26/2024 10:41 AM HISTORY: Right L5-S1 septic facet arthritis. COMPARISON: MR thoracic and lumbar spine 08/25/2024. CT chest, abdomen, and pelvis on 08/24/2024. FINDINGS: A single lateral intraoperative image was submitted during L3-4 and L4-5 laminectomy. The alignment is unchanged. No new erosive changes involving the right L5-S1 facet joint is better seen on prior imaging. Procedure Note Isra Márquez MD - 08/26/2024 EXAMINATION: XR LUMBAR SPINE 1 VW DATE: 08/26/2024 10:41 AM HISTORY: Right L5-S1 septic facet arthritis. COMPARISON: MR thoracic and lumbar spine 08/25/2024. CT chest, abdomen, and pelvis on 08/24/2024. FINDINGS: A single lateral intraoperative image was submitted during L3-4 and L4-5 laminectomy. The alignment is unchanged. No new erosive changes involving the right L5-S1 facet joint is better seen on prior imaging. IMPRESSION: Single lateral intraoperative image. DICTATION LOCATION: Location 1 - [facility] Landry Lee MD DIAGNOSTIC IMAGING ORDERABLES Final Result * AFB CULTURE WITH STAIN (08/26/2024 10:36 AM CDT) AFB CULTURE SEE COMMENT 10/08/2024 11:25 AM [facility] Comment: ??MYCOBACTERIA, CULTURE, WITH FLUOROCHROME SMEAR ?Micro Number: ?[id number] ??Test Status: ? Final ??Specimen Source: ?? Tissue, back abscess ??Specimen Quality: ??Adequate ??Smear: ? No acid-fast bacilli seen using the fluorochrome ? method. ??Result: ?No Mycobacterium species isolated after ? 6 weeks incubation. Abscess (Back) Collection / Unknown 08/26/2024 10:36 AM CDT 08/26/2024 11:39 AM CDT Narrative [facility] - 10/08/2024 11:25 AM VENEER SORTER Performing Organization Information: ?Site ID: [id number] ?Name: [facility] ?Address: [facility] [place] [address] ?Director: Joan James MD Performing Organization Information: ?Site ID: [place] ?Name: [facility] ?Address: [facility] [place] [address] ?Director: Joan James MD us Landry Lee MD MICROBIOLOGY - GENERAL ORDERA BLES Final Result Performing Organization Address City/[facility]/ZIP Co de Phone Number [facility] [phone] * ANAEROBIC/AEROBIC CULTURE W GRAM STAIN (08/26/2024 10:36 AM CDT) CULTURE No aerobic or anaerobic growth 08/31/2024 1:38 PM CDT [facility] GRAM STAIN No organisms observed 08/31/2024 1:38 PM CDT [facility] GRAM STAIN 2+ (Few) Polymorphonuclear WBC 08/31/2024 1:38 PM CDT [facility] Abscess (Back) Collection / Unknown 08/26/2024 10:36 AM CDT 08/26/2024 11:40 AM CDT us Landry Lee MD MICROBIOLOGY - GENERAL ORDERA BLES Final Result [facility] CLIA# [id number] [address] [id number] * NE ANES INSERT ENDOTRACHEAL AIRWAY (08/26/2024 9:59 AM CDT) Narrative Bradly Mao AA - 08/26/2024 9:59 AM CDT Bradly Mao AA ? 08/26/2024 10:21 AM Airway Date/Time: 08/26/2024 9:59 AM Location: OR Plan: routine intubation Patient Identity Confirmed by: ??Verbally with patient and armband Airway: not difficult Staffing Performed: REMITTANCE CLERK/CAA Authorized by: Ivan Michelle III, MD ?? Performed by: Bradly Mao AA Indications and Patient Condition: ??Indications for Airway Management: ??Anesthesia ??Sedation Level: general anesthesia ??Preoxygenated: yes ?Patient Position: ??Sniffing and ramp ??Mask Difficulty Assessment: ??2 - vent by mask + OA or adjuvant +/- NMBA ??Oral Airway: 100mm ??Plan to extubate at end of case: Yes ?? Final Airway Details: ??Final Airway Type: ??Endotracheal airway ??ETT ??Cuffed: Yes ?Cuff Volume (mL): ??6 ??Technique Used for Successful ETT Placement: ??Direct laryngoscopy ??Devices/Methods Used in Placement: ??Cricoid pressure and intubating stylet ??Blade Type: curved blade ??Blade Size: ??3 ??Insertion Site: ??Oral ??ETT Size (mm): ??7.0 ??Measured from: ??Teeth ??ETT to Teeth (cm): ??23 ??Tube secured with: ??Tape ??Placement Verified by: auscultation, end tidal CO2 and chest rise ?Cormack-Lehane Classification: ??Grade IIb - view of arytenoids or posterior of glottis only ??Number of Attempts at Approach: ??2 ??Ventilation Between Attempts: ??2 hand mask ??Number of Other Approaches Attempted: ??0 Additional Procedure Information: dentition unchanged and atraumatic Ivan Michelle III, MD PROCEDURE/MINOR SURGICAL ORDERABLES Final Result * MRI THORACIC LUM W WO CONT (08/25/2024 11:29 AM CDT) Anatomical Region Laterality Modality Spine Magnetic Resonan ce 08/25/2024 11:2 9 AM CDT Impressions 08/25/2024 1:42 PM CDT IMPRESSION: 1. ??Right L5-S1 septic facet arthritis. 2. ??Epidural collection with developing peripheral enhancement is concerning for developing epidural abscess. 3. ??Multilevel compression of the thecal sac due to the epidural collection. Severe compression of the thecal sac at L3-L4. 4. ??T2 hyperintense right paraspinal lesion without associated enhancement could represent pleural lesion or large perineural root sleeve cyst. 5. ??A portion of epidural collection extends into the lower thoracic spine. DICTATION LOCATION: Location 4 Narrative 08/25/2024 1:42 PM CDT MRI THORACIC LUM W WO CONT ?? DATE: 08/25/2024 11:29 AM INDICATION: infection TECHNIQUE: Multi-planar multi-weighted magnetic resonance imaging of the thoracic and lumbar spine was performed with and without contrast using the standard protocol. COMPARISON: ??Outside MRI exams dated August 14, 2024 and August 21, 2024. FINDINGS: Thoracic spine: The thoracic spine is normally aligned. No acute fracture. Vertebral body heights are maintained without compression deformity. Mild and moderate multilevel degenerative disc disease. No marrow replacing process suggestive of malignancy. The spinal cord is normal in signal intensity. The conus medullaris terminates at the level of L1. Partially visualized left thyroid lesion. Bilateral pleural effusions. The visualized thoracic aorta is normal caliber. No abnormal enhancement is seen. ?? 2.7 x 2.4 cm T2 hyperintense right paraspinal lesion without associated enhancement could represent pleural lesion or large perineural root sleeve cyst. Peripheral nerve tumor is considered less likely in the absence of enhancement. Left paracentral disc herniations at T3-T4, T4-T5, and T5-T6 without resulting spinal canal stenosis. No significant neuroforaminal narrowing or spinal canal stenosis. Abnormal STIR hyperintense signal dorsal to the thecal sac in the lower thoracic spine without significant resulting spinal canal stenosis or compression of the thecal sac. Lumbar spine: Epidural collection in the lumbar spine with areas of loculation. The epidural collection is worse on the right. There are areas of developing peripheral enhancement. Ventral displacement of cauda equina nerve roots in the thecal sac due to the portion of the epidural collection in the dorsal epidural space. T1 hypointense marrow signal in the articular facets of L5 and S1. Irregularity of the right L5-S1 facet joint. Associated bone marrow edema and enhancement in the right articular facets of L5 and S1. Abnormal enhancement extends into the S1 vertebral body. Peripheral enhancement about posteriorly oriented facet synovial cyst along the posterior aspect of the right L5-S1 facet joints. The lumbar spine is normally aligned. No acute fracture. Vertebral body heights are maintained without compression deformity. ??Mild to moderate disc space height loss and disc desiccation at L1-L2. Associated mixed fatty and edematous degenerative endplate marrow signal changes at L1-L2. The conus terminates at a normal level. No clumping of intrathecal nerve roots. No soft tissue abnormality in the visualized abdomen or pelvis. T12-L1: No disc bulge. No facet arthropathy. No significant spinal stenosis or neural foraminal narrowing. ?? L1-L2: Disc bulge. Moderate to severe compression of the thecal sac due to epidural collection. L2-L3: No disc bulge. Mild to moderate right and left facet arthritis. Mild compression of the thecal sac due to epidural collection. No significant neural foraminal narrowing. ?? L3-L4: Disc bulge. Severe compression of the thecal sac due to epidural collection. Mild to moderate facet arthritis. Mild to moderate left and mild right neural foraminal narrowing. L4-L5: Disc bulge. Moderate compression of the thecal sac due to epidural collection. Mild facet arthritis. Moderate left and mild to moderate right neural foraminal narrowing. L5-S1: Disc bulge. Moderate compression of the thecal sac due to epidural collection. Enhancement and irregularity of the right facet joint consistent with septic facet arthritis. No significant neural foraminal narrowing. Procedure Note Ramana Tiwari MD - 08/25/2024 MRI THORACIC LUM W WO CONT DATE: 08/25/2024 11:29 AM INDICATION: infection TECHNIQUE: Multi-planar multi-weighted magnetic resonance imaging of the thoracic and lumbar spine was performed with and without contrast using the standard protocol. COMPARISON: Outside MRI exams dated August 14, 2024 and August 21, 2024. FINDINGS: Thoracic spine: The thoracic spine is normally aligned. No acute fracture. Vertebral body heights are maintained without compression deformity. Mild and moderate multilevel degenerative disc disease. No marrow replacing process suggestive of malignancy. The spinal cord is normal in signal intensity. The conus medullaris terminates at the level of L1. Partially visualized left thyroid lesion. Bilateral pleural effusions. The visualized thoracic aorta is normal caliber. No abnormal enhancement is seen. 2.7 x 2.4 cm T2 hyperintense right paraspinal lesion without associated enhancement could represent pleural lesion or large perineural root sleeve cyst. Peripheral nerve tumor is considered less likely in the absence of enhancement. Left paracentral disc herniations at T3-T4, T4-T5, and T5-T6 without resulting spinal canal stenosis. No significant neuroforaminal narrowing or spinal canal stenosis. Abnormal STIR hyperintense signal dorsal to the thecal sac in the lower thoracic spine without significant resulting spinal canal stenosis or compression of the thecal sac. Lumbar spine: Epidural collection in the lumbar spine with areas of loculation. The epidural collection is worse on the right. There are areas of developing peripheral enhancement. Ventral displacement of cauda equina nerve roots in the thecal sac due to the portion of the epidural collection in the dorsal epidural space. T1 hypointense marrow signal in the articular facets of L5 and S1. Irregularity of the right L5-S1 facet joint. Associated bone marrow edema and enhancement in the right articular facets of L5 and S1. Abnormal enhancement extends into the S1 vertebral body. Peripheral enhancement about posteriorly oriented facet synovial cyst along the posterior aspect of the right L5-S1 facet joints. The lumbar spine is normally aligned. No acute fracture. Vertebral body heights are maintained without compression deformity. Mild to moderate disc space height loss and disc desiccation at L1-L2. Associated mixed fatty and edematous degenerative endplate marrow signal changes at L1-L2. The conus terminates at a normal level. No clumping of intrathecal nerve roots. No soft tissue abnormality in the visualized abdomen or pelvis. T12-L1: No disc bulge. No facet arthropathy. No significant spinal stenosis or neural foraminal narrowing. L1-L2: Disc bulge. Moderate to severe compression of the thecal sac due to epidural collection. L2-L3: No disc bulge. Mild to moderate right and left facet arthritis. Mild compression of the thecal sac due to epidural collection. No significant neural foraminal narrowing. L3-L4: Disc bulge. Severe compression of the thecal sac due to epidural collection. Mild to moderate facet arthritis. Mild to moderate left and mild right neural foraminal narrowing. L4-L5: Disc bulge. Moderate compression of the thecal sac due to epidural collection. Mild facet arthritis. Moderate left and mild to moderate right neural foraminal narrowing. L5-S1: Disc bulge. Moderate compression of the thecal sac due to epidural collection. Enhancement and irregularity of the right facet joint consistent with septic facet arthritis. No significant neural foraminal narrowing. IMPRESSION: 1. Right L5-S1 septic facet arthritis. 2. Epidural collection with developing peripheral enhancement is concerning for developing epidural abscess. 3. Multilevel compression of the thecal sac due to the epidural collection. Severe compression of the thecal sac at L3-L4. 4. T2 hyperintense right paraspinal lesion without associated enhancement could represent pleural lesion or large perineural root sleeve cyst. 5. A portion of epidural collection extends into the lower thoracic spine. DICTATION LOCATION: Location 4 Hayde FREITAS MR ORDERABLES Final Result * VERIFICATION BLOOD GROUP (08/25/2024 7:00 AM CDT) ABO GROUP A 08/25/2024 7:40 AM CDT [facility] RH (D) TYPE Positive 08/25/2024 7:40 AM CDT [facility] Blood Venipuncture / Unknown 08/25/2024 7:00 AM CDT 08/25/2024 7:00 AM CDT Deepthi Harris MD BLOOD BANK ORDERABLES Final Result [facility]# [id number] [address] [place] [address] * TYPE AND SCREEN (08/25/2024 6:21 AM CDT) ABO GROUP A 08/25/2024 7:40 AM CDT [facility] RH (D) TYPE Positive 08/25/2024 7:40 AM CDT [facility] ANTIBODY SCREEN Negative 08/25/2024 7:40 AM CDT [facility] Blood Venipuncture / Unknown 08/25/2024 6:21 AM CDT 08/25/2024 6:26 AM CDT Mehdi Claire MD BLOOD BANK ORDERABLES Edited Re sult - Final Performing Organization Address [facility]/ZIP Co de Phone Number [facility] CLIA# [id number] [address] [place] [address] * (ABNORMAL) IRON, TIBC, AND PERCENT SATURATION (08/25/2024 6:20 AM CDT) IRON 14(L) 59 - 158 ug/dL 08/25/2024 3:48 PM CDT [facility] TIBC 128(L) 250 - 450 ug/dL 08/25/2024 3:48 PM CDT [facility] IRON % SATURATION 11(L) 20 - 50 % 08/25/2024 3:48 PM CDT [facility] TRANSFERRIN 101(L) 200 - 360 mg/dL 08/25/2024 3:48 PM CDT [facility] Blood Venipuncture / Unknown 08/25/2024 6:20 AM CDT 08/25/2024 6:26 AM CDT Shawnee Allison MD CHEMISTRY ORDERABLES Final Resul t Performing Organization Address [facility] de Phone Number [facility] CLIA# [id number] [address] [place] [address] * LIPASE (08/25/2024 6:20 AM CDT) LIPASE 21 13 - 60 U/L 08/25/2024 6:39 PM CDT [facility] Blood Venipuncture / Unknown 08/25/2024 6:20 AM CDT 08/25/2024 6:26 AM CDT Haris Michaels MD CHEMISTRY ORDERABLES Final Resul t Performing Organization Address City/[facility] [facility]/ZIP Co de Phone Number [facility]# [id number] [address] [place] [address] * SODIUM, RANDOM URINE (08/25/2024 1:17 AM CDT) SODIUM, URINE 120 mmol/L 08/25/2024 2:[address] [facility] Comment:Reference range not established Urine (Urine, indwelling (Ramirez) catheter) Collection / Unknown 08/25/2024 1:17 AM CDT 08/25/2024 2:04 AM CDT Mehdi Claire MD URINE ORDERABLES Final Result [facility]# [id number] [address] [place] [address] * OSMOLALITY, URINE (08/25/2024 1:17 AM CDT) OSMOLALITY, URINE 440 50 - 1,200 mOsm/kg 08/25/2024 2:[address] [facility] Urine (Urine, indwelling (Ramirez) catheter) Collection / Unknown 08/25/2024 1:17 AM CDT 08/25/2024 2:[address] [facility] - 08/25/2024 2:38 AM CDT Reference range: 50-1200 mOsm/kg H2O, depending on fluid intake. Mehdi Claire MD URINE ORDERABLES Final Result [facility]# [id number] [address] [place] [address] * (ABNORMAL) URINALYSIS WITH REFLEX MICROSCOPIC (08/25/2024 1:17 AM CDT) COLOR UA Pale Yellow Pale to Dark Yellow 08/25/2024 4:50 PM CDT [facility] LABORATORY SERVICES - [facility] CLARITY UA Clear Clear 08/25/2024 4:50 PM CDT [employer] LABORATORY SERVICES - [facility] SPECIFIC GRAVITY UA 1.024 1.003 - 1.035 08/25/2024 4:50 PM CDT [facility] LABORATORY SERVICES - [facility] PH UA 7.0 5.0 - 8.0 08/25/2024 4:50 PM CDT [facility] - [facility] LEUKOCYTE ESTERASE UA Negative Negative 08/25/2024 4:50 PM CDT [facility] LABORATORY SERVICES - . [facility] NITRITE UA Negative Negative 08/25/2024 4:50 PM CDT [facility] LAB[facility]ATORY SERVICES - . [facility] PROTEIN UA 1+(A) Negative 08/25/2024 4:50 PM CDT [facility] LABORATORY SERVICES - . [facility] GLUCOSE UA 2+(A) Negative 08/25/2024 4:50 PM CDT [facility] LABORATORY SERVICES - . [facility] KETONES UA Trace(A) Negative 08/25/2024 4:50 PM CDT [facility] LABORATORY SERVICES - . [facility] UROBILINOGEN UA Normal <2.0 mg/dL 4:50 PM CDT [facility] SERVICES - . [facility] BILIRUBIN UA Negative Negative 08/25/2024 4:50 PM CDT [facility] LAB[facility]ATORY SERVICES - . [facility] BLOOD UA 3+(A) Negative 08/25/2024 4:50 PM CDT [facility] LABORATORY SERVICES - . [facility] WBC UA 0-2 0 - 2 /hpf 08/25/2024 4:50 PM CDT [facility] LAB[facility]AT[facility] SERVICES - . [facility] RBC UA 11-25(A) 0 - 2 /hpf 08/25/2024 4:50 PM CDT [facility] LABORATORY SERVICES - . [facility] BACTERIA UA Negative Negative /hpf 08/25/2024 4:50 PM CDT [facility]ATORY SERVICES - . [facility] Urine (Urine, indwelling (Ramirez) catheter) Collection / Unknown 08/25/2024 1:17 AM CDT 08/25/2024 2:04 AM CDT us Haris Michaels MD URINE ORDERABLES Final Result [employer] LABORATORY SERVICES - [facility] CLIA# [id number] [address] [place] [address] * CT CHEST ABDOMEN PELVIS W CONT (08/24/2024 11:40 PM CDT) Anatomical Region Laterality Modality Chest Computed Tomogra phy 08/24/2024 11:3 0 PM CDT Impressions 08/25/2024 9:37 AM CDT IMPRESSION: ?? 1. ??Small bilateral pleural effusions with associated consolidations and right lower lobe nodular opacities. The lower lobe consolidations could represent passive atelectasis or pneumonia. Right lower lobe nodular opacities concerning for pneumonia. 2. ??Mild inflammatory changes seen adjacent to the pancreatic head. Correlate with laboratory values. 3. ??Symmetric perinephric stranding is nonspecific, however ascending urinary tract infection cannot be excluded. Correlate with urinalysis. 4. ??Erosive changes in the right L5-S1 facet joint concerning for septic arthritis, unchanged. 5. ??Trace free fluid in the pelvis. 6. ??Indeterminate left thyroid nodule measuring up to 3.3 cm. Recommend nonemergent thyroid ultrasound for further characterization. 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 ? other primary source of infection.. See Reason for Exam COMPARISON: MR lumbar spine from an outside facility on 08/21/2024 and 08/14/2024. MR thoracic spine from an outside facility on 08/21/2024. PROCEDURE: Axial images were obtained from the thoracic inlet through the upper abdomen ??following ??the administration of 80 mL intravenous contrast. Additional axial images were subsequently obtained from the lung bases through the ischial tuberosities. Oral contrast was not administered. Multiplanar reformatted images were reviewed. ??The examination was performed with the adjustment of mA according to the patient size and/or the use of Iterative Reconstruction Technique. ?? FINDINGS: ?? CHEST - ?? HEART/VESSELS: The heart size is normal without pericardial effusion. No significant coronary atherosclerotic calcifications are seen. Left three-vessel aortic arch. The ascending aorta and main pulmonary artery are nondilated. MEDIASTINUM AND MARISSA: No significant lymphadenopathy. CHEST WALL AND LOWER NECK: Left thyroid nodule measures up to 3.3 x 3.2 cm. LUNGS/AIRWAYS/PLEURA: Small bilateral pleural effusions with associated consolidations. A few nodular opacities are seen in the right lower lobe. No pneumothorax. No suspicious pulmonary nodule. The central airways are patent. BONES: No aggressive osseous lesion. The visible osseous structures are intact. ABDOMEN AND PELVIS - ?? LIVER: A subcentimeter low attenuating hepatic lesion is too small to characterize but likely represents a hepatic cyst. ?? GALLBLADDER: Within normal limits. BILE DUCTS: Within normal limits. PANCREAS: Mild inflammatory changes are seen adjacent to the pancreatic head. ?? SPLEEN: Within normal limits. ?? ADRENALS: Within normal limits. ?? KIDNEYS/URETERS: Symmetric perinephric stranding is nonspecific. No suspicious renal lesion. No renal calculus or hydronephrosis. ?? BLADDER: A Ramirez catheter terminates within a nondistended urinary bladder. Gas in the urinary bladder is likely secondary to instrumentation. REPRODUCTIVE ORGANS: Within normal limits. ?? BOWEL: The stomach is distended with ingested material. No wall thickening or obstruction. Normal appendix. PERITONEUM/RETROPERITONEUM: No free air. Trace free fluid is seen in the pelvis. No significant lymphadenopathy. VESSELS: Within normal limits. ABDOMINAL WALL: Mild body wall anasarca. BONES: There are erosive changes in the right L5-S1 facet joint concerning for septic arthritis, unchanged. The visible osseous structures are intact. Procedure Note Isra Márquez MD - 08/25/2024 CT CHEST ABDOMEN PELVIS W CONT DATE: 08/24/2024 11:40 PM CLINICAL INFORMATION: strep pneumonia bacteremia now with back osteomyelitis. ? other primary source of infection.. See Reason for Exam COMPARISON: MR lumbar spine from an outside facility on 08/21/2024 and 08/14/2024. MR thoracic spine from an outside facility on 08/21/2024. PROCEDURE: Axial images were obtained from the thoracic inlet through the upper abdomen following the administration of 80 mL intravenous contrast. Additional axial images were subsequently obtained from the lung bases through the ischial tuberosities. Oral contrast was not administered. Multiplanar reformatted images were reviewed. The examination was performed with the adjustment of mA according to the patient size and/or the use of Iterative Reconstruction Technique. FINDINGS: CHEST - HEART/VESSELS: The heart size is normal without pericardial effusion. No significant coronary atherosclerotic calcifications are seen. Left three-vessel aortic arch. The ascending aorta and main pulmonary artery are nondilated. MEDIASTINUM AND MARISSA: No significant lymphadenopathy. CHEST WALL AND LOWER NECK: Left thyroid nodule measures up to 3.3 x 3.2 cm. LUNGS/AIRWAYS/PLEURA: Small bilateral pleural effusions with associated consolidations. A few nodular opacities are seen in the right lower lobe. No pneumothorax. No suspicious pulmonary nodule. The central airways are patent. BONES: No aggressive osseous lesion. The visible osseous structures are intact. ABDOMEN AND PELVIS - LIVER: A subcentimeter low attenuating hepatic lesion is too small to characterize but likely represents a hepatic cyst. GALLBLADDER: Within normal limits. BILE DUCTS: Within normal limits. PANCREAS: Mild inflammatory changes are seen adjacent to the pancreatic head. SPLEEN: Within normal limits. ADRENALS: Within normal limits. KIDNEYS/URETERS: Symmetric perinephric stranding is nonspecific. No suspicious renal lesion. No renal calculus or hydronephrosis. BLADDER: A Ramirez catheter terminates within a nondistended urinary bladder. Gas in the urinary bladder is likely secondary to instrumentation. REPRODUCTIVE ORGANS: Within normal limits. BOWEL: The stomach is distended with ingested material. No wall thickening or obstruction. Normal appendix. PERITONEUM/RETROPERITONEUM: No free air. Trace free fluid is seen in the pelvis. No significant lymphadenopathy. VESSELS: Within normal limits. ABDOMINAL WALL: Mild body wall anasarca. BONES: There are erosive changes in the right L5-S1 facet joint concerning for septic arthritis, unchanged. The visible osseous structures are intact. IMPRESSION: 1. Small bilateral pleural effusions with associated consolidations and right lower lobe nodular opacities. The lower lobe consolidations could represent passive atelectasis or pneumonia. Right lower lobe nodular opacities concerning for pneumonia. 2. Mild inflammatory changes seen adjacent to the pancreatic head. Correlate with laboratory values. 3. Symmetric perinephric stranding is nonspecific, however ascending urinary tract infection cannot be excluded. Correlate with urinalysis. 4. Erosive changes in the right L5-S1 facet joint concerning for septic arthritis, unchanged. 5. Trace free fluid in the pelvis. 6. Indeterminate left thyroid nodule measuring up to 3.3 cm. Recommend nonemergent thyroid ultrasound for further characterization. DICTATION LOCATION: Location 1 - [facility] Mehdi Claire MD CT ORDERABLES Final Result * BLOOD CULTURE (08/24/2024 8:58 PM CDT) Only the most recent of2 resultswithin the time period is included. BLOOD CULTURE No growth 08/29/2024 9:[address] [facility] Blood (Peripheral) Venipuncture / Unknown 08/24/2024 8:58 PM CDT 08/24/2024 9:[address] [facility] - 08/29/2024 9:39 PM CDT Specimen processed with suboptimal blood volume collected. Mehdi Claire MD MICROBIOLOGY - GENERAL ORDERABL ES Final Result Performing Organization Address [facility]/ZIP Co de Phone Number [facility]# [id number] [address], [place] [address] * (ABNORMAL) SEDIMENTATION RATE (08/24/2024 8:52 PM CDT) Pathologist [facility] ESR (SEDIMENTATION RATE) 103(H) <=20 mm/Hr 08/24/2024 9:[address] [facility] Blood Venipuncture / Unknown 08/24/2024 8:52 PM CDT 08/24/2024 9:06 PM CDT Mehdi Claire MD HEMATOLOGY ORDERABLES Final Res ult [facility]# [id number] [address] [place] [address] * (ABNORMAL) PROTIME-INR (08/24/2024 8:52 PM CDT) PROTIME 15.3(H) 12.7 - 15.1 Seconds 08/24/2024 9:[address] [facility] INR 1.2(H) 0.9 - 1.1 08/24/2024 9:[address] [facility] Blood Venipuncture / Unknown 08/24/2024 8:52 PM CDT 08/24/2024 9:06 PM CDT [facility] - 08/24/2024 9:26 PM CDT INR Therapeutic Range: Adult: ?? 2.0 - 3.0 for pulmonary embolism or prophylaxis against venous ?thrombosis or systemic embolization. 2.0 - 3.0 for patients with tissue heart valves. 2.5 - 3.5 for patients with mechanical heart valves or post FL. Pediatric ??(12 years and under): 1.5 - 3.0 Although the target range in children is not well established, ?INR values of 1.5 - 3.0 are recommended for most patients. ?Higher values have been used in children with prosthetic ?cardiac valves and hereditary clotting disorders. (<3 days) therapeutic ranges have not been established. Mehdi Claire MD HEMATOLOGY ORDERABLES Final Res ult [facility] [employer] [facility]# [id number] [address] [place] [address] * (ABNORMAL) HEMOGLOBIN A1C (08/24/2024 8:52 PM CDT) HEMOGLOBIN A1C 8.8(H) <5.7 % 08/24/2024 9:29 PM CDT [facility] LABORATORY [facility] EST. AVG GLUCOSE, A1C 206 mg/dL 08/24/2024 9:29 PM CDT [facility] LABORATORY [facility] Blood Venipuncture / Unknown 08/24/2024 8:52 PM CDT 08/24/2024 9:06 PM CDT [facility] LABORATORY [facility] - 08/24/2024 9:29 PM CDT HGB A1C INTERPRETATION NORMAL: ? <5.7% PRE-DIABETES: 5.7 - 6.4% DIABETES: ? 6.5% OR GREATER Mehdi Claire MD CHEMISTRY ORDERABLES Final Resu lt Performing Organization Address [facility] de Phone Number [facility] LABORATORY SERVICES [facility]# [id number] [address] [place] [address] * VANCOMYCIN LEVEL RANDOM (08/24/2024 8:52 PM CDT) Pathologist [facility] VANCOMYCIN, RANDOM 14.4 See Comment ug/mL 08/24/2024 9:53 PM CDT [facility] LABORATORY SERVICES [facility] Blood Venipuncture / Unknown 08/24/2024 8:52 PM CDT 08/24/2024 9:06 PM CDT [facility] LABORATORY SERVICES - [facility] - 08/24/2024 9:53 PM CDT Vancomycin Trough Therapeutic Range = 10.0 - 20.0 ug/mL Vancomycin Trough Toxic Level = >25.0 ug/mL Mehdi Claire MD CHEMISTRY ORDERABLES Final Resu Performing Organization Address [facility] de Phone Number [facility] [id number] [address] [place] [address] * (ABNORMAL) COMPREHENSIVE METABOLIC PANEL (08/24/2024 8:52 PM CDT) SODIUM 129(L) 136 - 145 mmol/L 08/24/2024 9:52 PM CDT [facility] LABORATORY SERVICES [facility] POTASSIUM 4.5 3.5 - 5.0 mmol/L 08/24/2024 9:52 PM CDT [facility] LABORATORY SERVICES [facility] CHLORIDE 97(L) 98 - 107 mmol/L 08/24/2024 9:52 PM CDT [facility] LABORATORY SERVICES [facility] CO2 23 22 - 29 mmol/L 08/24/2024 9:52 PM CDT [facility] LABORATORY SERVICES - [facility] CALCIUM 8.1(L) 8.6 - 10.2 mg/dL 08/24/2024 9:52 PM [facility] LABORATORY [facility] - . [facility] BUN 16 6 - 20 mg/dL 08/24/2024 9:52 PM [facility] CREATININE 0.86 0.67 - 1.17 mg/dL 08/24/2024 9:52 PM [facility] GLUCOSE 174(H) 74 - 99 mg/dL 08/24/2024 9:52 PM [facility]. [facility] TOTAL PROTEIN 5.9(L) 6.7 - 8.6 g/dL 08/24/2024 9:52 PM [facility] ALBUMIN 2.4(L) 3.5 - 5.2 g/dL 08/24/2024 9:52 PM [facility] LABORATORY [facility] BILIRUBIN TOTAL 0.4 0.3 - 1.2 mg/dL 08/24/2024 9:52 PM [facility] ALKALINE PHOSPHATASE 72 40 - 129 U/L 08/24/2024 9:52 PM [facility] AST 19 <41 U/L 08/24/2024 9:52 PM [facility] ALT 14 <42 U/L 08/24/2024 9:52 PM [facility] GFR >60 >=60 mL/min/1.7 3 sq meter 08/24/2024 9:52 PM [facility] Comment:eGFR calculated with 2020 CKD-EPI equation. Vegetarian diet, extremely high or low muscle mass, and may affect results. Cystatin C with Glomerular Filtration Rate is a suitable alternative for these patients. ANION GAP 9 8 - 16 mmol/L 08/24/2024 9:52 PM [facility] [employer] [facility] Blood Venipuncture / Unknown 08/24/2024 8:52 PM CDT 08/24/2024 9:06 PM [facility] LABORATORY [facility] - 08/24/2024 9:52 PM CDT Samples containing indocyanine green cause interferences on Total and/or Direct Bilirubin and must not be measured. us Mehdi Claire MD CHEMISTRY ORDERABLES Final Resu lt [facility]# [id number] [address] [place] [address] from Last 3 Months Insurance [facility] CHOICE [id number] MEDICAID [place] Advance Directives For more information, please contact: [phone] * Full Code (Latest Code Status on File) Date Activated Date Inactivated Comments 08/24/2024 8:03 PM 09/07/2024 3:51 PM Care Teams Chief Passenger Ship Steward/Stewardess Relationship Specialty Start Date End Date Luc Elena MD [address] [place] [address] [phone] PCP - General Family Practice 08/25/24
--- OUTSIDE RECORDS SUMMARY | 2024-11-22 08:37 | XMS_ITS | Patient Health Summary ---
Author Organization [facility] Address [address] [place] [address] Care Team Providers Care Salon Assistant Name Role Phone Unavailable Primary Care Provider Unavailabl e Note from [facility],non-owned Affiliates and Associated Physician Practices is amultiple site organization consisting of ambulatory clinics and hospital sitesin [place], [place], [place] and [place]. This disclosure is being madepursuant to the Care Everywhere program and may not contain all information available regarding this patient. Last updated 18.[facility] Active Problems Problem Noted Date Diagnosed Date Septic arthritis of vertebra, due to unspecified organism 08/24/2024 Social History Tobacco Use Types Packs/Day Years Used Date Smoking Tobacco: Never Assessed Sex and Gender Information Value Date Recorded Sex Assigned at Not on file Gender Identity Not on file Sexual Orientation Not on file
--- OUTSIDE RECORDS SUMMARY | 2024-11-22 08:37 | XMS_ITS | Continuity of Care Document ---
Author Organization [facility] Address [address] [place] [address] [address] [place] [address] Phone Care Team Providers Care Rubber Gasket Inspector Trimmer Name Role Phone Mayco MS, OTR/L, CHT, Juvencio Unavailable Yaima vailable Procedures Procedure Date Progress Note THERAPEUTIC EXERCISES Mallet 2 splints Coban 1 Inch Advance Directives Directive Yes / No Effective Date File Name No Information Encounters Encounter Description Practice Location Reason(s) For Visit Diagnoses Date Provider Providers Copied on Encounter [facility], [address] [place], [place] [address], [place], [place], [id number], tel:[phone] [place] Pain in left handOther specified soft tissue disordersMuscle weakness (generalized)Sti ffness of left hand, not elsewhere classifiedMallet finger of left finger(s) 6 Mayco Henning. [address] [facility], [address], [place], [facility], . tel:[phone] Referring Provider: Romero Mclian, [address] [facility] [address], [place] [address]. tel:[phone] Family History Family Member Type Diagnosis Age At Onset No Information Payers Payer name Insurance type Covered constitution party ID Authoriza tion(s) [employer] [id number] [employer] SP [id number] Social History Type Description Quantity Date Captured Comments Sex Male Smoking Status No Information Chief Complaint And Reason For Visit No Information Reason For Referral Reason For Referral No Information History Of Present Illness Encounter Date Complaint History Of Prese nt Illness No Information Functional Status Date Functional Assessmen t No Information Instructions Date Instruction Additional Infor mation No Information Assessments Type Assessment Date No Information Patient Care Teams Name Effective Dates (start - stop) Status Members No Information
--- OUTSIDE RECORDS SUMMARY | 2024-11-22 08:37 | XMS_ITS | Clinical Summary ---
Author Organization [facility] Address [address] [facility] [place] [address] Care Team Providers Care Ged Teacher Name Role Phone Unavailable Primary Care Provider Unavailabl e Source Comments [facility],non-owned Affiliates and Associated Physician Practices is amultiple site organization consisting of ambulatory clinics and hospital sitesin [place], [place], [place] and [place]. This disclosure is being madepursuant to the Care Everywhere program and may not contain all information available regarding this patient. Last updated 18.[facility] Active Problems Problem Noted Date Diagnosed Date Septic arthritis of vertebra, due to unspecified organism 08/24/2024 Encounters Date Type Department Care Team Description 08/24/2024 Telephone [facility] INTERNAL MED [address] [place] [address] [phone] Nona Dorman MD Hospitalization from Last 3 Months Social History Tobacco Use Types Packs/Day Years Used Date Smoking Tobacco: Never Assessed Sex and Gender Information Value Date Recorded Sex Assigned at Not on file Gender Identity Not on file Sexual Orientation Not on file Plan of Treatment Health Maintenance Due Date Last Done Comments COLOGUARD (AGES 45-75) - COL ON CA SCREENING 1974 COLON MONITORING 1974 COLONOSCOPY - COLON CA SCREENING 1974 CT COLONOGRAPHY - COLON CA SCREENING 1974 Colorectal Cancer Screening 1974 FIT - COLON CA SCREENING 1974 FLEX SIG - COLON CA SCREENING 1974 LIPID TESTING 1974 HIV SCREENING 1989 HEPATITIS C SCREENING 04/07/1992 DTAP/TDAP/TD VACCINES (1 - Tdap) 1993 HEPATITIS B VACCINE (1 of 3 - 19+ 3-dose series) 1993 PNEUMOCOCCAL VACCINE 50+ (1 of 1 - PCV) 2024 ZOSTER VACCINE (1 of 2) 2024 COVID-19 VACCINE ( - 2023-2 5 season) 2024 INFLUENZA VACCINE (#1) 2024 DEPRESSION SCREENING 10/31/2024 HIB VACCINE Aged Out No longer eligi ble based on patient's age to complete this topic HPV VACCINE Aged Out No longer eligi ble based on patient's age to complete this topic MENINGOCOCCAL (Group B) VACCINE Aged Out No longer eligible based on patient's age to complete this topic MENINGOCOCCAL VACCINE Aged Out No jaime rosana eligible based on patient's age to complete this topic PNEUMOCOCCAL VACCINE Aged Out No long er eligible based on patient's age to complete this topic
--- OUTSIDE RECORDS SUMMARY | 2024-11-22 08:37 | XMS_ITS | Referral Summary ---
Author Organization [facility] Address [address] [facility] [place] [address] Care Team Providers Care Schedule Clerk Name Role Phone Unavailable Primary Care Provider Unavailabl e Source Comments [facility],non-owned Affiliates and Associated Physician Practices is amultiple site organization consisting of ambulatory clinics and hospital sitesin [place], [place], [place] and [place]. This disclosure is being madepursuant to the Care Everywhere program and may not contain all information available regarding this patient. Last updated 18.[facility] Encounters Date Type Department Care Team Description 08/24/2024 Telephone [facility] INTERNAL MED [address] [place] [address] Nona Dorman MD Hospitalization from Last 3 Months Active Problems Problem Noted Date Diagnosed Date Septic arthritis of vertebra, due to unspecified organism 08/24/2024 Social History Tobacco Use Types Packs/Day Years Used Date Smoking Tobacco: Never Assessed Sex and Gender Information Value Date Recorded Sex Assigned at Not on file Gender Identity Not on file Sexual Orientation Not on file Plan of Treatment Not on file
--- OUTSIDE RECORDS SUMMARY | 2024-11-22 08:37 | XMS_ITS | Encounter Summary ---
Author Organization [facility] Address [address] [facility] [place] [address] Care Team Providers Care Mixing Place Supervisor Name Role Phone Luc Elena MD Primary Care Provider Reason for Referral * Home Infusion (Routine) - Closed Specialty Diagnoses / Procedures Referred By Contac t Referred To Contact Diagnoses Epidural abscess Procedures VA OFFICE/OUTPATIENT ESTABLISHED MOD MDM 30 MIN VA OFFICE/OUTPATIENT NEW MODERATE MDM 45 MINUTES Haris Michaels MD [address] [place] [address] Phone: tel: fax: [facility] [address] [place] [address] [place] [address] Phone: tel: Referral ID Status Reason Start Date Expiration Date Visits Re quested Visits Authorized [id number] Closed 08/28/2024 08/28/2025 1 1 Encounter Details Date Type Department Care Team (Late st Contact Info) Description 08/28/2024 Chart Note [facility] - [address] [place] [address] Romero Montez, RN Social History Tobacco Use Types Packs/Day Years Used Date Smoking Tobacco: Never Assessed Feeling Safe Answer Date Recorded Are you [...] st Contact Info) Description 12/04/2024 9:45 AM [facility] Office Visit 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
== END 2024-11-17 08:32 | disposition home or self-care (01) ==
PROVIDERS: PCP Family Medicine
DX: G06.2 Extradural and subdural abscess, unspecified (principal); M47.894 Other spondylosis, thoracic region; M47.896 Other spondylosis, lumbar region
CPT/HCPCS: 72157; 72158; A9577

== ENCOUNTER 2025-07-15 13:23 | Outpatient (RCR) | payer BC, SELFPAY ==
--- NOTE | 2025-07-15 13:44 | WNDPHOTO ---
PHOTO ONLY - See Nursing Notes and/ or assessments for documentation.
[2025-07-15 14:09] VITALS: BMI 34.7
== END 2025-09-30 12:17 | disposition home or self-care (01) ==
LOC: ANHWOC 13:23
PROVIDERS: PCP Family Medicine
DX: L97.519 Non-pressure chronic ulcer of other part of right foot with unspecified severity (principal); L97.529 Non-pressure chronic ulcer of other part of left foot with unspecified severity; E08.621 Diabetes mellitus due to underlying condition with foot ulcer; Z48.00 Encounter for change or removal of nonsurgical wound dressing
CPT/HCPCS: 99213; G0463